=== PATIENT | female | born 1975 ===

== ENCOUNTER → 2019-10-19 12:28 | Outpatient (CLI) | payer MEDICARE, MEDICAID, SELFPAY ==
--- NOTE | 2019-10-19 12:36 | DI.RAD.S_ITS ---
PROCEDURE: XR CERVICAL SPINE 4V OR 5V INDICATIONS: cervical radiculopathy TECHNIQUE: 5 views of the cervical spine acquired. COMPARISON: None. FINDINGS: Bones: No fractures or dislocations to the T4 level. Oblique images demonstrate no significant bony foraminal stenoses. Straightening of cervical lordosis which may be due to patient positioning and/or concurrent muscle spasms. Multilevel cervical spondylitic changes throughout the imaged spine. Soft tissues: No prevertebral soft tissue swelling. Left -sided tunneled port device is in place. Apparent tubing/catheter noted along the right neck and right upper chest. Surgical clips noted in the lower right neck. IMPRESSION: 1. Cervical spine without acute fracture or dislocation. 2. Multilevel cervical spondylosis. No significant neural foraminal narrowing on the oblique views. 3. Mild straightening of normal cervical lordosis likely related to positioning and/or concurrent muscle spasms. Dictated by: Travis Padilla M.D. on 10/19/2019 at 18:07 Approved by: Travis Padilla M.D. on 10/19/2019 at 18:09
== END ==
PROVIDERS: PCP Family Medicine; Referring Provider Family Medicine; Visit Provider Physical Medicine & Rehabilitation
DX: M47.22 Other spondylosis with radiculopathy, cervical region (principal)
CPT/HCPCS: 72050

== ENCOUNTER → 2020-05-24 09:53 | Outpatient (CLI) | payer MEDICARE, MEDICAID, SELFPAY ==
--- NOTE | 2020-05-24 | DI.MRI.S_ITS ---
PROCEDURE: MR SHOULDER RT W CON INDICATIONS: PAIN IN RIGHT SHOULDER TECHNIQUE: After the administration of 12 mL of dilute intra-articular Gadolinium contrast, oblique coronal T1 and T2 spin echo with fat saturation, oblique sagittal T1 spin echo with and without fat saturation, oblique sagittal T2 fast spin echo with fat saturation, axial T1 spin echo with fat saturation through the shoulder. COMPARISON: None. FINDINGS: Image quality: Excellent. Rotator cuff: Tendinosis and low-grade articular and bursal surface partial thickness tear involving distal supraspinatus at its insertion on the humeral head is seen extending to musculotendinous junction. Distal infraspinatus tendinosis at its insertion on the humeral head is also seen. Distal subscapularis tendon is grossly intact. No full-thickness rotator cuff tendon rupture. No significant rotator cuff muscle atrophy on sagittal images. Bones and bursae: No bone marrow contusions or fractures. Mild acromioclavicular joint osteoarthritic changes are seen with small inferior osteophyte formation depressing the musculotendinous junction of supraspinatus. The acromion demonstrates conventional anatomy, without an os acromiale. Capsule and soft tissues: There is signal abnormality and contrast extension in superior anterior labrum at 12 to 1 o'clock position. The glenohumeral ligaments appear intact. The long head of the biceps tendon demonstrates normal location and morphology. The rotator interval appears normal, without fibrosis. The coracohumeral ligament is of normal thickness. No intra-articular bodies. IMPRESSION: 1. Tendinosis and low-grade articular and bursal surface partial thickness tear involving distal supraspinatus extending to musculotendinous junction. Distal infraspinatus tendinosis. No full-thickness rotator cuff tendon rupture. 2. Mild acromioclavicular joint osteoarthritis. No fracture or dislocation. 3. Suggestion of focal superior anterior labral tear at 12 to 1 o'clock position. Dictated by: Anupam Deras M.D. on 05/24/2020 at 14:40 Approved by: Anupam Deras M.D. on 05/24/2020 at 15:37
--- NOTE | 2020-05-24 | DI.RAD.S_ITS ---
PROCEDURE: FL SHOULDER INJECTION MR/CT RT INDICATIONS: PAIN IN RIGHT SHOULDER COMPARISON: None. TECHNIQUE: The indications, alternatives, benefits, risks, and complications of the procedure were explained to the patient. Written informed consent was obtained and placed in the chart. The shoulder was examined fluoroscopically and a site for needle placement chosen for entry into the glenohumeral joint from an anterior approach. The skin was prepped and draped in a sterile fashion, and 1% lidocaine infiltrated from skin down to joint capsule. A spinal needle was inserted into the glenohumeral joint, and a small amount of iodinated contrast media injected to confirm intra-articular placement of the needle tip. This was followed by approximately 12 mL dilute solution of a gadolinium containing MR contrast agent. The needle was removed and a dressing was applied. The patient was given postprocedural instructions and sent to the MR suite for MR imaging. FINDINGS: A single fluoroscopic spot image demonstrates intra-articular location of injected iodinated contrast. IMPRESSION: Successful fluoroscopically guided administration of dilute Gadolinium solution into the shoulder joint for MR arthrogram. Dictated by: Donald Greenberg M.D. on 05/24/2020 at 13:45 Approved by: Donald Greenberg M.D. on 05/24/2020 at 13:45
== END ==
PROVIDERS: PCP Family Medicine; Referring Provider Orthopaedic Surgery; Visit Provider Orthopaedic Surgery
DX: S46.011A Strain of muscle(s) and tendon(s) of the rotator cuff of right shoulder, initial encounter (principal); M19.011 Primary osteoarthritis, right shoulder
CPT/HCPCS: 23350; 73222; 77002

== ENCOUNTER 2020-08-18 14:20 | Emergency (ER) | payer MEDICARE, MEDICAID, SELFPAY ==
[2020-08-18] VITALS (26 sets, daily range): BP systolic 122–144; BP diastolic 59–91; PULSE 82–125; RESP 12–43; TEMP 36.7; O2SAT 94–99; BMI 43.7
--- NOTE | 2020-08-18 15:00 | DI.CT.S_ITS ---
PROCEDURE: CT ABDOMEN PELVIS WO CON INDICATIONS: right flank/left lower abd pain TECHNIQUE: Noncontrast 5 mm thick sections acquired from the diaphragms to the symphysis. 5 mm coronal and sagittal reformats were then performed. For radiation dose reduction, the following was used: automated exposure control, adjustment of mA and/or kV according to patient size. COMPARISON: Outside Facility, RG, CT HEAD W/O CONTRAST, 12/23/2019, 14:23. FINDINGS: Image quality: Excellent. ABDOMEN: Lung bases: Lung bases are clear. Heart size is normal. Solid organs: Liver is normal in size. Gallbladder has been previously resected . Pancreas is normal in contours. Spleen is normal in size. No adrenal nodules. Kidneys are normal in size, without hydronephrosis or nephrolithiasis. Several small nonobstructive calculi are present within the collecting system of the kidneys, right greater than left, none of which are larger than 3 mm. Peritoneum and bowel: Unenhanced bowel loops demonstrate normal wall thickness and caliber. No free fluid or air. Nodes and vessels: No retroperitoneal or mesenteric adenopathy by size criteria. Aorta and inferior vena cava are normal in caliber. Miscellaneous: No ventral hernias. What appears to be an abandoned catheter lies within the fatty soft tissues of the low right flank area and traversing anteriorly to the right lower quadrant where it enters the peritoneal space. No associated inflammatory change. Additionally, descending from the upper imaging margin is a 2nd catheter like device that traverses from the lower chest into the right paramedian abdomen, and then the peritoneal space, likely a ventriculoperitoneal shunt. PELVIS: Genitourinary: Bladder wall thickness is normal. Miscellaneous: No inguinal hernias or adenopathy. Bones: No suspicious bony lesions. No vertebral body compression fractures. IMPRESSION: A source of current abdominal/pelvic pain is not seen. Apparent peritoneal shunt and then also a apparent abandoned catheter are seen over the lower chest, abdomen and pelvis. These show no sign of inflammation along their borders. Dictated by: Donald Greenberg M.D. on 08/18/2020 at 15:27 Approved by: Donald Greenberg M.D. on 08/18/2020 at 15:31
[2020-08-18 16:01] LABS: Add Manual Diff / Slide Review NO; Basophils Absolute Auto 0 /uL (0-100); Basophils Percent Auto 0.3 % (0-2); Eosinophils Absolute Auto 100 /uL (0-450); Eosinophils Percent Auto 1.1 % (2-4); Hematocrit 35.8 % (36-46); Hemoglobin 12.2 g/dL (12.0-16.0); Lymphocytes Absolute Auto 2400 /uL (1100-4500); Lymphocytes Percent Auto 23.5 % (25-40); Mean Corpuscular HGB Conc 34.2 % (30-36); Mean Corpuscular Hemoglobin 30.1 PG (26-34); Mean Corpuscular Volume 87.9 fL (80-100); Monocytes Absolute Auto 500 /uL (0-900); Neutrophils Absolute Auto 7300 /uL (1500-7000); Neutrophils Percent Auto 70.1 % (50-75); Platelet Count 290 X10^3/uL (150-400); Red Blood Cell Count 4.07 X10^6/uL (4.0-5.2); Red Cell Distribution Width 13.2 % (11.6-14.8); White Blood Cell Count 10.4 X10^3/uL (4.5-11.0)
[2020-08-18 16:07] LABS: Prothrombin Time 11.5 SECONDS (10.1-12.7)
[2020-08-18 16:10] LABS: PTT Partial Thromboplastin Tim 31 SECONDS (26.4-36.2)
[2020-08-18 16:15] LABS: Alanine Aminotransferase 19 IU/L (<35); Albumin Globulin Ratio 1.1 (1.0-2.8); Alkaline Phosphatase 148 U/L (38-126); Aspartate Aminotransferase 18 IU/L (14-36); BUN Creatinine Ratio 15.4 (6-22); Bilirubin Total 0.3 mg/dL (0.2-1.3); Blood Urea Nitrogen 10 mg/dL (7-17); Calcium 8.9 mg/dL (8.4-10.2); Carbon Dioxide 22 mmol/L (22-32); Chloride 105 mmol/L (98-107); Estimated Glomerular Filt Rate > 60.0 mL/min (>60); Globulin 3.5 g/dL (1.7-4.1); Glucose 397 mg/dL (70-100); HEMOLYSIS < 15 (0-50); Lactate (Lactic Acid) 3.2 mmol/L (0.7-2.1); Lipase 49 U/L (23-300); Sodium 136 mmol/L (137-145); Total Protein 7.5 g/dL (6.3-8.2)
[2020-08-18] MEDS: SODIUM CHLORIDE 0.9% 1,000 ML 1000 ML IV ×2 (16:20→21:33)
[2020-08-18] MEDS: ACETAMINOPHEN 325 MG TABLET 650 MG PO (16:21)
[2020-08-18] MEDS: diphenhydrAMINE 50 MG/ML VIAL IV (17:44)
[2020-08-18 17:56] LABS: Reflexed Lactate in 2 Hours Y
[2020-08-18 18:52] LABS: Lactate 2HR (Lactic Acid Rflx) 2.4 mmol/L (0.7-2.1)
--- NOTE | 2020-08-18 19:16 | ED_ITS ---
HPI - Back Pain/Injury General Chief Complaint: Urogenital-Female Stated Complaint: Right Back Flank Pain, Left Pelvic Pain Time Seen by Provider: 08/18/20 16:18 Source: patient History of Present Illness HPI Narrative: Patient complains onset right lower back pain upper lumbar radiating to the right pelvis at 11:00 a.m. this morning has been intermittent infrequent since then. No bowel or bladder incontinence. No numbness tingling weakness to the legs. Prior history for shots in the lumbar area. No prior history of back surgery otherwise. Had tooth infection about 4 weeks ago and completed antibiotics. Has been doing well. Denies any nausea vomiting or diarrhea. No urinary complaints. Heart rate noted. Patient states due to pain. However after reassessment and on monitor heart rate does resume back down to 95. Which she states is her baseline. Otherwise no recent illness fever chills cough cold or congestion. Right lower back pain radiates to the right lower quadrant as well as left lower quadrant. History kidney stones. Patient states feels similar to that. Related Data Home Medications Medication Instructions Recorded Confirmed acetaminophen 500 mg tablet 500 mg PO Q6H PRN 07/04/20 (Tylenol Extra Strength) ascorbic acid (vitamin C) 500 mg 500 mg PO DAILY 07/04/20 chewable tablet diclofenac sodium 1 % topical gel 2 g TOPICAL QID 07/04/20 (Arthritis Pain (diclofenac)) diltiazem HCl 240 mg 240 mg PO DAILY 07/04/20 capsule,extended release 24 hr (Cardizem CD) diphenhydramine HCl 25 mg capsule 25 mg PO QID PRN 07/04/20 (Benadryl) enoxaparin 120 mg/0.8 mL 120 mg SUBCUT DAILY 07/04/20 subcutaneous syringe erenumab-aooe 140 mg/mL 140 mg SUBCUT QMONTH 07/04/20 subcutaneous auto-injector (Aimovig Autoinjector) famotidine 20 mg tablet (Pepcid) 20 mg PO DAILY 07/04/20 furosemide 40 mg tablet (Lasix) 40 mg PO DAILY 07/04/20 hydrocodone 10 mg-acetaminophen 1 tab PO Q4-6H PRN 07/04/20 325 mg tablet hydroxyzine HCl 25 mg tablet 25 mg PO QID PRN 07/04/20 lamotrigine 100 mg tablet 100 mg PO DAILY 07/04/20 (Lamictal) lorazepam 0.5 mg tablet 0.5 mg PO DAILY PRN 07/04/20 metformin 1,000 mg tablet 1,000 mg PO BID 07/04/20 (Glucophage) omeprazole 40 mg capsule,delayed 40 mg PO DAILY 07/04/20 release ondansetron 4 mg disintegrating 4 mg PO Q8H 07/04/20 tablet sennosides 8.6 mg-docusate sodium 1 tab-cap PO BEDTIME 07/04/20 50 mg tablet (Senna with Docusate Sodium) sitagliptin 100 mg tablet (Januvia) 100 mg PO DAILY 07/04/20 tamsulosin 0.4 mg capsule (Flomax) 0.4 mg PO DAILY 07/04/20 tizanidine 4 mg capsule 4 mg PO BID PRN 07/04/20 topiramate 200 mg tablet (Topamax) 400 mg PO BID 07/04/20 venlafaxine 150 mg 150 mg PO DAILY 07/04/20 capsule,extended release 24 hr (Effexor XR) Allergies Allergy/AdvReac Type Severity Reaction Status Date / Time clindamycin Allergy Severe Anaphylaxis Verified 08/18/20 14:29 hylan G-F 20 Allergy Severe Anaphylaxis Verified 08/18/20 14:29 ibuprofen Allergy Severe SOB,RASH Verified 08/18/20 14:29 Iodinated Contrast Media Allergy Severe SOB-HIVES Verified 08/18/20 14:29 iothalamic acid Allergy Severe SOB,HIVES Verified 08/18/20 14:29 iron dextran complex Allergy Severe Anaphylaxis, Verified 08/18/20 14:29 HIVES meclizine Allergy Severe Palpitation Verified 08/18/20 14:29 s shrimp Allergy Severe Anaphylaxis Verified 08/18/20 14:29 valproic acid Allergy Severe Anaphylaxis Verified 08/18/20 14:29 venom-honey bee Allergy Severe Anaphylaxis Verified 08/18/20 14:29 adhesive tape Allergy Intermediate rash Verified 08/18/20 14:29 amoxicillin [From Augmentin] Allergy Intermediate Hives Verified 08/18/20 14:29 aspirin Allergy Intermediate rash Verified 08/18/20 14:29 clavulanic acid Allergy Intermediate Hives Verified 08/18/20 14:29 [From Augmentin] codeine Allergy Intermediate Hives Verified 08/18/20 14:29 divalproex sodium Allergy Intermediate Hives Verified 08/18/20 14:29 gabapentin Allergy Intermediate Swelling Verified 08/18/20 14:29 of Lip/Tongue/Throat ketorolac Allergy Intermediate Hives Verified 08/18/20 14:29 leuprolide Allergy Intermediate Hives Verified 08/18/20 14:29 levalbuterol Allergy Intermediate Hives Verified 08/18/20 14:29 NSAIDS (Non-Steroidal Allergy Intermediate Hives Verified 08/18/20 14:29 Anti-Inflamma promethazine Allergy Intermediate Hives Verified 08/18/20 14:29 tapentadol Allergy Intermediate rash/itchy Verified 08/18/20 14:29 vancomycin Allergy Intermediate Hives, Verified 08/18/20 14:29 ITCHING IRON SUCROSE Allergy Intermediate Hives,SOB Uncoded 08/18/20 14:29 Review of Systems Review of Systems Narrative: GENERAL: Denies chills, fatigue, malaise, fever, sweats. HEENT: Denies sinus pain, ear pain, sore throat RESPIRATORY: Denies dyspnea, cough CARDIOVASCULAR: Denies chest pain, palpitations GASTROINTESTINAL: Denies nausea, vomiting, complains of left lower quadrant pain abdominal pain : Denies dysuria, frequency, hematuria MUSCULOSKELETAL: Complains of radiating right lower back pain to the abdomen SKIN: Denies rash, skin lesions NEUROLOGIC: Denies weakness, numbness ROS Unobtainable: All systems reviewed & are unremarkable except as noted in HPI and below Patient History Medical History Cervical spondylosis Chronic pain syndrome Impingement syndrome of right shoulder Pseudotumor cerebri Surgical History H/O brain surgery H/O oophorectomy H/O thyroidectomy History of cholecystectomy Hx of appendectomy S/P DIRECTOR OF CODING shunt Family History Mother Diabetes mellitus Hypertension Arthritis Thrombophilia Sister Arthritis Hypertension Depression Social History Smoking Status: Never smoker Smoking Status: Never smoker Exam Narrative Exam Narrative: GENERAL: in no distress, not toxic not dyspneic HEAD: Normocephalic. EYES: Pupils equal round No scleral icterus. No injection no discharge ENT: Mucous membranes moist. NECK: Trachea midline. CARDIOVASCULAR: Regular rate and rhythm without murmurs RESPIRATORY: Clear to auscultation. Breath sounds equal bilaterally. No wheezes, rales, or rhonchi. GASTROINTESTINAL: Abdomen soft, non-tender EXTREMITIES: No gross deformities. BACK: Reproducible lower midline tenderness of the lumbar spine at the surgical scars. On palpation radiates to the right lower quadrant abdomen. No pain with movement. NEURO: AOx4. SKIN: Warm and dry PSYCH: Not anxious, is cooperative Initial Vital Signs Initial Vital Signs: Vital Signs Temperature 98.1 F 08/18/20 14:24 Pulse Rate 124 H 08/18/20 14:24 Respiratory Rate 18 08/18/20 14:24 Blood Pressure 140/91 H 08/18/20 14:24 Pulse Oximetry 96 08/18/20 14:24 Course Course Course Narrative: No new issues during course of stay. Patient tolerated IV contrast with Benadryl and Decadron supplement very well. Patient states she desires discharge home. However she does not have her home pain medication with her. She has to wait for very 4:00 a.m.. She does have a pain contract. She also has office appointment with primary care provider tomorrow. She inquired about pain medication between now and her [place] ride. She is not driving. Orders Ordered: ED Orders 08/18/20 19:15 CT lumbar spine w con Stat 08/18/20 23:02 Lactate (Lactic Acid) Stat Discontinued Medications Acetaminophen (Acetaminophen 325 Mg Tablet) 650 mg PO NOW ONE Stop: 08/18/20 16:19 Last Admin: 08/18/20 16:21 Dose: 650 mg Documented by: CHIP Dexamethasone (Dexamethasone 10 Mg/Ml Vial) 10 mg IV NOW ONE Stop: 08/18/20 19:15 Last Admin: 08/18/20 19:19 Dose: 10 mg Documented by: CHIP Diphenhydramine HCl (Diphenhydramine 25 Mg Tablet) 50 mg PO NOW ONE Stop: 08/18/20 17:28 Last Admin: 08/18/20 17:45 Dose: Not Given Documented by: CHIP Diphenhydramine HCl (Diphenhydramine 50 Mg/Ml Vial) 50 mg IV NOW ONE Stop: 08/18/20 17:43 Last Admin: 08/18/20 17:44 Dose: 50 mg Documented by: CHIP Diphenhydramine HCl (Diphenhydramine 50 Mg/Ml Vial) 50 mg IV NOW ONE Stop: 08/18/20 19:15 Last Admin: 08/18/20 19:20 Dose: Not Given Documented by: CHIP Diphenhydramine HCl (Diphenhydramine 50 Mg/Ml Vial) 25 mg IV NOW ONE Stop: 08/18/20 23:37 Last Admin: 08/18/20 23:50 Dose: 25 mg Documented by: CHIP Hydromorphone HCl (Hydromorphone 1 Mg Inj) 1 mg IV NOW ONE Stop: 08/18/20 21:18 Last Admin: 08/18/20 21:33 Dose: 1 mg Documented by: CHIP Sodium Chloride (Normal Saline 0.9%) 1,000 mls @ 1,000 mls/hr IV BOLUS ONE Stop: 08/18/20 17:17 Last Infusion: 08/18/20 21:33 Dose: 0 mls/hr Documented by: Admin: 08/18/20 16:20 Dose: 1,000 mls/hr Documented by: CHIP Sodium Chloride (Normal Saline 0.9%) 1,000 mls @ 1,000 mls/hr IV BOLUS ONE Stop: 08/18/20 22:25 Last Infusion: 08/18/20 23:16 Dose: 0 mls/hr Documented by: Admin: 08/18/20 21:33 Dose: 1,000 mls/hr Documented by: CHIP Morphine Sulfate (Morphine 4 Mg/Ml Inj) 4 mg IV NOW ONE Stop: 08/18/20 19:15 Last Admin: 08/18/20 19:20 Dose: 4 mg Documented by: CHIP Morphine Sulfate (Morphine 4 Mg/Ml Inj) 4 mg IV NOW ONE Stop: 08/18/20 23:37 Last Admin: 08/18/20 23:50 Dose: 4 mg Documented by: CHIP Ondansetron HCl (Ondansetron 4 Mg/2 Ml Inj) 4 mg IV NOW ONE Stop: 08/18/20 19:15 Last Admin: 08/18/20 19:19 Dose: 4 mg Documented by: CHIP Reevaluation(s) Reevaluation #1: Pain is controlled. Patient desires discharge home. She has appointment with family doctor tomorrow. Patient states feels much better Time: 23:38 Vital Signs Vital signs: Vital Signs - 8 hr 08/18/20 18:00 08/18/20 18:30 08/18/20 19:30 Pulse Rate 104 H 101 H 99 H Respiratory Rate 13 43 H 14 Blood Pressure Pulse Oximetry 98 98 97 08/18/20 19:58 08/18/20 20:00 08/18/20 20:30 Pulse Rate 101 H 92 H 91 H Respiratory Rate 15 16 20 Blood Pressure 142/63 H 127/60 Pulse Oximetry 98 97 98 08/18/20 20:31 08/18/20 21:00 08/18/20 21:01 Pulse Rate 89 87 86 Respiratory Rate 19 17 18 Blood Pressure 122/59 L 128/81 Pulse Oximetry 98 96 96 08/18/20 21:30 08/18/20 22:00 08/18/20 22:30 Pulse Rate 99 H 84 84 Respiratory Rate 21 18 16 Blood Pressure 132/81 131/89 130/73 Pulse Oximetry 95 96 94 08/18/20 23:00 08/18/20 23:30 08/18/20 23:32 Pulse Rate 82 91 H 95 H Respiratory Rate 15 14 Blood Pressure 134/76 142/70 H Pulse Oximetry 95 97 08/19/20 00:30 08/19/20 00:31 Pulse Rate 86 87 Respiratory Rate 18 16 Blood Pressure 122/65 Pulse Oximetry 96 96 MDM - Back Pain/Injury Differential Diagnosis Differential diagnosis: Likely lumbar radiculopathy, sciatica, strain of lumbar region, renal colic, pyelonephritis, AAA, discitis and other (Renal stone/lumbar abscess) Lab Data Result diagrams: 08/18/20 15:50 08/18/20 15:50 Labs: Lab Results 08/18/20 08/18/20 08/18/20 Range/Units 15:50 15:50 15:50 WBC 10.4 (4.5-11.0) X10^3/uL RBC 4.07 (4.0-5.2) X10^6/uL Hgb 12.2 (12.0-16.0) g/dL Hct 35.8 L (36-46) % MCV 87.9 (80-100) fL MCH 30.1 (26-34) PG MCHC 34.2 (30-36) % RDW 13.2 (11.6-14.8) % Plt Count 290 (150-400) X10^3/uL Neut % (Auto) 70.1 (50-75) % Lymph % (Auto) 23.5 L (25-40) % [place] % (Auto) 5.0 (3-14) % Eos % (Auto) 1.1 L (2-4) % Baso % (Auto) 0.3 (0-2) % Neut # (Auto) 7300 H (5790-2321) /uL Lymph # (Auto) 2400 (3217-3931) /uL [place] # (Auto) 500 (0-900) /uL Eos # (Auto) 100 (0-450) /uL Baso # (Auto) 0 (0-100) /uL PT 11.5 (10.1-12.7) SECONDS INR 1.0 (0.9-1.3) APTT 31 (26.4-36.2) SECONDS Sodium 136 L (137-145) mmol/L Potassium 3.0 L (3.4-5.1) mmol/L Chloride 105 (98-107) mmol/L Carbon Dioxide 22 (22-32) mmol/L BUN 10 (7-17) mg/dL Creatinine 0.65 (0.52-1.04) mg/dL Estimated GFR > 60.0 (>60) mL/min BUN/Creatinine Ratio 15.4 (6-22) Glucose 397 H (70-100) mg/dL Lactate (0.7-2.1) mmol/L Calcium 8.9 (8.4-10.2) mg/dL Total Bilirubin 0.3 (0.2-1.3) mg/dL AST 18 (14-36) IU/L ALT 19 (<35) IU/L Alkaline Phosphatase 148 H (38-126) U/L Total Protein 7.5 (6.3-8.2) g/dL Albumin 4.0 (3.5-5.0) g/dL Globulin 3.5 (1.7-4.1) g/dL Albumin/Globulin Ratio 1.1 (1.0-2.8) Lipase 49 (23-300) U/L 07/01/21 07/01/21 07/01/21 Range/Units 15:50 18:19 23:02 WBC (4.5-11.0) X10^3/uL RBC (4.0-5.2) X10^6/uL Hgb (12.0-16.0) g/dL Hct (36-46) % MCV (80-100) fL MCH (26-34) PG MCHC (30-36) % RDW (11.6-14.8) % Plt Count (150-400) X10^3/uL Neut % (Auto) (50-75) % Lymph % (Auto) (25-40) % [place] % (Auto) (3-14) % Eos % (Auto) (2-4) % Baso % (Auto) (0-2) % Neut # (Auto) (6768-4630) /uL Lymph # (Auto) (1481-9357) /uL [place] # (Auto) (0-900) /uL Eos # (Auto) (0-450) /uL Baso # (Auto) (0-100) /uL PT (10.1-12.7) SECONDS INR (0.9-1.3) APTT (26.4-36.2) SECONDS Sodium (137-145) mmol/L Potassium (3.4-5.1) mmol/L Chloride (98-107) mmol/L Carbon Dioxide (22-32) mmol/L BUN (7-17) mg/dL Creatinine (0.52-1.04) mg/dL Estimated GFR (>60) mL/min BUN/Creatinine Ratio (6-22) Glucose (70-100) mg/dL Lactate 3.2 H 2.4 H 1.2 (0.7-2.1) mmol/L Calcium (8.4-10.2) mg/dL Total Bilirubin (0.2-1.3) mg/dL AST (14-36) IU/L ALT (<35) IU/L Alkaline Phosphatase (38-126) U/L Total Protein (6.3-8.2) g/dL Albumin (3.5-5.0) g/dL Globulin (1.7-4.1) g/dL Albumin/Globulin Ratio (1.0-2.8) Lipase (23-300) U/L Point of Care Testing Test Results Negative Urine Dip Bedside Urine Glucose 1000 mg/dl Bedside Urine Bilirubin - Negative Bedside Urine Ketone - Negative Urine Specific [place] 1.015 Bedside Urine Occult Blood - Negative Bedside Urine pH 6.0 Bedside Urine Protein - Negative Bedside Urine Urobilinogen - Negative Bedside Urine Nitrite - Negative Bedside Urine Leukocytes - Negative Esterase Imaging Data CT scan - abdomen/pelvis: Radiologist's Impression: [address] [id number] Scan ReportSigned Patient: Vanessa Miguel MMR#: [id number]: 1975Acct:[id number]/Sex: 44 / FDate of Service: 08/18/20Loc: EDAccession Number: [id number] Procedure: CT abdomen pelvis wo con Ordering Provider: Rosie Rivera D.O. PROCEDURE: CT ABDOMEN PELVIS WO CON INDICATIONS: right flank/left lower abd pain TECHNIQUE: Noncontrast 5 mm thick sections acquired from the diaphragms to the symphysis. 5 mm coronal and sagittal reformats were then performed. For radiation dose reduction, the following was used: automated exposure control, adjustment of mA and/or kV according to patient size. COMPARISON: Outside Facility, RG, CT HEAD W/O CONTRAST, 12/23/2019, 14:23. FINDINGS: Image quality: Excellent. ABDOMEN: Lung bases: Lung bases are clear. Heart size is normal. Solid organs: Liver is normal in size. Gallbladder has been previously resected . Pancreas is normal in contours. Spleen is normal in size. No adrenal nodules. Kidneys are normal in size, without hydronephrosis or nephrolithiasis. Several small nonobstructive calculi are present within the collecting system of the kidneys, right greater than left, none of which are larger than 3 mm. Peritoneum and bowel: Unenhanced bowel loops demonstrate normal wall thickness and caliber. No free fluid or air. Nodes and vessels: No retroperitoneal or mesenteric adenopathy by size criteria. Aorta and inferior vena cava are normal in caliber. Miscellaneous: No ventral hernias. What appears to be an abandoned catheter lies within the fatty soft tissues of the low right flank area and traversing anteriorly to the right lower quadrant where it enters the peritoneal space. No associated inflammatory change. Additionally, descending from the upper imaging margin is a 2nd catheter like device that traverses from the lower chest into the right paramedian abdomen, and then the peritoneal space, likely a ventriculoperitoneal shunt. PELVIS: Genitourinary: Bladder wall thickness is normal. Miscellaneous: No inguinal hernias or adenopathy. Bones: No suspicious bony lesions. No vertebral body compression fractures. IMPRESSION: A source of current abdominal/pelvic pain is not seen. Apparent peritoneal shunt and then also a apparent abandoned catheter are seen over the lower chest, abdomen and pelvis. These show no sign of inflammation along their borders. Dictated by: Donald Greenberg M.D. on 08/18/2020 at 15:27 Approved by: Donald Greenberg M.D. on 08/18/2020 at 15:31 CT lumbar spine: Radiologist's Impression: [address] [id number] Scan ReportSigned Patient: Vanessa Miguel MMR#: [id number]: 1975Acct:[id number]/Sex: 44 / FDate of Service: 08/18/20Loc: EDAccession Number: [id number] Procedure: CT lumbar spine w con Ordering Provider: Rolo Dykes MD PROCEDURE: CT LUMBAR SPINE W CON INDICATIONS: Pain/fever TECHNIQUE: After the administration of intravenous Isovue contrast, 3 mm thick sections acquired through the levels of interest. Sagittal and coronal reformats were then constructed. For radiation dose reduction, the following was used: automated exposure control. COMPARISON: None. FINDINGS: Image quality: Excellent. No visualized fractures or dislocations. No suspicious osseous lesions. There is trace retrolisthesis of L5 on S1. Minimal disc space narrowing is noted at L5-S1 as well as mild to moderate bilateral foraminal narrowing. No spinal stenosis. Punctate bilateral nonobstructing renal calculi are present. Left ovarian low-attenuation focus measuring 3 cm is present. Visualized portions of the bowel loops are nonobstructive. No visualized areas of free fluid or free air. Soft tissues are unremarkable. IMPRESSION: 1. No areas of abnormal enhancement. 2. Early degenerative changes most prominent at L5-S1. 3. Left ovarian cyst. Dictated by: Linda Rosario M.D. on 08/18/2020 at 20:50 Approved by: Linda Rosario M.D. on 08/18/2020 at 20:52 MDM Narrative Medical decision making narrative: Patient cannot get MRI because she has stimulator system in her brain that needs to be adjusted before MRI. She does not have the resources to do that here. Exam and labs and imaging reassuring. Pain control at time of discharge. Patient desires discharge home. Lactic acid did improve. No elevated white cell count or fever here. Not toxic at discharge. Discharge Plan Departure Patient Disposition: Home Clinical Impression: Low back pain Qualifiers: Chronicity: acute Back pain laterality: midline Sciatica presence: unspecified whether sciatica present Qualified Code(s): M54.5 - Low back pain Activity Restrictions/Additional Instructions: No driving or operating machinery this morning or tonight. See family doctor tomorrow as scheduled. Return if worse or if any questions or concerns. Prescriptions: No Action Aimovig Autoinjector 140 mg/mL auto-injector 140 mg SUBCUT QMONTH RF: 0 hydroxyzine HCl 25 mg tablet 25 mg PO QID PRNRF: 0 diphenhydramine HCl [Benadryl] 25 mg capsule 25 mg PO QID PRNRF: 0 diltiazem HCl [Cardizem CD] 240 mg capsule,extended release 24hr 240 mg PO DAILY RF: 0 ascorbic acid (vitamin C) 500 mg tablet,chewable 500 mg PO DAILY RF: 0 diclofenac sodium [Arthritis Pain (diclofenac)] 1 % gel 2 g topical QID RF: 0 sennosides-docusate sodium [Senna with Docusate Sodium] 8.6-50 mg tablet 1 tab-cap PO BEDTIME RF: 0 venlafaxine [Effexor XR] 150 mg capsule,extended release 24hr 150 mg PO DAILY RF: 0 enoxaparin 120 mg/0.8 mL syringe 120 mg SUBCUT DAILY RF: 0 tamsulosin [Flomax] 0.4 mg capsule 0.4 mg PO DAILY RF: 0 metformin [Glucophage] 1,000 mg tablet 1,000 mg PO BID RF: 0 Januvia 100 mg tablet 100 mg PO DAILY RF: 0 lamotrigine [Lamictal] 100 mg tablet 100 mg PO DAILY RF: 0 furosemide [Lasix] 40 mg tablet 40 mg PO DAILY RF: 0 lorazepam 0.5 mg tablet 0.5 mg PO DAILY PRNRF: 0 tizanidine 4 mg capsule 4 mg PO BID PRNRF: 0 topiramate [Topamax] 200 mg tablet 400 mg PO BID RF: 0 acetaminophen [Tylenol Extra Strength] 500 mg tablet 500 mg PO Q6H PRNRF: 0 hydrocodone-acetaminophen 10-325 mg tablet 1 tab PO Q4-6H PRNRF: 0 omeprazole 40 mg capsule,delayed release(DR/EC) 40 mg PO DAILY RF: 0 ondansetron 4 mg tablet,disintegrating 4 mg PO Q8H RF: 0 famotidine [Pepcid] 20 mg tablet 20 mg PO DAILY RF: 0 Referrals: Linn Hall MD [Primary Care Provider] -
[2020-08-18] MEDS: ONDANSETRON 4 MG/2 ML INJ IV (19:19)
[2020-08-18] MEDS: DEXAMETHASONE 10 MG/ML VIAL IV (19:19)
[2020-08-18] MEDS: MORPHINE 4 MG/ML INJ IV ×2 (19:20→23:50)
[2020-08-18] MEDS: HYDROMORPHONE 1 MG INJ IV (21:33)
[2020-08-18 23:23] LABS: Lactate (Lactic Acid) 1.2 mmol/L (0.7-2.1)
[2020-08-18] MEDS: diphenhydrAMINE 50 MG/ML VIAL 25 MG IV (23:50)
[2020-08-19 00:30] VITALS: PULSE 86; RESP 18; O2SAT 96
[2020-08-19 00:31] VITALS: BP 122/65; PULSE 87; RESP 16; O2SAT 96
== END 2020-08-19 06:05 | disposition home or self-care (01) ==
PROVIDERS: Emergency Medicine; Emergency Provider Emergency Medicine; PCP Family Medicine
DX: M54.5 Low back pain (principal); R10.31 Right lower quadrant pain; R10.32 Left lower quadrant pain
CPT/HCPCS: 36415; 72132; 74176; 80053; 81003; 81025; 83605; 83690; 85025; 85610; 85730; 87040; 93005; 96361; 96374; 96375; 96376; 99284; J1100; J1170; J1200; J2270; J2405; Q9967

== ENCOUNTER → 2020-09-06 11:57 | Outpatient (CLI) | payer MEDICARE, MEDICAID, SELFPAY ==
--- NOTE | 2020-09-06 11:59 | DI.US.S_ITS ---
PROCEDURE: US PELVIC COMPLETE INDICATIONS: F/U LT ADNEXAL MASS SEEN ON CT TECHNIQUE: Real-time scanning was performed of the pelvic organs, with image documentation. Additional endovaginal scanning was necessary due to incomplete visualization of the adnexal and endometrial structures by transabdominal scanning. COMPARISON: [facility], CT, CT ABDOMEN PELVIS WO CON, 08/18/2020, 15:07. FINDINGS: Uterus: Uterus is normal in size at 6.7 x 3.2 x 4.6 cm. The endometrium measures 2 mm in combined thickness. There is a right posterior subserosal uterine fibroid measuring 2.0 x 1.3 x 1.8 cm. There is a 2nd subserosal uterine fibroid noted in the right posterior uterus measuring 3.1 x 2.6 x 2.5 cm. Ovaries: Right ovary surgically absent. There is a 2.9 x 2.0 x 1.6 cm cystic lesion within the left adnexal region with thin internal septations. No internal vascularity. No septal vascular flow. A similar structure is noted on comparison CT dated August 18, 2020 and has appearance of a left-sided ovary/adnexa. Other: No pathologic free abdominal or pelvic fluid. IMPRESSION: 1. Normal size uterus with 2 subserosal uterine fibroid is noted measuring up to 2.0 cm and 3.1 cm respectively. 2. There is a 2.9 cm cystic lesion within the left adnexa/ovary with thin internal septations. This likely represents a mildly complicated ovarian cyst. Patient however reports remote history of left ovarian embolization. Recommend follow-up pelvic ultrasound in 6-12 weeks to document stability versus resolution. 3. Status post right oophorectomy. Dictated by: Travis Padilla M.D. on 09/06/2020 at 16:45 Approved by: Travis Padilla M.D. on 09/06/2020 at 16:54
== END ==
PROVIDERS: PCP Family Medicine; Referring Provider Specialist; Visit Provider Specialist
DX: N94.89 Other specified conditions associated with female genital organs and menstrual cycle (principal); D25.2 Subserosal leiomyoma of uterus; R93.89 Abnormal findings on diagnostic imaging of other specified body structures; Z90.721 Acquired absence of ovaries, unilateral
CPT/HCPCS: 76830; 76856

== ENCOUNTER 2021-04-18 09:04 | Emergency (ER) | payer MEDICARE, MEDICAID, SELFPAY ==
[2021-04-18] VITALS (9 sets, daily range): BP systolic 142–165; BP diastolic 77–96; PULSE 99–125; RESP 20–22; TEMP 36.4; O2SAT 97–99; BMI 39.4
--- NOTE | 2021-04-18 09:57 | ED.EXTPRO ---
HPI - Extremity Problem General Chief complaint: Extremity Problem,Nontraumatic Stated complaint: Abd/pelvic/leg pain Time Seen by Provider: 04/18/21 09:16 Source: patient Mode of arrival: Ambulatory History of Present Illness HPI Narrative: Patient is a 45-year-old female history of lupus antiphospholipid antibody multiple pulmonary embolisms on Lovenox, polycystic ovarian disease she was right ovary removed , presenting today with lower abdominal pain with vaginal bleeding and left leg pain. She states she was on her way to [facility] she has an appointment about her neck. She also has a history of Arnold-Chiari malformation with stent placement however on the [place] she started having significant left lower quadrant pain and light pink with vaginal spotting. She says she does not get regular menstrual cycles when she does have some vaginal bleeding it is usually due to a ruptured cyst but she has not had 1 in a long time. She denies any painful or frequent urination. She denies any intercourse. Noted abnormal vaginal discharge. Also complaining of left calf pain. She does have history of CRP however her pain has been much more intense than normal. She denies any fever nausea or vomiting. Related Data Home Medications Medication Instructions Recorded Confirmed acetaminophen 500 mg tablet 500 mg PO Q6H PRN 07/04/20 (Tylenol Extra Strength) ascorbic acid (vitamin C) 500 mg 500 mg PO DAILY 07/04/20 chewable tablet diclofenac sodium 1 % topical gel 2 g TOPICAL QID 07/04/20 (Arthritis Pain (diclofenac)) diltiazem HCl 240 mg 240 mg PO DAILY 07/04/20 capsule,extended release 24 hr (Cardizem CD) diphenhydramine HCl 25 mg capsule 25 mg PO QID PRN 07/04/20 (Benadryl) enoxaparin 120 mg/0.8 mL 120 mg SUBCUT DAILY 07/04/20 subcutaneous syringe erenumab-aooe 140 mg/mL 140 mg SUBCUT QMONTH 07/04/20 subcutaneous auto-injector (Aimovig Autoinjector) famotidine 20 mg tablet (Pepcid) 20 mg PO DAILY 07/04/20 furosemide 40 mg tablet (Lasix) 40 mg PO DAILY 07/04/20 hydrocodone 10 mg-acetaminophen 1 tab PO Q4-6H PRN 07/04/20 325 mg tablet hydroxyzine HCl 25 mg tablet 25 mg PO QID PRN 07/04/20 lamotrigine 100 mg tablet 100 mg PO DAILY 07/04/20 (Lamictal) lorazepam 0.5 mg tablet 0.5 mg PO DAILY PRN 07/04/20 metformin 1,000 mg tablet 1,000 mg PO BID 07/04/20 (Glucophage) omeprazole 40 mg capsule,delayed 40 mg PO DAILY 07/04/20 release ondansetron 4 mg disintegrating 4 mg PO Q8H 07/04/20 tablet sennosides 8.6 mg-docusate sodium 1 tab-cap PO BEDTIME 07/04/20 50 mg tablet (Senna with Docusate Sodium) sitagliptin 100 mg tablet (Januvia) 100 mg PO DAILY 07/04/20 tamsulosin 0.4 mg capsule (Flomax) 0.4 mg PO DAILY 07/04/20 tizanidine 4 mg capsule 4 mg PO BID PRN 07/04/20 topiramate 200 mg tablet (Topamax) 400 mg PO BID 07/04/20 venlafaxine 150 mg 150 mg PO DAILY 07/04/20 capsule,extended release 24 hr (Effexor XR) Allergies Allergy/AdvReac Type Severity Reaction Status Date / Time clindamycin Allergy Severe Anaphylaxis Verified 04/18/21 09:15 hylan G-F 20 Allergy Severe Anaphylaxis Verified 04/18/21 09:15 ibuprofen Allergy Severe SOB,RASH Verified 04/18/21 09:15 Iodinated Contrast Media Allergy Severe SOB-HIVES Verified 04/18/21 09:15 iothalamic acid Allergy Severe SOB,HIVES Verified 04/18/21 09:15 iron dextran complex Allergy Severe Anaphylaxis, Verified 04/18/21 09:15 HIVES meclizine Allergy Severe Palpitation Verified 04/18/21 09:15 s shrimp Allergy Severe Anaphylaxis Verified 04/18/21 09:15 valproic acid Allergy Severe Anaphylaxis Verified 04/18/21 09:15 venom-honey bee Allergy Severe Anaphylaxis Verified 04/18/21 09:15 adhesive tape Allergy Intermediate rash Verified 04/18/21 09:15 amoxicillin [From Augmentin] Allergy Intermediate Hives Verified 04/18/21 09:15 aspirin Allergy Intermediate rash Verified 04/18/21 09:15 clavulanic acid Allergy Intermediate Hives Verified 04/18/21 09:15 [From Augmentin] codeine Allergy Intermediate Hives Verified 04/18/21 09:15 divalproex sodium Allergy Intermediate Hives Verified 04/18/21 09:15 gabapentin Allergy Intermediate Swelling Verified 04/18/21 09:15 of Lip/Tongue/Throat ketorolac Allergy Intermediate Hives Verified 04/18/21 09:15 leuprolide Allergy Intermediate Hives Verified 04/18/21 09:15 levalbuterol Allergy Intermediate Hives Verified 04/18/21 09:15 NSAIDS (Non-Steroidal Allergy Intermediate Hives Verified 04/18/21 09:15 Anti-Inflamma promethazine Allergy Intermediate Hives Verified 04/18/21 09:15 tapentadol Allergy Intermediate rash/itchy Verified 04/18/21 09:15 vancomycin Allergy Intermediate Hives, Verified 04/18/21 09:15 ITCHING IRON SUCROSE Allergy Intermediate Hives,SOB Uncoded 04/18/21 09:15 Review of Systems Review of Systems Narrative: GENERAL: Denies chills, fatigue, malaise, fever, sweats, travel HEENT: Denies sinus pain, ear pain, sore throat, difficulty swallowing, neck pain RESPIRATORY: Denies dyspnea, cough, wheezing, hemoptysis, sputum. CARDIOVASCULAR: Denies chest pain, palpitations, orthopnea, edema GASTROINTESTINAL: See HPI : Denies dysuria, frequency, incontinence, hematuria, urinary retention, flank pain. MUSCULOSKELETAL: Denies weakness, joint pain, or bony pain SKIN: No rash, no erythema, no pruritus NEUROLOGIC: Denies weakness, dizziness, headache, numbness, change in speech, confusion PSYCHIATRIC: No concerning psychosocial issues. 12 point review of systems is negative except for those stated above and HPI Patient History Medical History Cervical spondylosis Chronic pain syndrome Impingement syndrome of right shoulder Pseudotumor cerebri Surgical History H/O brain surgery H/O oophorectomy H/O thyroidectomy History of cholecystectomy Hx of appendectomy S/P GENERAL STUDIES PROGRAM CHAIR shunt Family History Mother Diabetes mellitus Hypertension Arthritis Thrombophilia Sister Arthritis Hypertension Depression Social History Smoking Status: Never smoker Smoking Status: Never smoker alcohol intake frequency: holidays/special occasions only Substance Use Type: does not use Exam Initial Vital Signs Initial Vital Signs: Vital Signs Pulse Rate 119 H 04/18/21 09:13 Pulse Oximetry 98 04/18/21 09:13 GENERAL: Alert well-appearing 45-year-old female and in no acute distress. HEENT: Head atraumatic,EOMI, pupils reactive, face symmetric, moist mucous membranes CARDIOVASCULAR: Regular rate and rhythm without murmurs, rubs or gallops. RESPIRATORY: Breath sounds equal bilaterally, no wheezes rales or rhonchi. ABDOMEN: Soft, significant tenderness left lower quadrant no guarding no rebound no upper quadrant pain : No CVA tenderness EXTREMITIES: Normal range of motion, no clubbing or edema. Neurovascularly intact NEUROLOGICAL: Alert and oriented x4.Normal gait and speech. SKIN: Warm, dry, no laceration, no petechiae, no rashes or lesions. Course Orders Ordered: ED Orders 04/18/21 10:06 US pelvic complete Stat US periph venous low extrem lt Stat 04/18/21 10:15 Urine Microscopic Stat 04/18/21 10:27 CBC Auto Diff [Complete Blood Count AUTO DIFF] Stat CMP [Comprehensive Metabolic Panel] Stat Lipase Stat 04/18/21 10:36 PT [Prothrombin Time INR] Stat PTT [Partial Thromboplastin Time] Stat 04/18/21 12:32 CT abdomen pelvis w con Stat Discontinued Medications Diphenhydramine HCl (Diphenhydramine 50 Mg/Ml Vial) 25 mg IV NOW ONE Stop: 04/18/21 11:54 Last Admin: 04/18/21 12:02 Dose: 25 mg Documented by: DWAYNE Diphenhydramine HCl (Diphenhydramine 50 Mg/Ml Vial) 25 mg IV NOW ONE Stop: 04/18/21 13:18 Last Admin: 04/18/21 13:30 Dose: 25 mg Documented by: DWAYNE Heparin Sodium (Porcine) (Heparin 500 Unit/5 Ml Port Flush) 500 unit IV PRN PRN PRN Reason: Flush Last Admin: 04/18/21 13:34 Dose: 500 unit Documented by: DWAYNE Hydromorphone HCl (Hydromorphone 1 Mg Inj) 1 mg IV NOW ONE Stop: 04/18/21 11:34 Last Admin: 04/18/21 11:56 Dose: 1 mg Documented by: DWAYNE Methylprednisolone (Methylprednisolone 125 Mg/2 Ml Vial) 125 mg IV NOW ONE Stop: 04/18/21 11:55 Last Admin: 04/18/21 12:02 Dose: 125 mg Documented by: DWAYNE Morphine Sulfate (Morphine 4 Mg/Ml Inj) 4 mg IV NOW ONE Stop: 04/18/21 10:07 Last Admin: 04/18/21 10:36 Dose: 4 mg Documented by: DWAYNE Ondansetron HCl (Ondansetron 4 Mg/2 Ml Inj) 4 mg IV NOW ONE Stop: 04/18/21 10:07 Last Admin: 04/18/21 10:35 Dose: 4 mg Documented by: DWAYNE Vital Signs Vital signs: Vital Signs - 8 hr 04/18/21 11:46 04/18/21 11:47 04/18/21 12:00 Pulse Rate 119 H 122 H 125 H Respiratory Rate Blood Pressure 150/82 H 142/77 H Pulse Oximetry 99 98 98 04/18/21 13:41 Pulse Rate 99 H Respiratory Rate 22 Blood Pressure 142/85 H Pulse Oximetry 97 MDM - Extremity (Nontraumatic) Lab Data Result diagrams: 04/18/21 10:27 04/18/21 10:27 Labs: Lab Results 04/18/21 04/18/21 04/18/21 Range/Units 10:15 10:27 10:27 WBC 11.2 H (4.5-11.0) X10^3/uL RBC 4.18 (4.0-5.2) X10^6/uL Hgb 13.2 (12.0-16.0) g/dL Hct 38.0 (36-46) % MCV 90.9 (80-100) fL MCH 31.7 (26-34) PG MCHC 34.9 (30-36) % RDW 13.8 (11.6-14.8) % Plt Count 321 (150-400) X10^3/uL Neut % (Auto) 68.9 (50-75) % Lymph % (Auto) 23.9 L (25-40) % [place] % (Auto) 4.9 (3-14) % Eos % (Auto) 1.9 L (2-4) % Baso % (Auto) 0.4 (0-2) % Neut # (Auto) 7700 H (0011-8143) /uL Lymph # (Auto) 2700 (5110-3894) /uL [place] # (Auto) 500 (0-900) /uL Eos # (Auto) 200 (0-450) /uL Baso # (Auto) 0 (0-100) /uL PT (10.1-12.7) SECONDS INR (0.9-1.3) APTT (26.4-36.2) SECONDS Sodium 135 L (137-145) mmol/L Potassium 4.0 (3.4-5.1) mmol/L Chloride 101 (98-107) mmol/L Carbon Dioxide 19 L (22-32) mmol/L BUN 25 H (7-17) mg/dL Creatinine 0.95 (0.52-1.04) mg/dL Estimated GFR > 60.0 (>60) mL/min BUN/Creatinine Ratio 26.3 H (6-22) Glucose 313 H (70-100) mg/dL Calcium 9.4 (8.4-10.2) mg/dL Total Bilirubin 0.5 (0.2-1.3) mg/dL AST 23 (14-36) IU/L ALT 19 (<35) IU/L Alkaline Phosphatase 176 H (38-126) U/L Total Protein 8.7 H (6.3-8.2) g/dL Albumin 4.8 (3.5-5.0) g/dL Globulin 3.9 (1.7-4.1) g/dL Albumin/Globulin Ratio 1.2 (1.0-2.8) Lipase 82 (23-300) U/L Urine RBC 0-1/hpf (0-5/HPF) Urine WBC 1-5/hpf (0-5/HPF) Ur Squamous Epith Cells 5-10 /hpf H (0-5/HPF) Urine Bacteria Few (2-10) H (None) Ur Culture Indicated? Cult not indicated 04/18/21 Range/Units 10:36 WBC (4.5-11.0) X10^3/uL RBC (4.0-5.2) X10^6/uL Hgb (12.0-16.0) g/dL Hct (36-46) % MCV (80-100) fL MCH (26-34) PG MCHC (30-36) % RDW (11.6-14.8) % Plt Count (150-400) X10^3/uL Neut % (Auto) (50-75) % Lymph % (Auto) (25-40) % [place] % (Auto) (3-14) % Eos % (Auto) (2-4) % Baso % (Auto) (0-2) % Neut # (Auto) (6689-7362) /uL Lymph # (Auto) (6652-8161) /uL [place] # (Auto) (0-900) /uL Eos # (Auto) (0-450) /uL Baso # (Auto) (0-100) /uL PT 10.7 (10.1-12.7) SECONDS INR 1.0 (0.9-1.3) APTT 37 H D (26.4-36.2) SECONDS Sodium (137-145) mmol/L Potassium (3.4-5.1) mmol/L Chloride (98-107) mmol/L Carbon Dioxide (22-32) mmol/L BUN (7-17) mg/dL Creatinine (0.52-1.04) mg/dL Estimated GFR (>60) mL/min BUN/Creatinine Ratio (6-22) Glucose (70-100) mg/dL Calcium (8.4-10.2) mg/dL Total Bilirubin (0.2-1.3) mg/dL AST (14-36) IU/L ALT (<35) IU/L Alkaline Phosphatase (38-126) U/L Total Protein (6.3-8.2) g/dL Albumin (3.5-5.0) g/dL Globulin (1.7-4.1) g/dL Albumin/Globulin Ratio (1.0-2.8) Lipase (23-300) U/L Urine RBC (0-5/HPF) Urine WBC (0-5/HPF) Ur Squamous Epith Cells (0-5/HPF) Urine Bacteria (None) Ur Culture Indicated? Point of Care Testing Test Results Negative Urine Dip Bedside Urine Glucose 100 mg/dl Bedside Urine Bilirubin - Negative Urine Specific [place] 1.015 Bedside Urine Occult Blood +/- Bedside Urine pH 6.0 Bedside Urine Protein +/- 15 Bedside Urine Urobilinogen - Negative Bedside Urine Nitrite - Negative Bedside Urine Leukocytes - Negative Esterase Imaging Data US - WOOD MOLDER: Radiologist's Impression: PROCEDURE:? US PELVIC COMPLETE ? INDICATIONS:? LEFT ADNEXAL PAIN; SPOTTING ? TECHNIQUE:? Real-time scanning was performed of the pelvic organs, with image documentation.? Additional endovaginal scanning was necessary due to incomplete visualization of the adnexal and endometrial structures by transabdominal scanning.? ? COMPARISON:? [facility], , PELVIC COMPLETE, 09/06/2020, 11:32. ? FINDINGS:? ?? Uterus:? Uterus is anteverted and normal in size at 6.3 x 3.1 x 6.9 cm. The myometrium is homogeneous.? There is a right posterior intramural 2.8 x 2.3 x 2.3 cm fibroid and a right posterior intramural 2.6 x 1.3 x 2.0 cm fibroid.? The endometrium measures 2 mm combined thickness. ? ? Ovaries:? The right ovary is surgically absent.? The left ovary measures 2.8 x 1.9 x 2.4 cm.? There is a left simple ovarian cyst which measures 2.6 x 1.8 x 2.3 cm.? Normal Doppler waveforms are noted in the left ovary. ? Other:? No pathologic free abdominal or pelvic fluid. ? ? IMPRESSION:? ? 1. Fibroid uterus. ? 2. Simple left ovarian cyst. ? 3. No findings to explain pelvic pain.? We strive to produce accurate, complete, and clear reports of imaging services. To assist us in improving patient care, this report was composed using standard report templates and voice recognition software. Therefore, it may contain abnormal punctuation, insertions and/or omissions. Occasional wrong-word or sound-alike substitutions may occur. Though we review the report and make efforts to correct it, we do recommend that the report be read carefully in proper context to recognize any text inaccuracies. ? ? Dictated by: Alecia Lopez M.D. on 04/18/2021 at 11:01 ? ? US - DVT: Radiologist's Impression: PROCEDURE:? US PERIPH VENOUS LOW EXTREM LT ? INDICATIONS:? PAIN; HX DVT ? TECHNIQUE:? Real-time imaging, as well as color and pulse Doppler interrogation, were performed of the lower extremity deep veins from the inguinal ligament to the popliteal fossa.? ? COMPARISON:? None. ? FINDINGS:? The common femoral, femoral and popliteal veins are normally compressible, and free of intraluminal thrombus.? Color and pulse Doppler demonstrate normal phasic intraluminal flow.? There is normal augmentation response to distal compression maneuver. ? ? IMPRESSION:? No deep vein thrombosis of the left lower extremity. ? ? Dictated by: Alecia Lopez M.D. on 04/18/2021 at 11:00 ? ? Approved by: Alecia Lopez M.D. on 04/18/2021 at 11:01 ? CT scan - abdomen/pelvis: Radiologist's Impression: PROCEDURE:? CT ABDOMEN PELVIS W CON ? INDICATIONS:? LLQ pain ? TECHNIQUE:? After the administration of intravenous contrast, axial sections acquired from the lung bases to the pubic symphysis.? Coronal and sagittal reformats were performed.? For radiation dose reduction, the following was used:? automated exposure control, adjustment of mA and/or kV according to patient size.? ? COMPARISON:? [facility], CT, CT ABDOMEN PELVIS WO CON, 08/18/2020, 15:07. ? FINDINGS:? Image quality:? Excellent.? ? Lung bases:? Unremarkable. Heart:? No significant findings. ? ABDOMEN: Liver:? Liver is normal in size.? Hepatic steatosis is seen, no discrete hepatic lesion. Gallbladder:? Gallbladder is surgically absent. Biliary ducts:? Unremarkable.? ? Pancreas:? Unremarkable.? ? Spleen:? Unremarkable.? ? Adrenal Glands:? Unremarkable.? ? Kidneys and Ureters:? Multiple bilateral nonobstructing renal calculi are again seen unchanged from prior study and measures up to 3 mm in size in lower pole of left kidney and 6 mm in size in lower pole of right kidney.? No hydronephrosis or perinephric fat stranding. ? Stomach and Bowel:? There is no bowel obstruction.? No gastric or small bowel wall thickening.? No colonic wall thickening or pericolonic fat stranding.? Mild colonic diverticulosis is seen, no CT evidence of acute diverticulitis.? No abscess collection. Peritoneum:? No abnormal intraperitoneal fluid.? No free air.? ? Ventral Wall: ? No hernias.? Right-sided [employer]GRAM CHAIR shunt catheter is noted with the tip seen in lower pelvis.? Abdominal Nodes:? No retroperitoneal or mesenteric adenopathy by size criteria.? Vessels:? Aorta and inferior vena cava are normal in size.? ? PELVIS: Pelvic Organs:? Uterus is within normal limits.? Surgical clips are noted in right adnexa consistent with prior right oophorectomy.? Suggestion of left ovarian cyst is noted and measures 2.1 x 1.9 cm in size.? Bladder:? Unremarkable.? ? Pelvic Nodes: No enlarged lymph nodes.? Miscellaneous: No hernias are seen. ? ? ? Bones:? No suspicious bony lesion.? No acute vertebral body compression fracture.? Degenerative disc disease at L4-5 and L5-S1 levels are seen. ? ? IMPRESSION:? 1. No bowel obstruction or abnormal bowel wall thickening.? No free fluid or free air.? No abscess collection.? Mild colonic diverticulosis without evidence of acute diverticulitis. 2. Bilateral nonobstructing renal calculi.? No hydronephrosis or hydroureter.? Normal appearing urinary bladder. 3.? Prior right oophorectomy.? Suggestion of left ovarian cyst as above.? 4.? Hepatic steatosis, no discrete hepatic lesion. 5. Right-sided possible GENERAL [employer]IES PROGRAM CHAIR shunt catheter is again seen and unchanged. ? ? Dictated by: Anupam Deras M.D. on 04/18/2021 at 12:54 ? ? Approved by: Anupam Deras M.D. on 04/18/2021 at 13:00 ? [facility] Narrative Medical decision making narrative: The patient has acute onset of lower abdominal pain, she does have a history of polycystic ovarian disease left ovary does show a simple cyst and CP is rather unremarkable. She also states she has a history of endometriosis. She has pain medication at. This time she does think that maybe this is a mild flare that she typically gets. She did get 1 dose of Solu-Medrol and Benadryl for iodine allergy. She was having some itching but no obvious rash she was given a 2nd dose of Benadryl. Overall she appears well blood work and workup today is unremarkable. She was having pain in her left calf with a negative DVT study along with taking Lovenox. She has not had a blood clot for a number of years well on Lovenox. Not having any symptoms associated with shunt, no head CT or shunt evaluation was done at this time. At this time recommend outpatient follow-up. Discharge Plan Departure Patient Disposition: Home Clinical Impression: Abdominal pain Instructions: DI for Abdominal Pain-Adult Activity Restrictions/Additional Instructions: *You have been diagnosed with abdominal pain *What to do: At this no cause of abdominal pain is found. Possible your endometriosis *Continue to take medications as directed Please take your pain medications at home as directed *Follow up with your primary care provider in 2-3 days or call [phone] *Return to ER if you should have increasing pain fever nausea vomiting worsening vaginal bleeding more than 2 pads in 1 hour or any new, worsening or concerning symptoms Prescriptions: No Action Aimovig Autoinjector 140 mg/mL auto-injector 140 mg SUBCUT QMONTH 0RF hydroxyzine HCl 25 mg tablet 25 mg PO QID PRN0RF diphenhydramine HCl [Benadryl] 25 mg capsule 25 mg PO QID PRN0RF diltiazem HCl [Cardizem CD] 240 mg capsule,extended release 24hr 240 mg PO DAILY 0RF ascorbic acid (vitamin C) 500 mg tablet,chewable 500 mg PO DAILY 0RF diclofenac sodium [Arthritis Pain (diclofenac)] 1 % gel 2 g topical QID 0RF Rx Instructions: apply to single elbow, wrist or hand; for hand includes palm/fingers/back of hand sennosides-docusate sodium [Senna with Docusate Sodium] 8.6-50 mg tablet 1 tab-cap PO BEDTIME 0RF venlafaxine [Effexor XR] 150 mg capsule,extended release 24hr 150 mg PO DAILY 0RF enoxaparin 120 mg/0.8 mL syringe 120 mg SUBCUT DAILY 0RF tamsulosin [Flomax] 0.4 mg capsule 0.4 mg PO DAILY 0RF metformin [Glucophage] 1,000 mg tablet 1,000 mg PO BID 0RF Januvia 100 mg tablet 100 mg PO DAILY 0RF lamotrigine [Lamictal] 100 mg tablet 100 mg PO DAILY 0RF furosemide [Lasix] 40 mg tablet 40 mg PO DAILY 0RF lorazepam 0.5 mg tablet 0.5 mg PO DAILY PRN0RF tizanidine 4 mg capsule 4 mg PO BID PRN0RF topiramate [Topamax] 200 mg tablet 400 mg PO BID 0RF acetaminophen [Tylenol Extra Strength] 500 mg tablet 500 mg PO Q6H PRN0RF hydrocodone-acetaminophen 10-325 mg tablet 1 tab PO Q4-6H PRN0RF omeprazole 40 mg capsule,delayed release(DR/EC) 40 mg PO DAILY 0RF ondansetron 4 mg tablet,disintegrating 4 mg PO Q8H 0RF famotidine [Pepcid] 20 mg tablet 20 mg PO DAILY 0RF Referrals: Linn Hall MD [Primary Care Provider] -
--- NOTE | 2021-04-18 10:06 | DI.US.S_ITS ---
PROCEDURE: US PELVIC COMPLETE INDICATIONS: LEFT ADNEXAL PAIN; SPOTTING TECHNIQUE: Real-time scanning was performed of the pelvic organs, with image documentation. Additional endovaginal scanning was necessary due to incomplete visualization of the adnexal and endometrial structures by transabdominal scanning. COMPARISON: [facility], US, US PELVIC COMPLETE, 09/06/2020, 11:32. FINDINGS: Uterus: Uterus is anteverted and normal in size at 6.3 x 3.1 x 6.9 cm. The myometrium is homogeneous. There is a right posterior intramural 2.8 x 2.3 x 2.3 cm fibroid and a right posterior intramural 2.6 x 1.3 x 2.0 cm fibroid. The endometrium measures 2 mm combined thickness. Ovaries: The right ovary is surgically absent. The left ovary measures 2.8 x 1.9 x 2.4 cm. There is a left simple ovarian cyst which measures 2.6 x 1.8 x 2.3 cm. Normal Doppler waveforms are noted in the left ovary. Other: No pathologic free abdominal or pelvic fluid. IMPRESSION: 1. Fibroid uterus. 2. Simple left ovarian cyst. 3. No findings to explain pelvic pain. We strive to produce accurate, complete, and clear reports of imaging services. To assist us in improving patient care, this report was composed using standard report templates and voice recognition software. Therefore, it may contain abnormal punctuation, insertions and/or omissions. Occasional wrong-word or sound-alike substitutions may occur. Though we review the report and make efforts to correct it, we do recommend that the report be read carefully in proper context to recognize any text inaccuracies. Dictated by: Alecia Lopez M.D. on 04/18/2021 at 11:01 Approved by: Alecia Lopez M.D. on 04/18/2021 at 11:03
--- NOTE | 2021-04-18 10:06 | DI.US.S_ITS ---
PROCEDURE: US PERIPH VENOUS LOW EXTREM LT INDICATIONS: PAIN; HX DVT TECHNIQUE: Real-time imaging, as well as color and pulse Doppler interrogation, were performed of the lower extremity deep veins from the inguinal ligament to the popliteal fossa. COMPARISON: None. FINDINGS: The common femoral, femoral and popliteal veins are normally compressible, and free of intraluminal thrombus. Color and pulse Doppler demonstrate normal phasic intraluminal flow. There is normal augmentation response to distal compression maneuver. IMPRESSION: No deep vein thrombosis of the left lower extremity. Dictated by: Alecia Lopez M.D. on 04/18/2021 at 11:00 Approved by: Alecia Lopez M.D. on 04/18/2021 at 11:01
[2021-04-18] MEDS: ONDANSETRON 4 MG/2 ML INJ IV (10:35)
[2021-04-18] MEDS: MORPHINE 4 MG/ML INJ IV (10:36)
[2021-04-18 10:41] LABS: Add Manual Diff / Slide Review NO; Basophils Absolute Auto 0 /uL (0-100); Basophils Percent Auto 0.4 % (0-2); Eosinophils Absolute Auto 200 /uL (0-450); Eosinophils Percent Auto 1.9 % (2-4); Hemoglobin 13.2 g/dL (12.0-16.0); Lymphocytes Absolute Auto 2700 /uL (1100-4500); Lymphocytes Percent Auto 23.9 % (25-40); Mean Corpuscular HGB Conc 34.9 % (30-36); Mean Corpuscular Hemoglobin 31.7 PG (26-34); Mean Corpuscular Volume 90.9 fL (80-100); Monocytes Absolute Auto 500 /uL (0-900); Monocytes Percent Auto 4.9 % (3-14); Neutrophils Absolute Auto 7700 /uL (1500-7000); Neutrophils Percent Auto 68.9 % (50-75); Platelet Count 321 X10^3/uL (150-400); Red Blood Cell Count 4.18 X10^6/uL (4.0-5.2); Red Cell Distribution Width 13.8 % (11.6-14.8); White Blood Cell Count 11.2 X10^3/uL (4.5-11.0)
[2021-04-18 10:43] LABS: Prothrombin Time 10.7 SECONDS (10.1-12.7)
[2021-04-18 10:46] LABS: PTT Partial Thromboplastin Tim 37 SECONDS (26.4-36.2)
[2021-04-18 10:48] LABS: RBC Urine 0-1/HPF (0-5/HPF)
[2021-04-18 10:49] LABS: Bacteria Urine Few (2-10); Culture Indicated Urine Cult Not Indicated; Squamous Epithelial Cell Urine 5-10 /HPF (0-5/HPF); WBC Urine 1-5/HPF (0-5/HPF)
[2021-04-18 11:06] LABS: Alanine Aminotransferase 19 IU/L (<35); Albumin 4.8 g/dL (3.5-5.0); Albumin Globulin Ratio 1.2 (1.0-2.8); Alkaline Phosphatase 176 U/L (38-126); Aspartate Aminotransferase 23 IU/L (14-36); BUN Creatinine Ratio 26.3 (6-22); Bilirubin Total 0.5 mg/dL (0.2-1.3); Blood Urea Nitrogen 25 mg/dL (7-17); Calcium 9.4 mg/dL (8.4-10.2); Carbon Dioxide 19 mmol/L (22-32); Chloride 101 mmol/L (98-107); Estimated Glomerular Filt Rate > 60.0 mL/min (>60); Globulin 3.9 g/dL (1.7-4.1); Glucose 313 mg/dL (70-100); HEMOLYSIS 59 (0-50); Lipase 82 U/L (23-300); Sodium 135 mmol/L (137-145); Total Protein 8.7 g/dL (6.3-8.2)
[2021-04-18] MEDS: HYDROMORPHONE 1 MG INJ IV (11:56)
[2021-04-18] MEDS: methylPREDNISolone 125 MG/2 ML VIAL IV (12:02)
[2021-04-18] MEDS: diphenhydrAMINE 50 MG/ML VIAL 25 MG IV ×2 (12:02→13:30)
--- NOTE | 2021-04-18 12:32 | DI.CT.S_ITS ---
PROCEDURE: CT ABDOMEN PELVIS W CON INDICATIONS: LLQ pain TECHNIQUE: After the administration of intravenous contrast, axial sections acquired from the lung bases to the pubic symphysis. Coronal and sagittal reformats were performed. For radiation dose reduction, the following was used: automated exposure control, adjustment of mA and/or kV according to patient size. COMPARISON: [facility], CT, CT ABDOMEN PELVIS WO CON, 08/18/2020, 15:07. FINDINGS: Image quality: Excellent. Lung bases: Unremarkable. Heart: No significant findings. ABDOMEN: Liver: Liver is normal in size. Hepatic steatosis is seen, no discrete hepatic lesion. Gallbladder: Gallbladder is surgically absent. Biliary ducts: Unremarkable. Pancreas: Unremarkable. Spleen: Unremarkable. Adrenal Glands: Unremarkable. Kidneys and Ureters: Multiple bilateral nonobstructing renal calculi are again seen unchanged from prior study and measures up to 3 mm in size in lower pole of left kidney and 6 mm in size in lower pole of right kidney. No hydronephrosis or perinephric fat stranding. Stomach and Bowel: There is no bowel obstruction. No gastric or small bowel wall thickening. No colonic wall thickening or pericolonic fat stranding. Mild colonic diverticulosis is seen, no CT evidence of acute diverticulitis. No abscess collection. Peritoneum: No abnormal intraperitoneal fluid. No free air. Ventral Wall: No hernias. Right-sided ESCORT PATIENTS shunt catheter is noted with the tip seen in lower pelvis. Abdominal Nodes: No retroperitoneal or mesenteric adenopathy by size criteria. Vessels: Aorta and inferior vena cava are normal in size. PELVIS: Pelvic Organs: Uterus is within normal limits. Surgical clips are noted in right adnexa consistent with prior right oophorectomy. Suggestion of left ovarian cyst is noted and measures 2.1 x 1.9 cm in size. Bladder: Unremarkable. Pelvic Nodes: No enlarged lymph nodes. Miscellaneous: No hernias are seen. Bones: No suspicious bony lesion. No acute vertebral body compression fracture. Degenerative disc disease at L4-5 and L5-S1 levels are seen. IMPRESSION: 1. No bowel obstruction or abnormal bowel wall thickening. No free fluid or free air. No abscess collection. Mild colonic diverticulosis without evidence of acute diverticulitis. 2. Bilateral nonobstructing renal calculi. No hydronephrosis or hydroureter. Normal appearing urinary bladder. 3. Prior right oophorectomy. Suggestion of left ovarian cyst as above. 4. Hepatic steatosis, no discrete hepatic lesion. 5. Right-sided possible ESCORT PATIENTS shunt catheter is again seen and unchanged. Dictated by: Anupam Deras M.D. on 04/18/2021 at 12:54 Approved by: Anupam Deras M.D. on 04/18/2021 at 13:00
== END 2021-04-18 13:45 | disposition home or self-care (01) ==
PROVIDERS: Emergency Provider Emergency Medicine; PCP Family Medicine
DX: R10.30 Lower abdominal pain, unspecified (principal); L29.9 Pruritus, unspecified; M79.662 Pain in left lower leg
CPT/HCPCS: 36415; 74177; 76830; 76856; 80053; 81003; 81015; 81025; 83690; 85025; 85610; 85730; 93971; 96374; 96375; 96376; 99284; J1170; J1200; J1642; J2270; J2405; J2930

== ENCOUNTER 2021-09-11 13:08 | Emergency (ER) | payer MEDICARE, MEDICAID, SELFPAY ==
[2021-09-11] VITALS (12 sets, daily range): BP systolic 129–147; BP diastolic 68–86; PULSE 92–116; RESP 14–26; TEMP 36.6; O2SAT 96–100
[2021-09-11 14:41] LABS: Add Manual Diff / Slide Review NO; Basophils Absolute Auto 0 /uL (0-100); Basophils Percent Auto 0.2 % (0-2); Eosinophils Absolute Auto 200 /uL (0-450); Eosinophils Percent Auto 2.4 % (2-4); Hematocrit 33.3 % (36-46); Hemoglobin 11.8 g/dL (12.0-16.0); Lymphocytes Absolute Auto 2900 /uL (1100-4500); Lymphocytes Percent Auto 30.1 % (25-40); Mean Corpuscular HGB Conc 35.5 % (30-36); Mean Corpuscular Volume 87.4 fL (80-100); Monocytes Absolute Auto 700 /uL (0-900); Monocytes Percent Auto 6.8 % (3-14); Neutrophils Absolute Auto 5900 /uL (1500-7000); Neutrophils Percent Auto 60.5 % (50-75); Platelet Count 333 X10^3/uL (150-400); Red Blood Cell Count 3.81 X10^6/uL (4.0-5.2); Red Cell Distribution Width 12.6 % (11.6-14.8); White Blood Cell Count 9.7 X10^3/uL (4.5-11.0)
[2021-09-11 14:57] LABS: Alanine Aminotransferase 25 IU/L (<35); Albumin 4.5 g/dL (3.5-5.0); Albumin Globulin Ratio 1.2 (1.0-2.8); Alkaline Phosphatase 140 U/L (38-126); Aspartate Aminotransferase 20 IU/L (14-36); BUN Creatinine Ratio 13.4 (6-22); Bilirubin Total 0.3 mg/dL (0.2-1.3); Blood Urea Nitrogen 13 mg/dL (7-17); Calcium 8.9 mg/dL (8.4-10.2); Carbon Dioxide 21 mmol/L (22-32); Chloride 104 mmol/L (98-107); Estimated Glomerular Filt Rate > 60 mL/min (>60); Globulin 3.8 g/dL (1.7-4.1); Glucose 94 mg/dL (70-100); HEMOLYSIS < 15 (0-50); Lipase 48 U/L (23-300); Potassium 3.4 mmol/L (3.4-5.1); Sodium 137 mmol/L (137-145); Total Protein 8.3 g/dL (6.3-8.2)
--- NOTE | 2021-09-11 15:00 | DI.RAD.S_ITS ---
PROCEDURE: XR CHEST 2V INDICATIONS: chest pain TECHNIQUE: 2 views of the chest were acquired. COMPARISON: None. FINDINGS: Surgical changes and devices: Left chest port is seen with catheter tip projecting over the superior cavoatrial junction. Probable ventriculoperitoneal shunt catheter is partially imaged. Lungs and pleura: Lungs are clear. No pleural effusions or pneumothorax. Mediastinum: Mediastinal contours are normal. Heart size is normal. Bones and chest wall: No suspicious bony abnormalities. Soft tissues appear unremarkable. IMPRESSION: No acute cardiopulmonary abnormality. Dictated by: Eugenio Valencia M.D. on 09/11/2021 at 16:01 Approved by: Eugenio Valencia M.D. on 09/11/2021 at 16:02
[2021-09-11 15:03] LABS: Prothrombin Time 11.4 SECONDS (10.1-12.7)
[2021-09-11 15:17] LABS: Creatine Kinase 56 U/L (30-135)
[2021-09-11 15:31] LABS: Troponin I < 0.012 ng/mL (0.01-0.034)
--- NOTE | 2021-09-11 16:13 | ED_ITS ---
HPI - Abdominal Pain <Neftaly Whiteside PA-C - Last Filed: 09/11/21 18:35> General Chief Complaint: Abdominal Pain Stated Complaint: left flank/pelvic pain,blood urine Time Seen by Provider: 09/11/21 14:00 Source: patient Mode of arrival: Ambulatory History of Present Illness HPI narrative: 46-year-old female with past medical history lupus, FLOOR SURFACER shunt for pseudotumor cerebri, Arnold-Chiari malformation presents to the ED with 1 day of left flank and left lower quadrant pain. Patient states that she has a history of kidney stones. Patient states that her symptoms started as some twinges yesterday, however her pain started this morning. Patient endorses left-sided flank pain that wraps to the front into the suprapubic area. Patient also endorses nausea, chills. Patient denies dysuria, urgency, frequency, hematuria. Patient endorses history of ovarian cysts. Related Data Home Medications Medication Instructions Recorded Confirmed acetaminophen 500 mg tablet 500 mg PO Q6H PRN 07/04/20 (Tylenol Extra Strength) ascorbic acid (vitamin C) 500 mg 500 mg PO DAILY 07/04/20 chewable tablet diclofenac sodium 1 % topical gel 2 g topical QID 07/04/20 (Arthritis Pain (diclofenac)) diltiazem HCl 240 mg 240 mg PO DAILY 07/04/20 capsule,extended release 24 hr (Cardizem CD) diphenhydramine HCl 25 mg capsule 25 mg PO QID PRN 07/04/20 (Benadryl) enoxaparin 120 mg/0.8 mL 120 mg SUBCUT DAILY 07/04/20 subcutaneous syringe erenumab-aooe 140 mg/mL 140 mg SUBCUT QMONTH 07/04/20 subcutaneous auto-injector (Aimovig Autoinjector) famotidine 20 mg tablet (Pepcid) 20 mg PO DAILY 07/04/20 furosemide 40 mg tablet (Lasix) 40 mg PO DAILY 07/04/20 hydrocodone 10 mg-acetaminophen 1 tab PO Q4-6H PRN 07/04/20 325 mg tablet hydroxyzine HCl 25 mg tablet 25 mg PO QID PRN 07/04/20 lamotrigine 100 mg tablet 100 mg PO DAILY 07/04/20 (Lamictal) lorazepam 0.5 mg tablet 0.5 mg PO DAILY PRN 07/04/20 metformin 1,000 mg tablet 1,000 mg PO BID 07/04/20 (Glucophage) omeprazole 40 mg capsule,delayed 40 mg PO DAILY 07/04/20 release ondansetron 4 mg disintegrating 4 mg PO Q8H 07/04/20 tablet sennosides 8.6 mg-docusate sodium 1 tab-cap PO BEDTIME 07/04/20 50 mg tablet (Senna with Docusate Sodium) sitagliptin 100 mg tablet (Januvia) 100 mg PO DAILY 07/04/20 tamsulosin 0.4 mg capsule (Flomax) 0.4 mg PO DAILY 07/04/20 tizanidine 4 mg capsule 4 mg PO BID PRN 07/04/20 topiramate 200 mg tablet (Topamax) 400 mg PO BID 07/04/20 venlafaxine 150 mg 150 mg PO DAILY 07/04/20 capsule,extended release 24 hr (Effexor XR) Allergies Allergy/AdvReac Type Severity Reaction Status Date / Time clindamycin Allergy Severe Anaphylaxis Verified 04/18/21 09:15 hylan G-F 20 Allergy Severe Anaphylaxis Verified 04/18/21 09:15 ibuprofen Allergy Severe SOB,RASH Verified 04/18/21 09:15 Iodinated Contrast Media Allergy Severe SOB-HIVES Verified 04/18/21 09:15 iothalamic acid Allergy Severe SOB,HIVES Verified 04/18/21 09:15 iron dextran complex Allergy Severe Anaphylaxis, Verified 04/18/21 09:15 HIVES meclizine Allergy Severe Palpitation Verified 04/18/21 09:15 s shrimp Allergy Severe Anaphylaxis Verified 04/18/21 09:15 valproic acid Allergy Severe Anaphylaxis Verified 04/18/21 09:15 venom-honey bee Allergy Severe Anaphylaxis Verified 04/18/21 09:15 adhesive tape Allergy Intermediate rash Verified 04/18/21 09:15 amoxicillin [From Augmentin] Allergy Intermediate Hives Verified 04/18/21 09:15 aspirin Allergy Intermediate rash Verified 04/18/21 09:15 clavulanic acid Allergy Intermediate Hives Verified 04/18/21 09:15 [From Augmentin] codeine Allergy Intermediate Hives Verified 04/18/21 09:15 divalproex sodium Allergy Intermediate Hives Verified 04/18/21 09:15 gabapentin Allergy Intermediate Swelling Verified 04/18/21 09:15 of Lip/Tongue/Throat ketorolac Allergy Intermediate Hives Verified 04/18/21 09:15 leuprolide Allergy Intermediate Hives Verified 04/18/21 09:15 levalbuterol Allergy Intermediate Hives Verified 04/18/21 09:15 NSAIDS (Non-Steroidal Allergy Intermediate Hives Verified 04/18/21 09:15 Anti-Inflamma promethazine Allergy Intermediate Hives Verified 04/18/21 09:15 tapentadol Allergy Intermediate rash/itchy Verified 04/18/21 09:15 vancomycin Allergy Intermediate Hives, Verified 04/18/21 09:15 ITCHING IRON SUCROSE Allergy Intermediate Hives,SOB Uncoded 04/18/21 09:15 Review of Systems <Neftaly Whiteside PA-C - Last Filed: 09/11/21 18:35> Review of Systems ROS Unobtainable: All systems reviewed & are unremarkable except as noted in HPI and below Constitutional Constitutional: Reports chills, Denies fatigue, Denies fever(s), Denies frequent falls, Denies lethargy and Denies weakness Eyes Eyes: Denies change in vision, Denies eye discharge, Denies irritation and Denies loss of vision ENT Ears, Nose, Mouth, and Throat: Denies change in voice, Denies dizziness, Denies neck pain, Denies sore throat and Denies throat swelling Cardiovascular Cardiovascular: Reports chest pain, Denies irregular heart rhythm, Denies lightheadedness, Denies palpitations, Denies dyspnea, Denies dyspnea on exertion and Denies orthopnea Respiratory Respiratory: Denies cough, Denies dyspnea, Denies dyspnea on exertion and Denies wheezing Gastrointestinal Gastrointestinal: Reports abdominal pain, Denies change in bowel habits, Denies diarrhea, Reports nausea and Denies vomiting Genitourinary Genitourinary: Denies hematuria, Denies urinary incontinence and Denies urinary urgency Comments: Left-sided flank pain. Saw kidney stone when she Peed earlier today Musculoskeletal Musculoskeletal: Denies back pain, Denies muscle weakness, Denies neck pain, Denies numbness and Denies tingling Integumentary/Breasts Skin/Breast: Denies pruritus, Denies erythema, Denies rash and Denies wounds Neurologic Neurologic: Denies behavioral changes, Denies confusion, Denies dizziness, Denies frequent falls, Denies loss of vision, Denies numbness, Denies tingling and Denies weakness Psychiatric Psychiatric: Denies anxiety, Denies behavioral changes, Denies confusion, Denies depression, Denies homicidal ideation and Denies suicidal ideation Endocrine Endocrine: Denies fatigue, Denies flushing and Denies palpitations Hematologic/Lymphatic Hematologic/Lymphatic: Denies easy bruising Allergic/Immunologic Allergic/Immunologic: Denies urticaria, Denies throat swelling and Denies w heezing Patient History <Neftaly Whiteside PA-C - Last Filed: 09/11/21 18:35> Medical History Cervical spondylosis Chronic pain syndrome Impingement syndrome of right shoulder Pseudotumor cerebri Surgical History H/O brain surgery H/O oophorectomy H/O thyroidectomy History of cholecystectomy Hx of appendectomy S/P FLOOR SURFACER shunt Family History Mother Diabetes mellitus Hypertension Arthritis Thrombophilia Sister Arthritis Hypertension Depression Social History Smoking Status: Never smoker Smoking Status: Never smoker alcohol intake frequency: holidays/special occasions only Substance Use Type: does not use Exam <Neftaly Whiteside PA-C - Last Filed: 09/11/21 18:35> Narrative Exam Narrative: Const General:?cooperative, healthy appearing and comfortable [facility] Head:?normal to inspection Ears:?hearing grossly normal bilaterally Nose:?external nose normal Face and sinus:?normal facial exam and sinuses nontender Mouth:?oral mucosae normal Throat:?posterior oropharynx normal Eyes General:?appearance normal, both eyes and all related structures Neck Neck:?normal visual inspection and no lymphadenopathy noted Resp Effort & Inspection:?normal respiratory effort Auscultation:?clear to auscultation bilaterally Cardio Rate:?regular rate Rhythm:?regular rhythm GI Tenderness to palpation of left lower quadrant. Positive left CVA tenderness. Abdomen is soft, nondistended. No rashes noted. Neuro General:?patient alert, patient awake and patient oriented x3 Initial Vital Signs Initial Vital Signs: Vital Signs Temperature 97.9 F 09/11/21 13:49 Pulse Rate 116 H 09/11/21 13:49 Respiratory Rate 22 09/11/21 13:49 Blood Pressure 139/86 09/11/21 13:49 Pulse Oximetry 99 09/11/21 13:49 Oxygen Delivery Method 09/11/21 13:49 <Danica Lorenz DO - Last Filed: 09/12/21 20:44> Initial Vital Signs Initial Vital Signs: Vital Signs Temperature 97.9 F 09/11/21 13:49 Pulse Rate 116 H 09/11/21 13:49 Respiratory Rate 22 09/11/21 13:49 Blood Pressure 139/86 09/11/21 13:49 Pulse Oximetry 99 09/11/21 13:49 Oxygen Delivery Method 09/11/21 13:49 Course <Neftaly Whiteside PA-C - Last Filed: 09/11/21 18:35> Orders Ordered: Discontinued Medications Acetaminophen (Acetaminophen 325 Mg Tablet) 975 mg PO NOW ONE Stop: 09/11/21 18:29 Last Admin: 09/11/21 18:38 Dose: 975 mg Documented By: ZEFERINO Dexamethasone (Dexamethasone 10 Mg/Ml Vial) 10 mg IV NOW ONE Stop: 09/11/21 16:14 Last Admin: 09/11/21 16:25 Dose: 10 mg Documented By: ZEFERINO Diphenhydramine HCl (Diphenhydramine 50 Mg/Ml Vial) 50 mg IV NOW ONE Stop: 09/11/21 16:14 Last Admin: 09/11/21 16:25 Dose: 50 mg Documented By: ZEFERINO Diphenhydramine HCl (Diphenhydramine 50 Mg/Ml Vial) 25 mg IV NOW ONE Stop: 09/11/21 18:29 Last Admin: 09/11/21 18:38 Dose: 25 mg Documented By: ZEFERINO Famotidine (Famotidine 20 Mg/2 Ml Vial) 20 mg IV NOW LILLIAM Last Admin: 09/11/21 18:39 Dose: 20 mg Documented By: ZEFERINO Heparin Sodium (Porcine) (Heparin 500 Unit/5 Ml Port Flush) 500 unit IV PRN PRN PRN Reason: Flush Last Admin: 09/11/21 18:57 Dose: 500 unit Documented By: ZEFERINO Morphine Sulfate (Morphine 4 Mg/Ml Inj) 4 mg IV NOW ONE Stop: 09/11/21 16:10 Last Admin: 09/11/21 16:24 Dose: 4 mg Documented By: ZEFERINO Morphine Sulfate (Morphine 4 Mg/Ml Inj) 4 mg IV NOW ONE Stop: 09/11/21 17:07 Last Admin: 09/11/21 17:13 Dose: 4 mg Documented By: ZEFERINO Ondansetron HCl (Ondansetron 4 Mg/2 Ml Inj) 4 mg IV NOW ONE Stop: 09/11/21 16:18 Last Admin: 09/11/21 16:25 Dose: 4 mg Documented By: ZEFERINO Vital Signs Vital signs: Vital Signs - 8 hr 09/11/21 13:49 09/11/21 14:49 09/11/21 14:50 Temperature 97.9 F Pulse Rate 116 H 92 H Respiratory Rate 22 Blood Pressure 139/86 Pulse Oximetry 99 100 98 Oxygen Delivery Method Room Air 09/11/21 14:50 09/11/21 15:00 09/11/21 16:08 Temperature Pulse Rate 94 H 98 H Respiratory Rate 14 20 Blood Pressure 134/78 129/68 Pulse Oximetry 99 100 Oxygen Delivery Method Room Air 09/11/21 16:10 09/11/21 16:10 09/11/21 16:30 Temperature Pulse Rate 94 H 108 H Respiratory Rate 14 26 H Blood Pressure 129/68 Pulse Oximetry 100 100 Oxygen Delivery Method 09/11/21 16:52 09/11/21 17:00 09/11/21 17:00 Temperature Pulse Rate 110 H 102 H Respiratory Rate 20 21 Blood Pressure 147/72 H 130/76 Pulse Oximetry 99 100 Oxygen Delivery Method 09/11/21 17:30 09/11/21 17:30 09/11/21 18:00 Temperature Pulse Rate 104 H 99 H Respiratory Rate 21 Blood Pressure 130/78 Pulse Oximetry 96 98 Oxygen Delivery Method <Danica Lorenz, - Last Filed: 09/12/21 20:44> Orders Ordered: Discontinued Medications Acetaminophen (Acetaminophen 325 Mg Tablet) 975 mg PO NOW ONE Stop: 09/11/21 18:29 Last Admin: 09/11/21 18:38 Dose: 975 mg Documented By: ZEFERINO Dexamethasone (Dexamethasone 10 Mg/Ml Vial) 10 mg IV NOW ONE Stop: 09/11/21 16:14 Last Admin: 09/11/21 16:25 Dose: 10 mg Documented By: ZEFERINO Diphenhydramine HCl (Diphenhydramine 50 Mg/Ml Vial) 50 mg IV NOW ONE Stop: 09/11/21 16:14 Last Admin: 09/11/21 16:25 Dose: 50 mg Documented By: ZEFERINO Diphenhydramine HCl (Diphenhydramine 50 Mg/Ml Vial) 25 mg IV NOW ONE Stop: 09/11/21 18:29 Last Admin: 09/11/21 18:38 Dose: 25 mg Documented By: ZEFERINO Famotidine (Famotidine 20 Mg/2 Ml Vial) 20 mg IV NOW LILLIAM Last Admin: 09/11/21 18:39 Dose: 20 mg Documented By: ZEFERINO Heparin Sodium (Porcine) (Heparin 500 Unit/5 Ml Port Flush) 500 unit IV PRN PRN PRN Reason: Flush Last Admin: 09/11/21 18:57 Dose: 500 unit Documented By: ZEFERINO Morphine Sulfate (Morphine 4 Mg/Ml Inj) 4 mg IV NOW ONE Stop: 09/11/21 16:10 Last Admin: 09/11/21 16:24 Dose: 4 mg Documented By: ZEFERINO Morphine Sulfate (Morphine 4 Mg/Ml Inj) 4 mg IV NOW ONE Stop: 09/11/21 17:07 Last Admin: 09/11/21 17:13 Dose: 4 mg Documented By: ZEFERINO Ondansetron HCl (Ondansetron 4 Mg/2 Ml Inj) 4 mg IV NOW ONE Stop: 09/11/21 16:18 Last Admin: 09/11/21 16:25 Dose: 4 mg Documented By: ZEFERINO Vital Signs Vital signs: Vital Signs - 8 hr 09/11/21 13:49 09/11/21 14:49 09/11/21 14:50 Temperature 97.9 F Pulse Rate 116 H 92 H Respiratory Rate 22 Blood Pressure 139/86 Pulse Oximetry 99 100 98 Oxygen Delivery Method Room Air 09/11/21 14:50 09/11/21 15:00 09/11/21 16:08 Temperature Pulse Rate 94 H 98 H Respiratory Rate 14 20 Blood Pressure 134/78 129/68 Pulse Oximetry 99 100 Oxygen Delivery Method Room Air 09/11/21 16:10 09/11/21 16:10 09/11/21 16:30 Temperature Pulse Rate 94 H 108 H Respiratory Rate 14 26 H Blood Pressure 129/68 Pulse Oximetry 100 100 Oxygen Delivery Method 09/11/21 16:52 09/11/21 17:00 09/11/21 17:00 Temperature Pulse Rate 110 H 102 H Respiratory Rate 20 21 Blood Pressure 147/72 H 130/76 Pulse Oximetry 99 100 Oxygen Delivery Method 09/11/21 17:30 09/11/21 17:30 09/11/21 18:00 Temperature Pulse Rate 104 H 99 H Respiratory Rate 21 Blood Pressure 130/78 Pulse Oximetry 96 98 Oxygen Delivery Method MDM - Abdominal Pain <Hyma DALTON Whiteside - Last Filed: 09/11/21 18:35> Medical Records Attestation: I reviewed the patient's medical records. Lab Data Lab results narrative: Labs within normal limits. UA without UTI. Result diagrams: 09/11/21 14:30 09/11/21 14:30 Labs: Lab Results 09/11/21 09/11/21 09/11/21 Range/Units 14:30 14:30 14:30 WBC 9.7 (4.5-11.0) X10^3/uL RBC 3.81 L (4.0-5.2) X10^6/uL Hgb 11.8 L (12.0-16.0) g/dL Hct 33.3 L (36-46) % MCV 87.4 (80-100) fL MCH 31.0 (26-34) PG MCHC 35.5 (30-36) % RDW 12.6 (11.6-14.8) % Plt Count 333 (150-400) X10^3/uL Neut % (Auto) 60.5 (50-75) % Lymph % (Auto) 30.1 (25-40) % Scurry % (Auto) 6.8 (3-14) % Eos % (Auto) 2.4 (2-4) % Baso % (Auto) 0.2 (0-2) % Neut # (Auto) 5900 (3112-4766) /uL Lymph # (Auto) 2900 (4166-5127) /uL Scurry # (Auto) 700 (0-900) /uL Eos # (Auto) 200 (0-450) /uL Baso # (Auto) 0 (0-100) /uL PT 11.4 (10.1-12.7) SECONDS INR 1.0 (0.9-1.3) Sodium 137 (137-145) mmol/L Potassium 3.4 (3.4-5.1) mmol/L Chloride 104 (98-107) mmol/L Carbon Dioxide 21 L (22-32) mmol/L BUN 13 (7-17) mg/dL Creatinine 0.97 (0.52-1.04) mg/dL Estimated GFR > 60 (>60) mL/min BUN/Creatinine Ratio 13.4 (6-22) Glucose 94 (70-100) mg/dL Calcium 8.9 (8.4-10.2) mg/dL Total Bilirubin 0.3 (0.2-1.3) mg/dL AST 20 (14-36) IU/L ALT 25 (<35) IU/L Alkaline Phosphatase 140 H (38-126) U/L Total Creatine Kinase (30-135) U/L CK-MB (CK-2) CK-MB (CK-2) Rel Index Troponin I (0.01-0.034) ng/mL Total Protein 8.3 H (6.3-8.2) g/dL Albumin 4.5 (3.5-5.0) g/dL Globulin 3.8 (1.7-4.1) g/dL Albumin/Globulin Ratio 1.2 (1.0-2.8) Lipase 48 (23-300) U/L 09/11/ Range/Units 14:30 WBC (4.5-11.0) X10^3/uL RBC (4.0-5.2) X10^6/uL Hgb (12.0-16.0) g/dL Hct (36-46) % MCV (80-100) fL MCH (26-34) PG MCHC (30-36) % RDW (11.6-14.8) % Plt Count (150-400) X10^3/uL Neut % (Auto) (50-75) % Lymph % (Auto) (25-40) % Scurry % (Auto) (3-14) % Eos % (Auto) (2-4) % Baso % (Auto) (0-2) % Neut # (Auto) (9257-6890) /uL Lymph # (Auto) (6299-9705) /uL Scurry # (Auto) (0-900) /uL Eos # (Auto) (0-450) /uL Baso # (Auto) (0-100) /uL PT (10.1-12.7) SECONDS INR (0.9-1.3) Sodium (137-145) mmol/L Potassium (3.4-5.1) mmol/L Chloride (98-107) mmol/L Carbon Dioxide (22-32) mmol/L BUN (7-17) mg/dL Creatinine (0.52-1.04) mg/dL Estimated GFR (>60) mL/min BUN/Creatinine Ratio (6-22) Glucose (70-100) mg/dL Calcium (8.4-10.2) mg/dL Total Bilirubin (0.2-1.3) mg/dL AST (14-36) IU/L ALT (<35) IU/L Alkaline Phosphatase (38-126) U/L Total Creatine Kinase 56 (30-135) U/L CK-MB (CK-2) TNP CK-MB (CK-2) Rel Index TNP Troponin I < 0.012 (0.01-0.034) ng/mL Total Protein (6.3-8.2) g/dL Albumin (3.5-5.0) g/dL Globulin (1.7-4.1) g/dL Albumin/Globulin Ratio (1.0-2.8) Lipase (23-300) U/L Point of care testing: Point of Care Testing Test Results Negative Urine Dip Bedside Urine Glucose Negative Bedside Urine Bilirubin - Negative Bedside Urine Ketone - Negative Urine Specific [place] 1.015 Bedside Urine Occult Blood - Negative Bedside Urine pH 6.0 Bedside Urine Protein - Negative Bedside Urine Urobilinogen - Negative Bedside Urine Nitrite - Negative Bedside Urine Leukocytes - Negative Esterase Imaging Data Chest x-ray: Radiologist's Impression: PROCEDURE:? XR CHEST 2V ? INDICATIONS:? chest pain ? TECHNIQUE:? 2 views of the chest were acquired.? ? COMPARISON:? None. ? FINDINGS:? ? Surgical changes and devices:? Left chest port is seen with catheter tip projecting over the superior cavoatrial junction.? Probable ventriculoperitoneal shunt catheter is partially imaged. ? Lungs and pleura:? Lungs are clear.? No pleural effusions or pneumothorax.? ? Mediastinum:? Mediastinal contours are normal.? Heart size is normal.? ? Bones and chest wall:? No suspicious bony abnormalities.? Soft tissues appear unremarkable.? ? IMPRESSION:? No acute cardiopulmonary abnormality. ? ? Dictated by: Eugenio Valencia M.D. on 09/11/2021 at 16:01 ? ? Approved by: Eugenio Valencia M.D. on 09/11/2021 at 16:02 ? CT scan - abdomen/pelvis: Radiologist's Impression: PROCEDURE:? CT ABDOMEN PELVIS W CON ? INDICATIONS:? llq, flank, suprapubic pain ? TECHNIQUE:? After the administration of intravenous contrast, axial sections acquired from the lung bases to the pubic symphysis.? Coronal and sagittal reformats were performed.? For radiation dose reduction, the following was used:? automated exposure control, adjustment of mA and/or kV according to patient size.? ? COMPARISON:? Formerly [facility], CT, CT ABDOMEN PELVIS W CON, 04/18/2021, 12:23. ? FINDINGS:? Image quality:? Excellent.? ? Lung bases:? Mild pleural thickening within the left posterior lung base, new since the prior examination, measuring roughly 12 mm transverse by 3 mm anteroposterior. Heart:? No significant findings. ? ABDOMEN: Liver:? Unremarkable.? ? Gallbladder:? Surgically absent? ? Biliary ducts:? Unremarkable.? ? Pancreas:? Unremarkable.? ? Spleen:? Unremarkable.? ? Adrenal Glands:? Unremarkable.? ? Kidneys and Ureters:? No hydronephrosis.? Scarring involving the left inferior pole kidney.? No change in small bilateral nonobstructing renal calculi measuring less than 5 mm diameter. ? Stomach and Bowel:? Small hiatal hernia.? Stomach, small bowel loops, and colon are unremarkable.? Peritoneum:? No abnormal intraperitoneal fluid.? No free air.? FLOOR SURFACER shunt catheter is present. ? Ventral Wall: ? No hernias.? Abdominal Nodes:? No retroperitoneal or mesenteric adenopathy by size criteria.? Vessels:? Aorta and inferior vena cava are normal in size.? ? PELVIS: Pelvic Organs:? Increased left ovarian cyst measuring 36 mm. Bladder:? Unremarkable.? ? Pelvic Nodes: No enlarged lymph nodes.? Miscellaneous: No hernias are seen. ? ? ? Bones:? Unremarkable.? IMPRESSION:? 1. No acute process. 2. Nonobstructing bilateral renal calculi. 3. Increased left adnexal cyst.? Gynecological consultation recommended. 4. Small hiatal hernia. 5. New mild left pleural thickening.? Initial further assessment with contrast enhanced chest CT is recommended.? ? ? Dictated by: Ruy Rosen M.D. on 09/11/2021 at 16:52 ? Transcribed by: JUAN on 09/11/2021 at 16:54? ? Approved by: Ruy Rosen M.D. on 09/11/2021 at 16:59 ? US - EGG SMELLER: Radiologist's Impression: PROCEDURE:? US PELVIC COMPLETE ? INDICATIONS:? ?torsion; L ovarian cyst 36mm; neg hcg ? TECHNIQUE:? Real-time scanning was performed of the pelvic organs, with image documentation.? Additional endovaginal scanning was necessary due to incomplete visualization of the adnexal and endometrial structures by transabdominal scanning.? ? COMPARISON:? Formerly [facility], US, US PELVIC COMPLETE, 04/18/2021, 10:27.? Formerly [facility], CT, CT ABDOMEN PELVIS W CON, 09/11/2021, 16:26. ? FINDINGS:? ?? Uterus:? Uterus is anteverted and normal in size at 6.5 x 3.84 cm. The myometrium is heterogeneous, with a 2.5 cm fibroid seen on the right posteriorly. ? The endometrium measures 5 mm combined thickness.? Cervical cysts are noted. ? Ovaries:? The right ovary has been removed.? The left ovary measures 4.2 x 368 cm, with a calculated ovarian volume of 30 cc. The ovaries have a normal sonographic appearance.? A 3.83.2 x 3 3 cm left ovarian cyst can be seen.? Less than 12 follicles can be seen in each ovary.? No adnexal masses are seen. ? Other:? No pathologic free abdominal or pelvic fluid. ? ? IMPRESSION:? Negative for ovarian torsion. ? There is a 3.3 cm left ovarian cyst. In a patient of this age, this is almost certainly benign. If it would be clinically appropriate, a followup pelvic ultrasound could be considered in 6 weeks to assure resolution/ improvement.? Incidental note is made of: Status post right oophorectomy. 2.5 cm right-sided fibroid Cervical cysts ? ? ? We strive to produce accurate, complete, and clear reports of imaging services. To assist us in improving patient care, this report was composed using standard report templates and voice recognition software. Therefore, it may contain abnormal punctuation, insertions and/or omissions. Occasional wrong-word or sound-alike substitutions may occur. Though we review the report and make efforts to correct it, we do recommend that the report be read carefully in proper context to recognize any text inaccuracies. ? ? Dictated by: Aiden Zhou M.D. on 09/11/2021 at 17:01 ? ? Approved by: Aiden Zhou M.D. on 09/11/2021 at 17:04 ? MDM Narrative Medical decision making narrative: 46-year-old female with past medical history lupus, FLOOR SURFACER shunt for pseudotumor cerebri, Arnold-Chiari malformation presents to the ED with 1 day of left flank and left lower quadrant pain. Concern for ACS versus kidney stones versus pyelonephritis versus UTI versus ruptured ovarian cyst versus ovarian torsion versus diverticulitis versus other intra-abdominal pathology. Will obtain chest x-ray, EKG, labs, troponin, lipase, lactate, CT abdomen pelvis. Will obtain ultrasound to rule out ovarian torsion. Will premedicate with dexamethasone and Benadryl prior to the CT with contrast due to patient's contrast allergy. Will give morphine, Zofran for symptoms. Will re-evaluate. UA without UTI. Labs, troponin, chest x-ray within normal limits. Ultrasound pelvic shows a 36 mm left ovarian cyst, no ovarian torsion, no free fluid. CT abdomen pelvis shows bilateral kidney stones, however they are all nonobstructing and less than 5 mm. No other acute findings in the CT abdomen pelvis for ultrasound. Patient's pain was moderately controlled with morphine, Tylenol. Patient tolerated the CT with contrast well with dexamethasone, Benadryl. Patient also given Pepcid AC and an extra dose of Benadryl. Findings discussed with patient. Patient agrees to follow-up with model builder display on the ovarian cysts. ED return precautions discussed with patient. Patient verbalized understanding. <Danica Lorenz, DO - Last Filed: 09/12/21 20:44> Lab Data Labs: Lab Results 09/11/21 09/11/21 09/11/21 Range/Units 14:30 14:30 14:30 WBC 9.7 (4.5-11.0) X10^3/uL RBC 3.81 L (4.0-5.2) X10^6/uL Hgb 11.8 L (12.0-16.0) g/dL Hct 33.3 L (36-46) % MCV 87.4 (80-100) fL MCH 31.0 (26-34) PG MCHC 35.5 (30-36) % RDW 12.6 (11.6-14.8) % Plt Count 333 (150-400) X10^3/uL Neut % (Auto) 60.5 (50-75) % Lymph % (Auto) 30.1 (25-40) % Scurry % (Auto) 6.8 (3-14) % Eos % (Auto) 2.4 (2-4) % Baso % (Auto) 0.2 (0-2) % Neut # (Auto) 5900 (6232-2304) /uL Lymph # (Auto) 2900 (7929-0908) /uL Scurry # (Auto) 700 (0-900) /uL Eos # (Auto) 200 (0-450) /uL Baso # (Auto) 0 (0-100) /uL PT 11.4 (10.1-12.7) SECONDS INR 1.0 (0.9-1.3) Sodium 137 (137-145) mmol/L Potassium 3.4 (3.4-5.1) mmol/L Chloride 104 (98-107) mmol/L Carbon Dioxide 21 L (22-32) mmol/L BUN 13 (7-17) mg/dL Creatinine 0.97 (0.52-1.04) mg/dL Estimated GFR > 60 (>60) mL/min BUN/Creatinine Ratio 13.4 (6-22) Glucose 94 (70-100) mg/dL Calcium 8.9 (8.4-10.2) mg/dL Total Bilirubin 0.3 (0.2-1.3) mg/dL AST 20 (14-36) IU/L ALT 25 (<35) IU/L Alkaline Phosphatase 140 H (38-126) U/L Total Creatine Kinase (30-135) U/L CK-MB (CK-2) CK-MB (CK-2) Rel Index Troponin I (0.01-0.034) ng/mL Total Protein 8.3 H (6.3-8.2) g/dL Albumin 4.5 (3.5-5.0) g/dL Globulin 3.8 (1.7-4.1) g/dL Albumin/Globulin Ratio 1.2 (1.0-2.8) Lipase 48 (23-300) U/L // Range/Units 14:30 WBC (4.5-11.0) X10^3/uL RBC (4.0-5.2) X10^6/uL Hgb (12.0-16.0) g/dL Hct (36-46) % MCV (80-100) fL MCH (26-34) PG MCHC (30-36) % RDW (11.6-14.8) % Plt Count (150-400) X10^3/uL Neut % (Auto) (50-75) % Lymph % (Auto) (25-40) % [place]urry % (Auto) (3-14) % Eos % (Auto) (2-4) % Baso % (Auto) (0-2) % Neut # (Auto) (9048-8492) /uL Lymph # (Auto) (9605-4241) /uL Scurry # (Auto) (0-900) /uL Eos # (Auto) (0-450) /uL Baso # (Auto) (0-100) /uL PT (10.1-12.7) SECONDS INR (0.9-1.3) Sodium (137-145) mmol/L Potassium (3.4-5.1) mmol/L Chloride (98-107) mmol/L Carbon Dioxide (22-32) mmol/L BUN (7-17) mg/dL Creatinine (0.52-1.04) mg/dL Estimated GFR (>60) mL/min BUN/Creatinine Ratio (6-22) Glucose (70-100) mg/dL Calcium (8.4-10.2) mg/dL Total Bilirubin (0.2-1.3) mg/dL AST (14-36) IU/L ALT (<35) IU/L Alkaline Phosphatase (38-126) U/L Total Creatine Kinase 56 (30-135) U/L CK-MB (CK-2) TNP CK-MB (CK-2) Rel Index TNP Troponin I < 0.012 (0.01-0.034) ng/mL Total Protein (6.3-8.2) g/dL Albumin (3.5-5.0) g/dL Globulin (1.7-4.1) g/dL Albumin/Globulin Ratio (1.0-2.8) Lipase (23-300) U/L Point of care testing: Point of Care Testing Test Results Negative Urine Dip Bedside Urine Glucose Negative Bedside Urine Bilirubin - Negative Bedside Urine Ketone - Negative Urine Specific [place] 1.015 Bedside Urine Occult Blood - Negative Bedside Urine pH 6.0 Bedside Urine Protein - Negative Bedside Urine Urobilinogen - Negative Bedside Urine Nitrite - Negative Bedside Urine Leukocytes - Negative Esterase ECG Data Interpretation: [place]-are normal sinus rhythm rate 99 CT interval 26 QRS [address] changes or T-wave inversions Discharge Plan Departure Patient Disposition: Home Clinical Impression: Kidney calculi Instructions: DI for Kidney Stones Activity Restrictions/Additional Instructions: You were evaluated in the ED today for flank and abdominal pain. Your pelvic ultrasound was normal. Your labs and urine were normal. Your CT abdomen pelvis shows bilateral kidney stones, however none of them are obstructing and would not cause pain. Your symptoms could be from a kidney stone that you already passed. Your pelvic ultrasound shows a 36 mm left ovarian cyst, however the ultrasound shows that there is no ovarian torsion or free fluid. 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 Return to the ED if you experience fever, chills, chest pain, shortness of breath, severe abdominal pain. Prescriptions: No Action Aimovig Autoinjector 140 mg/mL auto-injector 140 mg SUBCUT QMONTH hydroxyzine HCl 25 mg tablet 25 mg PO QID PRN diphenhydramine HCl [Benadryl] 25 mg capsule 25 mg PO QID PRN diltiazem HCl [Cardizem CD] 240 mg capsule,extended release 24hr 240 mg PO DAILY ascorbic acid (vitamin C) 500 mg tablet,chewable 500 mg PO DAILY diclofenac sodium [Arthritis Pain (diclofenac)] 1 % gel 2 g topical QID Rx Instructions: apply to single elbow, wrist or hand; for hand includes palm/fingers/back of hand sennosides-docusate sodium [Senna with Docusate Sodium] 8.6-50 mg tablet 1 tab-cap PO BEDTIME venlafaxine [Effexor XR] 150 mg capsule,extended release 24hr 150 mg PO DAILY enoxaparin 120 mg/0.8 mL syringe 120 mg SUBCUT DAILY tamsulosin [Flomax] 0.4 mg capsule 0.4 mg PO DAILY metformin [Glucophage] 1,000 mg tablet 1,000 mg PO BID Januvia 100 mg tablet 100 mg PO DAILY lamotrigine [Lamictal] 100 mg tablet 100 mg PO DAILY furosemide [Lasix] 40 mg tablet 40 mg PO DAILY lorazepam 0.5 mg tablet 0.5 mg PO DAILY PRN tizanidine 4 mg capsule 4 mg PO BID PRN topiramate [Topamax] 200 mg tablet 400 mg PO BID acetaminophen [Tylenol Extra Strength] 500 mg tablet 500 mg PO Q6H PRN hydrocodone-acetaminophen 10-325 mg tablet 1 tab PO Q4-6H PRN omeprazole 40 mg capsule,delayed release(DR/EC) 40 mg PO DAILY ondansetron 4 mg tablet,disintegrating 4 mg PO Q8H famotidine [Pepcid] 20 mg tablet 20 mg PO DAILY Referrals: Hairnder Nava [Primary Care Provider] - Visit Report Forms: Patient Portal/API <Danica Lorenz DO - Last Filed: 09/12/21 20:44> Cosign ED Attending Cosignature Attestation: I was immediately available in the department for consultation. Documentation has been reviewed. I agree with assessment and plan.
--- NOTE | 2021-09-11 16:14 | DI.CT.S_ITS ---
PROCEDURE: CT ABDOMEN PELVIS W CON INDICATIONS: llq, flank, suprapubic pain TECHNIQUE: After the administration of intravenous contrast, axial sections acquired from the lung bases to the pubic symphysis. Coronal and sagittal reformats were performed. For radiation dose reduction, the following was used: automated exposure control, adjustment of mA and/or kV according to patient size. COMPARISON: [facility], CT, CT ABDOMEN PELVIS W CON, 04/18/2021, 12:23. FINDINGS: Image quality: Excellent. Lung bases: Mild pleural thickening within the left posterior lung base, new since the prior examination, measuring roughly 12 mm transverse by 3 mm anteroposterior. Heart: No significant findings. ABDOMEN: Liver: Unremarkable. Gallbladder: Surgically absent Biliary ducts: Unremarkable. Pancreas: Unremarkable. Spleen: Unremarkable. Adrenal Glands: Unremarkable. Kidneys and Ureters: No hydronephrosis. Scarring involving the left inferior pole kidney. No change in small bilateral nonobstructing renal calculi measuring less than 5 mm diameter. Stomach and Bowel: Small hiatal hernia. Stomach, small bowel loops, and colon are unremarkable. Peritoneum: No abnormal intraperitoneal fluid. No free air. [employer] shunt catheter is present. Ventral Wall: No hernias. Abdominal Nodes: No retroperitoneal or mesenteric adenopathy by size criteria. Vessels: Aorta and inferior vena cava are normal in size. PELVIS: Pelvic Organs: Increased left ovarian cyst measuring 36 mm. Bladder: Unremarkable. Pelvic Nodes: No enlarged lymph nodes. Miscellaneous: No hernias are seen. Bones: Unremarkable. IMPRESSION: 1. No acute process. 2. Nonobstructing bilateral renal calculi. 3. Increased left adnexal cyst. Gynecological consultation recommended. 4. Small hiatal hernia. 5. New mild left pleural thickening. Initial further assessment with contrast enhanced chest CT is recommended. Dictated by: Ruy Rosen M.D. on 09/11/2021 at 16:52 Transcribed by: JUAN on 09/11/2021 at 16:54 Approved by: Ruy Rosen M.D. on 09/11/2021 at 16:59
[2021-09-11] MEDS: MORPHINE 4 MG/ML INJ IV ×2 (16:24→17:13)
[2021-09-11] MEDS: DEXAMETHASONE 10 MG/ML VIAL IV (16:25)
[2021-09-11] MEDS: ONDANSETRON 4 MG/2 ML INJ IV (16:25)
[2021-09-11] MEDS: diphenhydrAMINE 50 MG/ML VIAL IV (16:25)
--- NOTE | 2021-09-11 16:58 | PC.NURSE ---
Pt back from CT and requesting to go to the BR, ambulatory to the BR independently. On return to room, pt reports I feel like the inside of my throat is really itchy, VSS, 99% on RA, tachycardiac at baseline, denies throat tightening. Able to control own secretions, airway patent, RR even, unlabored. Provider notified and reported to bedside for assessment. no new orders.
--- NOTE | 2021-09-11 17:05 | PC.NURSE ---
responded to nurse call light; pt reporting pain is more severe to her gen. abdomen. provider notified
--- NOTE | 2021-09-11 17:14 | DI.US.S_ITS ---
PROCEDURE: US PELVIC COMPLETE INDICATIONS: ?torsion; L ovarian cyst 36mm; neg hcg TECHNIQUE: Real-time scanning was performed of the pelvic organs, with image documentation. Additional endovaginal scanning was necessary due to incomplete visualization of the adnexal and endometrial structures by transabdominal scanning. COMPARISON: [facility], US, US PELVIC COMPLETE, 04/18/2021, 10:27. [facility], CT, CT ABDOMEN PELVIS W CON, 09/11/2021, 16:26. FINDINGS: Uterus: Uterus is anteverted and normal in size at 6.5 x 3.84 cm. The myometrium is heterogeneous, with a 2.5 cm fibroid seen on the right posteriorly. The endometrium measures 5 mm combined thickness. Cervical cysts are noted. Ovaries: The right ovary has been removed. The left ovary measures 4.2 x 368 cm, with a calculated ovarian volume of 30 cc. The ovaries have a normal sonographic appearance. A 3.83.2 x 3 3 cm left ovarian cyst can be seen. Less than 12 follicles can be seen in each ovary. No adnexal masses are seen. Other: No pathologic free abdominal or pelvic fluid. IMPRESSION: Negative for ovarian torsion. There is a 3.3 cm left ovarian cyst. In a patient of this age, this is almost certainly benign. If it would be clinically appropriate, a followup pelvic ultrasound could be considered in 6 weeks to assure resolution/ improvement. Incidental note is made of: Status post right oophorectomy. 2.5 cm right-sided fibroid Cervical cysts We strive to produce accurate, complete, and clear reports of imaging services. To assist us in improving patient care, this report was composed using standard report templates and voice recognition software. Therefore, it may contain abnormal punctuation, insertions and/or omissions. Occasional wrong-word or sound-alike substitutions may occur. Though we review the report and make efforts to correct it, we do recommend that the report be read carefully in proper context to recognize any text inaccuracies. Dictated by: Aiden Zhou M.D. on 09/11/2021 at 17:01 Approved by: Aiden Zhou M.D. on 09/11/2021 at 17:04
[2021-09-11] MEDS: diphenhydrAMINE 50 MG/ML VIAL 25 MG IV (18:38)
[2021-09-11] MEDS: ACETAMINOPHEN 325 MG TABLET 975 MG PO (18:38)
[2021-09-11] MEDS: FAMOTIDINE 20 MG/2 ML VIAL IV (18:39)
== END 2021-09-11 19:03 | disposition home or self-care (01) ==
PROVIDERS: Emergency Medicine; Emergency Provider Student in an Organized Health Care Education/Training Program; PCP Student in an Organized Health Care Education/Training Program
DX: N20.0 Calculus of kidney (principal); Z87.442 Personal history of urinary calculi; R07.9 Chest pain, unspecified
CPT/HCPCS: 36415; 71046; 74177; 76830; 76856; 80053; 81003; 81025; 82550; 83690; 84484; 85025; 85610; 93005; 96374; 96375; 96376; 99284; J1100; J1200; J1642; J2270; J2405; Q9967

== ENCOUNTER 2022-02-20 09:49 | Emergency (ER) | payer MEDICARE, MEDICAID, SELFPAY ==
[2022-02-20 10:13] LABS: Appearance Urine UA CLEAR; Bilirubin Urine UA NEGATIVE (NEGATIVE); Color Urine UA YELLOW; Glucose Urine UA NEGATIVE (Negative); Ketones Urine UA TRACE (NEGATIVE); Leukocyte Esterase Urine UA NEGATIVE (NEGATIVE); Nitrite Urine UA NEGATIVE (Negative); Occult Blood Urine UA NEGATIVE (Negative); Protein Urine UA TRACE (Negative); Urobilinogen Urine UA 0.2 E.U./dL (0.2)
[2022-02-20 10:21] LABS: Bacteria Urine Few (2-10); Culture Indicated Urine Cult Not Indicated; RBC Urine None Seen (0-5/HPF); Squamous Epithelial Cell Urine 1-5 /HPF (0-5/HPF); WBC Urine 0-1/HPF (0-5/HPF)
[2022-02-20 10:34] VITALS: BP 115/79; PULSE 122; RESP 22; TEMP 36.5; O2SAT 99; BMI 41.1
--- NOTE | 2022-02-20 13:39 | ED_ITS ---
HPI - General Adult General Chief complaint: Abdominal Pain Stated complaint: severe RT kidney/LT pelvic pain t-3 Time Seen by Provider: 02/20/22 13:39 Source: patient Mode of arrival: Family Vehicle History of Present Illness HPI narrative: 46-year-old woman with complex history including recent brain surgery for a PHARMACEUTICAL ASSISTANT shunt, lupus with immune infusions currently somewhat immunocompromised, chronic kidney disease stage 2 followed by Nephrology multiple kidney stones and past 3 in 1 day on the , antiphospholipid syndrome for which she is on Lovenox. On February 16 and she had bright red vaginal bleeding which is unusual for her. She has a history of ovarian cysts and endometriosis with pelvic pain related to both of those diagnoses. She is also allergic to nonsteroidals which caused near anaphylactic symptoms. She notes that contrast is okay to use with IV studies but needs Benadryl and Decadron pretreatment. She presents today complaining of left lower quadrant and right flank pain. She has been passing more kidney stones recently. The left lower quadrant pain is acute, positional and worsening. Not associated with diarrhea or rectal bleeding. Related Data Home Medications Medication Instructions Recorded Confirmed acetaminophen 500 mg tablet 500 mg PO Q6H PRN 07/04/20 (Tylenol Extra Strength) ascorbic acid (vitamin C) 500 mg 500 mg PO DAILY 07/04/20 chewable tablet diclofenac sodium 1 % topical gel 2 g topical QID 07/04/20 (Arthritis Pain (diclofenac)) diltiazem HCl 240 mg 240 mg PO DAILY 07/04/20 capsule,extended release 24 hr (Cardizem CD) diphenhydramine HCl 25 mg capsule 25 mg PO QID PRN 07/04/20 (Benadryl) enoxaparin 120 mg/0.8 mL 120 mg SUBCUT DAILY 07/04/20 subcutaneous syringe erenumab-aooe 140 mg/mL 140 mg SUBCUT QMONTH 07/04/20 subcutaneous auto-injector (Aimovig Autoinjector) famotidine 20 mg tablet (Pepcid) 20 mg PO DAILY 07/04/20 furosemide 40 mg tablet (Lasix) 40 mg PO DAILY 07/04/20 hydrocodone 10 mg-acetaminophen 1 tab PO Q4-6H PRN 07/04/20 325 mg tablet hydroxyzine HCl 25 mg tablet 25 mg PO QID PRN 07/04/20 lamotrigine 100 mg tablet 100 mg PO DAILY 07/04/20 (Lamictal) lorazepam 0.5 mg tablet 0.5 mg PO DAILY PRN 07/04/20 metformin 1,000 mg tablet 1,000 mg PO BID 07/04/20 (Glucophage) omeprazole 40 mg capsule,delayed 40 mg PO DAILY 07/04/20 release ondansetron 4 mg disintegrating 4 mg PO Q8H 07/04/20 tablet sennosides 8.6 mg-docusate sodium 1 tab-cap PO BEDTIME 07/04/20 50 mg tablet (Senna with Docusate Sodium) sitagliptin phosphate 100 mg 100 mg PO DAILY 07/04/20 tablet (Januvia) tamsulosin 0.4 mg capsule (Flomax) 0.4 mg PO DAILY 07/04/20 tizanidine 4 mg capsule 4 mg PO BID PRN 07/04/20 topiramate 200 mg tablet (Topamax) 400 mg PO BID 07/04/20 venlafaxine 150 mg 150 mg PO DAILY 07/04/20 capsule,extended release 24 hr (Effexor XR) Previous Rx's Medication Instructions Recorded oxycodone-acetaminophen 5 mg-325 1 tab PO Q6H PRN pain #10 tabs 02/20/22 mg tablet Allergies Allergy/AdvReac Type Severity Reaction Status Date / Time clindamycin Allergy Severe Anaphylaxis Verified 02/20/22 12:31 hylan G-F 20 Allergy Severe Anaphylaxis Verified 02/20/22 12:31 ibuprofen Allergy Severe SOB,RASH Verified 02/20/22 12:31 Iodinated Contrast Media Allergy Severe SOB-HIVES Verified 02/20/22 12:31 iothalamic acid Allergy Severe SOB,HIVES Verified 02/20/22 12:31 iron dextran complex Allergy Severe Anaphylaxis, Verified 02/20/22 12:31 HIVES meclizine Allergy Severe Palpitation Verified 02/20/22 12:31 s shrimp Allergy Severe Anaphylaxis Verified 02/20/22 12:31 valproic acid Allergy Severe Anaphylaxis Verified 02/20/22 12:31 venom-honey bee Allergy Severe Anaphylaxis Verified 02/20/22 12:31 adhesive tape Allergy Intermediate rash Verified 02/20/22 12:31 amoxicillin [From Augmentin] Allergy Intermediate Hives Verified 02/20/22 12:31 aspirin Allergy Intermediate rash Verified 02/20/22 12:31 clavulanic acid Allergy Intermediate Hives Verified 02/20/22 12:31 [From Augmentin] codeine Allergy Intermediate Hives Verified 02/20/22 12:31 divalproex sodium Allergy Intermediate Hives Verified 02/20/22 12:31 gabapentin Allergy Intermediate Swelling Verified 02/20/22 12:31 of Lip/Tongue/Throat ketorolac Allergy Intermediate Hives Verified 02/20/22 12:31 leuprolide Allergy Intermediate Hives Verified 02/20/22 12:31 levalbuterol Allergy Intermediate Hives Verified 02/20/22 12:31 NSAIDS (Non-Steroidal Allergy Intermediate Hives Verified 02/20/22 12:31 Anti-Inflamma promethazine Allergy Intermediate Hives Verified 02/20/22 12:31 tapentadol Allergy Intermediate rash/itchy Verified 02/20/22 12:31 vancomycin Allergy Intermediate Hives, Verified 02/20/22 12:31 ITCHING IRON SUCROSE Allergy Intermediate Hives,SOB Uncoded 04/18/21 09:15 Review of Systems Review of Systems Narrative: Remainder of complete review of systems is otherwise unremarkable except for that included in the HPI. Patient History Medical History (Updated 02/20/22 @ 16:49 by Val Fischer MD) Antiphospholipid syndrome Cervical spondylosis Chronic pain syndrome History of endometriosis History of ovarian cyst Impingement syndrome of right shoulder Lupus Pseudotumor cerebri Surgical History H/O brain surgery H/O oophorectomy H/O thyroidectomy History of cholecystectomy Hx of appendectomy S/P PHARMACEUTICAL ASSISTANT shunt Family History Mother Diabetes mellitus Hypertension Arthritis Thrombophilia Sister Arthritis Hypertension Depression Social History Smoking Status: Never smoker Smoking Status: Never smoker alcohol intake frequency: holidays/special occasions only Substance Use Type: does not use Exam Initial Vital Signs Initial Vital Signs: Vital Signs Temperature 97.7 F 02/20/22 10:34 Pulse Rate 122 H 02/20/22 10:34 Respiratory Rate 22 02/20/22 10:34 Blood Pressure 115/79 02/20/22 10:34 Pulse Oximetry 99 02/20/22 10:34 Oxygen Delivery Method 02/20/22 10:34 General: Healthy appearing, in no acute distress. Difficult standing upright and antalgic gait in walking to her room. Able to give a complete and coherent history. Well-nourished well-developed HEENT: Moist mucous membranes, normal sclera with reactive pupils, Neck: No JVD, supple Respiratory: Lungs are clear to auscultation, no wheezing no rales no rhonchi. Full and symmetrical air movement Cardiac: Regular rate and rhythm no murmurs no bruits Abdomen: Soft, tender in the left lower quadrant almost at the inguinal canal however she drive describes it as deeper internal pain. Body habitus confounds physical exam. she also has right flank pain. Skin: Warm and dry, no rashes Neurologic: Grossly neurologically intact with no obvious asymmetries or abnormalities Extremities: No trauma, well perfused Psych: Cooperative, appropriate insight and affect Course Orders Ordered: ED Orders 02/20/22 10:00 Urinalysis and Microscopic Stat 02/20/22 10:43 EKG-12 Lead Stat 02/20/22 14:15 CT abdomen pelvis w con Stat 02/20/22 14:50 Complete Blood Count AUTO DIFF Stat Comprehensive Metabolic Panel Stat Lipase Stat Discontinued Medications Dexamethasone (Dexamethasone 10 Mg/Ml Vial) 10 mg IV NOW ONE Stop: 02/20/22 14:16 Last Admin: 02/20/22 15:07 Dose: 10 mg Documented By: ROSE Diphenhydramine HCl (Diphenhydramine 50 Mg/Ml Vial) 50 mg IV NOW ONE Stop: 02/20/22 14:16 Last Admin: 02/20/22 15:06 Dose: 50 mg Documented By: ROSE Hydromorphone HCl (Hydromorphone 0.5 Mg Inj) 0.5 mg IV NOW ONE Stop: 02/20/22 14:16 Last Admin: 02/20/22 15:07 Dose: 0.5 mg Documented By: ROSE Ondansetron HCl (Ondansetron 4 Mg/2 Ml Inj) 4 mg IV NOW ONE Stop: 02/20/22 15:41 Last Admin: 02/20/22 15:48 Dose: 4 mg Documented By: ADRIÁN Vital Signs Vital signs: Vital Signs - 8 hr 02/20/22 10:34 02/20/22 13:40 02/20/22 15:03 Temperature 97.7 F Pulse Rate 122 H 97 H 102 H Respiratory Rate 22 15 Blood Pressure 115/79 164/107 H 150/93 H Pulse Oximetry 99 98 98 Oxygen Delivery Method Room Air Room Air Room Air Medical Decision Making Lab Data Result diagrams: 02/20/22 14:50 02/20/22 14:50 Labs: Lab Results 02/20/22 02/20/22 02/20/22 Range/Units 10:00 14:50 14:50 WBC 12.9 H (4.5-11.0) X10^3/uL RBC 4.17 (4.0-5.2) X10^6/uL Hgb 13.0 (12.0-16.0) g/dL Hct 38.2 (36-46) % MCV 91.6 (80-100) fL MCH 31.2 (26-34) PG MCHC 34.1 (30-36) % RDW 14.7 (11.6-14.8) % Plt Count 305 (150-400) X10^3/uL Neut % (Auto) 67.2 (50-75) % Lymph % (Auto) 26.3 (25-40) % [place] % (Auto) 5.4 (3-14) % Eos % (Auto) 0.9 L (2-4) % Baso % (Auto) 0.2 (0-2) % Neut # (Auto) 8700 H (4402-7177) /uL Lymph # (Auto) 3400 (4352-4280) /uL [place] # (Auto) 700 (0-900) /uL Eos # (Auto) 100 (0-450) /uL Baso # (Auto) 0 (0-100) /uL Sodium 138 (137-145) mmol/L Potassium 3.4 (3.4-5.1) mmol/L Chloride 106 (98-107) mmol/L Carbon Dioxide 22 (22-32) mmol/L BUN 12 (7-17) mg/dL Creatinine 0.76 (0.52-1.04) mg/dL Estimated GFR > 60 (>60) mL/min BUN/Creatinine Ratio 15.8 (6-22) Glucose 73 (70-100) mg/dL Calcium 8.7 (8.4-10.2) mg/dL Total Bilirubin 0.3 (0.2-1.3) mg/dL AST 17 (14-36) IU/L ALT 21 (<35) IU/L Alkaline Phosphatase 149 H (38-126) U/L Total Protein 7.9 (6.3-8.2) g/dL Albumin 3.9 (3.5-5.0) g/dL Globulin 4.0 (1.7-4.1) g/dL Albumin/Globulin Ratio 1.0 (1.0-2.8) Lipase 68 (23-300) U/L Urine Color Yellow Urine Appearance Clear Urine pH 8.0 (4.5-8.0) Ur Specific [place] 1.010 (1.000-1.035) Urine Protein Trace H (Negative) Urine Glucose (UA) Negative (Negative) g/dL Urine Ketones Trace H (NEGATIVE) Urine Occult Blood Negative (Negative) Urine Nitrate Negative (Negative) Urine Bilirubin Negative (NEGATIVE) Urine Urobilinogen 0.2 (0.2) E.U./dL Ur Leukocyte Esterase Negative (NEGATIVE) Urine RBC None seen (0-5/HPF) Urine WBC 0-1/hpf (0-5/HPF) Ur Squamous Epith Cells 1-5 /hpf (0-5/HPF) Urine Bacteria Few (2-10) H (None) Ur Culture Indicated? Cult not indicated Imaging Data CT scan - abdomen/pelvis: Radiologist's Impression: FINDINGS:? Image quality:? Excellent.? ? Lung bases:? Unremarkable. Heart:? No significant findings. ? ABDOMEN: Liver:? Unremarkable.? ? Gallbladder:? Surgically absent.? Biliary ducts:? Unremarkable.? ? Pancreas:? Unremarkable.? ? Spleen:? Unremarkable.? ? Adrenal Glands:? Unremarkable.? ? Kidneys and Ureters:? Bilateral nonobstructing renal stones noted ranging in size from 3-6 millimeters. ? Stomach and Bowel:? Stomach, small bowel loops, and colon are unremarkable.? Appendix is not definitely visualized and may be absent.? No free fluid or inflammatory changes noted adjacent to the cecum. Peritoneum:? No abnormal intraperitoneal fluid.? No free air.? PHARMACEUTICAL ASSISTANT shunt catheter has been removed.? Abandoned lead in the right lower abdomen/right abdominal wall is stable.? ? Ventral Wall: ? No hernias.? Abdominal Nodes:? No retroperitoneal or mesenteric adenopathy by size criteria.? Vessels:? Aorta and inferior vena cava are normal in size.? ? PELVIS: Pelvic Organs:? 4.2 centimeter left adnexal region cyst.? Multiple surgical clips noted in the right adnexal region Bladder:? Unremarkable.? ? Pelvic Nodes: No enlarged lymph nodes.? Miscellaneous: No hernias are seen.? Subcutaneous, rounded densities noted in the anterior lower pelvic wall possibly related to subcutaneous medication injection noted? Bones:? Spine degenerative disc disease and facet arthropathy. ? ? IMPRESSION:? ? No acute disease process. ? ?Bilateral nonobstructing renal stones. ? No hydronephrosis. ? 4.2 centimeter left adnexal region cyst.? Recommend nonemergent pelvic ultrasound for additional evaluation. ? ? ? Dictated by: Myra Fraser MD, PhD on 02/20/2022 at 16:19? [facility] Narrative Medical decision making narrative: 46-year-old when presents with left lower quadrant abdominal pain and right flank pain. She is passed 3 kidney stones over the last number of days which is a bit more than usual for her. The left lower quadrant abdominal pain is significantly worse and she is concerned that it is somehow related to the 2 days of bright red vaginal bleeding that she had on February 16 and . History is obtained from patient as well as her caregiver, she is from [place] Differential includes diverticulitis, inguinal hernia, incarcerated hernia, musculoskeletal abnormalities, do not suspect shingles given bilateral distribution of pain and normal skin exam. The right-sided pain could be kidney stones, pyelonephritis, intra-abdominal abscess. Ovarian cysts as well as endometriosis are also within the differential. Lab work and CT scan of the abdomen and pelvis will be ordered. Will treat her with Dilaudid once her port is accessed. Fluids, pretreatment for this CT scan with Benadryl and IV Decadron. Will re-evaluate after studies return CT scan suggests a left adnexal cyst which fits with her left lower quadrant pain. There is no evidence of abscess, appendicitis, obstructive uropathy. Urine had some bacteria however no leukocyte esterase or nitrates doubt UTI. Patient does note that she is been having multiple kidney stones over the last number of days and is wondering if this might be part of the mild leukocytosis. Of note the leukocytosis does not have an elevated neutrophil count and may be simply related to recent steroid dosing prior to her lupus treatment. Findings are all reviewed with patient. I believe that narcotic pain medication given the fact that the CT scan was fairly unremarkable and there is no evidence of sepsis is going to be safe for 1-2 days. She will be discharged home with instructions to follow up with her primary care doctor and keep OBGYN appointment scheduled for later this month Discharge Plan Departure Patient Disposition: Home Clinical Impression: Kidney calculi, Abdominal pain Ovarian cyst Qualifiers: Laterality: left Qualified Code(s): N83.202 - Unspecified ovarian cyst, left si de Instructions: DI for Ovarian Cyst Activity Restrictions/Additional Instructions: Thank you for coming in today Your workup was actually quite reassuring. You did have a slightly elevated white blood cell count however the breakdown products of white blood cells are normal. I am wondering if this is more response to the recent steroids rather than any type of infection. There is no other evidence to suggest sepsis. Your CT scan was quite reassuring with no intra-abdominal abscesses, free fluid, masses, tumors or other acute findings that would require hospitalization. There is a 4 cm cyst in your left adnexa and that may well be contributing to the pain on your left side. At this time, I do not have an explanation for the right flank pain aside from the multiple stones you have recently passed. Given the reassuring workup in the emergency department, I believe it is safe to use narcotic medicines his simply treat your pain for the next 2-3 days as needed. I will give you a brief prescription for Percocet. This is narcotic plus Tylenol. Please make sure that you are using a stool softener as narcotics will make you constipated If you find that you are getting worse or develop any new symptoms, please feel free to return to the emergency department for further evaluation. Prescriptions: New oxycodone-acetaminophen 5-325 mg tablet 1 tab PO Q6H PRN (Reason: pain) Qty: 10 0RF No Action Aimovig Autoinjector 140 mg/mL auto-injector 140 mg SUBCUT QMONTH hydroxyzine HCl 25 mg tablet 25 mg PO QID PRN diphenhydramine HCl [Benadryl] 25 mg capsule 25 mg PO QID PRN diltiazem HCl [Cardizem CD] 240 mg capsule,extended release 24hr 240 mg PO DAILY ascorbic acid (vitamin C) 500 mg tablet,chewable 500 mg PO DAILY diclofenac sodium [Arthritis Pain (diclofenac)] 1 % gel 2 g topical QID Rx Instructions: apply to single elbow, wrist or hand; for hand includes palm/fingers/back of hand sennosides-docusate sodium [Senna with Docusate Sodium] 8.6-50 mg tablet 1 tab-cap PO BEDTIME venlafaxine [Effexor XR] 150 mg capsule,extended release 24hr 150 mg PO DAILY enoxaparin 120 mg/0.8 mL syringe 120 mg SUBCUT DAILY tamsulosin [Flomax] 0.4 mg capsule 0.4 mg PO DAILY metformin [Glucophage] 1,000 mg tablet 1,000 mg PO BID Januvia 100 mg tablet 100 mg PO DAILY lamotrigine [Lamictal] 100 mg tablet 100 mg PO DAILY furosemide [Lasix] 40 mg tablet 40 mg PO DAILY lorazepam 0.5 mg tablet 0.5 mg PO DAILY PRN tizanidine 4 mg capsule 4 mg PO BID PRN topiramate [Topamax] 200 mg tablet 400 mg PO BID acetaminophen [Tylenol Extra Strength] 500 mg tablet 500 mg PO Q6H PRN hydrocodone-acetaminophen 10-325 mg tablet 1 tab PO Q4-6H PRN omeprazole 40 mg capsule,delayed release(DR/EC) 40 mg PO DAILY ondansetron 4 mg tablet,disintegrating 4 mg PO Q8H famotidine [Pepcid] 20 mg tablet 20 mg PO DAILY Referrals: Harinder Nava [Primary Care Provider] - Stand Alone Forms: Patient Portal/API
[2022-02-20 13:40] VITALS: BP 164/107; PULSE 97; O2SAT 98
--- NOTE | 2022-02-20 14:15 | DI.CT.S_ITS ---
PROCEDURE: CT ABDOMEN PELVIS W CON INDICATIONS: LLQ and R Flank pain TECHNIQUE: After the administration of intravenous contrast, axial sections acquired from the lung bases to the pubic symphysis. Coronal and sagittal reformats were performed. For radiation dose reduction, the following was used: automated exposure control, adjustment of mA and/or kV according to patient size. COMPARISON: [facility], CT, CT ABDOMEN PELVIS W CON, 09/11/2021, 16:26. FINDINGS: Image quality: Excellent. Lung bases: Unremarkable. Heart: No significant findings. ABDOMEN: Liver: Unremarkable. Gallbladder: Surgically absent. Biliary ducts: Unremarkable. Pancreas: Unremarkable. Spleen: Unremarkable. Adrenal Glands: Unremarkable. Kidneys and Ureters: Bilateral nonobstructing renal stones noted ranging in size from 3-6 millimeters. Stomach and Bowel: Stomach, small bowel loops, and colon are unremarkable. Appendix is not definitely visualized and may be absent. No free fluid or inflammatory changes noted adjacent to the cecum. Peritoneum: No abnormal intraperitoneal fluid. No free air. 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 Abandoned lead in the right lower abdomen/right abdominal wall is stable. Ventral Wall: No hernias. Abdominal Nodes: No retroperitoneal or mesenteric adenopathy by size criteria. Vessels: Aorta and inferior vena cava are normal in size. PELVIS: Pelvic Organs: 4.2 centimeter left adnexal region cyst. Multiple surgical clips noted in the right adnexal region Bladder: Unremarkable. Pelvic Nodes: No enlarged lymph nodes. Miscellaneous: No hernias are seen. Subcutaneous, rounded densities noted in the anterior lower pelvic wall possibly related to subcutaneous medication injection noted Bones: Spine degenerative disc disease and facet arthropathy. IMPRESSION: No acute disease process. Bilateral nonobstructing renal stones. No hydronephrosis. 4.2 centimeter left adnexal region cyst. Recommend nonemergent pelvic ultrasound for additional evaluation. Dictated by: Myra Fraser MD, PhD on 02/20/2022 at 16:19 Approved by: Myra Fraser MD, PhD on 02/20/2022 at 16:28
[2022-02-20 15:03] VITALS: BP 150/93; PULSE 102; RESP 15; O2SAT 98
[2022-02-20] MEDS: diphenhydrAMINE 50 MG/ML VIAL IV (15:06)
[2022-02-20] MEDS: HYDROMORPHONE 0.5 MG INJ IV (15:07)
[2022-02-20] MEDS: DEXAMETHASONE 10 MG/ML VIAL IV (15:07)
[2022-02-20 15:08] LABS: Add Manual Diff / Slide Review NO; Basophils Absolute Auto 0 /uL (0-100); Basophils Percent Auto 0.2 % (0-2); Eosinophils Absolute Auto 100 /uL (0-450); Eosinophils Percent Auto 0.9 % (2-4); Hematocrit 38.2 % (36-46); Lymphocytes Absolute Auto 3400 /uL (1100-4500); Lymphocytes Percent Auto 26.3 % (25-40); Mean Corpuscular HGB Conc 34.1 % (30-36); Mean Corpuscular Hemoglobin 31.2 PG (26-34); Mean Corpuscular Volume 91.6 fL (80-100); Monocytes Absolute Auto 700 /uL (0-900); Monocytes Percent Auto 5.4 % (3-14); Neutrophils Absolute Auto 8700 /uL (1500-7000); Neutrophils Percent Auto 67.2 % (50-75); Platelet Count 305 X10^3/uL (150-400); Red Blood Cell Count 4.17 X10^6/uL (4.0-5.2); Red Cell Distribution Width 14.7 % (11.6-14.8); White Blood Cell Count 12.9 X10^3/uL (4.5-11.0)
[2022-02-20 15:23] LABS: Alanine Aminotransferase 21 IU/L (<35); Albumin 3.9 g/dL (3.5-5.0); Alkaline Phosphatase 149 U/L (38-126); Aspartate Aminotransferase 17 IU/L (14-36); BUN Creatinine Ratio 15.8 (6-22); Bilirubin Total 0.3 mg/dL (0.2-1.3); Blood Urea Nitrogen 12 mg/dL (7-17); Calcium 8.7 mg/dL (8.4-10.2); Carbon Dioxide 22 mmol/L (22-32); Chloride 106 mmol/L (98-107); Estimated Glomerular Filt Rate > 60 mL/min (>60); Glucose 73 mg/dL (70-100); HEMOLYSIS 17 (0-50); Lipase 68 U/L (23-300); Potassium 3.4 mmol/L (3.4-5.1); Sodium 138 mmol/L (137-145); Total Protein 7.9 g/dL (6.3-8.2)
--- NOTE | 2022-02-20 15:47 | PC.NURSE ---
1335: Pt reports being shaky. Asked if she is a diabetic and pt states, Kind of. Blood sugar is 73 per labs. Made charge master analyst and LASHANDA Rosenberg aware.
[2022-02-20] MEDS: ONDANSETRON 4 MG/2 ML INJ IV (15:48)
[2022-02-20] MEDS: OXYCODONE/ACETAMINOPHEN 5/325 TABLET 2 TAB PO (17:12)
[2022-02-20] MEDS: diphenhydrAMINE 50 MG/ML VIAL 25 MG IV (17:12)
[2022-02-20 17:14] VITALS: BP 142/89; PULSE 116; O2SAT 98
[2022-02-20] MEDS: OXYCODONE/APAP 5/325 PREPACK 1 BOTTLE MISC (17:18)
== END 2022-02-20 17:29 | disposition home or self-care (01) ==
PROVIDERS: Emergency Provider Emergency Medicine; PCP Student in an Organized Health Care Education/Training Program
DX: N20.0 Calculus of kidney (principal); N83.202 Unspecified ovarian cyst, left side; R10.32 Left lower quadrant pain; Z79.899 Other long term (current) drug therapy; Z87.442 Personal history of urinary calculi
CPT/HCPCS: 36415; 74177; 80053; 81001; 83690; 85025; 96374; 96375; 96376; 99284; J1100; J1170; J1200; J1642; J2405; Q9967

== ENCOUNTER 2022-03-22 07:53 | Emergency (ER) | payer MEDICARE, MEDICAID, SELFPAY ==
[2022-03-22] VITALS (13 sets, daily range): BP systolic 113–151; BP diastolic 68–91; PULSE 73–117; RESP 14–20; TEMP 36.1; O2SAT 92–100; BMI 40.3
--- NOTE | 2022-03-22 08:19 | DI.RAD.S_ITS ---
PROCEDURE: XR CHEST 1V INDICATIONS: Shortness of breath TECHNIQUE: One view of the chest was acquired. COMPARISON: [facility], CR, XR CHEST 2V, 09/11/2021, 15:58. FINDINGS: Surgical changes and devices: Left chest wall Port-A-Cath tip is in SVC. Lungs and pleura: Lungs are clear. No pleural effusions or pneumothorax. Mediastinum: Mediastinal contours appear normal. Heart size is normal. Bones and chest wall: No suspicious bony lesions. Overlying soft tissues appear unremarkable. IMPRESSION: No acute cardiopulmonary pathology. Dictated by: Anupam Deras M.D. on 03/22/2022 at 9:06 Approved by: Anupam Deras M.D. on 03/22/2022 at 9:07
--- NOTE | 2022-03-22 08:31 | ED_ITS ---
HPI - SOB/Dyspnea General Chief Complaint: Shortness of Breath/Dyspnea Stated Complaint: DR kendy li blood clot T-2 HX of clots Time Seen by Provider: 03/22/22 08:30 Source: patient Mode of arrival: Family Vehicle Limitations: no limitations History of Present Illness HPI Narrative: This is a 46-year-old female with history of prior brain surgery for removal of [employer] shunt, lupus with immune infusions, chronic kidney disease stage 2, antiphospholipid syndrome with prior pulmonary emboli on Lovenox twice daily. P atient states she is had her Lovenox increased somewhat recently 210 mg twice daily. Patient states she developed nasal congestion, cough and shortness of breath a week ago last . Patient states no fevers. She states her nasal congestion resolved. Her shortness of breath have been persistent she is had fatigue and weakness with exertion, she has not appreciated swelling in legs but has noted increased swelling in her upper extremities. Patient notes she is had some discomfort in her neck and behind her shoulder blade feels like a pressure or discomfort. This has been intermittent. Patient states she had nausea and vomiting for several days last week which has resolved. She denies other GI or urinary symptoms. Patient has not had any syncope. She does note she has more discomfort when she lays backwards and feels a little bit more short of breath. She also notes that she was found to have hematoma in her abdomen and soft tissue in the left lower quadrant. Hematoma has been slowly resolving. She was found on the to have a left 4.2 cm ovarian cyst. [place] she states she saw her primary care physician who noted she should be improving at this point and with her symptoms not really improving and slightly worsening encouraged to come here. Patient notes she is had prior cardiac catheterizations but no stents, angioplasties or ablation. She states she did have known pulmonary hypertension and scarring from her prior lupus and has left ventricular diastolic dysfunction. She states her last EF was 55% on last check. She is had cholecystectomy, appendectomy as well as right ovary and fallopian tube removed. Patient denies any use of tobacco, rare alcohol, no illicit. She states she has multiple medication allergies as well a s allergies to bees, shrimp. Patient's primary care is [place]. She follows with Nephrology, rheumatology and hematology oncology. She is accompanied by her caregiver today and lives full-time in the [place] area on [address] Related Data Home Medications Medication Instructions Recorded Confirmed acetaminophen 500 mg tablet 500 mg PO Q6H PRN 07/04/20 (Tylenol Extra Strength) ascorbic acid (vitamin C) 500 mg 500 mg PO DAILY 07/04/20 chewable tablet diclofenac sodium 1 % topical gel 2 g topical QID 07/04/20 (Arthritis Pain (diclofenac)) diltiazem HCl 240 mg 240 mg PO DAILY 07/04/20 capsule,extended release 24 hr (Cardizem CD) diphenhydramine HCl 25 mg capsule 25 mg PO QID PRN 07/04/20 (Benadryl) enoxaparin 120 mg/0.8 mL 120 mg SUBCUT DAILY 07/04/20 subcutaneous syringe erenumab-aooe 140 mg/mL 140 mg SUBCUT QMONTH 07/04/20 subcutaneous auto-injector (Aimovig Autoinjector) famotidine 20 mg tablet (Pepcid) 20 mg PO DAILY 07/04/20 furosemide 40 mg tablet (Lasix) 40 mg PO DAILY 07/04/20 hydrocodone 10 mg-acetaminophen 1 tab PO Q4-6H PRN 07/04/20 325 mg tablet hydroxyzine HCl 25 mg tablet 25 mg PO QID PRN 07/04/20 lamotrigine 100 mg tablet 100 mg PO DAILY 07/04/20 (Lamictal) lorazepam 0.5 mg tablet 0.5 mg PO DAILY PRN 07/04/20 metformin 1,000 mg tablet 1,000 mg PO BID 07/04/20 (Glucophage) omeprazole 40 mg capsule,delayed 40 mg PO DAILY 07/04/20 release ondansetron 4 mg disintegrating 4 mg PO Q8H 07/04/20 tablet sennosides 8.6 mg-docusate sodium 1 tab-cap PO BEDTIME 07/04/20 50 mg tablet (Senna with Docusate Sodium) sitagliptin phosphate 100 mg 100 mg PO DAILY 07/04/20 tablet (Januvia) tamsulosin 0.4 mg capsule (Flomax) 0.4 mg PO DAILY 07/04/20 tizanidine 4 mg capsule 4 mg PO BID PRN 07/04/20 topiramate 200 mg tablet (Topamax) 400 mg PO BID 07/04/20 venlafaxine 150 mg 150 mg PO DAILY 07/04/20 capsule,extended release 24 hr (Effexor XR) Previous Rx's Medication Instructions Recorded oxycodone-acetaminophen 5 mg-325 1 tab PO Q6H PRN pain #10 tabs 02/20/22 mg tablet prednisone 20 mg tablet 40 mg PO DAILY #10 tabs 03/22/22 Allergies Allergy/AdvReac Type Severity Reaction Status Date / Time clindamycin Allergy Severe Anaphylaxis Verified 03/22/22 08:07 hylan G-F 20 Allergy Severe Anaphylaxis Verified 03/22/22 08:07 ibuprofen Allergy Severe SOB,RASH Verified 03/22/22 08:07 Iodinated Contrast Media Allergy Severe SOB-HIVES Verified 03/22/22 08:07 iothalamic acid Allergy Severe SOB,HIVES Verified 03/22/22 08:07 iron dextran complex Allergy Severe Anaphylaxis, Verified 03/22/22 08:07 HIVES meclizine Allergy Severe Palpitation Verified 03/22/22 08:07 s shrimp Allergy Severe Anaphylaxis Verified 03/22/22 08:07 valproic acid Allergy Severe Anaphylaxis Verified 03/22/22 08:07 venom-honey bee Allergy Severe Anaphylaxis Verified 03/22/22 08:07 adhesive tape Allergy Intermediate rash Verified 03/22/22 08:07 amoxicillin [From Augmentin] Allergy Intermediate Hives Verified 03/22/22 08:07 aspirin Allergy Intermediate rash Verified 03/22/22 08:07 clavulanic acid Allergy Intermediate Hives Verified 03/22/22 08:07 [From Augmentin] codeine Allergy Intermediate Hives Verified 03/22/22 08:07 divalproex sodium Allergy Intermediate Hives Verified 03/22/22 08:07 gabapentin Allergy Intermediate Swelling Verified 03/22/22 08:07 of Lip/Tongue/Throat ketorolac Allergy Intermediate Hives Verified 03/22/22 08:07 leuprolide Allergy Intermediate Hives Verified 03/22/22 08:07 levalbuterol Allergy Intermediate Hives Verified 03/22/22 08:07 NSAIDS (Non-Steroidal Allergy Intermediate Hives Verified 03/22/22 08:07 Anti-Inflamma promethazine Allergy Intermediate Hives Verified 03/22/22 08:07 tapentadol Allergy Intermediate rash/itchy Verified 03/22/22 08:07 vancomycin Allergy Intermediate Hives, Verified 03/22/22 08:07 ITCHING IRON SUCROSE Allergy Intermediate Hives,SOB Uncoded 03/22/22 08:07 Review of Systems Review of Systems ROS Unobtainable: All systems reviewed & are unremarkable except as noted in HPI and below Patient History Medical History Antiphospholipid syndrome Cervical spondylosis Chronic pain syndrome History of endometriosis History of ovarian cyst Impingement syndrome of right shoulder Lupus Pseudotumor cerebri Surgical History H/O brain surgery H/O oophorectomy H/O thyroidectomy History of cholecystectomy Hx of appendectomy S/P [employer] shunt Family History Mother Diabetes mellitus Hypertension Arthritis Thrombophilia Sister Arthritis Hypertension Depression Social History Smoking Status: Never smoker Smoking Status: Never smoker alcohol intake frequency: holidays/special occasions only Substance Use Type: does not use Exam Narrative Exam Narrative: GENERAL: Alert and oriented x three, mild distress HEENT: Head normocephalic, atraumatic, EOMI, pupils reactive, face symmetric, moist mucous membranes NECK: Supple, full range of motion CARDIOVASCULAR: Slightly tachycardic Regular rate and rhythm without murmurs, rubs or gallops. No swelling appreciated bilateral lower extremities. RESPIRATORY: Breath sounds equal bilaterally, no wheezes rales or rhonchi. No tachypnea. No accessory muscle use. Patient is able to lay flat. ABDOMEN: Soft, nontender. Normoactive bowel sounds all 4 quadrants. No guarding or rebound, rigidity, no mass, patient does have some healing ecchymosis in the left lower quadrant little bit of fullness consistent with healing hematoma that is palpable in the soft tissue. : No CVA tenderness EXTREMITIES: Normal range of motion, no clubbing or edema. Neurovascularly intact NEUROLOGICAL: Cranial nerves II through XII grossly intact. Moving all extremities SKIN: Warm, dry, no petechiae, no rashes or lesions. Initial Vital Signs Initial Vital Signs: Vital Signs Temperature 97.0 F L 03/22/22 08:08 Pulse Rate 79 03/22/22 08:08 Respiratory Rate 19 03/22/22 08:08 Blood Pressure 139/68 03/22/22 08:08 Pulse Oximetry 100 03/22/22 08:08 Oxygen Delivery Method 03/22/22 08:08 Scores PERC Score Age greater than or equal to 50 years: No Heart rate greater than or equal to 100 bpm: Yes Room Air O2 Sat less than 95%: No Unilateral leg swelling: No Recent trauma or surgery: No Hemoptysis: No Prior PE or DVT: Yes Hormone Use: No Total PERC Score: 2 Course Orders Ordered: ED Orders 03/22/22 11:30 D Dimer Stat Discontinued Medications Diphenhydramine HCl (Diphenhydramine 50 Mg/Ml Vial) 50 mg IV NOW ONE Stop: 03/22/22 08:50 Last Admin: 03/22/22 08:59 Dose: 50 mg Documented By: CUCA Diphenhydramine HCl (Diphenhydramine 50 Mg/Ml Vial) 50 mg IV NOW ONE Stop: 03/22/22 12:52 Last Admin: 03/22/22 12:55 Dose: 50 mg Documented By: AT Heparin Sodium (Porcine) (Heparin 500 Unit/5 Ml Port Flush) 500 unit IV NOW ONE Stop: 03/22/22 12:34 Last Admin: 03/22/22 13:32 Dose: 500 unit Documented By: AT Hydromorphone HCl (Hydromorphone 1 Mg Inj) 1 mg IV NOW ONE Stop: 03/22/22 11:04 Last Admin: 03/22/22 11:18 Dose: 1 mg Documented By: AT Hydromorphone HCl (Hydromorphone 1 Mg Inj) 1 mg IV NOW ONE Stop: 03/22/22 12:18 Last Admin: 03/22/22 12:23 Dose: 1 mg Documented By: AT Sodium Chloride (Normal Saline 0.9%) 500 mls @ 1,000 mls/hr IV BOLUS ONE Stop: 03/22/22 10:37 Last Infusion: 03/22/22 11:08 Dose: 0 mls/hr Documented By: Admin: 03/22/22 10:19 Dose: 1,000 mls/hr Documented By: CUCA Sodium Chloride (Normal Saline 0.9%) 500 mls @ 1,000 mls/hr IV BOLUS ONE Stop: 03/22/22 11:42 Last Admin: 03/22/22 13:16 Dose: Not Given Documented By: AT Methylprednisolone (Methylprednisolone 125 Mg/2 Ml Vial) 125 mg IV NOW ONE Stop: 03/22/22 08:50 Last Admin: 03/22/22 08:58 Dose: 125 mg Documented By: CUCA Ondansetron HCl (Ondansetron 4 Mg/2 Ml Inj) 4 mg IV NOW ONE Stop: 03/22/22 09:56 Last Admin: 03/22/22 09:59 Dose: 4 mg Documented By: CUCA Ondansetron HCl (Ondansetron 4 Mg Odt) 4 mg SL NOW ONE Stop: 03/22/22 12:18 Last Admin: 03/22/22 12:23 Dose: 4 mg Documented By: HERRERA Oxycodone/Acetaminophen (Oxycodone/Acetaminophen 5/325 Tablet) 2 tab PO NOW ONE Stop: 03/22/22 08:50 Last Admin: 03/22/22 08:58 Dose: 2 tab Documented By: CUCA Vital Signs Vital signs: Vital Signs - 8 hr 03/22/22 11:15 03/22/22 11:30 03/22/22 12:00 Pulse Rate 102 H 110 H 100 H Respiratory Rate 19 18 20 Blood Pressure 141/87 H 150/75 H 126/80 Pulse Oximetry 98 99 95 Oxygen Delivery Method Room Air Room Air Room Air 03/22/22 12:28 03/22/22 12:30 03/22/22 13:00 Pulse Rate 106 H 108 H 73 Respiratory Rate 15 15 18 Blood Pressure Pulse Oximetry 95 95 94 Oxygen Delivery Method Room Air 03/22/22 13:20 03/22/22 13:20 03/22/22 13:30 Pulse Rate 117 H 111 H Respiratory Rate 16 14 Blood Pressure 113/68 Pulse Oximetry 92 94 Oxygen Delivery Method Room Air MDM - SOB/Dyspnea Lab Data 03/22/22 08:35 03/22/22 08:35 Labs: Lab Results 03/22/22 03/22/22 03/22/22 Range/Units 08:35 08:35 08:35 WBC 10.3 (4.5-11.0) X10^3/uL RBC 4.21 (4.0-5.2) X10^6/uL Hgb 13.5 (12.0-16.0) g/dL Hct 38.4 (36-46) % MCV 91.2 (80-100) fL MCH 32.1 (26-34) PG MCHC 35.2 (30-36) % RDW 13.2 (11.6-14.8) % Plt Count 353 (150-400) X10^3/uL Neut % (Auto) 65.1 (50-75) % Lymph % (Auto) 25.6 (25-40) % Todd % (Auto) 6.3 (3-14) % Eos % (Auto) 2.6 (2-4) % Baso % (Auto) 0.4 (0-2) % Neut # (Auto) 6700 (4139-4807) /uL Lymph # (Auto) 2600 (2164-8712) /uL Todd # (Auto) 700 (0-900) /uL Eos # (Auto) 300 (0-450) /uL Baso # (Auto) 0 (0-100) /uL PT 12.2 (10.1-12.7) SECONDS INR 1.1 (0.9-1.3) D-Dimer (<500) ng/ml Sodium 138 (137-145) mmol/L Potassium 3.4 (3.4-5.1) mmol/L Chloride 103 (98-107) mmol/L Carbon Dioxide 23 (22-32) mmol/L BUN 15 (7-17) mg/dL Creatinine 0.96 (0.52-1.04) mg/dL Estimated GFR > 60 (>60) mL/min BUN/Creatinine Ratio 15.6 (6-22) Glucose 160 H (70-100) mg/dL Lactate (0.7-2.1) mmol/L Calcium 8.9 (8.4-10.2) mg/dL Total Bilirubin 0.4 (0.2-1.3) mg/dL AST 17 (14-36) IU/L ALT 20 (<35) IU/L Alkaline Phosphatase 163 H (38-126) U/L Total Creatine Kinase (30-135) U/L CK-MB (CK-2) CK-MB (CK-2) Rel Index Troponin I Cancelled NT-Pro-B Natriuret Pep 27 (<125) pg/mL Total Protein 7.9 (6.3-8.2) g/dL Albumin 4.3 (3.5-5.0) g/dL Globulin 3.6 (1.7-4.1) g/dL Albumin/Globulin Ratio 1.2 (1.0-2.8) Serum , Qual (Negative) SARS-CoV-2 (PCR) (Negative) Influenza A (RT-PCR) (NEGATIVE) Influenza B (RT-PCR) (NEGATIVE) RSV (PCR) (Negative) 03/22/22 03/22/22 03/22/22 Range/Units 08:35 08:35 08:35 WBC (4.5-11.0) X10^3/uL RBC (4.0-5.2) X10^6/uL Hgb (12.0-16.0) g/dL Hct (36-46) % MCV (80-100) fL MCH (26-34) PG MCHC (30-36) % RDW (11.6-14.8) % Plt Count (150-400) X10^3/uL Neut % (Auto) (50-75) % Lymph % (Auto) (25-40) % Todd % (Auto) (3-14) % Eos % (Auto) (2-4) % Baso % (Auto) (0-2) % Neut # (Auto) (1986-2637) /uL Lymph # (Auto) (7130-5892) /uL Todd # (Auto) (0-900) /uL Eos # (Auto) (0-450) /uL Baso # (Auto) (0-100) /uL PT (10.1-12.7) SECONDS INR (0.9-1.3) D-Dimer (<500) ng/ml Sodium (137-145) mmol/L Potassium (3.4-5.1) mmol/L Chloride (98-107) mmol/L Carbon Dioxide (22-32) mmol/L BUN (7-17) mg/dL Creatinine (0.52-1.04) mg/dL Estimated GFR (>60) mL/min BUN/Creatinine Ratio (6-22) Glucose (70-100) mg/dL Lactate 2.0 (0.7-2.1) mmol/L Calcium (8.4-10.2) mg/dL Total Bilirubin (0.2-1.3) mg/dL AST (14-36) IU/L ALT (<35) IU/L Alkaline Phosphatase (38-126) U/L Total Creatine Kinase 39 (30-135) U/L CK-MB (CK-2) TNP CK-MB (CK-2) Rel Index TNP Troponin I < 0.012 NT-Pro-B Natriuret Pep (<125) pg/mL Total Protein (6.3-8.2) g/dL Albumin (3.5-5.0) g/dL Globulin (1.7-4.1) g/dL Albumin/Globulin Ratio (1.0-2.8) Serum , Qual Negative (Negative) SARS-CoV-2 (PCR) (Negative) Influenza A (RT-PCR) (NEGATIVE) Influenza B (RT-PCR) (NEGATIVE) RSV (PCR) (Negative) 03/22/22 03/22/22 Range/Units 08:35 11:30 WBC (4.5-11.0) X10^3/uL RBC (4.0-5.2) X10^6/uL Hgb (12.0-16.0) g/dL Hct (36-46) % MCV (80-100) fL MCH (26-34) PG MCHC (30-36) % RDW (11.6-14.8) % Plt Count (150-400) X10^3/uL Neut % (Auto) (50-75) % Lymph % (Auto) (25-40) % Todd % (Auto) (3-14) % Eos % (Auto) (2-4) % Baso % (Auto) (0-2) % Neut # (Auto) (6562-6781) /uL Lymph # (Auto) (3126-1356) /uL Todd # (Auto) (0-900) /uL Eos # (Auto) (0-450) /uL Baso # (Auto) (0-100) /uL PT (10.1-12.7) SECONDS INR (0.9-1.3) D-Dimer 371 (<500) ng/ml Sodium (137-145) mmol/L Potassium (3.4-5.1) mmol/L Chloride (98-107) mmol/L Carbon Dioxide (22-32) mmol/L BUN (7-17) mg/dL Creatinine (0.52-1.04) mg/dL Estimated GFR (>60) mL/min BUN/Creatinine Ratio (6-22) Glucose (70-100) mg/dL Lactate (0.7-2.1) mmol/L Calcium (8.4-10.2) mg/dL Total Bilirubin (0.2-1.3) mg/dL AST (14-36) IU/L ALT (<35) IU/L Alkaline Phosphatase (38-126) U/L Total Creatine Kinase (30-135) U/L CK-MB (CK-2) CK-MB (CK-2) Rel Index Troponin I NT-Pro-B Natriuret Pep (<125) pg/mL Total Protein (6.3-8.2) g/dL Albumin (3.5-5.0) g/dL Globulin (1.7-4.1) g/dL Albumin/Globulin Ratio (1.0-2.8) Serum , Qual (Negative) SARS-CoV-2 (PCR) Negative (Negative) Influenza A (RT-PCR) Flu a negative (NEGATIVE) Influenza B (RT-PCR) Flu b negative (NEGATIVE) RSV (PCR) Negative (Negative) Urine Dip Bedside Urine Glucose Negative Bedside Urine Bilirubin - Negative Bedside Urine Ketone - Negative Urine Specific Libby 1.015 Bedside Urine Occult Blood - Negative Bedside Urine pH 7.0 Bedside Urine Protein - Negative Bedside Urine Urobilinogen - Negative Bedside Urine Nitrite - Negative Bedside Urine Leukocytes - Negative Esterase Imaging Data CT scan - chest: Radiologist's Impression: Vanessa Miguel??46??F??1975 ? Allergy/Adv: clindamycin, hylan G-F 20, ibuprofen, Iodinated Contrast Media, iothalamic acid, iron dextran complex, meclizine, shrimp, valproic acid, venom- honey bee, adhesive tape, amoxicillin, aspirin, clavulanic acid, codeine, divalproex sodium, gabapentin, ketorolac, leuprolide, levalbuterol, NSAIDS (Non- Steroidal Anti-Inflamma, promethazine, tapentadol, vancomycin, [IRON SUCROSE] (More??) Close Chest CTA (Signed) Call,03/22/22 Abdomen/Pelvis CT (Signed) Call,03/22/22 Chest X-Ray (Signed) Anupam Deras - 02/02/23 Abdomen/Pelvis CT (Signed) Myra Fraser - 02/20/22 Pelvis Ultrasound (Signed) Aiden Zhou - 09/11/21 Abdomen/Pelvis CT (Signed) RosenDadajaspreet - 09/11/21 Chest X-Ray (Signed) Eugenio Valencia - 09/11/21 Abdomen/Pelvis CT (Signed) Anupam Deras - 04/18/21 Vascular Ultrasound (Signed) Alecia Lopez - 04/18/21 Pelvis Ultrasound (Signed) Alecia Lopez - 04/18/21 DI Result CC 03/27/21 Pelvis Ultrasound (Signed) Travis Padilla - 09/06/[address] (Signed) Linda Rosario - 08/18/20 Abdomen/Pelvis CT (Signed) Donald Greenberg - 08/18/20 Shoulder MRI (Signed) Anupam Deras - 05/24/20 Shoulder Arthrogram (Cancelled) 05/24/20 Injection for MRI Arthrogram (Signed) Donald Greenberg - 05/24/20 Cervical Spine X-Ray (Signed) Travis Padilla - 10/19/19 DI Result CC 08/01/19 DI Result CC 08/01/19 Outside DI 04/28/19 Outside DI 02/24/19 Launch?[place] [address] CT Scan Report Signed Patient: Vanessa Miguel MR#: [id number] : 1975 Acct:[id number] Age/Sex: 46 / F Date of Service: 03/22/22 Loc: ED Accession Number: [id number] ?? Procedure: CT angio chest PE protocol Ordering Provider: Rosie Rivera D.O. PROCEDURE:? CT ANGIO CHEST PE PROTOCOL ? INDICATIONS:? increased cp,sob, hx multiple blood clots ? TECHNIQUE:? After the administration of intravenous contrast, 2 mm thick sections acquired from the pulmonary apices to the posterior costophrenic angles.? 3-dimensional maximum intensity projection (MIP) coronal and sagittal reformats were then acquired through the thorax.? For radiation dose reduction, the following was used:? automated exposure control, adjustment of mA and/or kV according to patient size.? ? Patient received premedication for prior iodine allergy. ? COMPARISON:? [facility], CR, XR CHEST 1V, 03/22/2022, 8:17. ? FINDINGS:? Image quality:? Excellent.? ? Pulmonary arteries:? Pulmonary arteries are normal in size, and demonstrate no intraluminal filling defects to suggest central pulmonary embolism.? ? Lungs and pleura:? Lungs are clear.? No pleural effusions or pneumothorax.? Central and peripheral airways are patent.? ? Mediastinum:? Left-sided port with the catheter tip at the cavoatrial junction.? Heart size is normal, without pericardial effusion.? No mediastinal or hilar adenopathy.? Thoracic aorta is normal in caliber and enhancement.? Esophagus is normal in caliber, small hiatal hernia.? ? Bones and chest wall:? No suspicious bony lesions.? Ribs and thoracic spine appear intact throughout.? Right thyroidectomy.? No axillary or supraclavicular adenopathy.? ? Abdomen:? Visualized upper abdominal solid organs appear normal in the early arterial phase of enhancement.? Post cholecystectomy.? ? IMPRESSION:? 1. No pulmonary embolism. ? 2. No acute airspace opacity. ? ? Dictated by: Albert Sanders M.D. on 03/22/2022 at 9:41 ? ? Approved by: Albert Sanders M.D. on 03/22/2022 at 9:46? CT scan - abdomen/pelvis: Radiologist's Impression: Vanessa Miguel??46??F??1975 ? Allergy/Adv: clindamycin, hylan G-F 20, ibuprofen, Iodinated Contrast Media, iothalamic acid, iron dextran complex, meclizine, shrimp, valproic acid, venom- honey bee, adhesive tape, amoxicillin, aspirin, clavulanic acid, codeine, divalproex sodium, gabapentin, ketorolac, leuprolide, levalbuterol, NSAIDS (Non- Steroidal Anti-Inflamma, promethazine, tapentadol, vancomycin, [IRON SUCROSE] (More??) Close Chest CTA (Signed) Call,Albert - 03/22/22 Abdomen/Pelvis CT (Signed) Call,03/22/22 Chest X-Ray (Signed) Anupam Deras - 03/22/22 Abdomen/Pelvis CT (Signed) Myar Fraser - 01/03/23 Pelvis Ultrasound (Signed) Aiden Zhou - 09/11/21 Abdomen/Pelvis CT (Signed) Ruy Rosen - 09/11/21 Chest X-Ray (Signed) Eugenio Valencia - 09/11/21 Abdomen/Pelvis CT (Signed) Anupam Deras - 04/18/21 Vascular Ultrasound (Signed) Chayo Lopezah - 04/18/21 Pelvis Ultrasound (Signed) Alecia Lopez - 04/18/21 DI Result CC 03/27/21 Pelvis Ultrasound (Signed) Travis Padilla - 09/06/[address] (Signed) Linda Rosario - 08/18/20 Abdomen/Pelvis CT (Signed) Donald Greenberg - 08/18/20 Shoulder MRI (Signed) Anupam Deras - 05/24/20 Shoulder Arthrogram (Cancelled) 05/24/20 Injection for MRI Arthrogram (Signed) Donald Greenberg - 05/24/20 Cervical Spine X-Ray (Signed) Travis Padilla - 10/19/19 DI Result CC 08/01/19 DI Result CC 08/01/19 Outside DI 04/28/19 Outside DI 02/24/19 [place] [address] CT Scan Report Signed Patient: Vanessa Miguel MR#: [id number] : 1975 Acct:[id number] Age/Sex: 46 / F Date of Service: 03/22/22 Loc: ED Accession Number: [id number] ?? Procedure: CT abdomen pelvis w con Ordering Provider: Rosie Rivera D.O. PROCEDURE:? CT ABDOMEN PELVIS W CON ? INDICATIONS:? abd pain, had hematoma last week develop ? TECHNIQUE:? After the administration of IV contrast, axial sections were acquired from the lung bases to the pubic symphysis.? Coronal and sagittal reformats were performed.? For radiation dose reduction, the following was used:? automated exposure control, adjustment of mA and/or kV according to patient size. ? COMPARISON:? [facility], CT, CT ABDOMEN PELVIS W CON, 02/20/2022, 15:34. ? FINDINGS:? Image quality:? Excellent.? ? Lung bases:? No pleural effusion.? ? Heart:? No significant findings.? Small hiatal hernia.? ? ? ABDOMEN: Liver:? No focal lesion. Gallbladder:? Absent. Biliary ducts:? Unremarkable.? ? Pancreas:? Unremarkable.? ? Spleen:? Unremarkable.? ? Adrenal Glands:? Unremarkable.? ? Kidneys and Ureters:? No hydronephrosis.? Small kidney stones bilaterally.? Largest on the right measures 0.6 cm.? Small low-density cyst at the left kidney measuring 0.9 cm. ? Stomach and Bowel:? Stomach, small bowel loops, and colon are unremarkable.? Peritoneum:? No abnormal intraperitoneal fluid.? No free air.? ? Ventral Wall: ? No definite hernia.? Extensive injection granulomas.? Largest at the left abdominal wall measuring 3.1 cm, (), previously 2.6 cm. Curvilinear calcification at the right abdominal wall extending into the abdominal cavity, unchanged.? Abdominal Nodes:? No retroperitoneal or mesenteric adenopathy by size criteria.? Vessels:? Aorta and inferior vena cava are normal in size.? ? PELVIS: Pelvic Organs:? Anteverted uterus.? Clips in the region of the right adnexa.? Fullness in the right adnexal region, unchanged. Bladder:? No stone.? ? Pelvic Nodes: No enlarged lymph nodes.? Miscellaneous: No inguinal hernias are seen. ? ? ? Bones:? No suspicious lesion. ? ? IMPRESSION:? 1. Left lower abdominal wall injection granuloma or hematoma, slightly increased compared to 02/20/2022. ? 2. No intra-abdominal hematoma or free fluid. ? 3. Small bilateral nonobstructing kidney stones.? No hydronephrosis. ? ? Dictated by: Albert Sanders M.D. on 03/22/2022 at 9:47 ? ? Approved by: Albert Sanders M.D. on 03/22/2022 at 9:58?? ECG Data Attestation: I personally reviewed and interpreted this ECG as follows: Prior ECG tracings: available for review Interpretation: Sinus rhythm nonspecific T-wave, rate of 100 NM 180 QRS 86 and QTC of 469. No acute ST changes noted. Patient has prior from 09/11/2021 without any dynamic changes. MDM Narrative Medical decision making narrative: This is a 46-year-old female complex medical history with history of bilateral blood clots approximately a decade to 15 years ago. Patient has known antiphospholipid syndrome and lupus. She is on Lovenox 110 mg twice daily making it much less likely that she has clots but has had symptoms with neck and shoulder discomfort increasing shortness of breath which initially was related to possible viral infection but has not been improving over appropriate time course. She appreciates little bit of edema in her upper extremities she is been taking her medications including diuretics which he states has been diuresing her and she is decreased by several lb this week but still has some persistent swelling. She states it does feel similar to when she had blood clots in the past. CBC, CMP, troponin and BNP and EKG were all obtained as patient notes she does have a history of some diastolic heart failure which has been stable at this time. Plan for CT angio chest to evaluate for pulmonary emboli, patient also had a hematoma in her lower abdomen and they were unsure why so CT abdomen pelvis with contrast was included. Patient's CBC, CMP, troponin and BNP are overall negative except for an alk-phos of 163 she was 149 on 02/20/2022. Serum is negative. swab is negativ e for COVID, influenza a and RSV. Patient did appear to have a little bit of reaction to contrast I would be, has mild cut a red splotches on hands and patient states buttocks. Was already having some nausea had oral oxycodone having some dry heaving so was given additional dose of Zofran as Benadryl did not seem helpful. We will continue to monitor patient's reaction but does not appear to require epinephrine currently. Awaiting CT angio and CT abdomen pelvis results. Patient states she does not appreciate any airway involvement. She asked about additional Benadryl we discussed we would 50 mg already can do some Zofran we will give a small fluid bolus to see if this is helpful I do not fluid overload her with her history but she may be a little dehydrated she is still slightly tachycardic. CT angio PE is negative, CT abdomen pelvis is negative except for slight increase in the size hematoma since earlier in February. Patient has multiple an injection granulomas the largest in the left was 3.1 cm it was 2.6 with a curvilinear calcification right abdominal wall extending into the abdominal cavity. With ambulation patient's O2 sat is 99% she does become tachycardic. She would a 0.5 L bolus which did seem to help with her tachycardia while resting discussed doing an additional half but patient's anxious about becoming fluid overload with her CHF history. BNP is appropriate her CT and chest x-ray do not show any signs of fluid overload at this time I think she would benefit but defer patient wishes to orally hydrate. She did request to have a D-dimer added on this was done as they use it for monitoring with her hematology oncology 371 today. Patient received a dose of IV pain medication and has been ambulating to the bathroom without significant issue. Urine was added on also she does not have any ketones, no blood or other changes. Patient states that her rash less swelling seemed to be maybe on her face. It has been 4 hours since she is had any Benadryl so was given additional dose this did seem to improve the patient. She feels comfortable returning after being monitored for about an hour. Patient was discharged with a prescription for oral steroid to continue daily for 5 days for reaction to iodine contrast. Discharge Plan Departure Patient Disposition: Home Clinical Impression: Dyspnea Instructions: DI for Shortness of Breath Activity Restrictions/Additional Instructions: Please follow-up with your physician. I would talk with them about getting an echo. I would increase your fluid intake a little bit you are not in significant fluid overload today and you are a little tachycardic when you walk around you may be a little dry and this may help with some of your symptomatology. Prednisone until gone for your reaction to contrast dye. Prescription sent to [facility]. Your workup today including CT angio does not show any blood clots. Your D-dimer today is 371 Please return for worsening symptoms increasing chest pain, shortness of breath, passing out, new swelling of your extremities, persistent vomiting or other new or concerning changes. Prescriptions: New prednisone 20 mg tablet 40 mg PO DAILY Qty: 10 0RF No Action oxycodone-acetaminophen 5-325 mg tablet 1 tab PO Q6H PRN (Reason: pain) Qty: 10 0RF Aimovig Autoinjector 140 mg/mL auto-injector 140 mg SUBCUT QMONTH hydroxyzine HCl 25 mg tablet 25 mg PO QID PRN diphenhydramine HCl [Benadryl] 25 mg capsule 25 mg PO QID PRN diltiazem HCl [Cardizem CD] 240 mg capsule,extended release 24hr 240 mg PO DAILY ascorbic acid (vitamin C) 500 mg tablet,chewable 500 mg PO DAILY diclofenac sodium [Arthritis Pain (diclofenac)] 1 % gel 2 g topical QID Rx Instructions: apply to single elbow, wrist or hand; for hand includes palm/fingers/back of hand sennosides-docusate sodium [Senna with Docusate Sodium] 8.6-50 mg tablet 1 tab-cap PO BEDTIME venlafaxine [Effexor XR] 150 mg capsule,extended release 24hr 150 mg PO DAILY enoxaparin 120 mg/0.8 mL syringe 120 mg SUBCUT DAILY tamsulosin [Flomax] 0.4 mg capsule 0.4 mg PO DAILY metformin [Glucophage] 1,000 mg tablet 1,000 mg PO BID Januvia 100 mg tablet 100 mg PO DAILY lamotrigine [Lamictal] 100 mg tablet 100 mg PO DAILY furosemide [Lasix] 40 mg tablet 40 mg PO DAILY lorazepam 0.5 mg tablet 0.5 mg PO DAILY PRN tizanidine 4 mg capsule 4 mg PO BID PRN topiramate [Topamax] 200 mg tablet 400 mg PO BID acetaminophen [Tylenol Extra Strength] 500 mg tablet 500 mg PO Q6H PRN hydrocodone-acetaminophen 10-325 mg tablet 1 tab PO Q4-6H PRN omeprazole 40 mg capsule,delayed release(DR/EC) 40 mg PO DAILY ondansetron 4 mg tablet,disintegrating 4 mg PO Q8H famotidine [Pepcid] 20 mg tablet 20 mg PO DAILY Referrals: Harinder Nava [Primary Care Provider] - Stand Alone Forms: Patient Portal/API
--- NOTE | 2022-03-22 08:48 | DI.CT.S_ITS ---
PROCEDURE: CT ANGIO CHEST PE PROTOCOL INDICATIONS: increased cp,sob, hx multiple blood clots TECHNIQUE: After the administration of intravenous contrast, 2 mm thick sections acquired from the pulmonary apices to the posterior costophrenic angles. 3-dimensional maximum intensity projection (MIP) coronal and sagittal reformats were then acquired through the thorax. For radiation dose reduction, the following was used: automated exposure control, adjustment of mA and/or kV according to patient size. Patient received premedication for prior iodine allergy. COMPARISON: [facility], CR, XR CHEST 1V, 03/22/2022, 8:17. FINDINGS: Image quality: Excellent. Pulmonary arteries: Pulmonary arteries are normal in size, and demonstrate no intraluminal filling defects to suggest central pulmonary embolism. Lungs and pleura: Lungs are clear. No pleural effusions or pneumothorax. Central and peripheral airways are patent. Mediastinum: Left-sided port with the catheter tip at the cavoatrial junction. Heart size is normal, without pericardial effusion. No mediastinal or hilar adenopathy. Thoracic aorta is normal in caliber and enhancement. Esophagus is normal in caliber, small hiatal hernia. Bones and chest wall: No suspicious bony lesions. Ribs and thoracic spine appear intact throughout. Right thyroidectomy. No axillary or supraclavicular adenopathy. Abdomen: Visualized upper abdominal solid organs appear normal in the early arterial phase of enhancement. Post cholecystectomy. IMPRESSION: 1. No pulmonary embolism. 2. No acute airspace opacity. Dictated by: Albert Sanders M.D. on 03/22/2022 at 9:41 Approved by: Albert Sanders M.D. on 03/22/2022 at 9:46
--- NOTE | 2022-03-22 08:48 | DI.CT.S_ITS ---
PROCEDURE: CT ABDOMEN PELVIS W CON INDICATIONS: abd pain, had hematoma last week develop TECHNIQUE: After the administration of IV contrast, axial sections were acquired from the lung bases to the pubic symphysis. Coronal and sagittal reformats were performed. For radiation dose reduction, the following was used: automated exposure control, adjustment of mA and/or kV according to patient size. COMPARISON: [facility], CT, CT ABDOMEN PELVIS W CON, 02/20/2022, 15:34. FINDINGS: Image quality: Excellent. Lung bases: No pleural effusion. Heart: No significant findings. Small hiatal hernia. ABDOMEN: Liver: No focal lesion. Gallbladder: Absent. Biliary ducts: Unremarkable. Pancreas: Unremarkable. Spleen: Unremarkable. Adrenal Glands: Unremarkable. Kidneys and Ureters: No hydronephrosis. Small kidney stones bilaterally. Largest on the right measures 0.6 cm. Small low-density cyst at the left kidney measuring 0.9 cm. Stomach and Bowel: Stomach, small bowel loops, and colon are unremarkable. Peritoneum: No abnormal intraperitoneal fluid. No free air. Ventral Wall: No definite hernia. Extensive injection granulomas. Largest at the left abdominal wall measuring 3.1 cm, (2/75), previously 2.6 cm. Curvilinear calcification at the right abdominal wall extending into the abdominal cavity, unchanged. Abdominal Nodes: No retroperitoneal or mesenteric adenopathy by size criteria. Vessels: Aorta and inferior vena cava are normal in size. PELVIS: Pelvic Organs: Anteverted uterus. Clips in the region of the right adnexa. Fullness in the right adnexal region, unchanged. Bladder: No stone. Pelvic Nodes: No enlarged lymph nodes. Miscellaneous: No inguinal hernias are seen. Bones: No suspicious lesion. IMPRESSION: 1. Left lower abdominal wall injection granuloma or hematoma, slightly increased compared to 02/20/2022. 2. No intra-abdominal hematoma or free fluid. 3. Small bilateral nonobstructing kidney stones. No hydronephrosis. Dictated by: Albert Sanders M.D. on 03/22/2022 at 9:47 Approved by: Albert Sanders M.D. on 03/22/2022 at 9:58
[2022-03-22 08:49] LABS: Add Manual Diff / Slide Review NO; Basophils Absolute Auto 0 /uL (0-100); Basophils Percent Auto 0.4 % (0-2); Eosinophils Absolute Auto 300 /uL (0-450); Eosinophils Percent Auto 2.6 % (2-4); Hematocrit 38.4 % (36-46); Hemoglobin 13.5 g/dL (12.0-16.0); Lymphocytes Absolute Auto 2600 /uL (1100-4500); Lymphocytes Percent Auto 25.6 % (25-40); Mean Corpuscular HGB Conc 35.2 % (30-36); Mean Corpuscular Hemoglobin 32.1 PG (26-34); Mean Corpuscular Volume 91.2 fL (80-100); Monocytes Absolute Auto 700 /uL (0-900); Monocytes Percent Auto 6.3 % (3-14); Neutrophils Absolute Auto 6700 /uL (1500-7000); Neutrophils Percent Auto 65.1 % (50-75); Platelet Count 353 X10^3/uL (150-400); Red Blood Cell Count 4.21 X10^6/uL (4.0-5.2); Red Cell Distribution Width 13.2 % (11.6-14.8); White Blood Cell Count 10.3 X10^3/uL (4.5-11.0)
[2022-03-22 08:56] LABS: INR 1.1 (0.9-1.3); Prothrombin Time 12.2 SECONDS (10.1-12.7)
[2022-03-22] MEDS: methylPREDNISolone 125 MG/2 ML VIAL IV (08:58)
[2022-03-22] MEDS: OXYCODONE/ACETAMINOPHEN 5/325 TABLET 2 TAB PO (08:58)
[2022-03-22] MEDS: diphenhydrAMINE 50 MG/ML VIAL IV ×2 (08:59→12:55)
[2022-03-22 09:01] LABS: Creatine Kinase 39 U/L (30-135)
[2022-03-22 09:03] LABS: Alanine Aminotransferase 20 IU/L (<35); Albumin 4.3 g/dL (3.5-5.0); Albumin Globulin Ratio 1.2 (1.0-2.8); Alkaline Phosphatase 163 U/L (38-126); Aspartate Aminotransferase 17 IU/L (14-36); BUN Creatinine Ratio 15.6 (6-22); Bilirubin Total 0.4 mg/dL (0.2-1.3); Blood Urea Nitrogen 15 mg/dL (7-17); Calcium 8.9 mg/dL (8.4-10.2); Carbon Dioxide 23 mmol/L (22-32); Chloride 103 mmol/L (98-107); Estimated Glomerular Filt Rate > 60 mL/min (>60); Globulin 3.6 g/dL (1.7-4.1); Glucose 160 mg/dL (70-100); HEMOLYSIS < 15 (0-50); Potassium 3.4 mmol/L (3.4-5.1); Sodium 138 mmol/L (137-145); Total Protein 7.9 g/dL (6.3-8.2)
[2022-03-22 09:10] LABS: NT-proBNP (BNP-Adult 18+) 27 pg/mL (<125)
[2022-03-22 09:13] LABS: Troponin I < 0.012 ng/mL (0.01-0.034)
[2022-03-22 09:15] LABS: Pregnancy Test Serum,Qual Negative (Negative)
[2022-03-22 09:47] LABS: Influenza A - CEPHEID Flu A NEGATIVE (NEGATIVE); Influenza B - CEPHEID Flu B NEGATIVE (NEGATIVE); Respiratory Syncytial Virus Negative (Negative)
[2022-03-22 09:48] LABS: COVID-19 CEPHEID 4-PLEX PCR Negative (Negative)
[2022-03-22] MEDS: ONDANSETRON 4 MG/2 ML INJ IV (09:59)
[2022-03-22] MEDS: SODIUM CHLORIDE 0.9% 500 ML 1000 ML IV (10:19)
--- NOTE | 2022-03-22 11:10 | PC.NURSE ---
Pt ambulated to/from bathroom on pulse ox with [employer], reports HR increased to 130's.
[2022-03-22] MEDS: HYDROMORPHONE 1 MG INJ IV ×2 (11:18→12:23)
[2022-03-22 11:39] LABS: D Dimer 371 ng/ml (<500)
[2022-03-22] MEDS: ONDANSETRON 4 MG ODT SL (12:23)
--- NOTE | 2022-03-22 12:50 | PC.NURSE ---
Pt reports itchiness is worsening, especially on her face. Dr. Rivera notified.
== END 2022-03-22 13:42 | disposition home or self-care (01) ==
PROVIDERS: Emergency Provider Emergency Medicine; PCP Student in an Organized Health Care Education/Training Program
DX: R06.00 Dyspnea, unspecified (principal); R00.0 Tachycardia, unspecified; Z79.899 Other long term (current) drug therapy; Z20.822 Contact with and (suspected) exposure to COVID-19
CPT/HCPCS: 0241U; 36415; 71045; 71275; 74177; 80053; 81003; 82550; 83605; 83880; 84484; 84703; 85025; 85379; 85610; 93005; 96361; 96374; 96375; 96376; 99285; J1170; J1200; J1642; J2405; J2930; Q9967

== ENCOUNTER 2022-07-19 15:33 | Emergency (ER) | payer MEDICARE, MEDICAID, SELFPAY ==
[2022-07-19] VITALS (27 sets, daily range): BP systolic 128–150; BP diastolic 76–98; PULSE 91–127; RESP 13–53; TEMP 36.1–36.8; O2SAT 96–98
--- NOTE | 2022-07-19 17:06 | DI.CT.S_ITS ---
PROCEDURE: CT ABDOMEN PELVIS W CON INDICATIONS: abd pain, hx stones and bowel obs TECHNIQUE: After the administration of IV contrast, axial sections were acquired from the lung bases to the pubic symphysis. Coronal and sagittal reformats were performed. For radiation dose reduction, the following was used: automated exposure control, adjustment of mA and/or kV according to patient size. COMPARISON: [facility], CT, CT ABDOMEN PELVIS W CON, 03/22/2022, 9:24. FINDINGS: Image quality: Excellent. Lung bases: Unremarkable. Heart: No significant findings. ABDOMEN: Liver: Mild hepatic steatosis. Gallbladder: Removed. Biliary ducts: Unremarkable. Pancreas: Unremarkable. Spleen: Unremarkable. Adrenal Glands: Unremarkable. Kidneys and Ureters: 3 mm inferior left renal calculus. Two, 4 mm inferior right renal pole calcifications. No obstruction. Stomach and Bowel: Stomach, small bowel loops, and colon are unremarkable. Peritoneum: No abnormal intraperitoneal fluid. No free air. Focus of increased linear density overlying the right abdominal wall entering the anterior abdomen unchanged. This could represent a banded catheter. Ventral Wall: No hernia. Subcutaneous nodules are again identified although decreased in size compared to prior exam within the subcutaneous fat. Abdominal Nodes: No retroperitoneal or mesenteric adenopathy by size criteria. Vessels: Aorta and inferior vena cava are normal in size. PELVIS: Pelvic Organs: Unremarkable. Bladder: Unremarkable. Pelvic Nodes: No enlarged lymph nodes. Miscellaneous: No inguinal hernias are seen. Bones: Unremarkable. IMPRESSION: No obstruction. Nonobstructing renal calculi, unchanged. Subcutaneous fat nodules decreased in size. Dictated by: Linda Rosario M.D. on 07/19/2022 at 18:26 Approved by: Linda Rosario M.D. on 07/19/2022 at 18:32
--- NOTE | 2022-07-19 17:06 | DI.RAD.S_ITS ---
PROCEDURE: XR CHEST 1V INDICATIONS: abd pain, tachycardia TECHNIQUE: One view of the chest was acquired. COMPARISON: [facility], CR, XR CHEST 1V, 03/22/2022, 8:17. FINDINGS: Surgical changes and devices: Left Port-A-Cath is unchanged Lungs and pleura: Slight appearance of increased interstitial prominence. Mediastinum: Mediastinal contours appear normal. Heart size is normal. Bones and chest wall: No suspicious bony lesions. Overlying soft tissues appear unremarkable. IMPRESSION: Slight increased interstitial prominence which could represent edema versus potentially developing airspace disease such as pneumonia. Dictated by: Linda Rosario M.D. on 07/19/2022 at 19:07 Approved by: Linda Rosario M.D. on 07/19/2022 at 19:12
[2022-07-19 17:15] LABS: Prothrombin Time 11.8 SECONDS (10.1-12.7)
[2022-07-19 17:17] LABS: Add Manual Diff / Slide Review NO; Basophils Absolute Auto 100 /uL (0-100); Basophils Percent Auto 0.5 % (0-2); Eosinophils Absolute Auto 200 /uL (0-450); Eosinophils Percent Auto 2.4 % (2-4); Hematocrit 40.8 % (36-46); Hemoglobin 14.6 g/dL (12.0-16.0); Lymphocytes Absolute Auto 3000 /uL (1100-4500); Lymphocytes Percent Auto 30.1 % (25-40); Mean Corpuscular HGB Conc 35.7 % (30-36); Mean Corpuscular Hemoglobin 33.3 PG (26-34); Mean Corpuscular Volume 93.4 fL (80-100); Monocytes Absolute Auto 800 /uL (0-900); Monocytes Percent Auto 8.2 % (3-14); Neutrophils Absolute Auto 5900 /uL (1500-7000); Neutrophils Percent Auto 58.8 % (50-75); Platelet Count 330 X10^3/uL (150-400); Red Blood Cell Count 4.37 X10^6/uL (4.0-5.2); Red Cell Distribution Width 12.3 % (11.6-14.8); White Blood Cell Count 10.1 X10^3/uL (4.5-11.0)
--- NOTE | 2022-07-19 17:25 | PC.NURSE ---
Holding off on IV fluids at this time, CKD, daily fluid max 1000ML. Physician verbal order.
[2022-07-19 17:27] LABS: Alanine Aminotransferase 24 IU/L (<35); Albumin 4.5 g/dL (3.5-5.0); Albumin Globulin Ratio 1.2 (1.0-2.8); Alkaline Phosphatase 138 U/L (38-126); Aspartate Aminotransferase 20 IU/L (14-36); BUN Creatinine Ratio 24.3 (6-22); Bilirubin Total 0.4 mg/dL (0.2-1.3); Blood Urea Nitrogen 26 mg/dL (7-17); Calcium 9.1 mg/dL (8.4-10.2); Carbon Dioxide 23 mmol/L (22-32); Chloride 101 mmol/L (98-107); Creatine Kinase 64 U/L (30-135); Estimated Glomerular Filt Rate > 60 mL/min (>60); Globulin 3.7 g/dL (1.7-4.1); Glucose 118 mg/dL (70-100); HEMOLYSIS 17 (0-50); Potassium 4.4 mmol/L (3.4-5.1); Sodium 134 mmol/L (137-145); Total Protein 8.2 g/dL (6.3-8.2)
[2022-07-19 17:34] LABS: PTT Partial Thromboplastin Tim 84 SECONDS (26-36)
[2022-07-19 17:39] LABS: Troponin I < 0.012 ng/mL (0.01-0.034)
[2022-07-19 17:43] LABS: Procalcitonin 0.08 ng/mL (<0.5)
[2022-07-19] MEDS: methylPREDNISolone 125 MG/2 ML VIAL IV (17:49)
[2022-07-19] MEDS: diphenhydrAMINE 50 MG/ML VIAL IV (17:49)
[2022-07-19 18:11] LABS: Appearance Urine UA CLEAR; Bilirubin Urine UA NEGATIVE (NEGATIVE); Color Urine UA YELLOW; Glucose Urine UA 2+ g/dL (Negative); Ketones Urine UA NEGATIVE (NEGATIVE); Leukocyte Esterase Urine UA NEGATIVE (NEGATIVE); Nitrite Urine UA NEGATIVE (Negative); Occult Blood Urine UA NEGATIVE (Negative); Protein Urine UA NEGATIVE (Negative); Specific Gravity Urine UA <=1.005 (1.000-1.035); Urobilinogen Urine UA 0.2 E.U./dL (0.2)
[2022-07-19 18:20] LABS: Lipase 94 U/L (23-300)
[2022-07-19 18:21] LABS: Bacteria Urine Occasional (0-1); Culture Indicated Urine Cult Not Indicated; RBC Urine None Seen (0-5/HPF); Squamous Epithelial Cell Urine 0-1 /HPF (0-5/HPF); WBC Urine 0-1/HPF (0-5/HPF)
--- NOTE | 2022-07-19 18:42 | ED.GENADULT ---
HPI - General Adult General Chief complaint: Urogenital-Female Stated complaint: Upper back pain Time Seen by Provider: 07/19/22 17:05 Source: patient Mode of arrival: Ambulatory History of Present Illness HPI narrative: Patient is a 46-year-old female. Has a history of lupus. Also has a history of kidney stones. Is here for evaluation of right-sided flank pain. She states the pain does seem to come and go. It does feel like a prior history of ?impacted stones? no fevers. Unable to find a position of comfort. No rashes. No abdominal pain. No nausea vomiting. A problems breathing. No urinary symptoms. No change in habits states she is having some breakouts on her hands which she states happens because of her lupus when she starts to get infections. Related Data Home Medications Medication Instructions Recorded Confirmed acetaminophen 500 mg tablet 500 mg PO Q6H PRN 07/04/20 (Tylenol Extra Strength) ascorbic acid (vitamin C) 500 mg 500 mg PO DAILY 07/04/20 chewable tablet diclofenac sodium 1 % topical gel 2 g topical QID 07/04/20 (Arthritis Pain (diclofenac)) diltiazem HCl 240 mg 240 mg PO DAILY 07/04/20 capsule,extended release 24 hr (Cardizem CD) diphenhydramine HCl 25 mg capsule 25 mg PO QID PRN 07/04/20 (Benadryl) enoxaparin 120 mg/0.8 mL 120 mg SUBCUT DAILY 07/04/20 subcutaneous syringe erenumab-aooe 140 mg/mL 140 mg SUBCUT QMONTH 07/04/20 subcutaneous auto-injector (Aimovig Autoinjector) famotidine 20 mg tablet (Pepcid) 20 mg PO DAILY 07/04/20 furosemide 40 mg tablet (Lasix) 40 mg PO DAILY 07/04/20 hydrocodone 10 mg-acetaminophen 1 tab PO Q4-6H PRN 07/04/20 325 mg tablet hydroxyzine HCl 25 mg tablet 25 mg PO QID PRN 07/04/20 lamotrigine 100 mg tablet 100 mg PO DAILY 07/04/20 (Lamictal) lorazepam 0.5 mg tablet 0.5 mg PO DAILY PRN 07/04/20 metformin 1,000 mg tablet 1,000 mg PO BID 07/04/20 (Glucophage) omeprazole 40 mg capsule,delayed 40 mg PO DAILY 07/04/20 release ondansetron 4 mg disintegrating 4 mg PO Q8H 07/04/20 tablet sennosides 8.6 mg-docusate sodium 1 tab-cap PO BEDTIME 07/04/20 50 mg tablet (Senna with Docusate Sodium) sitagliptin phosphate 100 mg 100 mg PO DAILY 07/04/20 tablet (Januvia) tamsulosin 0.4 mg capsule (Flomax) 0.4 mg PO DAILY 07/04/20 tizanidine 4 mg capsule 4 mg PO BID PRN 07/04/20 topiramate 200 mg tablet (Topamax) 400 mg PO BID 07/04/20 venlafaxine 150 mg 150 mg PO DAILY 07/04/20 capsule,extended release 24 hr (Effexor XR) Previous Rx's Medication Instructions Recorded oxycodone-acetaminophen 5 mg-325 1 tab PO Q6H PRN pain #10 tabs 02/20/22 mg tablet prednisone 20 mg tablet 40 mg PO DAILY #10 tabs 03/22/22 Allergies Allergy/AdvReac Type Severity Reaction Status Date / Time clindamycin Allergy Severe Anaphylaxis Verified 07/19/22 16:04 hylan G-F 20 Allergy Severe Anaphylaxis Verified 07/19/22 16:04 ibuprofen Allergy Severe SOB,RASH Verified 07/19/22 16:04 Iodinated Contrast Media Allergy Severe SOB-HIVES Verified 07/19/22 16:04 iothalamic acid Allergy Severe SOB,HIVES Verified 07/19/22 16:04 iron dextran complex Allergy Severe Anaphylaxis, Verified 07/19/22 16:04 HIVES meclizine Allergy Severe Palpitation Verified 07/19/22 16:04 s shrimp Allergy Severe Anaphylaxis Verified 07/19/22 16:04 valproic acid Allergy Severe Anaphylaxis Verified 07/19/22 16:04 venom-honey bee Allergy Severe Anaphylaxis Verified 07/19/22 16:04 adhesive tape Allergy Intermediate rash Verified 07/19/22 16:04 amoxicillin [From Augmentin] Allergy Intermediate Hives Verified 07/19/22 16:04 aspirin Allergy Intermediate rash Verified 07/19/22 16:04 clavulanic acid Allergy Intermediate Hives Verified 07/19/22 16:04 [From Augmentin] codeine Allergy Intermediate Hives Verified 07/19/22 16:04 divalproex sodium Allergy Intermediate Hives Verified 07/19/22 16:04 gabapentin Allergy Intermediate Swelling Verified 07/19/22 16:04 of Lip/Tongue/Throat ketorolac Allergy Intermediate Hives Verified 07/19/22 16:04 leuprolide Allergy Intermediate Hives Verified 07/19/22 16:04 levalbuterol Allergy Intermediate Hives Verified 07/19/22 16:04 NSAIDS (Non-Steroidal Allergy Intermediate Hives Verified 07/19/22 16:04 Anti-Inflamma promethazine Allergy Intermediate Hives Verified 07/19/22 16:04 tapentadol Allergy Intermediate rash/itchy Verified 07/19/22 16:04 vancomycin Allergy Intermediate Hives, Verified 07/19/22 16:04 ITCHING IRON SUCROSE Allergy Intermediate Hives,SOB Uncoded 07/19/22 16:04 Review of Systems Review of Systems ROS Unobtainable: All systems reviewed & are unremarkable except as noted in HPI and below Patient History Medical History Antiphospholipid syndrome Cervical spondylosis Chronic pain syndrome History of endometriosis History of ovarian cyst Impingement syndrome of right shoulder Lupus Pseudotumor cerebri Surgical History H/O brain surgery H/O oophorectomy H/O thyroidectomy History of cholecystectomy Hx of appendectomy S/P [employer] shunt Family History Mother Diabetes mellitus Hypertension Arthritis Thrombophilia Sister Arthritis Hypertension Depression Social History Smoking Status: Never smoker Smoking Status: Never smoker alcohol intake frequency: holidays/special occasions only Substance Use Type: does not use Exam Initial Vital Signs Initial Vital Signs: Vital Signs Temperature 97 F L 07/19/22 15:53 Pulse Rate 119 H 07/19/22 15:53 Respiratory Rate 18 07/19/22 15:53 Blood Pressure 140/87 07/19/22 15:53 Pulse Oximetry 97 07/19/22 15:53 Oxygen Delivery Method Room Air 07/19/22 15:53 Const General: cooperative, comfortable and No ill appearing HENMT Head: normal to inspection and normocephalic Resp Effort & Inspection: normal respiratory effort Auscultation: clear to auscultation bilaterally Cardio Rate: regular rate Rhythm: regular rhythm GI Inspection: normal to inspection Palpation: soft, No firm and No tender Back/Spine/Pelvis Back: No CVA tenderness Skin General: no rashes or lesions noted Neuro General: patient alert, patient awake and moves all extremities Extrem General: normal to inspection and capillary refill normal Course Orders Ordered: ED Orders 07/19/22 18:40 Blood Culture Stat Discontinued Medications Diphenhydramine HCl (Diphenhydramine 50 Mg/Ml Vial) 50 mg IV NOW ONE Stop: 07/19/22 17:07 Last Admin: 07/19/22 17:49 Dose: 50 mg Documented By: ISABELA Diphenhydramine HCl (Diphenhydramine 50 Mg/Ml Vial) 25 mg IV NOW ONE Stop: 07/19/22 20:25 Last Admin: 07/19/22 20:33 Dose: 25 mg Documented By: CUCA Famotidine (Famotidine 20 Mg/2 Ml Vial) 20 mg IV NOW LILLIAM Last Admin: 07/19/22 20:33 Dose: 20 mg Documented By: CUCA Heparin Sodium (Porcine) (Heparin 500 Unit/5 Ml Port Flush) 500 unit IV PRN ONE Stop: 07/19/22 21:30 Last Admin: 07/19/22 21:30 Dose: 500 unit Documented By: CUCA Sodium Chloride (Normal Saline 0.9%) 1,000 mls @ 1,000 mls/hr IV BOLUS ONE Stop: 07/19/22 18:05 Last Admin: 07/19/22 17:23 Dose: Not Given Documented By: ISABELA Methylprednisolone (Methylprednisolone 125 Mg/2 Ml Vial) 125 mg IV NOW ONE Stop: 07/19/22 17:07 Last Admin: 07/19/22 17:49 Dose: 125 mg Documented By: ISABELA Morphine Sulfate (Morphine 4 Mg/Ml Inj) 4 mg IV NOW ONE Stop: 07/19/22 20:25 Last Admin: 07/19/22 20:34 Dose: 4 mg Documented By: CUCA Morphine Sulfate (Morphine 4 Mg/Ml Inj) 4 mg IV NOW ONE Stop: 07/19/22 21:17 Last Admin: 07/19/22 21:20 Dose: 4 mg Documented By: SLOANE Vital Signs Vital signs: Vital Signs - 8 hr 07/19/22 19:17 07/19/22 19:18 07/19/22 19:18 Temperature Pulse Rate 96 H 100 H Respiratory Rate 24 21 Blood Pressure 136/90 Pulse Oximetry 97 97 Oxygen Delivery Method 07/19/22 19:20 07/19/22 19:30 07/19/22 19:31 Temperature Pulse Rate 102 H 105 H Respiratory Rate 13 Blood Pressure 136/87 Pulse Oximetry 97 97 Oxygen Delivery Method Room Air 07/19/22 19:31 07/19/22 19:40 07/19/22 19:46 Temperature Pulse Rate 107 H 104 H 104 H Respiratory Rate 18 32 H Blood Pressure Pulse Oximetry 97 97 96 Oxygen Delivery Method Room Air Room Air 07/19/22 19:46 07/19/22 19:50 07/19/22 20:00 Temperature 98.3 F Pulse Rate 103 H 127 H Respiratory Rate 17 Blood Pressure 148/90 H Pulse Oximetry 96 96 Oxygen Delivery Method Room Air 07/19/22 20:06 07/19/22 20:06 07/19/22 20:10 Temperature Pulse Rate 99 H 98 H Respiratory Rate 24 28 H Blood Pressure 141/83 H Pulse Oximetry 97 97 Oxygen Delivery Method 07/19/22 20:15 07/19/22 20:15 07/19/22 20:20 Temperature Pulse Rate 96 H 101 H Respiratory Rate 22 39 H Blood Pressure 142/81 H Pulse Oximetry 97 97 Oxygen Delivery Method 07/19/22 20:32 07/19/22 20:33 07/19/22 20:33 Temperature Pulse Rate 91 H 99 H Respiratory Rate 53 H 14 Blood Pressure 150/87 H Pulse Oximetry 96 96 Oxygen Delivery Method 07/19/22 20:40 07/19/22 20:45 07/19/22 20:45 Temperature Pulse Rate 98 H 102 H Respiratory Rate 29 H 23 Blood Pressure 146/78 H Pulse Oximetry 97 97 Oxygen Delivery Method 07/19/22 20:50 07/19/22 21:00 07/19/22 21:00 Temperature Pulse Rate 110 H 108 H Respiratory Rate 27 H 22 Blood Pressure 138/82 Pulse Oximetry 98 96 Oxygen Delivery Method 07/19/22 21:10 07/19/22 21:15 07/19/22 21:15 Temperature Pulse Rate 114 H 109 H Respiratory Rate 28 H 27 H Blood Pressure 146/82 H Pulse Oximetry 96 96 Oxygen Delivery Method 07/19/22 21:20 Temperature Pulse Rate 111 H Respiratory Rate 23 Blood Pressure Pulse Oximetry 96 Oxygen Delivery Method Room Air Medical Decision Making Lab Data Lab results reviewed: Yes I reviewed the patient's lab results. 07/19/22 16:20 07/19/22 16:20 Labs: Lab Results 07/19/22 07/19/22 07/19/22 Range/Units 16:14 16:20 16:20 WBC 10.1 (4.5-11.0) X10^3/uL RBC 4.37 (4.0-5.2) X10^6/uL Hgb 14.6 (12.0-16.0) g/dL Hct 40.8 (36-46) % MCV 93.4 (80-100) fL MCH 33.3 (26-34) PG MCHC 35.7 (30-36) % RDW 12.3 (11.6-14.8) % Plt Count 330 (150-400) X10^3/uL Neut % (Auto) 58.8 (50-75) % Lymph % (Auto) 30.1 (25-40) % Liberty % (Auto) 8.2 (3-14) % Eos % (Auto) 2.4 (2-4) % Baso % (Auto) 0.5 (0-2) % Neut # (Auto) 5900 (8689-8398) /uL Lymph # (Auto) 3000 (2805-0612) /uL Liberty # (Auto) 800 (0-900) /uL Eos # (Auto) 200 (0-450) /uL Baso # (Auto) 100 (0-100) /uL PT 11.8 (10.1-12.7) SECONDS INR 1.0 (0.9-1.3) APTT (26-36) SECONDS Sodium (137-145) mmol/L Potassium (3.4-5.1) mmol/L Chloride (98-107) mmol/L Carbon Dioxide (22-32) mmol/L BUN (7-17) mg/dL Creatinine (0.52-1.04) mg/dL Estimated GFR (>60) mL/min BUN/Creatinine Ratio (6-22) Glucose (70-100) mg/dL Lactate (0.7-2.1) mmol/L Calcium (8.4-10.2) mg/dL Total Bilirubin (0.2-1.3) mg/dL AST (14-36) IU/L ALT (<35) IU/L Alkaline Phosphatase (38-126) U/L Total Creatine Kinase (30-135) U/L CK-MB (CK-2) CK-MB (CK-2) Rel Index Troponin I (0.01-0.034) ng/mL NT-Pro-B Natriuret Pep (<125) pg/mL Total Protein (6.3-8.2) g/dL Albumin (3.5-5.0) g/dL Globulin (1.7-4.1) g/dL Albumin/Globulin Ratio (1.0-2.8) Lipase (23-300) U/L Procalcitonin (<0.5) ng/mL Urine Color Yellow Urine Appearance Clear Urine pH 7.0 (4.5-8.0) Ur Specific Sublimity <=1.005 (1.000-1.035) Urine Protein Negative (Negative) Urine Glucose (UA) 2+ H (Negative) g/dL Urine Ketones Negative (NEGATIVE) Urine Occult Blood Negative (Negative) Urine Nitrate Negative (Negative) Urine Bilirubin Negative (NEGATIVE) Urine Urobilinogen 0.2 (0.2) E.U./dL Ur Leukocyte Esterase Negative (NEGATIVE) Urine RBC None seen (0-5/HPF) Urine WBC 0-1/hpf (0-5/HPF) Ur Squamous Epith Cells 0-1 /hpf (0-5/HPF) Urine Bacteria Occasional (0-1) (None) Ur Culture Indicated? Cult not indicated 07/19/22 07/19/22 07/19/22 Range/Units 16:20 16:20 16:20 WBC (4.5-11.0) X10^3/uL RBC (4.0-5.2) X10^6/uL Hgb (12.0-16.0) g/dL Hct (36-46) % MCV (80-100) fL MCH (26-34) PG MCHC (30-36) % RDW (11.6-14.8) % Plt Count (150-400) X10^3/uL Neut % (Auto) (50-75) % Lymph % (Auto) (25-40) % Liberty % (Auto) (3-14) % Eos % (Auto) (2-4) % Baso % (Auto) (0-2) % Neut # (Auto) (9522-3157) /uL Lymph # (Auto) (8870-5327) /uL Liberty # (Auto) (0-900) /uL Eos # (Auto) (0-450) /uL Baso # (Auto) (0-100) /uL PT (10.1-12.7) SECONDS INR (0.9-1.3) APTT 84 H* (26-36) SECONDS Sodium 134 L (137-145) mmol/L Potassium 4.4 (3.4-5.1) mmol/L Chloride 101 (98-107) mmol/L Carbon Dioxide 23 (22-32) mmol/L BUN 26 H (7-17) mg/dL Creatinine 1.07 H (0.52-1.04) mg/dL Estimated GFR > 60 (>60) mL/min BUN/Creatinine Ratio 24.3 H (6-22) Glucose 118 H (70-100) mg/dL Lactate 1.0 (0.7-2.1) mmol/L Calcium 9.1 (8.4-10.2) mg/dL Total Bilirubin 0.4 (0.2-1.3) mg/dL AST 20 (14-36) IU/L ALT 24 (<35) IU/L Alkaline Phosphatase 138 H (38-126) U/L Total Creatine Kinase 64 (30-135) U/L CK-MB (CK-2) TNP CK-MB (CK-2) Rel Index TNP Troponin I < 0.012 (0.01-0.034) ng/mL NT-Pro-B Natriuret Pep (<125) pg/mL Total Protein 8.2 (6.3-8.2) g/dL Albumin 4.5 (3.5-5.0) g/dL Globulin 3.7 (1.7-4.1) g/dL Albumin/Globulin Ratio 1.2 (1.0-2.8) Lipase (23-300) U/L Procalcitonin 0.08 (<0.5) ng/mL Urine Color Urine Appearance Urine pH (4.5-8.0) Ur Specific Sublimity (1.000-1.035) Urine Protein (Negative) Urine Glucose (UA) (Negative) g/dL Urine Ketones (NEGATIVE) Urine Occult Blood (Negative) Urine Nitrate (Negative) Urine Bilirubin (NEGATIVE) Urine Urobilinogen (0.2) E.U./dL Ur Leukocyte Esterase (NEGATIVE) Urine RBC (0-5/HPF) Urine WBC (0-5/HPF) Ur Squamous Epith Cells (0-5/HPF) Urine Bacteria (None) Ur Culture Indicated? 07/19/22 07/19/22 Range/Units 16:20 16:20 WBC (4.5-11.0) X10^3/uL RBC (4.0-5.2) X10^6/uL Hgb (12.0-16.0) g/dL Hct (36-46) % MCV (80-100) fL MCH (26-34) PG MCHC (30-36) % RDW (11.6-14.8) % Plt Count (150-400) X10^3/uL Neut % (Auto) (50-75) % Lymph % (Auto) (25-40) % Liberty % (Auto) (3-14) % Eos % (Auto) (2-4) % Baso % (Auto) (0-2) % Neut # (Auto) (5687-6230) /uL Lymph # (Auto) (8843-0082) /uL Liberty # (Auto) (0-900) /uL Eos # (Auto) (0-450) /uL Baso # (Auto) (0-100) /uL PT (10.1-12.7) SECONDS INR (0.9-1.3) APTT (26-36) SECONDS Sodium (137-145) mmol/L Potassium (3.4-5.1) mmol/L Chloride (98-107) mmol/L Carbon Dioxide (22-32) mmol/L BUN (7-17) mg/dL Creatinine (0.52-1.04) mg/dL Estimated GFR (>60) mL/min BUN/Creatinine Ratio (6-22) Glucose (70-100) mg/dL Lactate (0.7-2.1) mmol/L Calcium (8.4-10.2) mg/dL Total Bilirubin (0.2-1.3) mg/dL AST (14-36) IU/L ALT (<35) IU/L Alkaline Phosphatase (38-126) U/L Total Creatine Kinase (30-135) U/L CK-MB (CK-2) CK-MB (CK-2) Rel Index Troponin I (0.01-0.034) ng/mL NT-Pro-B Natriuret Pep 22 (<125) pg/mL Total Protein (6.3-8.2) g/dL Albumin (3.5-5.0) g/dL Globulin (1.7-4.1) g/dL Albumin/Globulin Ratio (1.0-2.8) Lipase 94 (23-300) U/L Procalcitonin (<0.5) ng/mL Urine Color Urine Appearance Urine pH (4.5-8.0) Ur Specific Sublimity (1.000-1.035) Urine Protein (Negative) Urine Glucose (UA) (Negative) g/dL Urine Ketones (NEGATIVE) Urine Occult Blood (Negative) Urine Nitrate (Negative) Urine Bilirubin (NEGATIVE) Urine Urobilinogen (0.2) E.U./dL Ur Leukocyte Esterase (NEGATIVE) Urine RBC (0-5/HPF) Urine WBC (0-5/HPF) Ur Squamous Epith Cells (0-5/HPF) Urine Bacteria (None) Ur Culture Indicated? Point of Care Testing Test Results Negative Urine Dip Bedside Urine Glucose 1000 mg/dl Bedside Urine Bilirubin - Negative Bedside Urine Ketone - Negative Urine Specific Sublimity 1.000 Bedside Urine Occult Blood - Negative Bedside Urine pH 6.5 Bedside Urine Protein - Negative Bedside Urine Urobilinogen - Negative Bedside Urine Nitrite - Negative Bedside Urine Leukocytes - Negative Esterase Point of care testing: Point of Care Testing Test Results Negative Urine Dip Bedside Urine Glucose 1000 mg/dl Bedside Urine Bilirubin - Negative Bedside Urine Ketone - Negative Urine Specific Sublimity 1.000 Bedside Urine Occult Blood - Negative Bedside Urine pH 6.5 Bedside Urine Protein - Negative Bedside Urine Urobilinogen - Negative Bedside Urine Nitrite - Negative Bedside Urine Leukocytes - Negative Esterase Imaging Data CT scan - abdomen/pelvis: Radiologist's Impression: PROCEDURE:? CT ABDOMEN PELVIS W CON ? INDICATIONS:? abd pain, hx stones and bowel obs ? TECHNIQUE:? After the administration of IV contrast, axial sections were acquired from the lung bases to the pubic symphysis.? Coronal and sagittal reformats were performed.? For radiation dose reduction, the following was used:? automated exposure control, adjustment of mA and/or kV according to patient size. ? COMPARISON:? [facility], CT, CT ABDOMEN PELVIS W CON, 03/22/2022, 9:24. ? FINDINGS:? Image quality:? Excellent.? ? Lung bases:? Unremarkable.? ? Heart:? No significant findings. ? ? ABDOMEN: Liver:? Mild hepatic steatosis. Gallbladder:? Removed.? ? Biliary ducts:? Unremarkable.? ? Pancreas:? Unremarkable.? ? Spleen:? Unremarkable.? ? Adrenal Glands:? Unremarkable.? ? Kidneys and Ureters:? 3 mm inferior left renal calculus.? Two, 4 mm inferior right renal pole calcifications.? No obstruction. ? Stomach and Bowel:? Stomach, small bowel loops, and colon are unremarkable.? Peritoneum:? No abnormal intraperitoneal fluid.? No free air.? Focus of increased linear density overlying the right abdominal wall entering the anterior abdomen unchanged.? This could represent a banded catheter. ? Ventral Wall: ? No hernia.? Subcutaneous nodules are again identified although decreased in size compared to prior exam within the subcutaneous fat. Abdominal Nodes:? No retroperitoneal or mesenteric adenopathy by size criteria.? Vessels:? Aorta and inferior vena cava are normal in size.? ? PELVIS: Pelvic Organs:? Unremarkable.? ? Bladder:? Unremarkable.? ? Pelvic Nodes: No enlarged lymph nodes.? Miscellaneous: No inguinal hernias are seen. ? ? ? Bones:? Unremarkable.? IMPRESSION:? ? No obstruction. ? Nonobstructing renal calculi, unchanged. ? Subcutaneous fat nodules decreased in size. Chest x-ray: Radiologist's Impression: PROCEDURE:? XR CHEST 1V ? INDICATIONS:? abd pain, tachycardia ? TECHNIQUE:? One view of the chest was acquired.? ? COMPARISON:? [facility], CR, XR CHEST 1V, 03/22/2022, 8:17. ? FINDINGS:? ? Surgical changes and devices:? Left Port-A-Cath is unchanged ? Lungs and pleura:? Slight appearance of increased interstitial prominence. ? Mediastinum:? Mediastinal contours appear normal.? Heart size is normal.? ? Bones and chest wall:? No suspicious bony lesions.? Overlying soft tissues appear unremarkable.? ? IMPRESSION:? Slight increased interstitial prominence which could represent edema versus potentially developing airspace disease such as pneumonia. ECG Data Attestation: I personally reviewed and interpreted this ECG as follows: Interpretation: Sinus rhythm Ventricular rate 91 LVH Normal axis Normal QRS No ST T wave changes MDM Narrative Medical decision making narrative: Patient is not toxic appearing. Labs are unremarkable. There was no specific source of infection found. The CT scan does not show an obstructive ureteral stones. Her urine shows no signs of infection. Patient clinically does not have pneumonia. There is no skin changes over her right flank got make me concern for zoster. Low suspicion for pyelonephritis. There is no indication for antibiotics based on her presentation today. She is no skin changes concerning for cellulitis. Will discharge patient home with strict return precautions she expressed understanding and agreement with plan. Discharge Plan Departure Patient Disposition: Home Clinical Impression: Flank pain Instructions: DI for Flank Pain Activity Restrictions/Additional Instructions: Your workup here in the emergency department is very reassuring. There is no specific source of infection found on your workup. Recommend you continue to take all of your medications as directed. Return to the emergency department for new symptoms like we discussed. Prescriptions: No Action prednisone 20 mg tablet 40 mg PO DAILY Qty: 10 0RF oxycodone-acetaminophen 5-325 mg tablet 1 tab PO Q6H PRN (Reason: pain) Qty: 10 0RF Aimovig Autoinjector 140 mg/mL auto-injector 140 mg SUBCUT QMONTH hydroxyzine HCl 25 mg tablet 25 mg PO QID PRN diphenhydramine HCl [Benadryl] 25 mg capsule 25 mg PO QID PRN diltiazem HCl [Cardizem CD] 240 mg capsule,extended release 24hr 240 mg PO DAILY ascorbic acid (vitamin C) 500 mg tablet,chewable 500 mg PO DAILY diclofenac sodium [Arthritis Pain (diclofenac)] 1 % gel 2 g topical QID Rx Instructions: apply to single elbow, wrist or hand; for hand includes palm/fingers/back of hand sennosides-docusate sodium [Senna with Docusate Sodium] 8.6-50 mg tablet 1 tab-cap PO BEDTIME venlafaxine [Effexor XR] 150 mg capsule,extended release 24hr 150 mg PO DAILY enoxaparin 120 mg/0.8 mL syringe 120 mg SUBCUT DAILY tamsulosin [Flomax] 0.4 mg capsule 0.4 mg PO DAILY metformin [Glucophage] 1,000 mg tablet 1,000 mg PO BID Januvia 100 mg tablet 100 mg PO DAILY lamotrigine [Lamictal] 100 mg tablet 100 mg PO DAILY furosemide [Lasix] 40 mg tablet 40 mg PO DAILY lorazepam 0.5 mg tablet 0.5 mg PO DAILY PRN tizanidine 4 mg capsule 4 mg PO BID PRN topiramate [Topamax] 200 mg tablet 400 mg PO BID acetaminophen [Tylenol Extra Strength] 500 mg tablet 500 mg PO Q6H PRN hydrocodone-acetaminophen 10-325 mg tablet 1 tab PO Q4-6H PRN omeprazole 40 mg capsule,delayed release(DR/EC) 40 mg PO DAILY ondansetron 4 mg tablet,disintegrating 4 mg PO Q8H famotidine [Pepcid] 20 mg tablet 20 mg PO DAILY Referrals: Harinder Nava [Primary Care Provider] - Stand Alone Forms: Patient Portal/API
[2022-07-19] MEDS: FAMOTIDINE 20 MG/2 ML VIAL IV (20:33)
[2022-07-19] MEDS: diphenhydrAMINE 50 MG/ML VIAL 25 MG IV (20:33)
[2022-07-19] MEDS: MORPHINE 4 MG/ML INJ IV ×2 (20:34→21:20)
[2022-07-19 20:59] LABS: NT-proBNP (BNP-Adult 18+) 22 pg/mL (<125)
== END 2022-07-19 21:39 | disposition home or self-care (01) ==
PROVIDERS: Emergency Medicine; Emergency Provider Emergency Medicine; PCP Student in an Organized Health Care Education/Training Program
DX: R10.9 Unspecified abdominal pain (principal); R00.0 Tachycardia, unspecified
CPT/HCPCS: 36415; 71045; 74177; 80053; 81001; 81003; 81025; 82550; 83605; 83690; 83880; 84145; 84484; 85025; 85610; 85730; 87040; 93005; 93010; 96374; 96375; 96376; 99284; J1200; J1642; J2270; J2930; Q9967

== ENCOUNTER 2022-10-18 11:11 | Emergency (ER) | payer MEDICARE, MEDICAID, SELFPAY ==
[2022-10-18 11:13] VITALS: BP 132/91; PULSE 118; RESP 20; TEMP 36.4; O2SAT 96; BMI 43.2
--- NOTE | 2022-10-18 16:09 | DI.US.S_ITS ---
PROCEDURE: US RENAL COMPLETE INDICATIONS: KIDNEY STONES ? HYDRONEPHROSIS? TECHNIQUE: Real-time scanning was performed of the kidneys and bladder, with image documentation. COMPARISON: None. FINDINGS: Kidneys: Kidneys are normal in size. Right kidney measures 10.7 cm long; left kidney measures 10.5 cm long. Right renal cortical thickness is 1.8 cm; left renal cortical thickness is 2.9 cm. Renal cortical echotexture is normal. No hydronephrosis. Multiple echogenic foci noted in the bilateral kidneys. No suspicious solid mass lesions. Bladder: Pre-void bladder volume is 23 mL. Post-void residual volume was not measured as the patient voided before the examination. Pre-void images demonstrate no intraluminal masses or stones. On pre-void images, bilateral ureteral jets are noted with color Doppler interrogation. (Of note, ureteral jets may not be detectable in up to 25% of cases due to insufficient differences in specific gravity between ureteral and bladder urine). Miscellaneous: No free pelvic fluid. IMPRESSION: No acute sonographic abnormalities. Multiple small echogenic foci in the bilateral kidneys which may represent nonobstructing renal stones. No hydronephrosis identified. Dictated by: Travis Padilla M.D. on 10/18/2022 at 17:15 Approved by: Travis Padilla M.D. on 10/18/2022 at 17:17
--- NOTE | 2022-10-18 16:24 | ED_ITS ---
HPI - Female Genitourinary <Kori Ariza PA-C - Last Filed: 10/18/22 18:42> General Chief complaint: Urogenital-Female Stated complaint: thinks kidney stones N/pain in back Time Seen by Provider: 10/18/22 15:54 Source: patient Mode of arrival: Ambulatory History of Present Illness HPI Narrative: Patient is a 47-year-old female with a history of lupus who presents with flank pain. She has a long history of kidney stones and reports passing for just prior to arriving in the emergency department today. She recently had a CT scan in Saturday that show numerous bilateral stones. She is working with her residential appraiser and primary doctor to figure out a way to manage these kidney stones. She presents today mostly for pain control. Currently pain is 10/10. She denies fever, but did have nausea vomiting because of the pain earlier today. Is voiding without difficulty. She has a port due to frequent infusions for management of her lupus and poor vascular access due to chronic illness. Related Data Home Medications Medication Instructions Recorded Confirmed acetaminophen 500 mg tablet 500 mg PO Q6H PRN 07/04/20 (Tylenol Extra Strength) ascorbic acid (vitamin C) 500 mg 500 mg PO DAILY 07/04/20 chewable tablet diclofenac sodium 1 % topical gel 2 g topical QID 07/04/20 (Arthritis Pain (diclofenac)) diltiazem HCl 240 mg 240 mg PO DAILY 07/04/20 capsule,extended release 24 hr (Cardizem CD) diphenhydramine HCl 25 mg capsule 25 mg PO QID PRN 07/04/20 (Benadryl) enoxaparin 120 mg/0.8 mL 120 mg SUBCUT DAILY 07/04/20 subcutaneous syringe erenumab-aooe 140 mg/mL 140 mg SUBCUT QMONTH 07/04/20 subcutaneous auto-injector (Aimovig Autoinjector) famotidine 20 mg tablet (Pepcid) 20 mg PO DAILY 07/04/20 furosemide 40 mg tablet (Lasix) 40 mg PO DAILY 07/04/20 hydrocodone 10 mg-acetaminophen 1 tab PO Q4-6H PRN 07/04/20 325 mg tablet hydroxyzine HCl 25 mg tablet 25 mg PO QID PRN 07/04/20 lamotrigine 100 mg tablet 100 mg PO DAILY 07/04/20 (Lamictal) lorazepam 0.5 mg tablet 0.5 mg PO DAILY PRN 07/04/20 metformin 1,000 mg tablet 1,000 mg PO BID 07/04/20 (Glucophage) omeprazole 40 mg capsule,delayed 40 mg PO DAILY 07/04/20 release ondansetron 4 mg disintegrating 4 mg PO Q8H 07/04/20 tablet sennosides 8.6 mg-docusate sodium 1 tab-cap PO BEDTIME 07/04/20 50 mg tablet (Senna with Docusate Sodium) sitagliptin phosphate 100 mg 100 mg PO DAILY 07/04/20 tablet (Januvia) tamsulosin 0.4 mg capsule (Flomax) 0.4 mg PO DAILY 07/04/20 tizanidine 4 mg capsule 4 mg PO BID PRN 07/04/20 topiramate 200 mg tablet (Topamax) 400 mg PO BID 07/04/20 venlafaxine 150 mg 150 mg PO DAILY 07/04/20 capsule,extended release 24 hr (Effexor XR) Previous Rx's Medication Instructions Recorded oxycodone-acetaminophen 5 mg-325 1 tab PO Q6H PRN pain #10 tabs 02/20/22 mg tablet prednisone 20 mg tablet 40 mg PO DAILY #10 tabs 03/22/22 Allergies Allergy/AdvReac Type Severity Reaction Status Date / Time clindamycin Allergy Severe Anaphylaxis Verified 10/18/22 11:13 hylan G-F 20 Allergy Severe Anaphylaxis Verified 10/18/22 11:13 ibuprofen Allergy Severe SOB,RASH Verified 10/18/22 11:13 Iodinated Contrast Media Allergy Severe SOB-HIVES Verified 10/18/22 11:13 iothalamic acid Allergy Severe SOB,HIVES Verified 10/18/22 11:13 iron dextran complex Allergy Severe Anaphylaxis, Verified 10/18/22 11:13 HIVES meclizine Allergy Severe Palpitation Verified 10/18/22 11:13 s shrimp Allergy Severe Anaphylaxis Verified 10/18/22 11:13 valproic acid Allergy Severe Anaphylaxis Verified 10/18/22 11:13 venom-honey bee Allergy Severe Anaphylaxis Verified 10/18/22 11:13 adhesive tape Allergy Intermediate rash Verified 10/18/22 11:13 amoxicillin [From Augmentin] Allergy Intermediate Hives Verified 10/18/22 11:13 aspirin Allergy Intermediate rash Verified 10/18/22 11:13 clavulanic acid Allergy Intermediate Hives Verified 10/18/22 11:13 [From Augmentin] codeine Allergy Intermediate Hives Verified 10/18/22 11:13 divalproex sodium Allergy Intermediate Hives Verified 10/18/22 11:13 gabapentin Allergy Intermediate Swelling Verified 10/18/22 11:13 of Lip/Tongue/Throat leuprolide Allergy Intermediate Hives Verified 10/18/22 11:13 levalbuterol Allergy Intermediate Hives Verified 10/18/22 11:13 NSAIDS (Non-Steroidal Allergy Intermediate Hives Verified 10/18/22 11:13 Anti-Inflamma promethazine Allergy Intermediate Hives Verified 10/18/22 11:13 tapentadol Allergy Intermediate rash/itchy Verified 10/18/22 11:13 vancomycin Allergy Intermediate Hives, Verified 10/18/22 11:13 ITCHING IRON SUCROSE Allergy Intermediate Hives,SOB Uncoded 07/19/22 16:04 Review of Systems <Kori Ariza PA-C - Last Filed: 10/18/22 18:42> Review of Systems ROS Unobtainable: All systems reviewed & are unremarkable except as noted in HPI and below Patient History <Kori Ariza PA-C - Last Filed: 10/18/22 18:42> Medical History Antiphospholipid syndrome Cervical spondylosis Chronic pain syndrome History of endometriosis History of ovarian cyst Impingement syndrome of right shoulder Lupus Pseudotumor cerebri Surgical History H/O brain surgery H/O oophorectomy H/O thyroidectomy History of cholecystectomy Hx of appendectomy S/P TRANSPORTATION [employer]IN[employer] shunt Family History Mother Diabetes mellitus Hypertension Arthritis Thrombophilia Sister Arthritis Hypertension Depression alcohol intake frequency: holidays/special occasions only Substance Use Type: does not use Exam <Kori Ariza PA-C - Last Filed: 10/18/22 18:42> Narrative Exam Narrative: GENERAL: 47 year old patient appears stated age. Well-developed patient, in severe distress. NEURO: AOx3. HEAD: Atraumatic. Normocephalic. EYES: Pupils equal round and reactive. Extraocular motions intact. No scleral icterus. No injection or drainage. ENT: Nose without bleeding or purulent drainage. CARDIOVASCULAR: Regular rate and rhythm without murmurs, gallops, or rubs. RESPIRATORY: Clear to auscultation. Breath sounds equal bilaterally. No wheezes, rales, or rhonchi. GASTROINTESTINAL: Abdomen soft, non-tender, nondistended. Positive CVA tenderness EXTREMITIES: No edema or joint tenderness. SKIN: No rash or erythema of visible areas Initial Vital Signs Initial Vital Signs: Vital Signs Temperature 97.5 F L 10/18/22 11:13 Pulse Rate 118 H 10/18/22 11:13 Respiratory Rate 20 10/18/22 11:13 Blood Pressure 132/91 H 10/18/22 11:13 Pulse Oximetry 96 10/18/22 11:13 Oxygen Delivery Method Room Air 10/18/22 11:13 <Rolo Dykes MD - Last Filed: 10/26/22 07:10> Initial Vital Signs Initial Vital Signs: Vital Signs Temperature 97.5 F L 10/18/22 11:13 Pulse Rate 118 H 10/18/22 11:13 Respiratory Rate 20 10/18/22 11:13 Blood Pressure 132/91 H 10/18/22 11:13 Pulse Oximetry 96 10/18/22 11:13 Oxygen Delivery Method Room Air 10/18/22 11:13 Course <Kori Ariza PA-C - Last Filed: 10/18/22 18:42> Orders Ordered: Discontinued Medications Diphenhydramine HCl (Diphenhydramine 50 Mg/Ml Vial) 50 mg IV NOW ONE Stop: 10/18/22 17:40 Last Admin: 10/18/22 17:46 Dose: 50 mg Documented By: JET Famotidine (Famotidine 20 Mg/2 Ml Vial) 20 mg IV NOW LILLIAM Last Admin: 10/18/22 17:47 Dose: 20 mg Documented By: JET Heparin Sodium (Porcine) (Heparin 500 Unit/5 Ml Port Flush) 500 unit IV PRN PRN PRN Reason: Flush Last Admin: 10/18/22 18:24 Dose: 500 unit Documented By: JET Hydromorphone HCl (Hydromorphone 0.5 Mg Inj) 0.5 mg IV NOW ONE Stop: 10/18/22 16:04 Last Admin: 10/18/22 17:15 Dose: 0.5 mg Documented By: RJ Hydromorphone HCl (Hydromorphone 1 Mg Inj) 1 mg IV NOW ONE Stop: 10/18/22 17:40 Last Admin: 10/18/22 17:46 Dose: 1 mg Documented By: JET Sodium Chloride (Normal Saline 0.9%) 1,000 mls @ 1,000 mls/hr IV BOLUS ONE Stop: 10/18/22 17:02 Last Admin: 10/18/22 17:12 Dose: 1,000 mls/hr Documented By: RJ Ketorolac Tromethamine (Ketorolac 30 Mg/Ml Vial) 15 mg IV NOW ONE Stop: 10/18/22 16:04 Last Admin: 10/18/22 17:17 Dose: 15 mg Documented By: RJ Ondansetron HCl (Ondansetron 4 Mg/2 Ml Inj) 4 mg IV NOW ONE Stop: 10/18/22 16:04 Last Admin: 10/18/22 17:13 Dose: 4 mg Documented By: RJ Vital Signs Vital signs: Vital Signs - 8 hr 10/18/22 11:13 10/18/22 17:41 10/18/22 17:42 Temperature 97.5 F L Pulse Rate 118 H 107 H Respiratory Rate 20 Blood Pressure 132/91 H 163/103 H Pulse Oximetry 96 100 Oxygen Delivery Method Room Air 10/18/22 17:42 10/18/22 18:00 10/18/22 18:00 Temperature Pulse Rate 109 H Respiratory Rate Blood Pressure 131/73 131/73 Pulse Oximetry 99 Oxygen Delivery Method 10/18/22 18:00 Temperature Pulse Rate 97 H Respiratory Rate Blood Pressure Pulse Oximetry 95 Oxygen Delivery Method <Rolo Dykes MD - Last Filed: 10/26/22 07:10> Orders Ordered: Discontinued Medications Diphenhydramine HCl (Diphenhydramine 50 Mg/Ml Vial) 50 mg IV NOW ONE Stop: 10/18/22 17:40 Last Admin: 10/18/22 17:46 Dose: 50 mg Documented By: JET Famotidine (Famotidine 20 Mg/2 Ml Vial) 20 mg IV NOW LILLIAM Last Admin: 10/18/22 17:47 Dose: 20 mg Documented By: JET Heparin Sodium (Porcine) (Heparin 500 Unit/5 Ml Port Flush) 500 unit IV PRN PRN PRN Reason: Flush Last Admin: 10/18/22 18:24 Dose: 500 unit Documented By: JET Hydromorphone HCl (Hydromorphone 0.5 Mg Inj) 0.5 mg IV NOW ONE Stop: 10/18/22 16:04 Last Admin: 10/18/22 17:15 Dose: 0.5 mg Documented By: RJ Hydromorphone HCl (Hydromorphone 1 Mg Inj) 1 mg IV NOW ONE Stop: 10/18/22 17:40 Last Admin: 10/18/22 17:46 Dose: 1 mg Documented By: JET Sodium Chloride (Normal Saline 0.9%) 1,000 mls @ 1,000 mls/hr IV BOLUS ONE Stop: 10/18/22 17:02 Last Admin: 10/18/22 17:12 Dose: 1,000 mls/hr Documented By: RJ Ketorolac Tromethamine (Ketorolac 30 Mg/Ml Vial) 15 mg IV NOW ONE Stop: 10/18/22 16:04 Last Admin: 10/18/22 17:17 Dose: 15 mg Documented By: RJ Ondansetron HCl (Ondansetron 4 Mg/2 Ml Inj) 4 mg IV NOW ONE Stop: 10/18/22 16:04 Last Admin: 10/18/22 17:13 Dose: 4 mg Documented By: RJ Vital Signs Vital signs: Vital Signs - 8 hr 10/18/22 11:13 10/18/22 17:41 10/18/22 17:42 Temperature 97.5 F L Pulse Rate 118 H 107 H Respiratory Rate 20 Blood Pressure 132/91 H 163/103 H Pulse Oximetry 96 100 Oxygen Delivery Method Room Air 10/18/22 17:42 10/18/22 18:00 10/18/22 18:00 Temperature Pulse Rate 109 H Respiratory Rate Blood Pressure 131/73 131/73 Pulse Oximetry 99 Oxygen Delivery Method 10/18/22 18:00 Temperature Pulse Rate 97 H Respiratory Rate Blood Pressure Pulse Oximetry 95 Oxygen Delivery Method MDM - Female Genitourinary <Kori Ariza PA-C - Last Filed: 10/18/22 18:42> Lab Data 10/18/22 16:00 10/18/22 16:00 Labs: Lab Results 10/18/22 10/18/22 Range/Units 16:00 16:00 WBC 10.4 (4.5-11.0) X10^3/uL RBC 4.48 (4.0-5.2) X10^6/uL Hgb 14.5 (12.0-16.0) g/dL Hct 40.8 (36-46) % MCV 91.2 (80-100) fL MCH 32.5 (26-34) PG MCHC 35.6 (30-36) % RDW 12.2 (11.6-14.8) % Plt Count 333 (150-400) X10^3/uL Neut % (Auto) 61.3 (50-75) % Lymph % (Auto) 28.2 (25-40) % [place] % (Auto) 7.9 (3-14) % Eos % (Auto) 2.3 (2-4) % Baso % (Auto) 0.3 (0-2) % Neut # (Auto) 6400 (4440-6038) /uL Lymph # (Auto) 2900 (1410-3202) /uL [place] # (Auto) 800 (0-900) /uL Eos # (Auto) 200 (0-450) /uL Baso # (Auto) 0 (0-100) /uL Sodium 135 L (137-145) mmol/L Potassium 3.6 (3.4-5.1) mmol/L Chloride 102 (98-107) mmol/L Carbon Dioxide 23 (22-32) mmol/L BUN 19 H (7-17) mg/dL Creatinine 0.97 (0.52-1.04) mg/dL Estimated GFR > 60 (>60) mL/min BUN/Creatinine Ratio 19.6 (6-22) Glucose 207 H (70-100) mg/dL Calcium 9.3 (8.4-10.2) mg/dL Total Bilirubin 0.5 (0.2-1.3) mg/dL AST 22 (14-36) IU/L ALT 21 (<35) IU/L Alkaline Phosphatase 228 H (38-126) U/L Total Protein 8.5 H (6.3-8.2) g/dL Albumin 4.5 (3.5-5.0) g/dL Globulin 4.0 (1.7-4.1) g/dL Albumin/Globulin Ratio 1.1 (1.0-2.8) Urine Dip Bedside Urine Glucose 1000 mg/dl Bedside Urine Bilirubin - Negative Bedside Urine Ketone - Negative Urine Specific Okay 1.010 Bedside Urine Occult Blood - Negative Bedside Urine pH 6.0 Bedside Urine Protein - Negative Bedside Urine Urobilinogen - Negative Bedside Urine Nitrite - Negative Bedside Urine Leukocytes - Negative Esterase Imaging Data US - abdomen: Radiologist's Impression: PROCEDURE:? US RENAL COMPLETE ? INDICATIONS:? KIDNEY STONES ? HYDRONEPHROSIS? ? TECHNIQUE:? Real-time scanning was performed of the kidneys and bladder, with image documentation.? ? COMPARISON:? None. ? FINDINGS:? ? Kidneys:? Kidneys are normal in size.? Right kidney measures 10.7 cm long; left kidney measures 10.5 cm long.? Right renal cortical thickness is 1.8 cm; left renal cortical thickness is 2.9 cm.? Renal cortical echotexture is normal.? No hydronephrosis.? Multiple echogenic foci noted in the bilateral kidneys.? No suspicious solid mass lesions.? ? Bladder:? Pre-void bladder volume is 23 mL.? Post-void residual volume was not measured as the patient voided before the examination.? Pre-void images demonstrate no intraluminal masses or stones.? On pre-void images, bilateral ureteral jets are noted with color Doppler interrogation.? (Of note, ureteral jets may not be detectable in up to 25% of cases due to insufficient differences in specific gravity between ureteral and bladder urine).? ? Miscellaneous:? No free pelvic fluid.? ? IMPRESSION:? No acute sonographic abnormalities.? Multiple small echogenic foci in the bilateral kidneys which may represent nonobstructing renal stones.? No hydronephrosis identified.? ? ? Dictated by: Travis Padilla M.D. on 10/18/2022 at 17:15 ? ? Approved by: Travis Padilla M.D. on 10/18/2022 at 17:17 ? MDM Narrative Medical decision making narrative: Multiple etiologies for patient's symptoms considered including, but not limited to: Obstructing Kidney stones, pyelonephritis, UTI Patient with long history of kidney stones, states this is just like previous pain. In fact, she passed multiple stones in a gas station bathroom prior to her arrival in the emergency room. We will provide pain relief and perform renal ultrasound to assess for hydronephrosis; prefer to avoid additional CT scans as she has received several recently. Renal ultrasound without evidence of hydronephrosis or obstructing stone, but does indicate multiple stones in bilateral kidneys. UA without evidence of infection. Patient feels better after pain control, given Pepcid and diphenhydramine for her stomach per her request as this usually helps her feel better. She is now requesting discharge to go catch the [facility]. She will take a taxi to the [facility]. She will follow up with her residential appraiser and her primary care. Patient's symptoms improved over duration of stay with above-stated therapies. Findings and discharge diagnosis discussed with patient/family followed by verbalization of understanding Return precautions discussed with patient/family whom verbalize understanding of diagnosis and plan <Rolo Dykes MD - Last Filed: 10/26/22 07:10> Lab Data Labs: Lab Results 10/18/22 10/18/22 Range/Units 16:00 16:00 WBC 10.4 (4.5-11.0) X10^3/uL RBC 4.48 (4.0-5.2) X10^6/uL Hgb 14.5 (12.0-16.0) g/dL Hct 40.8 (36-46) % MCV 91.2 (80-100) fL MCH 32.5 (26-34) PG MCHC 35.6 (30-36) % RDW 12.2 (11.6-14.8) % Plt Count 333 (150-400) X10^3/uL Neut % (Auto) 61.3 (50-75) % Lymph % (Auto) 28.2 (25-40) % [place] % (Auto) 7.9 (3-14) % Eos % (Auto) 2.3 (2-4) % Baso % (Auto) 0.3 (0-2) % Neut # (Auto) 6400 (1110-4040) /uL Lymph # (Auto) 2900 (4270-0665) /uL [place] # (Auto) 800 (0-900) /uL Eos # (Auto) 200 (0-450) /uL Baso # (Auto) 0 (0-100) /uL Sodium 135 L (137-145) mmol/L Potassium 3.6 (3.4-5.1) mmol/L Chloride 102 (98-107) mmol/L Carbon Dioxide 23 (22-32) mmol/L BUN 19 H (7-17) mg/dL Creatinine 0.97 (0.52-1.04) mg/dL Estimated GFR > 60 (>60) mL/min BUN/Creatinine Ratio 19.6 (6-22) Glucose 207 H (70-100) mg/dL Calcium 9.3 (8.4-10.2) mg/dL Total Bilirubin 0.5 (0.2-1.3) mg/dL AST 22 (14-36) IU/L ALT 21 (<35) IU/L Alkaline Phosphatase 228 H (38-126) U/L Total Protein 8.5 H (6.3-8.2) g/dL Albumin 4.5 (3.5-5.0) g/dL Globulin 4.0 (1.7-4.1) g/dL Albumin/Globulin Ratio 1.1 (1.0-2.8) Urine Dip Bedside Urine Glucose 1000 mg/dl Bedside Urine Bilirubin - Negative Bedside Urine Ketone - Negative Urine Specific Okay 1.010 Bedside Urine Occult Blood - Negative Bedside Urine pH 6.0 Bedside Urine Protein - Negative Bedside Urine Urobilinogen - Negative Bedside Urine Nitrite - Negative Bedside Urine Leukocytes - Negative Esterase Discharge Plan Departure Patient Disposition: Home Clinical Impression: Bilateral kidney stones Instructions: DI for Kidney Stones Activity Restrictions/Additional Instructions: *You have been diagnosed with kidney stones. There is no evidence of obstruction from a kidney stone. Your urine does not show signs of infection. We have given you pain medicine in the emergency room and IV fluids. You already have a residential appraiser and primary care to manage these very painful s tones. I would follow up with them. *What to do: *Please continue to take your regular medications as directed. [ ] New medication prescriptions sent to your pharmacy: [ ] [ ] New medication written as a paper prescription [x] No new medications given *Please follow up with your primary care provider in 2-3 days, call for an appointment. Let them know you were seen in the Emergency Department and that we ask that you be seen in follow up. We will electronically transmit a record of today's note if your PCP is in our system *If you do not have a primary care provider please contact the [facility] Resource line at [phone]. They will ask some questions about your medical history and help get you set up with a doctor in the community. *Return to Emergency Department if you should have any new, worsening or concerning symptoms, such as [fever greater than 101 F, shaking chills, worsening pain, persistent vomiting or other concerning symptoms]. Prescriptions: No Action prednisone 20 mg tablet 40 mg PO DAILY Qty: 10 0RF oxycodone-acetaminophen 5-325 mg tablet 1 tab PO Q6H PRN (Reason: pain) Qty: 10 0RF Aimovig Autoinjector 140 mg/mL auto-injector 140 mg SUBCUT QMONTH hydroxyzine HCl 25 mg tablet 25 mg PO QID PRN diphenhydramine HCl [Benadryl] 25 mg capsule 25 mg PO QID PRN diltiazem HCl [Cardizem CD] 240 mg capsule,extended release 24hr 240 mg PO DAILY ascorbic acid (vitamin C) 500 mg tablet,chewable 500 mg PO DAILY diclofenac sodium [Arthritis Pain (diclofenac)] 1 % gel 2 g topical QID Rx Instructions: apply to single elbow, wrist or hand; for hand includes palm/fingers/back of hand sennosides-docusate sodium [Senna with Docusate Sodium] 8.6-50 mg tablet 1 tab-cap PO BEDTIME venlafaxine [Effexor XR] 150 mg capsule,extended release 24hr 150 mg PO DAILY enoxaparin 120 mg/0.8 mL syringe 120 mg SUBCUT DAILY tamsulosin [Flomax] 0.4 mg capsule 0.4 mg PO DAILY metformin [Glucophage] 1,000 mg tablet 1,000 mg PO BID Januvia 100 mg tablet 100 mg PO DAILY lamotrigine [Lamictal] 100 mg tablet 100 mg PO DAILY furosemide [Lasix] 40 mg tablet 40 mg PO DAILY lorazepam 0.5 mg tablet 0.5 mg PO DAILY PRN tizanidine 4 mg capsule 4 mg PO BID PRN topiramate [Topamax] 200 mg tablet 400 mg PO BID acetaminophen [Tylenol Extra Strength] 500 mg tablet 500 mg PO Q6H PRN hydrocodone-acetaminophen 10-325 mg tablet 1 tab PO Q4-6H PRN omeprazole 40 mg capsule,delayed release(DR/EC) 40 mg PO DAILY ondansetron 4 mg tablet,disintegrating 4 mg PO Q8H famotidine [Pepcid] 20 mg tablet 20 mg PO DAILY Referrals: Harinder Nava [Primary Care Provider] - Stand Alone Forms: Patient Portal/API <Rolo Dykes MD - Last Filed: 10/26/22 07:10> Cosign ED Attending Arben Attestation: I was immediately available in the department for consultation. ?This documentation has been reviewed and I agree with assessment and plan. Supervised by Rolo Dykes MD
[2022-10-18 16:36] LABS: Add Manual Diff / Slide Review NO; Basophils Absolute Auto 0 /uL (0-100); Basophils Percent Auto 0.3 % (0-2); Eosinophils Absolute Auto 200 /uL (0-450); Eosinophils Percent Auto 2.3 % (2-4); Hematocrit 40.8 % (36-46); Hemoglobin 14.5 g/dL (12.0-16.0); Lymphocytes Absolute Auto 2900 /uL (1100-4500); Lymphocytes Percent Auto 28.2 % (25-40); Mean Corpuscular HGB Conc 35.6 % (30-36); Mean Corpuscular Hemoglobin 32.5 PG (26-34); Mean Corpuscular Volume 91.2 fL (80-100); Monocytes Absolute Auto 800 /uL (0-900); Monocytes Percent Auto 7.9 % (3-14); Neutrophils Absolute Auto 6400 /uL (1500-7000); Neutrophils Percent Auto 61.3 % (50-75); Platelet Count 333 X10^3/uL (150-400); Red Blood Cell Count 4.48 X10^6/uL (4.0-5.2); Red Cell Distribution Width 12.2 % (11.6-14.8); White Blood Cell Count 10.4 X10^3/uL (4.5-11.0)
[2022-10-18 17:03] LABS: Alanine Aminotransferase 21 IU/L (<35); Albumin 4.5 g/dL (3.5-5.0); Albumin Globulin Ratio 1.1 (1.0-2.8); Alkaline Phosphatase 228 U/L (38-126); Aspartate Aminotransferase 22 IU/L (14-36); BUN Creatinine Ratio 19.6 (6-22); Bilirubin Total 0.5 mg/dL (0.2-1.3); Blood Urea Nitrogen 19 mg/dL (7-17); Calcium 9.3 mg/dL (8.4-10.2); Carbon Dioxide 23 mmol/L (22-32); Chloride 102 mmol/L (98-107); Estimated Glomerular Filt Rate > 60 mL/min (>60); Glucose 207 mg/dL (70-100); HEMOLYSIS < 15 (0-50); Potassium 3.6 mmol/L (3.4-5.1); Sodium 135 mmol/L (137-145); Total Protein 8.5 g/dL (6.3-8.2)
[2022-10-18] MEDS: SODIUM CHLORIDE 0.9% 1,000 ML 1000 ML IV (17:12)
[2022-10-18] MEDS: ONDANSETRON 4 MG/2 ML INJ IV (17:13)
[2022-10-18] MEDS: HYDROMORPHONE 0.5 MG INJ IV (17:15)
[2022-10-18] MEDS: KETOROLAC 30 MG/ML VIAL 15 MG IV (17:17)
[2022-10-18 17:41] VITALS: PULSE 107; O2SAT 100
[2022-10-18 17:42] VITALS: BP 163/103; PULSE 109; O2SAT 99
[2022-10-18] MEDS: diphenhydrAMINE 50 MG/ML VIAL IV (17:46)
[2022-10-18] MEDS: HYDROMORPHONE 1 MG INJ IV (17:46)
[2022-10-18] MEDS: FAMOTIDINE 20 MG/2 ML VIAL IV (17:47)
[2022-10-18 18:00] VITALS: BP 131/73; PULSE 97; O2SAT 95
== END 2022-10-18 18:33 | disposition home or self-care (01) ==
PROVIDERS: Emergency Provider Physician Assistant; PCP Student in an Organized Health Care Education/Training Program
DX: N20.0 Calculus of kidney (principal)
CPT/HCPCS: 76770; 80053; 81003; 85025; 96374; 96375; 96376; 99284; J1170; J1200; J1642; J1885; J2405

== ENCOUNTER → 2022-11-06 07:35 | Outpatient (CLI) | payer MEDICARE, MEDICAID, SELFPAY ==
--- NOTE | 2022-11-06 | DI.CT.S_ITS ---
PROCEDURE: CT CHEST HIGH RESOLUTION INDICATIONS: Shortness of breath TECHNIQUE: Noncontrast 1.0 and 5.0 mm thick contiguous axial sections from the pulmonary apex to the posterior costophrenic angles, with 7 mm thick coronal and sagittal MIP reformats. 1 mm thick dynamic expiratory images acquired through the upper, mid, and lower lungs. 1.0 mm thick axial sections acquired from the manuel to the posterior costophrenic angles in the prone end-inspiration position. For radiation dose reduction, the following was used: automated exposure control, adjustment of mA and/or kV according to patient size. COMPARISON: None. FINDINGS: Image quality: Excellent. Lungs: Central and peripheral airways are normal without bronchial wall thickening or bronchiectasis. No suspicious lung nodules, masses, parenchymal consolidations, or ground-glass opacities. No interstitial abnormalities. Pleura: No pleural effusions or pneumothorax. Mediastinum: Heart size is normal. No pericardial effusion. Thoracic aorta and central pulmonary arteries are normal in size. Esophagus is normal in caliber. Tiny hiatal hernia. Bones and chest wall: Partial right thyroidectomy. The left lobe has a normal CT appearance. No visible lower neck lymph nodes. No axillary or supraclavicular adenopathy. Partially imaged left chest MediPort. No chest wall abnormalities. No bone lesions. Abdomen: Visualized upper abdominal solid organs and bowel loops appear normal. IMPRESSION: 1. Normal chest CT without evidence of pulmonary parenchymal pathology. 2. Partial right thyroidectomy. Dictated by: Ariane Wisdom M.D. on 11/06/2022 at 16:27 Approved by: Ariane Wisdom M.D. on 11/06/2022 at 16:43
== END ==
PROVIDERS: PCP Student in an Organized Health Care Education/Training Program; Referring Provider Internal Medicine Pulmonary Disease; Visit Provider Internal Medicine Pulmonary Disease
DX: R06.02 Shortness of breath (principal)
CPT/HCPCS: 71250

== ENCOUNTER → 2023-05-07 10:34 | Outpatient (CLI) | payer MEDICARE, MEDICAID, SELFPAY ==
--- NOTE | 2023-05-07 | DI.MRI.S_ITS ---
PROCEDURE: MR THORACIC SPINE WO CON INDICATIONS: COMPLEX PAIN SYNDROME TECHNIQUE: Noncontrast sagittal T1 spine echo and T2 fast spin echo, sagittal STIR, and T2 fast spin echo through the thoracic spine. COMPARISON: None. FINDINGS: Image quality: Excellent. Alignment and Curvature: There is normal bony alignment. Bone Marrow: Marrow is of normal overall signal. No acute vertebral body compression fractures. Mild reactive signal throughout the endplates of the thoracic spine, predominantly within the mid thoracic spine. Spinal Cord: Visualized spinal cord is normal in size and signal. Paraspinous Soft Tissues: No paravertebral masses. Disc space levels: Multilevel disc desiccation is present. At T7-T8, there is a small central protrusion, causing minimal canal stenosis. No significant foraminal stenosis is present. IMPRESSION: 1. Multilevel degenerative disc disease. 2. No neural impingement. Dictated by: Ruy Rosen M.D. on 05/07/2023 at 13:43 Approved by: Ruy Rosen M.D. on 05/07/2023 at 13:45
--- NOTE | 2023-05-07 | DI.MRI.S_ITS ---
PROCEDURE: MR LUMBAR SPINE WO CON INDICATIONS: COMPLEX PAIN SYNDROME TECHNIQUE: Noncontrast sagittal T1 spin echo and T2 fast echo, sagittal STIR, and T2 fast spin echo through the lumbar spine. In cases with scoliosis, additional coronal T2 fast spin echo may be performed. COMPARISON: CT, CT LUMBAR SPINE W CON, 08/18/2020, 19:49. [facility] [place], CR, XR LUMBAR SPINE 2 OR 3 VIEWS, 02/26/2023, 15:00. FINDINGS: Image quality: Partially degraded by motion artifact. 2 Alignment and Curvature: 5 lumbar type vertebral bodies are present by plain film. Alignment is normal. Bone Marrow: Marrow is of normal overall signal. No acute vertebral body compression fractures. Minimal reactive signal within the endplates of the mid/lower lumbar spine. Spinal Cord: Conus medullaris terminates at the L1-L2 disc space level. Visualized cord demonstrates normal signal and size. Paraspinous Soft Tissues: No paravertebral masses. T12-L1: Normal appearance. L1-L2: Normal appearance. L2-L3: Normal appearance. L3-L4: Mild disc desiccation and diffuse disc bulge. Mild facet and ligamentum flavum hypertrophy. Mild epidural lipomatosis. Mild canal stenosis. Mild right greater than left foraminal stenosis. L4-L5: Mild disc desiccation and diffuse disc bulge. Mild facet and ligamentum flavum hypertrophy. Mild epidural lipomatosis. Mild canal stenosis. Mild bilateral foraminal stenosis. L5-S1: Mild disc desiccation and diffuse disc bulge. Mild bilateral facet hypertrophy. Mild canal stenosis. No foraminal stenosis. IMPRESSION: 1. Multilevel degenerative disc and facet disease, as well as ligamentum flavum hypertrophy and epidural lipomatosis. 2. Mild multilevel canal and foraminal stenoses. No neural impingement. Dictated by: Ruy Rosen M.D. on 05/07/2023 at 13:45 Approved by: Ruy Rosen M.D. on 05/07/2023 at 13:56
== END ==
PROVIDERS: PCP Student in an Organized Health Care Education/Training Program; Referring Provider Physical Medicine & Rehabilitation; Visit Provider Physical Medicine & Rehabilitation
DX: G90.522 Complex regional pain syndrome I of left lower limb (principal); M51.34 Other intervertebral disc degeneration, thoracic region; M51.24 Other intervertebral disc displacement, thoracic region; M51.36 Other intervertebral disc degeneration, lumbar region; M51.37 Other intervertebral disc degeneration, lumbosacral region; M48.061 Spinal stenosis, lumbar region without neurogenic claudication; M48.07 Spinal stenosis, lumbosacral region; M47.816 Spondylosis without myelopathy or radiculopathy, lumbar region; M47.817 Spondylosis without myelopathy or radiculopathy, lumbosacral region
CPT/HCPCS: 72146; 72148

== ENCOUNTER 2023-05-09 12:50 | Emergency (ER) | payer MEDICARE, MEDICAID, SELFPAY ==
[2023-05-09] VITALS (7 sets, daily range): BP systolic 117–149; BP diastolic 66–95; PULSE 96–123; RESP 16–22; TEMP 36.4; O2SAT 95–98; BMI 41.1
--- NOTE | 2023-05-09 13:05 | DI.RAD.S_ITS ---
PROCEDURE: XR CHEST 1V INDICATIONS: chest pain TECHNIQUE: One view of the chest was acquired. COMPARISON: [facility], CR, XR CHEST 1V, 07/19/2022, 17:53. FINDINGS: Surgical changes and devices: Stable Port-A-Cath and right thyroid fossa surgical clips. Lungs and pleura: Lungs are clear. No pleural effusions or pneumothorax. Mediastinum: Mediastinal contours appear normal. Heart size is normal. Bones and chest wall: No suspicious bony lesions. Overlying soft tissues appear unremarkable. IMPRESSION: No acute cardiopulmonary abnormality is seen. Dictated by: Myra Fraser MD, PhD on 05/09/2023 at 14:14 Approved by: Myra Fraser MD, PhD on 05/09/2023 at 14:14
--- NOTE | 2023-05-09 13:05 | ED.GENADULT ---
HPI - General Adult General Chief complaint: Chest Pain Stated complaint: chest pain Time Seen by Provider: 05/09/23 13:04 History of Present Illness HPI narrative: 47-year-old woman with complex medical history including lupus, recurrent kidney stones, prior PE DVT with antiphospholipid syndrome, hypertension, chronic pain and history of pseudotumor cerebri presents with acute onset of bilateral chest pain under her ribs radiating up to her shoulders. She recently flew back from [place] and had some associated lower extremity edema from that flight and is concerned that she may have recurrent pulmonary embolism. She has not complaining of fevers cough or chills. 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 Related Data Home Medications Medication Instructions Recorded Confirmed acetaminophen 500 mg tablet 500 mg PO Q6H PRN 07/04/20 (Tylenol Extra Strength) ascorbic acid (vitamin C) 500 mg 500 mg PO DAILY 07/04/20 chewable tablet diclofenac sodium 1 % topical gel 2 g topical QID 07/04/20 (Arthritis Pain (diclofenac)) diltiazem HCl 240 mg 240 mg PO DAILY 07/04/20 capsule,extended release 24 hr (Cardizem CD) diphenhydramine HCl 25 mg capsule 25 mg PO QID PRN 07/04/20 (Benadryl) enoxaparin 120 mg/0.8 mL 120 mg SUBCUT DAILY 07/04/20 subcutaneous syringe erenumab-aooe 140 mg/mL 140 mg SUBCUT QMONTH 07/04/20 subcutaneous auto-injector (Aimovig Autoinjector) famotidine 20 mg tablet (Pepcid) 20 mg PO DAILY 07/04/20 furosemide 40 mg tablet (Lasix) 40 mg PO DAILY 07/04/20 hydrocodone 10 mg-acetaminophen 1 tab PO Q4-6H PRN 07/04/20 325 mg tablet hydroxyzine HCl 25 mg tablet 25 mg PO QID PRN 07/04/20 lamotrigine 100 mg tablet 100 mg PO DAILY 07/04/20 (Lamictal) lorazepam 0.5 mg tablet 0.5 mg PO DAILY PRN 07/04/20 metformin 1,000 mg tablet 1,000 mg PO BID 07/04/20 (Glucophage) omeprazole 40 mg capsule,delayed 40 mg PO DAILY 07/04/20 release ondansetron 4 mg disintegrating 4 mg PO Q8H 07/04/20 tablet sennosides 8.6 mg-docusate sodium 1 tab-cap PO BEDTIME 07/04/20 50 mg tablet (Senna with Docusate Sodium) sitagliptin phosphate 100 mg 100 mg PO DAILY 07/04/20 tablet (Januvia) tamsulosin 0.4 mg capsule (Flomax) 0.4 mg PO DAILY 07/04/20 tizanidine 4 mg capsule 4 mg PO BID PRN 07/04/20 topiramate 200 mg tablet (Topamax) 400 mg PO BID 07/04/20 venlafaxine 150 mg 150 mg PO DAILY 07/04/20 capsule,extended release 24 hr (Effexor XR) Previous Rx's Medication Instructions Recorded oxycodone-acetaminophen 5 mg-325 1 tab PO Q6H PRN pain #10 tabs 02/20/22 mg tablet prednisone 20 mg tablet 40 mg (2 x 20 mg) PO DAILY #10 tabs 03/22/22 Allergies Allergy/AdvReac Type Severity Reaction Status Date / Time clindamycin Allergy Severe Anaphylaxis Verified 05/09/23 13:07 hylan G-F 20 Allergy Severe Anaphylaxis Verified 05/09/23 13:07 ibuprofen Allergy Severe SOB,RASH Verified 05/09/23 13:07 Iodinated Contrast Media Allergy Severe SOB-HIVES Verified 05/09/23 13:07 iothalamic acid Allergy Severe SOB,HIVES Verified 05/09/23 13:07 iron dextran complex Allergy Severe Anaphylaxis, Verified 05/09/23 13:07 HIVES meclizine Allergy Severe Palpitation Verified 05/09/23 13:07 s shrimp Allergy Severe Anaphylaxis Verified 05/09/23 13:07 valproic acid Allergy Severe Anaphylaxis Verified 05/09/23 13:07 venom-honey bee Allergy Severe Anaphylaxis Verified 05/09/23 13:07 adhesive tape Allergy Intermediate rash Verified 05/09/23 13:07 amoxicillin [From Augmentin] Allergy Intermediate Hives Verified 05/09/23 13:07 aspirin Allergy Intermediate rash Verified 05/09/23 13:07 clavulanic acid Allergy Intermediate Hives Verified 05/09/23 13:07 [From Augmentin] codeine Allergy Intermediate Hives Verified 05/09/23 13:07 divalproex sodium Allergy Intermediate Hives Verified 05/09/23 13:07 gabapentin Allergy Intermediate Swelling Verified 05/09/23 13:07 of Lip/Tongue/Throat leuprolide Allergy Intermediate Hives Verified 05/09/23 13:07 levalbuterol Allergy Intermediate Hives Verified 05/09/23 13:07 NSAIDS (Non-Steroidal Allergy Intermediate Hives Verified 05/09/23 13:07 Anti-Inflamma promethazine Allergy Intermediate Hives Verified 05/09/23 13:07 tapentadol Allergy Intermediate rash/itchy Verified 05/09/23 13:07 vancomycin Allergy Intermediate Hives, Verified 05/09/23 13:07 ITCHING IRON SUCROSE Allergy Intermediate Hives,SOB Uncoded 07/19/22 16:04 Review of Systems Review of Systems Narrative: Pertinent positive and negative findings as per HPI Patient History Medical History Antiphospholipid syndrome History of endometriosis History of ovarian cyst Lupus Pseudotumor cerebri Chronic pain syndrome Cervical spondylosis Impingement syndrome of right shoulder Surgical History S/[employer] NAVIGATOR shunt H/O oophorectomy H/O brain surgery H/O thyroidectomy History of cholecystectomy Hx of appendectomy Family History Mother Diabetes mellitus Hypertension Arthritis Thrombophilia Sister Arthritis Hypertension Depression Social History Smoking Status: Never smoker Smoking Status: Never smoker alcohol intake frequency: holidays/special occasions only Substance Use Type: does not use Exam Initial Vital Signs Initial Vital Signs: Vital Signs Temperature 97.6 F 05/09/23 12:55 Pulse Rate 110 H 05/09/23 12:55 Respiratory Rate 22 05/09/23 12:55 Blood Pressure 136/66 05/09/23 12:55 Pulse Oximetry 98 05/09/23 12:55 Oxygen Delivery Method Room Air 05/09/23 12:55 General: Chronically ill-appearing, tachypneic, tachycardic appears to be hurting but completely cooperative and able to speak in full sentences HEENT: Moist mucous membranes, normal sclera with reactive pupils, Respiratory: Lungs are clear to auscultation, no wheezing no rales no rhonchi. Full and symmetrical air movement Cardiac: Mild tachycardia but otherwise Regular rate and rhythm no murmurs no bruits Abdomen: Soft, nontender, good bowel tones, no flank pain Skin: Warm and dry, no rashes Neurologic: Grossly neurologically intact with no obvious asymmetries or abnormalities Extremities: No trauma, well perfused Psych: Cooperative, appropriate insight and affect Course Orders Ordered: ED Orders 05/09/23 13:03 EKG-12 Lead Stat 05/09/23 13:05 XR chest 1V Stat 05/09/23 13:06 CT angio chest PE protocol Stat 05/09/23 13:25 Complete Blood Count AUTO DIFF Stat Comprehensive Metabolic Panel Stat Lipase Stat Magnesium Stat PTT Partial Thromboplastin Enrique Stat Prothrombin Time INR Stat Troponin & CK Cardiac Panel Stat Discontinued Medications Dexamethasone (Dexamethasone 10 Mg/Ml Vial) 6 mg IV NOW ONE Stop: 05/09/23 13:40 Last Admin: 05/09/23 13:46 Dose: 6 mg Documented By: ISABELA Diphenhydramine HCl (Diphenhydramine 50 Mg/Ml Vial) 50 mg IV NOW ONE Stop: 05/09/23 13:40 Last Admin: 05/09/23 13:45 Dose: 50 mg Documented By: ISABELA Diphenhydramine HCl (Diphenhydramine 50 Mg/Ml Vial) 50 mg IV NOW ONE Stop: 05/09/23 15:24 Hydromorphone HCl (Hydromorphone 0.5 Mg Inj) 0.5 mg IV NOW ONE Stop: 05/09/23 14:02 Last Admin: 05/09/23 14:13 Dose: 0.5 mg Documented By: TONY Hydromorphone HCl (Hydromorphone 1 Mg Inj) 1 mg IV NOW ONE Stop: 05/09/23 15:24 Ondansetron HCl (Ondansetron 4 Mg/2 Ml Inj) 4 mg IV NOW ONE Stop: 05/09/23 15:24 Vital Signs Vital signs: Vital Signs - 8 hr 05/09/23 12:55 05/09/23 13:00 05/09/23 13:30 Temperature 97.6 F Pulse Rate 110 H 109 H 123 H Respiratory Rate 22 22 22 Blood Pressure 136/66 136/66 Pulse Oximetry 98 98 95 Oxygen Delivery Method Room Air Room Air Room Air 05/09/23 14:00 05/09/23 14:30 Temperature Pulse Rate 96 H 102 H Respiratory Rate 20 Blood Pressure 134/89 149/93 H Pulse Oximetry 98 98 Oxygen Delivery Method Room Air Room Air Medical Decision Making Lab Data 05/09/23 13:25 05/09/23 13:25 Labs: Lab Results 05/09/23 Range/Units 13:25 WBC 10.7 (4.5-11.0) X10^3/uL RBC 4.28 (4.0-5.2) X10^6/uL Hgb 12.9 (12.0-16.0) g/dL Hct 36.7 (36-46) % MCV 85.8 (80-100) fL MCH 30.1 (26-34) PG MCHC 35.1 (30-36) % RDW 13.7 (11.6-14.8) % Plt Count 337 (150-400) X10^3/uL Neut % (Auto) 67.2 (50-75) % Lymph % (Auto) 22.9 L (25-40) % Kidder % (Auto) 7.5 (3-14) % Eos % (Auto) 1.8 L (2-4) % Baso % (Auto) 0.6 (0-2) % Neut # (Auto) 7200 H (9514-7857) /uL Lymph # (Auto) 2500 (0230-6453) /uL Kidder # (Auto) 800 (0-900) /uL Eos # (Auto) 200 (0-450) /uL Baso # (Auto) 100 (0-100) /uL PT 11.3 (9.4-12.5) SECONDS INR 1.0 (0.9-1.3) APTT 40 H (25.1-36.5) SECONDS Sodium 135 L (137-145) mmol/L Potassium 4.0 (3.4-5.1) mmol/L Chloride 102 (98-107) mmol/L Carbon Dioxide 27 (22-32) mmol/L BUN 15 (7-17) mg/dL Creatinine 0.86 (0.52-1.04) mg/dL Estimated GFR > 60 (>60) mL/min BUN/Creatinine Ratio 17.4 (6-22) Glucose 211 H (70-100) mg/dL Calcium 9.0 (8.4-10.2) mg/dL Magnesium 1.9 (1.6-2.3) mg/dL Total Bilirubin 0.5 (0.2-1.3) mg/dL AST 19 (14-36) IU/L ALT 17 (<35) IU/L Alkaline Phosphatase 164 H (38-126) U/L Total Creatine Kinase 45 (30-135) U/L Troponin I < 0.012 (0.01-0.034) ng/mL Total Protein 7.6 (6.3-8.2) g/dL Albumin 4.0 (3.5-5.0) g/dL Globulin 3.6 (1.7-4.1) g/dL Albumin/Globulin Ratio 1.1 (1.0-2.8) Lipase 49 (23-300) U/L Point of Care Testing Test Results Negative Urine Dip Bedside Urine Glucose 1000 mg/dl Bedside Urine Bilirubin - Negative Bedside Urine Ketone - Negative Urine Specific Skillman 1.015 Bedside Urine Occult Blood - Negative Bedside Urine pH 6.0 Bedside Urine Protein - Negative Bedside Urine Urobilinogen - Negative Bedside Urine Nitrite - Negative Bedside Urine Leukocytes - Negative Esterase Point of care testing: Point of Care Testing Test Results Negative Urine Dip Bedside Urine Glucose 1000 mg/dl Bedside Urine Bilirubin - Negative Bedside Urine Ketone - Negative Urine Specific [place]illman 1.015 Bedside Urine Occult Blood - Negative Bedside Urine pH 6.0 Bedside Urine Protein - Negative Bedside Urine Urobilinogen - Negative Bedside Urine Nitrite - Negative Bedside Urine Leukocytes - Negative Esterase MDM Narrative Medical decision making narrative: CC: Chest pain Complicating co-morbidities: Antiphospholipid syndrome, anticoagulated with prior PE and DVT, recent airplane travel, chronic pain syndrome, recurrent kidney stones Data collected from: patient Social determinants of health that may influence the patients condition: Complex medical history with chronic pain issues Differential considered: Recurrent PE, pneumothorax, acute coronary syndrome, chronic pain exacerbation, viral syndrome Exam documented above, pertinent findings include: Tachypnea and tachycardia with waves of pain appreciated with no obvious pulmonary findings, tachycardia has improved over the course of her emergency room stay. There was no worsening lower extremity edema. Abdominal exam is fairly benign Lab Test results independently reviewed as above. Pertinent findings: CBC is unremarkable Chemistries are reassuring Troponin is undetectable Independently reviewed EKG: EKG shows sinus tachycardia 105. No acute ischemic changes Repeat EKG done with complaints of increasing chest pain shows no significant change. Continued sinus tachycardia at 101 with no additional findings or concerns for ischemia Imaging studies independently reviewed: CT angiogram shows no pulmonary embolus or dissection There is a suggestion of bilateral scattered ground-glass opacities. Radiology notes this is nonspecific and can represent subsegmental atelectasis, pulmonary edema or atypical infection. Chest x-ray shows no acute findings Discussion: 47-year-old woman with a plethora of medical problems with which she is actually managing fairly well. Her recent COVID infection likely did cause a lupus flare and that may be contributing to some of the overall pain she has been experiencing. She had been nauseated and vomiting so had not been keeping her usual oxycodone down so narcotic withdrawal may be exacerbating symptoms. At this point I am not finding life-threatening etiology such as sepsis, acute coronary syndrome, pulmonary embolism, dissection, pneumothorax. She did get a small dose of dexamethasone prior to contrast for her CT which could conceivably help with costochondritis or pleuritic type pain. She has had both of these issues and feels that it is somewhat different. She is wondering if it is related to all of the recently passed kidney stones and given the severity and colicky nature of the pain that is entirely possible. At this point we have clearly reviewed all of today's findings, she is reassured she requests an additional dose of Zofran and Benadryl prior to discharge so she can get to the ferritin get home. She will follow up with her primary provider Discharge Plan Departure Patient Disposition: Home Clinical Impression: Atypical chest pain Instructions: DI for Atypical Chest Pain Activity Restrictions/Additional Instructions: Thank you for coming in today I am sorry that you are continuing to struggle with this pain. I am happy that I am not finding life-threatening explanation for it. I do not see evidence of heart attack, collapsed lung, recurrent pulmonary embolism, aortic dissection or other finding that would suggest need for hospitalization or additional imaging. It does sound like you are working very appropriately with your current physicians to try and deal with each of your issues. I believe it is safe for you to be discharged home. If you find that you are getting worse or develop any new symptoms, please feel free to return to the emergency department for further evaluation. Prescriptions: No Action prednisone 20 mg tablet 40 mg PO DAILY Qty: 10 0RF oxycodone-acetaminophen 5-325 mg tablet 1 tab PO Q6H PRN (Reason: pain) Qty: 10 0RF Aimovig Autoinjector 140 mg/mL auto-injector 140 mg SUBCUT QMONTH hydroxyzine HCl 25 mg tablet 25 mg PO QID PRN diphenhydramine HCl [Benadryl] 25 mg capsule 25 mg PO QID PRN diltiazem HCl [Cardizem CD] 240 mg capsule,extended release 24hr 240 mg PO DAILY ascorbic acid (vitamin C) 500 mg tablet,chewable 500 mg PO DAILY diclofenac sodium [Arthritis Pain (diclofenac)] 1 % gel 2 g topical QID Rx Instructions: apply to single elbow, wrist or hand; for hand includes palm/fingers/back of hand sennosides-docusate sodium [Senna with Docusate Sodium] 8.6-50 mg tablet 1 tab-cap PO BEDTIME venlafaxine [Effexor XR] 150 mg capsule,extended release 24hr 150 mg PO DAILY enoxaparin 120 mg/0.8 mL syringe 120 mg SUBCUT DAILY tamsulosin [Flomax] 0.4 mg capsule 0.4 mg PO DAILY metformin [Glucophage] 1,000 mg tablet 1,000 mg PO BID Januvia 100 mg tablet 100 mg PO DAILY lamotrigine [Lamictal] 100 mg tablet 100 mg PO DAILY furosemide [Lasix] 40 mg tablet 40 mg PO DAILY lorazepam 0.5 mg tablet 0.5 mg PO DAILY PRN tizanidine 4 mg capsule 4 mg PO BID PRN topiramate [Topamax] 200 mg tablet 400 mg PO BID acetaminophen [Tylenol Extra Strength] 500 mg tablet 500 mg PO Q6H PRN hydrocodone-acetaminophen 10-325 mg tablet 1 tab PO Q4-6H PRN omeprazole 40 mg capsule,delayed release(DR/EC) 40 mg PO DAILY ondansetron 4 mg tablet,disintegrating 4 mg PO Q8H famotidine [Pepcid] 20 mg tablet 20 mg PO DAILY Referrals: Harinder Nava [Primary Care Provider] - Stand Alone Forms: Patient Portal/API
--- NOTE | 2023-05-09 13:06 | DI.CT.S_ITS ---
PROCEDURE: CT ANGIO CHEST PE PROTOCOL INDICATIONS: high risk for PE, chest pain, dyspnea, tachycardia. TECHNIQUE: After the administration of intravenous contrast, 2 mm thick sections acquired from the pulmonary apices to the posterior costophrenic angles. 3-dimensional maximum intensity projection (MIP) coronal and sagittal reformats were then acquired through the thorax. For radiation dose reduction, the following was used: automated exposure control, adjustment of mA and/or kV according to patient size. COMPARISON: [facility], CT, CT ANGIO CHEST PE PROTOCOL, 03/22/2022, 9:24. [facility], CR, XR CHEST 1V, 05/09/2023, 13:34. FINDINGS: Image quality: Diagnostic. Pulmonary arteries: Pulmonary arteries are normal in size, and demonstrate no intraluminal filling defects to suggest central pulmonary embolism. Lower Neck: No enlarged lymph nodes. Thyroid: No thyroid nodules which require sonographic follow up, per consensus guidelines. Prior right thyroidectomy. Axillae: No enlarged lymph nodes. Chest Wall: Left chest wall Port-A-Cath. Bones: Spine degenerative disc disease and facet arthropathy. Lungs and Pleura: No pneumothorax or pleural effusions. No consolidation or suspicious nodules. Scattered, bilateral lung mild ground-glass opacities. Heart: Heart size is normal. No pericardial effusion. Thoracic Vessels: No aortic aneurysm. Mediastinum and Nathalie: No enlarged lymph nodes. Esophagus: No wall thickening. No hiatal hernia. Upper Abdomen: No acute disease process in the visualized abdomen. Gallbladder surgically absent IMPRESSION: No pulmonary embolus or aortic dissection. Bilateral lung scattered ground-glass opacities. Finding is nonspecific may represent subsegmental atelectasis, pulmonary edema or atypical infection. Dictated by: Myra Fraser MD, PhD on 05/09/2023 at 14:17 Approved by: Myra Fraser MD, PhD on 05/09/2023 at 14:23
[2023-05-09 13:34] LABS: Add Manual Diff / Slide Review NO; Basophils Absolute Auto 100 /uL (0-100); Basophils Percent Auto 0.6 % (0-2); Eosinophils Absolute Auto 200 /uL (0-450); Eosinophils Percent Auto 1.8 % (2-4); Hematocrit 36.7 % (36-46); Hemoglobin 12.9 g/dL (12.0-16.0); Lymphocytes Absolute Auto 2500 /uL (1100-4500); Lymphocytes Percent Auto 22.9 % (25-40); Mean Corpuscular HGB Conc 35.1 % (30-36); Mean Corpuscular Hemoglobin 30.1 PG (26-34); Mean Corpuscular Volume 85.8 fL (80-100); Monocytes Absolute Auto 800 /uL (0-900); Monocytes Percent Auto 7.5 % (3-14); Neutrophils Absolute Auto 7200 /uL (1500-7000); Neutrophils Percent Auto 67.2 % (50-75); Platelet Count 337 X10^3/uL (150-400); Red Blood Cell Count 4.28 X10^6/uL (4.0-5.2); Red Cell Distribution Width 13.7 % (11.6-14.8); White Blood Cell Count 10.7 X10^3/uL (4.5-11.0)
[2023-05-09 13:43] LABS: Prothrombin Time 11.3 SECONDS (9.4-12.5)
[2023-05-09 13:45] LABS: PTT Partial Thromboplastin Tim 40 SECONDS (25.1-36.5)
[2023-05-09] MEDS: diphenhydrAMINE 50 MG/ML VIAL IV ×2 (13:45→15:39)
[2023-05-09] MEDS: DEXAMETHASONE 10 MG/ML VIAL 6 MG IV (13:46)
[2023-05-09 13:48] LABS: Alanine Aminotransferase 17 IU/L (<35); Albumin Globulin Ratio 1.1 (1.0-2.8); Alkaline Phosphatase 164 U/L (38-126); Aspartate Aminotransferase 19 IU/L (14-36); BUN Creatinine Ratio 17.4 (6-22); Bilirubin Total 0.5 mg/dL (0.2-1.3); Blood Urea Nitrogen 15 mg/dL (7-17); Carbon Dioxide 27 mmol/L (22-32); Chloride 102 mmol/L (98-107); Creatine Kinase 45 U/L (30-135); Estimated Glomerular Filt Rate > 60 mL/min (>60); Globulin 3.6 g/dL (1.7-4.1); Glucose 211 mg/dL (70-100); HEMOLYSIS < 15 (0-50); Lipase 49 U/L (23-300); Magnesium 1.9 mg/dL (1.6-2.3); Sodium 135 mmol/L (137-145); Total Protein 7.6 g/dL (6.3-8.2)
[2023-05-09 13:59] LABS: Troponin I < 0.012 ng/mL (0.01-0.034)
[2023-05-09] MEDS: HYDROMORPHONE 0.5 MG INJ IV (14:13)
[2023-05-09] MEDS: HYDROMORPHONE 1 MG INJ IV (15:38)
[2023-05-09] MEDS: ONDANSETRON 4 MG/2 ML INJ IV (15:38)
== END 2023-05-09 16:00 | disposition home or self-care (01) ==
PROVIDERS: Emergency Provider Emergency Medicine; PCP Student in an Organized Health Care Education/Training Program
DX: R07.89 Other chest pain (principal); Z86.16 Personal history of COVID-19
CPT/HCPCS: 36415; 71045; 71275; 80053; 81003; 81025; 82550; 83690; 83735; 84484; 85025; 85610; 85730; 93005; 96374; 96375; 96376; 99284; J1100; J1170; J1200; J1642; J2405; Q9967

== ENCOUNTER → 2023-05-21 13:40 | Outpatient (CLI) | payer MEDICARE, MEDICAID, SELFPAY ==
--- NOTE | 2023-05-21 13:42 | DI.MRI.S_ITS ---
PROCEDURE: MR AB PANCREATIC/MRCP PROTOCOL INDICATIONS: Acute pancreatitis TECHNIQUE: Coronal HASTE through the abdomen, axial 2-D FLASH in- and [id number], and breath-hold T2 FSE with fat saturation through the biliary system and pancreas. Oblique coronal and axial thin-slice HASTE, radial thick-slab HASTE centered on the extrahepatic bile ducts. Intravenous secretin: Not requested. COMPARISON: [facility], CT, CT ABDOMEN PELVIS WITHOUT CONTRAST, 10/13/2022, 19:21. FINDINGS: Image quality: Suboptimal due to motion artifact. Gallbladder: Absent. Biliary ducts: No biliary dilation. Pancreas: Pancreatic divisum versus prominent accessory duct. OTHER: Lung bases: Unremarkable. Liver: No solid mass. Spleen: Size is within normal limits. Adrenal Glands: No adrenal nodules. Kidneys and Ureters: No hydronephrosis. No solid mass. No complex renal cystic lesion which requires follow up. Hemorrhagic cyst on the superior pole the left kidney measuring 14 mm. Stomach and Bowel: Normal colonic caliber, without significant wall thickening. Peritoneum: No abnormal intraperitoneal fluid. No free air. Ventral Wall: No hernia. Abdominal Nodes: No retroperitoneal or mesenteric adenopathy by size criteria. Vessels: Aorta and inferior vena cava are normal in size. Bones: No aggressive osseous abnormality. IMPRESSION: Pancreatic divisum versus prominent accessory duct. No MRI evidence of acute pancreatitis at this time. Dictated by: Olman Celis M.D. on 05/21/2023 at 15:39 Approved by: Olman Celis M.D. on 05/21/2023 at 15:43
--- NOTE | 2023-05-21 14:27 | PC.NURSE ---
Port-a-cath accessed via protocol. Blood return immediately upon insertion, flushes well. Patient reports no discomfort. Dressing applied and care transfered to MRI for imaging.
--- NOTE | 2023-05-21 15:06 | PC.NURSE ---
Port de-accessed according to protocol. Bandaid placed per patient request, site WNL.
== END ==
LOC: MRI 13:41
PROVIDERS: PCP Student in an Organized Health Care Education/Training Program; Referring Provider Internal Medicine Gastroenterology; Visit Provider Internal Medicine Gastroenterology
DX: K85.90 Acute pancreatitis without necrosis or infection, unspecified (principal)
CPT/HCPCS: 74183; A9579

== ENCOUNTER → 2023-07-23 10:00 | Outpatient (CLI) | payer MEDICARE, MEDICAID, SELFPAY ==
--- NOTE | 2023-07-23 10:01 | DI.MRI.S_ITS ---
PROCEDURE: MR CERVICAL SPINE WO CON INDICATIONS: CERVICAL RADIC/CUBITAL MELI SYNDROME ON RT TECHNIQUE: Noncontrast sagittal T1 spin echo and T2 fast spin echo, sagittal STIR, foraminal oblique sagittal T2 fast spin echo, and axial gradient echo or T2 fast spin echo through the cervical spine. COMPARISON: Outside Facility, RG, CT C SPINE WITHOUT CONTRAST, 12/23/2019, 14:23. Outside Facility, RG, MRI C-SPINE W/WO CONTRAST, 08/01/2019, 10:40. FINDINGS: Image quality: This examination is limited by involuntary motion artifact. Alignment and Curvature: There is normal bony alignment. Bone Marrow: Marrow demonstrates normal overall signal. Spinal Cord: Visualized spinal cord has normal size and signal. No cerebellar tonsillar herniation. Paraspinous Soft Tissues: No paravertebral masses. Prevertebral soft tissues are normal in thickness. C2-C3: Normal appearance. C3-C4: Normal appearance. C4-C5: The disc height and disk signal are relatively well-preserved. A mild degree of generalized disc osteophyte complex is seen. Mild to moderate facet hypertrophy can be seen. There is moderate left-sided and no significant right-sided neural foraminal narrowing. Mild central canal narrowing is seen. These imaging findings have progressed compared to the prior study. C5-C6: The disc height is well-preserved. Loss of disc signal is seen at this level. A mild degree of generalized disc osteophyte complex is seen. Mild to moderate facet joint hypertrophy is seen. There is moderate left-sided and no right-sided neural foraminal narrowing. No central canal narrowing is seen. These imaging findings have progressed compared to the prior study. C6-C7: Moderate loss of disc height is seen. Loss of disc signal is seen. A mild degree of generalized disc osteophyte complex is seen. There is a mild superimposed central disc osteophyte protrusion. Mild facet joint hypertrophy is seen. Xikb-[id number] bilateral neural foraminal narrowing can be seen. Mild central canal narrowing is seen. These degenerative changes are worse than in 2020. C7-T1: The disc height is well-preserved. Loss of disc signal is seen at this level. Mild generalized disc bulge is seen. No neural foraminal narrowing or central canal narrowing can be seen. IMPRESSION: Multiple levels of cervical spine degenerative change can be seen, which are overall worst at the C6-C7 level. The degenerative changes have progressed at a few levels compared to the outside 2020 MRI examination. Dictated by: Aiden Zhou M.D. on 07/23/2023 at 13:13 Approved by: Aiden Zhou M.D. on 07/23/2023 at 13:19
== END ==
PROVIDERS: PCP Student in an Organized Health Care Education/Training Program; Referring Provider Student in an Organized Health Care Education/Training Program; Visit Provider Student in an Organized Health Care Education/Training Program
DX: M47.22 Other spondylosis with radiculopathy, cervical region (principal); G56.21 Lesion of ulnar nerve, right upper limb
CPT/HCPCS: 72141

== ENCOUNTER → 2023-07-23 10:03 | Outpatient (CLI) | payer MEDICARE, MEDICAID, SELFPAY ==
--- NOTE | 2023-07-23 10:04 | DI.MRI.S_ITS ---
PROCEDURE: MR ABDOMEN WO/W CON INDICATIONS: CYST OF LEFT KIDNEY TECHNIQUE: Coronal HASTE through abdomen and pelvis; axial 2D FLASH in- and ant-su-biglh (with and without fat saturation), and breath-hold T2 FSE from the hepatic dome to the bottom of the kidneys. Coronal HASTE MR urogram of kidneys and bladder. Dynamic coronal VIBE during IV gadolinium administration; postgadolinium axial VIBE or 2D FLASH with fat saturation from the hepatic dome through the kidneys. COMPARISON: Outside Film, CT, CT ABDOMEN PELVIS WITHOUT CONTRAST, 10/13/2022, 19:21. [facility], CT, CT ANGIO CHEST PE PROTOCOL, 05/09/2023, 14:05. [facility], MR, MR AB PANCREATIC/MRCP PROTOCOL, 05/21/2023, 14:28. FINDINGS: Image quality: Suboptimal due to motion artifact Kidneys and Ureters: No hydronephrosis. No solid mass. No complex renal cystic lesion which requires follow up. Interval decrease in size of the hemorrhagic cyst on the superior pole of the left kidney, now measuring 8 millimeters, previously 14 millimeters. OTHER: Lung bases: Unremarkable. Liver: No solid mass. Gallbladder: Absent. Biliary ducts: No biliary dilation. Pancreas: No ductal dilation. Pancreatic divisum versus prominent accessory duct. Spleen: Size is within normal limits. Adrenal Glands: No adrenal nodules. Stomach and Bowel: Normal colonic caliber, without significant wall thickening. Colonic diverticulosis without evidence of diverticulitis. Peritoneum: No abnormal intraperitoneal fluid. No free air. Ventral Wall: No hernia. Abdominal Nodes: No retroperitoneal or mesenteric adenopathy by size criteria. Vessels: Aorta and inferior vena cava are normal in size. Bones: No aggressive osseous abnormality. IMPRESSION: Suboptimal evaluation due to motion artifact. Slight interval decrease in size of the hemorrhagic cyst on the superior pole of the left kidney, measuring 8 millimeters, previously 14 millimeters. Size is stripping C could be due to motion artifact. Dictated by: Olman Celis M.D. on 07/23/2023 at 13:13 Approved by: Olman Celis M.D. on 07/23/2023 at 13:17
== END ==
PROVIDERS: PCP Student in an Organized Health Care Education/Training Program; Referring Provider Internal Medicine; Visit Provider Internal Medicine
DX: N28.1 Cyst of kidney, acquired (principal); M47.22 Other spondylosis with radiculopathy, cervical region; G56.21 Lesion of ulnar nerve, right upper limb
CPT/HCPCS: 72141; 74183; A9579

== ENCOUNTER → 2023-08-13 11:35 | Outpatient (CLI) | payer MEDICARE, MEDICAID, SELFPAY ==
--- NOTE | 2023-08-13 11:39 | DI.MG.S_ITS ---
BILATERAL DIGITAL DIAGNOSTIC MAMMOGRAM 3D/2D: 08/13/2023 CLINICAL: Diffuse right breast pain. Comparison is made to exams dated: 05/24/2022 mammogram, 01/08/2022 mammogram, and 03/21/2021 mammogram - Outside facility. Both breasts are almost entirely fatty (category a/<25% glandular tissue). No significant masses, calcifications, or other findings are seen in either breast. Specifically, no finding to explain the patient's pain. IMPRESSION: NEGATIVE There is no abnormality seen in the right breast to correspond with the diffuse pain in the posterior depth in the lateral aspect. There is no mammographic evidence of malignancy. Return to annual mammogram screening schedule is recommended. Findings and recommendations were conveyed to the patient at time of exam. Based on the Tyrer Cuzick model (a risk assessment model) the patient's lifetime risk is 9.0% and her 10 year risk is 2.0%. According to the ACR, ACS, and NCCN guidelines, an annual breast MRI exam along with mammogram is recommended if the patient's lifetime risk is 20% or greater. This exam was interpreted at Station ID: [id number]. NOTE: For mammograms, a report in lay terms will be sent to the patient. Approximately 15% of breast malignancies will not be visualized mammographically. In the management of a palpable breast mass, a negative mammogram must not discourage biopsy of a clinically suspicious lesion. Electronically Signed By: Ariane rodrigues/:08/13/2023 13:06:09 letter sent: Normal Exam ACR BI-RADS Category 1: Negative [id number]
== END ==
PROVIDERS: PCP Student in an Organized Health Care Education/Training Program; Referring Provider Student in an Organized Health Care Education/Training Program; Visit Provider Student in an Organized Health Care Education/Training Program
DX: N64.4 Mastodynia (principal); R92.313 Mammographic fatty tissue density, bilateral breasts
CPT/HCPCS: 77066; G0279

== ENCOUNTER → 2023-12-23 08:31 | Outpatient (CLI) | payer MEDICARE, MEDICAID, SELFPAY ==
--- NOTE | 2023-12-23 09:46 | DI.MRI.S_ITS ---
PROCEDURE: MR PELVIS WO CON INDICATIONS: PERINEAL NUMBNESS TECHNIQUE: Noncontrast coronal and axial T1 spin echo and STIR through the bony pelvis. COMPARISON: None. FINDINGS: Image quality: Excellent. Bones: Bone marrow of the pelvic ring, sacrum, and proximal femurs show normal signal throughout. No intraosseous lesions or fractures identified. The visualized lower lumbar spine appears normally aligned. Tendons: Mild symmetric appearing bilateral distal gluteus medius tendinosis at their insertions on greater trochanter is seen. The nearby proximal iliotibial band also appears intact. The iliopsoas tendon appears intact, without adjacent bursal fluid collections or evidence for impingement syndrome. Tendinosis involving bilateral hamstring tendon origins at ischial tuberosity is seen slightly worse on the right side. No full-thickness tendon rupture. Large [id number] shows no gross acetabular labral tear. Soft tissues: Visualized muscles demonstrate normal bulk and internal signal. No joint effusions. No free pelvic fluid. Bladder wall thickness is normal. Genitourinary structures and bowel loops appear normal where visualized. IMPRESSION: 1. No marrow edema. No pelvic or hip fracture. No evidence of avascular necrosis of femoral head. 2. Mild bilateral distal gluteus medius tendinosis at their insertions on greater trochanter. Tendinosis and low-grade partial-thickness tear involving bilateral hamstring tendon origins at ischial tuberosity worse on the right side. No full-thickness muscle or tendon rupture. 3. No obvious focal acetabular labral tear. 4. No pelvic free fluid . No bowel obstruction or abnormal bowel wall thickening. Bladder wall thickness is normal. Dictated by: Anupam Deras M.D. on 12/23/2023 at 14:57 Approved by: Anupam Deras M.D. on 12/23/2023 at 15:54
== END ==
PROVIDERS: PCP Student in an Organized Health Care Education/Training Program; Referring Provider Orthopaedic Surgery Orthopaedic Surgery of the Spine; Visit Provider Orthopaedic Surgery Orthopaedic Surgery of the Spine
DX: S76.812A Strain of other specified muscles, fascia and tendons at thigh level, left thigh, initial encounter (principal); S76.811A Strain of other specified muscles, fascia and tendons at thigh level, right thigh, initial encounter; R20.0 Anesthesia of skin
CPT/HCPCS: 72195

== ENCOUNTER → 2023-12-23 08:33 | Outpatient (CLI) | payer MEDICARE, MEDICAID, SELFPAY ==
--- NOTE | 2023-12-23 | DI.MRI.S_ITS ---
PROCEDURE: MR SHOULDER RT WO CON INDICATIONS: RIGHT ARM WEAKNESS TECHNIQUE: Noncontrast oblique coronal T2 fast spin echo with fat saturation, oblique sagittal T1 spin echo and T2 fast spin echo with fat saturation, axial T1 spin echo and T2 fast spin echo with fat saturation through the shoulder. COMPARISON: None. FINDINGS: Image quality: Excellent. Rotator cuff: Low to moderate grade articular and bursal surface partial thickness tear involving anterior to mid fibers of distal supraspinatus at its insertion on the humeral head is seen extending to musculotendinous junction. Distal infraspinatus tendinosis is noted. Low-grade partial-thickness tear involving superior fibers of distal subscapularis is seen. No full-thickness rotator cuff tendon rupture. Sagittal images demonstrate very mild supraspinatus muscle atrophy. Bones and bursae: No bone marrow contusions or fractures. Mild to moderate acromioclavicular joint osteoarthritic changes are seen with joint space narrowing and downward osteophyte formation depressing the musculotendinous junction of supraspinatus. Type 1 acromion without an os acromiale. Small amount of joint effusion and subacromial subdeltoid bursal fluid is seen, no loose bodies. Capsule and soft tissues: There is signal abnormality and fraying of superior anterior glenoid labrum with adjacent lobulated cystic areas measures up to 9 x 7 mm in size suggestive of superior anterior labral tear and adjacent perilabral cysts. The long head of the biceps tendon demonstrates normal location and morphology. The rotator interval appears normal, without fibrosis. The coracohumeral ligament is normal in thickness. IMPRESSION: 1. Low to moderate grade articular and bursal surface partial thickness tear involving distal supraspinatus extending to musculotendinous junction. Distal infraspinatus tendinosis. Low-grade partial-thickness tear involving superior fibers of distal subscapularis. No full-thickness rotator cuff tendon rupture. Very mild supraspinatus muscle atrophy. 2. [id number] acromioclavicular joint osteoarthritis. No fracture or dislocation. Small amount of joint effusion and subacromial subdeltoid bursal fluid, no loose bodies. 3. Suggestion of superior anterior glenoid labral tear with perilabral cysts . Dictated by: Anupam Deras M.D. on 12/23/2023 at 10:44 Approved by: Anupam Deras M.D. on 12/23/2023 at 11:00
== END ==
PROVIDERS: PCP Student in an Organized Health Care Education/Training Program; Referring Provider Student in an Organized Health Care Education/Training Program; Visit Provider Student in an Organized Health Care Education/Training Program
DX: M75.111 Incomplete rotator cuff tear or rupture of right shoulder, not specified as traumatic (principal); M19.011 Primary osteoarthritis, right shoulder; M25.411 Effusion, right shoulder; S76.812A Strain of other specified muscles, fascia and tendons at thigh level, left thigh, initial encounter; S76.811A Strain of other specified muscles, fascia and tendons at thigh level, right thigh, initial encounter; R29.898 Other symptoms and signs involving the musculoskeletal system; R20.0 Anesthesia of skin
CPT/HCPCS: 72195; 73221

== ENCOUNTER 2024-02-25 13:01 | Emergency (ER) | payer MEDICARE, MEDICAID, SELFPAY ==
[2024-02-25] VITALS (16 sets, daily range): BP systolic 115–170; BP diastolic 80–110; PULSE 107–131; RESP 15–24; TEMP 36.7; O2SAT 96–100; BMI 42.9
--- NOTE | 2024-02-25 13:48 | ED.HA ---
HPI - Headache General Chief Complaint: Headache Stated Complaint: headache Time Seen by Provider: 02/25/24 13:34 Mode of arrival: Ambulatory History of Present Illness HPI Narrative: Patient has history of antiphospholipid and is on Lovenox. Has history of pseudotumor cerebri. Had FI[employer] LEADER shunt removed 2 years ago at [facility] with Neurosurgery Dr. 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 At [facility]. Patient here for headache that started at 4:30 a.m. this morning. Frontal headache. No loss of consciousness. No vision changes. Separator Inserter did eye pressures which were 22 in the left and 20 on the right and concerning for recurrence of her pseudotumor cerebri. Was instructed to go the hospital/ER. Patient complains of hives on the hands which she has had Benadryl in the past for. She has had Dilaudid for pain control before. She has had lumbar punctures in the past but states she usually gets fluoroscopy due to difficulty/technique. I will call for consult and possible transfer to [facility] for Neurosurgery. Patient had Lovenox and unable to do lumbar puncture at this time. She states the wall taper did note some papilledema today Related Data Home Medications Medication Instructions Recorded Confirmed acetaminophen 500 mg tablet 500 mg PO Q6H PRN 07/04/20 (Tylenol Extra Strength) ascorbic acid (vitamin C) 500 mg 500 mg PO DAILY 07/04/20 chewable tablet diclofenac sodium 1 % topical gel 2 g topical QID 07/04/20 (Arthritis Pain (diclofenac)) diltiazem HCl 240 mg 240 mg PO DAILY 07/04/20 capsule,extended release 24 hr (Cardizem CD) diphenhydramine HCl 25 mg capsule 25 mg PO QID PRN 07/04/20 (Benadryl) enoxaparin 120 mg/0.8 mL 120 mg SUBCUT DAILY 07/04/20 subcutaneous syringe erenumab-aooe 140 mg/mL 140 mg SUBCUT QMONTH 07/04/20 subcutaneous auto-injector (Aimovig Autoinjector) famotidine 20 mg tablet (Pepcid) 20 mg PO DAILY 07/04/20 furosemide 40 mg tablet (Lasix) 40 mg PO DAILY 07/04/20 hydrocodone 10 mg-acetaminophen 1 tab PO Q4-6H PRN 07/04/20 325 mg tablet hydroxyzine HCl 25 mg tablet 25 mg PO QID PRN 07/04/20 lamotrigine 100 mg tablet 100 mg PO DAILY 07/04/20 (Lamictal) lorazepam 0.5 mg tablet 0.5 mg PO DAILY PRN 07/04/20 metformin 1,000 mg tablet 1,000 mg PO BID 07/04/20 (Glucophage) omeprazole 40 mg capsule,delayed 40 mg PO DAILY 07/04/20 release ondansetron 4 mg disintegrating 4 mg PO Q8H 07/04/20 tablet sennosides 8.6 mg-docusate sodium 1 tab-cap PO BEDTIME 07/04/20 50 mg tablet (Senna with Docusate Sodium) sitagliptin phosphate 100 mg 100 mg PO DAILY 07/04/20 tablet (Januvia) tamsulosin 0.4 mg capsule (Flomax) 0.4 mg PO DAILY 07/04/20 tizanidine 4 mg capsule 4 mg PO BID PRN 07/04/20 topiramate 200 mg tablet (Topamax) 400 mg PO BID 07/04/20 venlafaxine 150 mg 150 mg PO DAILY 07/04/20 capsule,extended release 24 hr (Effexor XR) Previous Rx's Medication Instructions Recorded oxycodone-acetaminophen 5 mg-325 1 tab PO Q6H PRN pain #10 tabs 02/20/22 mg tablet prednisone 20 mg tablet 40 mg (2 x 20 mg) PO DAILY #10 tabs 03/22/22 Allergies Allergy/AdvReac Type Severity Reaction Status Date / Time clindamycin Allergy Severe Anaphylaxis Verified 05/09/23 13:07 hylan G-F 20 Allergy Severe Anaphylaxis Verified 05/09/23 13:07 ibuprofen Allergy Severe SOB,RASH Verified 05/09/23 13:07 Iodinated Contrast Media Allergy Severe SOB-HIVES Verified 05/09/23 13:07 iothalamic acid Allergy Severe SOB,HIVES Verified 05/09/23 13:07 iron dextran complex Allergy Severe Anaphylaxis, Verified 05/09/23 13:07 HIVES meclizine Allergy Severe Palpitation Verified 05/09/23 13:07 s shrimp Allergy Severe Anaphylaxis Verified 05/09/23 13:07 valproic acid Allergy Severe Anaphylaxis Verified 05/09/23 13:07 venom-honey bee Allergy Severe Anaphylaxis Verified 05/09/23 13:07 adhesive tape Allergy Intermediate rash Verified 05/09/23 13:07 amoxicillin [From Augmentin] Allergy Intermediate Hives Verified 05/09/23 13:07 aspirin Allergy Intermediate rash Verified 05/09/23 13:07 clavulanic acid Allergy Intermediate Hives Verified 05/09/23 13:07 [From Augmentin] codeine Allergy Intermediate Hives Verified 05/09/23 13:07 divalproex sodium Allergy Intermediate Hives Verified 05/09/23 13:07 gabapentin Allergy Intermediate Swelling Verified 05/09/23 13:07 of Lip/Tongue/Throat leuprolide Allergy Intermediate Hives Verified 05/09/23 13:07 levalbuterol Allergy Intermediate Hives Verified 05/09/23 13:07 NSAIDS (Non-Steroidal Allergy Intermediate Hives Verified 05/09/23 13:07 Anti-Inflamma promethazine Allergy Intermediate Hives Verified 05/09/23 13:07 tapentadol Allergy Intermediate rash/itchy Verified 05/09/23 13:07 vancomycin Allergy Intermediate Hives, Verified 05/09/23 13:07 ITCHING IRON SUCROSE Allergy Intermediate Hives,SOB Uncoded 07/19/22 16:04 Review of Systems Review of Systems Narrative: GENERAL: Negative chills, fatigue, malaise, fever, sweats. HEENT: Negative sinus pain, ear pain, sore throat RESPIRATORY: Negative dyspnea, cough CARDIOVASCULAR: Negative chest pain, palpitations GASTROINTESTINAL: Negative nausea, vomiting, abdominal pain : Negative dysuria, frequency, hematuria MUSCULOSKELETAL: Negative muscle or bony pain SKIN: Negative rash, skin lesions NEUROLOGIC: Negative weakness, numbness positive headache ROS Unobtainable: All systems reviewed & are unremarkable except as noted in HPI and below Patient History Medical History Antiphospholipid syndrome History of endometriosis History of ovarian cyst Lupus Pseudotumor cerebri Chronic pain syndrome Cervical spondylosis Impingement syndrome of right shoulder Surgical History S/P FIELD MARK[employer]ING [employer] LEADER shunt H/O oophorectomy H/O brain surgery H/O thyroidectomy History of cholecystectomy Hx of appendectomy Family History Mother Diabetes mellitus Hypertension Arthritis Thrombophilia Sister Arthritis Hypertension Depression Social History Smoking Status: Never smoker Smoking Status: Never smoker alcohol intake frequency: holidays/special occasions only Exam Narrative Exam Narrative: GENERAL: in no distress, not toxic not dyspneic HEAD: Normocephalic. EYES: Pupils equal round ENT: Mucous membranes moist. NECK: Trachea midline. CARDIOVASCULAR: Regular rate and rhythm RESPIRATORY: Clear to auscultation. Breath sounds equal bilaterally. No wheezes, rales, or rhonchi. GASTROINTESTINAL: Abdomen soft, non-tender EXTREMITIES: No gross deformities. BACK: No flank tenderness. NEURO: AOx4. Clear speech no facial droop light touch intact out of face hands and legs. SKIN: Warm and dry PSYCH: Not anxious, is cooperative Initial Vital Signs Initial Vital Signs: Vital Signs Temperature 98.1 F 02/25/24 13:21 Pulse Rate 120 H 02/25/24 13:21 Respiratory Rate 18 02/25/24 13:21 Blood Pressure 142/98 H 02/25/24 13:21 Pulse Oximetry 96 02/25/24 13:21 Oxygen Delivery Method Room Air 02/25/24 13:21 Course Orders Ordered: Discontinued Medications Diphenhydramine HCl (Diphenhydramine 50 Mg/Ml Vial) 25 mg IV NOW ONE Stop: 02/25/24 13:50 Last Admin: 02/25/24 14:06 Dose: 25 mg Documented By: SABA Diphenhydramine HCl (Diphenhydramine 50 Mg/Ml Vial) 25 mg IV NOW ONE Stop: 02/25/24 16:33 Last Admin: 02/25/24 16:51 Dose: 25 mg Documented By: SABA Hydromorphone HCl (Hydromorphone 1 Mg Inj) 1 mg IV NOW ONE Stop: 02/25/24 13:50 Last Admin: 02/25/24 14:04 Dose: 1 mg Documented By: SABA Hydromorphone HCl (Hydromorphone 1 Mg Inj) 1 mg IV NOW ONE Stop: 02/25/24 16:33 Last Admin: 02/25/24 16:56 Dose: 1 mg Documented By: SABA Hydromorphone HCl (Hydromorphone 1 Mg Inj) 1 mg IV NOW ONE Stop: 02/25/24 18:50 Last Admin: 02/25/24 18:53 Dose: 1 mg Documented By: SABA Lorazepam (Lorazepam 2 Mg/Ml Inj) 1 mg IV NOW ONE Stop: 02/25/24 15:16 Last Admin: 02/25/24 15:42 Dose: 1 mg Documented By: SABA Ondansetron HCl (Ondansetron 4 Mg/2 Ml Inj) 4 mg IV NOW ONE Stop: 02/25/24 15:24 Last Admin: 02/25/24 15:42 Dose: 4 mg Documented By: SABA Ondansetron HCl (Ondansetron 4 Mg/2 Ml Inj) 4 mg IV NOW ONE Stop: 02/25/24 18:51 Last Admin: 02/25/24 18:53 Dose: 4 mg Documented By: SABA Vital Signs Vital signs: Vital Signs - 8 hr 02/25/24 13:21 02/25/24 13:36 02/25/24 13:38 Temperature 98.1 F Pulse Rate 120 H 117 H Respiratory Rate 18 Blood Pressure 142/98 H 139/80 Pulse Oximetry 96 98 Oxygen Delivery Method Room Air 02/25/24 13:38 02/25/24 14:00 02/25/24 14:20 Temperature Pulse Rate 117 H 108 H 131 H Respiratory Rate Blood Pressure Pulse Oximetry 99 100 99 Oxygen Delivery Method 02/25/24 14:20 02/25/24 14:30 02/25/24 14:30 Temperature Pulse Rate 120 H Respiratory Rate Blood Pressure 165/110 H 166/104 H Pulse Oximetry 98 Oxygen Delivery Method 02/25/24 15:00 02/25/24 15:00 02/25/24 15:30 Temperature Pulse Rate 115 H 118 H Respiratory Rate 18 Blood Pressure 170/104 H Pulse Oximetry 98 96 Oxygen Delivery Method 02/25/24 15:31 02/25/24 15:31 02/25/24 16:03 Temperature Pulse Rate 126 H 121 H Respiratory Rate 21 Blood Pressure 152/91 H Pulse Oximetry 97 Oxygen Delivery Method 02/25/24 16:04 02/25/24 16:04 02/25/24 16:30 Temperature Pulse Rate 119 H 107 H Respiratory Rate 15 21 Blood Pressure 157/87 H Pulse Oximetry 98 96 Oxygen Delivery Method 02/25/24 16:30 02/25/24 17:08 02/25/24 17:09 Temperature Pulse Rate 113 H 110 H Respiratory Rate 24 Blood Pressure 137/83 Pulse Oximetry 99 97 Oxygen Delivery Method 02/25/24 17:09 02/25/24 17:30 02/25/24 17:30 Temperature Pulse Rate 116 H Respiratory Rate 18 Blood Pressure 128/81 141/88 H Pulse Oximetry 97 Oxygen Delivery Method MDM - Headache Lab Data 02/25/24 13:50 02/25/24 13:50 Labs: Lab Results 02/25/24 02/25/24 Range/Units 13:50 14:55 WBC 11.1 H (4.5-11.0) X10^3/uL RBC 4.51 (4.0-5.2) X10^6/uL Hgb 14.3 (12.0-16.0) g/dL Hct 40.7 (36-46) % MCV 90.2 (80-100) fL MCH 31.6 (26-34) PG MCHC 35.1 (30-36) % RDW 12.8 (11.6-14.8) % Plt Count 382 (150-400) X10^3/uL Neut % (Auto) 60.7 (50-75) % Lymph % (Auto) 29.2 (25-40) % [place] % (Auto) 7.1 (3-14) % Eos % (Auto) 2.3 (2-4) % Baso % (Auto) 0.7 (0-2) % Neut # (Auto) 6700 (0751-4035) /uL Lymph # (Auto) 3200 (2729-1096) /uL [place] # (Auto) 800 (0-900) /uL Eos # (Auto) 300 (0-450) /uL Baso # (Auto) 100 (0-100) /uL PT 61.6 H (9.4-12.5) SECONDS INR 5.7 H* (0.9-1.3) APTT 31 (25.1-36.5) SECONDS Sodium 137 (137-145) mmol/L Potassium 3.8 (3.4-5.1) mmol/L Chloride 104 (98-107) mmol/L Carbon Dioxide 22 (22-32) mmol/L BUN 26 H (7-17) mg/dL Creatinine 0.88 (0.52-1.04) mg/dL Estimated GFR > 60 (>60) mL/min BUN/Creatinine Ratio 29.5 H (6-22) Glucose 166 H (70-100) mg/dL Calcium 8.9 (8.4-10.2) mg/dL Total Bilirubin 0.4 (0.2-1.3) mg/dL AST 28 (14-36) IU/L ALT 27 (<35) IU/L Alkaline Phosphatase 227 H (38-126) U/L Total Creatine Kinase 144 H (30-135) U/L Troponin I < 0.012 (0.01-0.034) ng/mL Total Protein 8.1 (6.3-8.2) g/dL Albumin 4.7 (3.5-5.0) g/dL Globulin 3.4 (1.7-4.1) g/dL Albumin/Globulin Ratio 1.4 (1.0-2.8) Imaging Data CT scan - head: Radiologist's Impression: [address] [address] [address] Scan Report Signed Patient: Vanessa Miguel MR#: [id number] : 1975 Acct:[id number] Age/Sex: 48 / F Date of Service: 02/25/24 Loc: ED Accession Number: [id number] Procedure: CT head/brain wo con Ordering Provider: Rolo Dykes MD PROCEDURE: CT HEAD/BRAIN WO CON INDICATIONS: Frontal headache/pseudotumor cerebri TECHNIQUE: Noncontrast 4.5 mm thick angled axial sections acquired from the foramen magnum to the vertex, with coronal and sagittal reformats. For radiation dose reduction, the following was used: automated exposure control, adjustment of mA and/or kV according to patient size. COMPARISON: None. FINDINGS: Image quality: Diagnostic. CSF spaces: Basal cisterns are patent. No extra-axial fluid collections. Ventricles are normal in size and shape. Brain: No midline shift. No intracranial masses or hemorrhage. Rodriguez-white matter interface is normal. Skull and face: Calvarium and visualized facial bones are intact, without suspicious lesions. Sinuses: Visualized sinuses demonstrate minimal mucosal thickening in the right ethmoid, frontal and maxillary sinuses. IMPRESSION: No acute intracranial pathology. Dictated by: Linda Rosario M.D. on 02/25/2024 at 15:03 Approved by: Linda Rosario M.D. on 02/25/2024 at 15:04 Chest x-ray: Radiologist's Impression: [address] [address] XRay Report Signed Patient: Vanessa Miguel MR#: [id number] : 1975 Acct:[id number] Age/Sex: 48 / F Date of Service: 02/25/24 Loc: ED Accession Number: [id number] Procedure: XR chest 1V Ordering Provider: Rolo Dykes MD PROCEDURE: XR CHEST 1V INDICATIONS: Chest pain TECHNIQUE: One view of the chest was acquired. COMPARISON: [facility], CR, XR CHEST 1V, 05/09/2023, 13:34. FINDINGS: Surgical changes and devices: Left Port-A-Cath. Lungs and pleura: Lungs are hypoinflated. There is mild appearance of interstitial prominence. Mediastinum: Mediastinal contours appear normal. Heart size is normal. Bones and chest wall: No suspicious bony lesions. Overlying soft tissues appear unremarkable. IMPRESSION: Poor inspiratory effort with interstitial prominence. While this could represent carotid pulmonary marking secondary to hypoinflation, areas of edema or interstitial airspace disease cannot be excluded. Dictated by: Linda Rosario M.D. on 02/25/2024 at 15:46 Approved by: Linda Rosario M.D. on 02/25/2024 at 15:47 MDM Narrative Medical decision making narrative: Patient has history of antiphospholipid and is on Lovenox. Has history of pseudotumor cerebri. Had [employer] shunt removed 2 years ago at [facility] with Neurosurgery Dr. 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 At [facility]. Patient here for headache that started at 4:30 a.m. this morning. Frontal headache. No loss of consciousness. No vision changes. Separator Inserter did eye pressures which were 22 in the left and 20 on the right and concerning for recurrence of her pseudotumor cerebri. Was instructed to go the hospital/ER. Patient complains of hives on the hands which she has had Benadryl in the past for. She has had Dilaudid for pain control before. She has had lumbar punctures in the past but states she usually gets fluoroscopy due to difficulty/technique. I will call for consult and possible transfer to [facility] for Neurosurgery. Patient had Lovenox and unable to do lumbar puncture at this time. After history and exam CBC CMP CT head Geoffrey Aquino, [facility] neurosurgery consult [facility] Medical records reviewed: No recent visit for this complaint Differential considered: Includes but not limited to Lab Test results independently reviewed as above. Pertinent findings: WBC 11.1 hemoglobin 14.3 INR 5.7 sodium 137 potassium 3.8 BUN 26 GFR greater than 60 glucose 166 troponin less than 0.012 EKG sinus tachycardia rate 116 Imaging studies independently reviewed: CT head no acute finding chest x-ray no acute finding Consultations: 6:00 p.m.. Spoke with [facility] Dr. Patel, she would like patient transferred to [facility] Department now will need lumbar puncture fluoroscopy guided. Agrees that lumbar puncture should not be done here. Will also need a CT venogram Treatments: Geoffrey Munson Re-evaluations: 5:20 p.m.. Updated results with patient. Still waiting for Neurosurgery [facility] call back with recommendations. 6:15 p.m.. Pain is controlled at this time. Patient agrees and understands need for transfer to [facility]. Discussion: No lumbar puncture at this time. INR is too high. Appropriate for transfer for higher level care. Neurosurgery has been contacted and agrees patient needs to be transfer. Diagnosis: Pseudotumor cerebri Discharge Plan Departure Patient Disposition: [facility] Clinical Impression: Pseudotumor cerebri Prescriptions: No Action prednisone 20 mg tablet 40 mg PO DAILY Qty: 10 0RF oxycodone-acetaminophen 5-325 mg tablet 1 tab PO Q6H PRN (Reason: pain) Qty: 10 0RF Aimovig Autoinjector 140 mg/mL auto-injector 140 mg SUBCUT QMONTH hydroxyzine HCl 25 mg tablet 25 mg PO QID PRN diphenhydramine HCl [Benadryl] 25 mg capsule 25 mg PO QID PRN diltiazem HCl [Cardizem CD] 240 mg capsule,extended release 24hr 240 mg PO DAILY ascorbic acid (vitamin C) 500 mg tablet,chewable 500 mg PO DAILY diclofenac sodium [Arthritis Pain (diclofenac)] 1 % gel 2 g topical QID Rx Instructions: apply to single elbow, wrist or hand; for hand includes palm/fingers/back of hand sennosides-docusate sodium [Senna with Docusate Sodium] 8.6-50 mg tablet 1 tab-cap PO BEDTIME venlafaxine [Effexor XR] 150 mg capsule,extended release 24hr 150 mg PO DAILY enoxaparin 120 mg/0.8 mL syringe 120 mg SUBCUT DAILY tamsulosin [Flomax] 0.4 mg capsule 0.4 mg PO DAILY metformin [Glucophage] 1,000 mg tablet 1,000 mg PO BID Januvia 100 mg tablet 100 mg PO DAILY lamotrigine [Lamictal] 100 mg tablet 100 mg PO DAILY furosemide [Lasix] 40 mg tablet 40 mg PO DAILY lorazepam 0.5 mg tablet 0.5 mg PO DAILY PRN tizanidine 4 mg capsule 4 mg PO BID PRN topiramate [Topamax] 200 mg tablet 400 mg PO BID acetaminophen [Tylenol Extra Strength] 500 mg tablet 500 mg PO Q6H PRN hydrocodone-acetaminophen 10-325 mg tablet 1 tab PO Q4-6H PRN omeprazole 40 mg capsule,delayed release(DR/EC) 40 mg PO DAILY ondansetron 4 mg tablet,disintegrating 4 mg PO Q8H famotidine [Pepcid] 20 mg tablet 20 mg PO DAILY Referrals: Harinder Nava [Primary Care Provider] -
[2024-02-25 14:00] LABS: Add Manual Diff / Slide Review NO; Basophils Absolute Auto 100 /uL (0-100); Basophils Percent Auto 0.7 % (0-2); Eosinophils Absolute Auto 300 /uL (0-450); Eosinophils Percent Auto 2.3 % (2-4); Hematocrit 40.7 % (36-46); Hemoglobin 14.3 g/dL (12.0-16.0); Lymphocytes Absolute Auto 3200 /uL (1100-4500); Lymphocytes Percent Auto 29.2 % (25-40); Mean Corpuscular HGB Conc 35.1 % (30-36); Mean Corpuscular Hemoglobin 31.6 PG (26-34); Mean Corpuscular Volume 90.2 fL (80-100); Monocytes Absolute Auto 800 /uL (0-900); Monocytes Percent Auto 7.1 % (3-14); Neutrophils Absolute Auto 6700 /uL (1500-7000); Neutrophils Percent Auto 60.7 % (50-75); Platelet Count 382 X10^3/uL (150-400); Red Blood Cell Count 4.51 X10^6/uL (4.0-5.2); Red Cell Distribution Width 12.8 % (11.6-14.8); White Blood Cell Count 11.1 X10^3/uL (4.5-11.0)
[2024-02-25] MEDS: HYDROMORPHONE 1 MG INJ IV ×3 (14:04→18:53)
[2024-02-25] MEDS: diphenhydrAMINE 50 MG/ML VIAL 25 MG IV ×2 (14:06→16:51)
[2024-02-25 14:09] LABS: Prothrombin Time 61.6 SECONDS (9.4-12.5)
[2024-02-25 14:10] LABS: INR 5.7 (0.9-1.3)
[2024-02-25 14:13] LABS: Alanine Aminotransferase 27 IU/L (<35); Albumin 4.7 g/dL (3.5-5.0); Albumin Globulin Ratio 1.4 (1.0-2.8); Alkaline Phosphatase 227 U/L (38-126); Aspartate Aminotransferase 28 IU/L (14-36); BUN Creatinine Ratio 29.5 (6-22); Bilirubin Total 0.4 mg/dL (0.2-1.3); Blood Urea Nitrogen 26 mg/dL (7-17); Calcium 8.9 mg/dL (8.4-10.2); Carbon Dioxide 22 mmol/L (22-32); Chloride 104 mmol/L (98-107); Estimated Glomerular Filt Rate > 60 mL/min (>60); Globulin 3.4 g/dL (1.7-4.1); Glucose 166 mg/dL (70-100); HEMOLYSIS < 15 (0-50); Potassium 3.8 mmol/L (3.4-5.1); Sodium 137 mmol/L (137-145); Total Protein 8.1 g/dL (6.3-8.2)
--- NOTE | 2024-02-25 14:47 | PC.NURSE ---
Pt had a feeling of impending doom,feeling very anxious with left shoulder and chest pain. Dr Dykes aware,EKG ordered.
--- NOTE | 2024-02-25 14:48 | EKG_ITS ---
[place] [address] [place] [id number] Test Date: 2024-02-25 Pat Name: Vanessa Miguel Department: Room: Gender: Female [employer] Presser: COLE : 1975 Requested By: Order Number: [id number] Reading MD: Oscar Grijalva MD Measurements Intervals [place] Rate: 116 P: 31 [place]: 166 QRS: -13 QRSD: 82 T: 45 QT: 332 QTc: 461 Interpretive Statements Sinus tachycardia with occasional premature ventricular complexes Minimal voltage criteria for LVH, may be normal variant ( R in aVL ) Cannot rule out Anterior infarct , age undetermined Electronically Signed On 02-26-2024 6:40:06 PST by Oscar Grijalva MD
[2024-02-25 15:15] LABS: PTT Partial Thromboplastin Tim 31 SECONDS (25.1-36.5)
--- NOTE | 2024-02-25 15:15 | DI.RAD.S_ITS ---
PROCEDURE: XR CHEST 1V INDICATIONS: Chest pain TECHNIQUE: One view of the chest was acquired. COMPARISON: [facility], CR, XR CHEST 1V, 05/09/2023, 13:34. FINDINGS: Surgical changes and devices: Left Port-A-Cath. Lungs and pleura: Lungs are hypoinflated. There is mild appearance of interstitial prominence. Mediastinum: Mediastinal contours appear normal. Heart size is normal. Bones and chest wall: No suspicious bony lesions. Overlying soft tissues appear unremarkable. IMPRESSION: Poor inspiratory effort with interstitial prominence. While this could represent carotid pulmonary marking secondary to hypoinflation, areas of edema or interstitial airspace disease cannot be excluded. Dictated by: Linda Rosario M.D. on 02/25/2024 at 15:46 Approved by: Linda Rosario M.D. on 02/25/2024 at 15:47
[2024-02-25 15:38] LABS: Creatine Kinase 144 U/L (30-135)
[2024-02-25] MEDS: LORazepam 2 MG/ML INJ 1 MG IV (15:42)
[2024-02-25] MEDS: ONDANSETRON 4 MG/2 ML INJ IV ×2 (15:42→18:53)
[2024-02-25 15:51] LABS: Troponin I < 0.012 ng/mL (0.01-0.034)
--- NOTE | 2024-02-25 18:22 | PC.NURSE ---
Pt accepted at [facility] ED to ED at 1804. [facility] transport set up for a pepper picker time of 1835. Transfer center notified of ETA. WALTON signed and placed in medical records. All patient ED reports printed and are being sent with transfer team to go to [facility] ED staff.
== END 2024-02-25 19:00 | disposition short-term general hospital (02) ==
PROVIDERS: Emergency Provider Emergency Medicine; PCP Student in an Organized Health Care Education/Training Program
DX: G93.2 Benign intracranial hypertension (principal)
CPT/HCPCS: 36415; 70450; 71045; 80053; 82550; 84484; 85025; 85610; 85730; 93005; 93010; 96374; 96375; 96376; 99284; 99285; J1171; J1200; J2060; J2405

== ENCOUNTER 2024-03-10 13:59 | Emergency (ER) | payer MEDICARE, MEDICAID, SELFPAY ==
[2024-03-10] VITALS (18 sets, daily range): BP systolic 124–152; BP diastolic 66–82; PULSE 91–123; RESP 13–66; TEMP 36.6–37.1; O2SAT 93–100; BMI 43.0
--- NOTE | 2024-03-10 15:32 | DI.RAD.S_ITS ---
PROCEDURE: XR CHEST 1V INDICATIONS: suspected sepsis TECHNIQUE: One view of the chest was acquired. COMPARISON: [facility], CR, XR CHEST 1V, 02/25/2024, 15:25. [facility], CR, XR CHEST 1V, 05/09/2023, 13:34. FINDINGS: Surgical changes and devices: Left chest wall Port-A-Cath. Lungs and pleura: Lungs are clear. No pleural effusions or pneumothorax. Mediastinum: Mediastinal contours appear normal. Heart size is normal. Bones and chest wall: No suspicious bony lesions. Overlying soft tissues appear unremarkable. IMPRESSION: No acute cardiopulmonary abnormality is seen. Dictated by: Jose White M.D. on 03/10/2024 at 16:20 Approved by: Jose White M.D. on 03/10/2024 at 16:20
--- NOTE | 2024-03-10 15:58 | ED.HA ---
HPI - Headache <Rolo Dykes MD - Last Filed: 03/11/24 07:57> General Chief Complaint: Headache Stated Complaint: Surgical stitches coming out, chills,swelling,pain Time Seen by Provider: 03/10/24 15:07 Mode of arrival: Ambulatory History of Present Illness HPI Narrative: Patient here for nausea chills headache for the past few days. Patient is postop day 7 status post [employer] shunt placed at [facility] last week. Has lingering headache which is not unusual she was told by Neurosurgery Services. Patient in no distress at this time. She states the stitches seem to be coming out sooner than expected. Related Data Home Medications Medication Instructions Recorded Confirmed acetaminophen 500 mg tablet 500 mg PO Q6H PRN 07/04/20 (Tylenol Extra Strength) ascorbic acid (vitamin C) 500 mg 500 mg PO DAILY 07/04/20 chewable tablet diclofenac sodium 1 % topical gel 2 g topical QID 07/04/20 (Arthritis Pain (diclofenac)) diltiazem HCl 240 mg 240 mg PO DAILY 07/04/20 capsule,extended release 24 hr (Cardizem CD) diphenhydramine HCl 25 mg capsule 25 mg PO QID PRN 07/04/20 (Benadryl) enoxaparin 120 mg/0.8 mL 120 mg SUBCUT DAILY 07/04/20 subcutaneous syringe erenumab-aooe 140 mg/mL 140 mg SUBCUT QMONTH 07/04/20 subcutaneous auto-injector (Aimovig Autoinjector) famotidine 20 mg tablet (Pepcid) 20 mg PO DAILY 07/04/20 furosemide 40 mg tablet (Lasix) 40 mg PO DAILY 07/04/20 hydrocodone 10 mg-acetaminophen 1 tab PO Q4-6H PRN 07/04/20 325 mg tablet hydroxyzine HCl 25 mg tablet 25 mg PO QID PRN 07/04/20 lamotrigine 100 mg tablet 100 mg PO DAILY 07/04/20 (Lamictal) lorazepam 0.5 mg tablet 0.5 mg PO DAILY PRN 07/04/20 metformin 1,000 mg tablet 1,000 mg PO BID 07/04/20 (Glucophage) omeprazole 40 mg capsule,delayed 40 mg PO DAILY 07/04/20 release ondansetron 4 mg disintegrating 4 mg PO Q8H 07/04/20 tablet sennosides 8.6 mg-docusate sodium 1 tab-cap PO BEDTIME 07/04/20 50 mg tablet (Senna with Docusate Sodium) sitagliptin phosphate 100 mg 100 mg PO DAILY 07/04/20 tablet (Januvia) tamsulosin 0.4 mg capsule (Flomax) 0.4 mg PO DAILY 07/04/20 tizanidine 4 mg capsule 4 mg PO BID PRN 07/04/20 topiramate 200 mg tablet (Topamax) 400 mg PO BID 07/04/20 venlafaxine 150 mg 150 mg PO DAILY 07/04/20 capsule,extended release 24 hr (Effexor XR) Previous Rx's Medication Instructions Recorded oxycodone-acetaminophen 5 mg-325 1 tab PO Q6H PRN pain #10 tabs 02/20/22 mg tablet prednisone 20 mg tablet 40 mg (2 x 20 mg) PO DAILY #10 tabs 03/22/22 Allergies Allergy/AdvReac Type Severity Reaction Status Date / Time clindamycin Allergy Severe Anaphylaxis Verified 05/09/23 13:07 hylan G-F 20 Allergy Severe Anaphylaxis Verified 05/09/23 13:07 ibuprofen Allergy Severe SOB,RASH Verified 05/09/23 13:07 Iodinated Contrast Media Allergy Severe SOB-HIVES Verified 05/09/23 13:07 iothalamic acid Allergy Severe SOB,HIVES Verified 05/09/23 13:07 iron dextran complex Allergy Severe Anaphylaxis, Verified 05/09/23 13:07 HIVES meclizine Allergy Severe Palpitation Verified 05/09/23 13:07 s shrimp Allergy Severe Anaphylaxis Verified 05/09/23 13:07 valproic acid Allergy Severe Anaphylaxis Verified 05/09/23 13:07 venom-honey bee Allergy Severe Anaphylaxis Verified 05/09/23 13:07 adhesive tape Allergy Intermediate rash Verified 05/09/23 13:07 amoxicillin [From Augmentin] Allergy Intermediate Hives Verified 05/09/23 13:07 aspirin Allergy Intermediate rash Verified 05/09/23 13:07 clavulanic acid Allergy Intermediate Hives Verified 05/09/23 13:07 [From Augmentin] codeine Allergy Intermediate Hives Verified 05/09/23 13:07 divalproex sodium Allergy Intermediate Hives Verified 05/09/23 13:07 gabapentin Allergy Intermediate Swelling Verified 05/09/23 13:07 of Lip/Tongue/Throat leuprolide Allergy Intermediate Hives Verified 05/09/23 13:07 levalbuterol Allergy Intermediate Hives Verified 05/09/23 13:07 NSAIDS (Non-Steroidal Allergy Intermediate Hives Verified 05/09/23 13:07 Anti-Inflamma promethazine Allergy Intermediate Hives Verified 05/09/23 13:07 tapentadol Allergy Intermediate rash/itchy Verified 05/09/23 13:07 vancomycin Allergy Intermediate Hives, Verified 05/09/23 13:07 ITCHING IRON SUCROSE Allergy Intermediate Hives,SOB Uncoded 07/19/22 16:04 Review of Systems <Rolo Dykes MD - Last Filed: 03/11/24 07:57> Review of Systems Narrative: GENERAL: Positive chills, negative fatigue, malaise, fever, sweats. HEENT: Negative sinus pain, ear pain, sore throat RESPIRATORY: Negative dyspnea, cough CARDIOVASCULAR: Negative chest pain, palpitations GASTROINTESTINAL: Negative nausea, vomiting, abdominal pain : Negative dysuria, frequency, hematuria MUSCULOSKELETAL: Negative muscle or bony pain SKIN: Positive rash, skin lesions positive skin wound NEUROLOGIC: Negative weakness, numbness, positive headache ROS Unobtainable: All systems reviewed & are unremarkable except as noted in HPI and below Patient History <Rolo Dykes MD - Last Filed: 03/11/24 07:57> Medical History Antiphospholipid syndrome History of endometriosis History of ovarian cyst Lupus Pseudotumor cerebri Chronic pain syndrome Cervical spondylosis Impingement syndrome of right shoulder Surgical History S/P [employer] shunt H/O oophorectomy H/O brain surgery H/O thyroidectomy History of cholecystectomy Hx of appendectomy Family History Mother Diabetes mellitus Hypertension Arthritis Thrombophilia Sister Arthritis Hypertension Depression Social History Smoking Status: Never smoker Smoking Status: Never smoker alcohol intake frequency: holidays/special occasions only Exam <Rolo Dykes MD - Last Filed: 03/11/24 07:57> Narrative Exam Narrative: GENERAL: in no distress, not toxic not dyspneic HEAD: Normocephalic. EYES: Pupils equal round ENT: Mucous membranes moist. NECK: Trachea midline. CARDIOVASCULAR: Regular rate and rhythm RESPIRATORY: Clear to auscultation. Breath sounds equal bilaterally. No wheezes, rales, or rhonchi. GASTROINTESTINAL: Abdomen soft, non-tender EXTREMITIES: No gross deformities. BACK: No flank tenderness. NEURO: AOx4. Clear speech no facial droop steady self gait to the bathroom and back without assist. No ataxia. SKIN: Warm and dry surgical scars at the right frontal scalp right inframammary and suprapubic area are clean dry intact. No discharge. No fluctuance. It is tender to touch at each of the sites except for the scalp. No incision drainage indicated at this time. PSYCH: Not anxious, is cooperative Initial Vital Signs Initial Vital Signs: Vital Signs Temperature 98.7 F 03/10/24 14:10 Pulse Rate 120 H 03/10/24 14:10 Respiratory Rate 20 03/10/24 14:10 Blood Pressure 138/82 03/10/24 14:10 Pulse Oximetry 98 03/10/24 14:10 Oxygen Delivery Method Room Air 03/10/24 14:10 <Rosie Castañeda MD - Last Filed: 03/10/24 22:17> Initial Vital Signs Initial Vital Signs: Vital Signs Temperature 98.7 F 03/10/24 14:10 Pulse Rate 120 H 03/10/24 14:10 Respiratory Rate 20 03/10/24 14:10 Blood Pressure 138/82 03/10/24 14:10 Pulse Oximetry 98 03/10/24 14:10 Oxygen Delivery Method Room Air 03/10/24 14:10 Course <Rolo Dykes MD - Last Filed: 03/11/24 07:57> Orders Ordered: Discontinued Medications Diphenhydramine HCl (Diphenhydramine 50 Mg/Ml Vial) 50 mg IV NOW ONE Stop: 03/10/24 17:23 Last Admin: 03/10/24 17:26 Dose: 50 mg Documented By: VASHTI Diphenhydramine HCl (Diphenhydramine 50 Mg/Ml Vial) 25 mg IV NOW ONE Stop: 03/10/24 18:16 Last Admin: 03/10/24 18:17 Dose: 25 mg Documented By: VASHTI Famotidine (Famotidine 20 Mg/2 Ml Vial) 20 mg IV NOW LILLIAM Last Admin: 03/10/24 17:53 Dose: 20 mg Documented By: VASHTI Hydromorphone HCl (Hydromorphone 1 Mg Inj) 1 mg IV NOW ONE Stop: 03/10/24 17:15 Last Admin: 03/10/24 17:22 Dose: 1 mg Documented By: ISABELA Hydromorphone HCl (Hydromorphone 1 Mg Inj) 1 mg IV NOW ONE Stop: 03/10/24 18:26 Last Admin: 03/10/24 18:30 Dose: 1 mg Documented By: VASHTI Sodium Chloride (Normal Saline 0.9%) 1,000 mls @ 1,000 mls/hr IV BOLUS ONE Stop: 03/10/24 16:56 Last Infusion: 03/10/24 19:17 Dose: Infused Documented By: ISABELA(2) Admin: 03/10/24 16:27 Dose: 1,000 mls/hr Documented By: VASHTI Morphine Sulfate (Morphine 4 Mg/Ml Inj) 4 mg IV NOW ONE Stop: 03/10/24 16:19 Last Admin: 03/10/24 16:25 Dose: 4 mg Documented By: VASHTI Ondansetron HCl (Ondansetron 4 Mg/2 Ml Inj) 4 mg IV NOW PRN PRN Reason: Nausea And Vomiting Last Admin: 03/10/24 16:25 Dose: 4 mg Documented By: VASHTI Ondansetron HCl (Ondansetron 4 Mg Odt) 4 mg SL NOW PRN PRN Reason: Nausea And Vomiting Vital Signs Vital signs: Vital Signs - 8 hr 03/10/24 15:08 03/10/24 15:09 03/10/24 15:09 Temperature Pulse Rate 100 H 98 H Respiratory Rate 19 Blood Pressure 134/73 Pulse Oximetry 99 99 Oxygen Delivery Method 03/10/24 15:30 03/10/24 15:30 03/10/24 16:00 Temperature Pulse Rate 98 H Respiratory Rate 20 Blood Pressure 135/76 124/78 Pulse Oximetry 100 Oxygen Delivery Method 03/10/24 16:00 03/10/24 16:20 03/10/24 16:20 Temperature Pulse Rate 104 H 98 H Respiratory Rate 18 19 Blood Pressure 132/66 Pulse Oximetry 100 100 Oxygen Delivery Method 03/10/24 16:38 03/10/24 17:00 03/10/24 17:30 Temperature Pulse Rate 113 H 96 H 107 H Respiratory Rate 29 H 13 Blood Pressure Pulse Oximetry 100 99 98 Oxygen Delivery Method 03/10/24 18:00 03/10/24 18:01 03/10/24 18:01 Temperature Pulse Rate 104 H 97 H Respiratory Rate Blood Pressure 152/71 H Pulse Oximetry 99 98 Oxygen Delivery Method 03/10/24 18:33 03/10/24 19:00 03/10/24 19:09 Temperature Pulse Rate 115 H 91 H Respiratory Rate Blood Pressure 148/68 H Pulse Oximetry 96 93 Oxygen Delivery Method 03/10/24 19:09 03/10/24 19:30 03/10/24 19:31 Temperature 98 F Pulse Rate 98 H 99 H Respiratory Rate 15 16 Blood Pressure Pulse Oximetry 94 97 Oxygen Delivery Method Room Air 03/10/24 20:00 03/10/24 20:30 Temperature Pulse Rate 100 H 123 H Respiratory Rate 21 66 H Blood Pressure Pulse Oximetry 98 99 Oxygen Delivery Method <Rosie Castañeda MD - Last Filed: 03/10/24 22:17> Orders Ordered: Discontinued Medications Diphenhydramine HCl (Diphenhydramine 50 Mg/Ml Vial) 50 mg IV NOW ONE Stop: 03/10/24 17:23 Last Admin: 03/10/24 17:26 Dose: 50 mg Documented By: VASHTI Diphenhydramine HCl (Diphenhydramine 50 Mg/Ml Vial) 25 mg IV NOW ONE Stop: 03/10/24 18:16 Last Admin: 03/10/24 18:17 Dose: 25 mg Documented By: VASHIT Famotidine (Famotidine 20 Mg/2 Ml Vial) 20 mg IV NOW LILLIAM Last Admin: 03/10/24 17:53 Dose: 20 mg Documented By: VASHTI Hydromorphone HCl (Hydromorphone 1 Mg Inj) 1 mg IV NOW ONE Stop: 03/10/24 17:15 Last Admin: 03/10/24 17:22 Dose: 1 mg Documented By: ISABELA Hydromorphone HCl (Hydromorphone 1 Mg Inj) 1 mg IV NOW ONE Stop: 03/10/24 18:26 Last Admin: 03/10/24 18:30 Dose: 1 mg Documented By: VASHTI Sodium Chloride (Normal Saline 0.9%) 1,000 mls @ 1,000 mls/hr IV BOLUS ONE Stop: 03/10/24 16:56 Last Infusion: 03/10/24 19:17 Dose: Infused Documented By: ISABELA(2) Admin: 03/10/24 16:27 Dose: 1,000 mls/hr Documented By: VASHTI Morphine Sulfate (Morphine 4 Mg/Ml Inj) 4 mg IV NOW ONE Stop: 03/10/24 16:19 Last Admin: 03/10/24 16:25 Dose: 4 mg Documented By: VASHTI Ondansetron HCl (Ondansetron 4 Mg/2 Ml Inj) 4 mg IV NOW PRN PRN Reason: Nausea And Vomiting Last Admin: 03/10/24 16:25 Dose: 4 mg Documented By: VASHTI Ondansetron HCl (Ondansetron 4 Mg Odt) 4 mg SL NOW PRN PRN Reason: Nausea And Vomiting Vital Signs Vital signs: Vital Signs - 8 hr 03/10/24 15:08 03/10/24 15:09 03/10/24 15:09 Temperature Pulse Rate 100 H 98 H Respiratory Rate 19 Blood Pressure 134/73 Pulse Oximetry 99 99 Oxygen Delivery Method 03/10/24 15:30 03/10/24 15:30 03/10/24 16:00 Temperature Pulse Rate 98 H Respiratory Rate 20 Blood Pressure 135/76 124/78 Pulse Oximetry 100 Oxygen Delivery Method 03/10/24 16:00 03/10/24 16:20 03/10/24 16:20 Temperature Pulse Rate 104 H 98 H Respiratory Rate 18 19 Blood Pressure 132/66 Pulse Oximetry 100 100 Oxygen Delivery Method 03/10/24 16:38 03/10/24 17:00 03/10/24 17:30 Temperature Pulse Rate 113 H 96 H 107 H Respiratory Rate 29 H 13 Blood Pressure Pulse Oximetry 100 99 98 Oxygen Delivery Method 03/10/24 18:00 03/10/24 18:01 03/10/24 18:01 Temperature Pulse Rate 104 H 97 H Respiratory Rate Blood Pressure 152/71 H Pulse Oximetry 99 98 Oxygen Delivery Method 03/10/24 18:33 03/10/24 19:00 03/10/24 19:09 Temperature Pulse Rate 115 H 91 H Respiratory Rate Blood Pressure 148/68 H Pulse Oximetry 96 93 Oxygen Delivery Method 03/10/24 19:09 03/10/24 19:30 03/10/24 19:31 Temperature 98 F Pulse Rate 98 H 99 H Respiratory Rate 15 16 Blood Pressure Pulse Oximetry 94 97 Oxygen Delivery Method Room Air 03/10/24 20:00 03/10/24 20:30 Temperature Pulse Rate 100 H 123 H Respiratory Rate 21 66 H Blood Pressure Pulse Oximetry 98 99 Oxygen Delivery Method MDM - Headache <Rolo Dykes MD - Last Filed: 03/11/24 07:57> Lab Data 03/10/24 16:00 03/10/24 16:00 Labs: Lab Results 03/10/24 Range/Units 16:00 WBC 11.2 H (4.5-11.0) X10^3/uL RBC 4.43 (4.0-5.2) X10^6/uL Hgb 13.7 (12.0-16.0) g/dL Hct 39.8 (36-46) % MCV 89.9 (80-100) fL MCH 31.0 (26-34) PG MCHC 34.5 (30-36) % RDW 12.8 (11.6-14.8) % Plt Count 502 H (150-400) X10^3/uL Neut % (Auto) 68.1 (50-75) % Lymph % (Auto) 23.1 L (25-40) % Todd % (Auto) 6.1 (3-14) % Eos % (Auto) 2.0 (2-4) % Baso % (Auto) 0.7 (0-2) % Neut # (Auto) 7600 H (8836-8795) /uL Lymph # (Auto) 2600 (7137-1462) /uL Todd # (Auto) 700 (0-900) /uL Eos # (Auto) 200 (0-450) /uL Baso # (Auto) 100 (0-100) /uL PT 11.1 (9.4-12.5) SECONDS INR 1.0 (0.9-1.3) APTT 35 (25.1-36.5) SECONDS Sodium 138 (137-145) mmol/L Potassium 3.9 (3.4-5.1) mmol/L Chloride 103 (98-107) mmol/L Carbon Dioxide 25 (22-32) mmol/L BUN 14 (7-17) mg/dL Creatinine 0.83 (0.52-1.04) mg/dL Estimated GFR > 60 (>60) mL/min BUN/Creatinine Ratio 16.9 (6-22) Glucose 150 H (70-100) mg/dL Lactate 1.2 (0.7-2.1) mmol/L Calcium 9.1 (8.4-10.2) mg/dL Total Bilirubin 0.4 (0.2-1.3) mg/dL AST 27 (14-36) IU/L ALT 27 (<35) IU/L Alkaline Phosphatase 246 H (38-126) U/L Total Protein 8.9 H (6.3-8.2) g/dL Albumin 4.6 (3.5-5.0) g/dL Globulin 4.3 H (1.7-4.1) g/dL Albumin/Globulin Ratio 1.1 (1.0-2.8) Lipase 36 (23-300) U/L Procalcitonin 0.102 (<0.5) ng/mL Urine Dip Bedside Urine Glucose Negative Bedside Urine Bilirubin - Negative Bedside Urine Ketone - Negative Urine Specific [place] 1.015 Bedside Urine Occult Blood - Negative Bedside Urine pH 6.0 Bedside Urine Protein - Negative Bedside Urine Urobilinogen - Negative Bedside Urine Nitrite - Negative Bedside Urine Leukocytes - Negative Esterase Imaging Data CT scan - head: Radiologist's Impression: [place] [address] CT Scan Report Signed Patient: Vanessa Miguel MR#: [id number] : 1975 Acct:[id number] Age/Sex: 48 / F Date of Service: 03/10/24 Loc: ED Accession Number: [id number] Procedure: CT head/brain wo con Ordering Provider: Rolo Dykes MD PROCEDURE: CT HEAD/BRAIN WO CON INDICATIONS: Headache TECHNIQUE: Noncontrast 4.5 mm thick angled axial sections acquired from the foramen magnum to the vertex, with coronal and sagittal reformats. For radiation dose reduction, the following was used: automated exposure control, adjustment of mA and/or kV according to patient size. COMPARISON: [facility], CT, CT HEAD/BRAIN WO CON, 02/25/2024, 13:50. FINDINGS: Image quality: Diagnostic. CSF spaces: Right frontal approach ventriculostomy catheter has been placed in the interim. The ventricles have significantly decreased in size compared to prior. Basal cisterns are patent. No extra-axial fluid collections. Brain: No midline shift. No intracranial masses or hemorrhage. Rodriguez-white matter interface is normal. Skull and face: Calvarium and visualized facial bones are intact, without suspicious lesions. Sinuses: Visualized sinuses and mastoids are clear. IMPRESSION: Interval placement of right frontal approach ventriculostomy catheter with significant decreased size of the ventricles. Findings are concerning for over shunting, recommend clinical correlation. Findings discussed with Dr. Sj roth at the time of dictation. Dictated by: Jose White M.D. on 03/10/2024 at 16:44 Approved by: Jose White M.D. on 03/10/2024 at 16:48 Chest x-ray: Radiologist's Impression: [address] [address] XRay Report Signed Patient: Vanessa Miguel MR#: [id number] : 1975 Acct:[id number] Age/Sex: 48 / F Date of Service: 03/10/24 Loc: ED Accession Number: [id number] Procedure: XR chest 1V Ordering Provider: Rolo Dykes MD PROCEDURE: XR CHEST 1V INDICATIONS: suspected sepsis TECHNIQUE: One view of the chest was acquired. COMPARISON: [facility], CR, XR CHEST 1V, 02/25/2024, 15:25. [facility], CR, XR CHEST 1V, 05/09/2023, 13:34. FINDINGS: Surgical changes and devices: Left chest wall Port-A-Cath. Lungs and pleura: Lungs are clear. No pleural effusions or pneumothorax. Mediastinum: Mediastinal contours appear normal. Heart size is normal. Bones and chest wall: No suspicious bony lesions. Overlying soft tissues appear unremarkable. IMPRESSION: No acute cardiopulmonary abnormality is seen. Dictated by: Jose White M.D. on 03/10/2024 at 16:20 Approved by: Jose White M.D. on 03/10/2024 at 16:20 [facility] Narrative Medical decision making narrative: After history and exam [facility] Medical records reviewed: Differential considered: Includes but not limited to Lab Test results independently reviewed as above. Pertinent findings: WBC 11.2 hemoglobin 13.7 INR 1.0 sodium 138 potassium 3.9 BUN 14 creatinine 0.83 GFR greater than 60 glucose 150 Independently reviewed EKG sinus rhythm rate [address] elevation or depression Imaging studies independently reviewed: CT head possible over shunting chest x-ray no acute finding Consultations: Treatments: Morphine Zofran Dilaudid Benadryl Re-evaluations: 5:25 p.m.. Patient states a rash broke out earlier this morning. Sometimes she states it is her lupus flaring up due to allergic reaction to something. Updated patient findings and awaiting call back from [facility] Neurosurgery regarding CT findings. Reviewed with her surgical scars are reassuring at this time. Nothing to open up at this time. No fluctuance. Wounds are dry. Discussion: Diagnosis: Postoperative headache 6:[address] Dykes: s/o to dr castañeda, awaiting call back from Neurosurgery your [facility] to review CT head imaging. [employer] shunt series is pending results. Labs are reassuring. <Rosie Castañeda MD - Last Filed: 03/10/24 22:17> Lab Data Labs: Lab Results 03/10/24 Range/Units 16:00 WBC 11.2 H (4.5-11.0) X10^3/uL RBC 4.43 (4.0-5.2) X10^6/uL Hgb 13.7 (12.0-16.0) g/dL Hct 39.8 (36-46) % MCV 89.9 (80-100) fL MCH 31.0 (26-34) PG MCHC 34.5 (30-36) % RDW 12.8 (11.6-14.8) % Plt Count 502 H (150-400) X10^3/uL Neut % (Auto) 68.1 (50-75) % Lymph % (Auto) 23.1 L (25-40) % Todd % (Auto) 6.1 (3-14) % Eos % (Auto) 2.0 (2-4) % Baso % (Auto) 0.7 (0-2) % Neut # (Auto) 7600 H (8797-6763) /uL Lymph # (Auto) 2600 (7828-8233) /uL Todd # (Auto) 700 (0-900) /uL Eos # (Auto) 200 (0-450) /uL Baso # (Auto) 100 (0-100) /uL PT 11.1 (9.4-12.5) SECONDS INR 1.0 (0.9-1.3) APTT 35 (25.1-36.5) SECONDS Sodium 138 (137-145) mmol/L Potassium 3.9 (3.4-5.1) mmol/L Chloride 103 (98-107) mmol/L Carbon Dioxide 25 (22-32) mmol/L BUN 14 (7-17) mg/dL Creatinine 0.83 (0.52-1.04) mg/dL Estimated GFR > 60 (>60) mL/min BUN/Creatinine Ratio 16.9 (6-22) Glucose 150 H (70-100) mg/dL Lactate 1.2 (0.7-2.1) mmol/L Calcium 9.1 (8.4-10.2) mg/dL Total Bilirubin 0.4 (0.2-1.3) mg/dL AST 27 (14-36) IU/L ALT 27 (<35) IU/L Alkaline Phosphatase 246 H (38-126) U/L Total Protein 8.9 H (6.3-8.2) g/dL Albumin 4.6 (3.5-5.0) g/dL Globulin 4.3 H (1.7-4.1) g/dL Albumin/Globulin Ratio 1.1 (1.0-2.8) Lipase 36 (23-300) U/L Procalcitonin 0.102 (<0.5) ng/mL Urine Dip Bedside Urine Glucose Negative Bedside Urine Bilirubin - Negative Bedside Urine Ketone - Negative Urine Specific [place] 1.015 Bedside Urine Occult Blood - Negative Bedside Urine pH 6.0 Bedside Urine Protein - Negative Bedside Urine Urobilinogen - Negative Bedside Urine Nitrite - Negative Bedside Urine Leukocytes - Negative Esterase [facility] Narrative Medical decision making narrative: After history and exam [facility] Medical records reviewed: Differential considered: Includes but not limited to Lab Test results independently reviewed as above. Pertinent findings: WBC 11.2 hemoglobin 13.7 INR 1.0 sodium 138 potassium 3.9 BUN 14 creatinine 0.83 GFR greater than 60 glucose 150 Independently reviewed EKG sinus rhythm rate [address] elevation or depression Imaging studies independently reviewed: CT head possible over shunting chest x-ray no acute finding Consultations: Treatments: Morphine Zofran Dilaudid Benadryl Re-evaluations: 5:25 p.m.. Patient states a rash broke out earlier this morning. Sometimes she states it is her lupus flaring up due to allergic reaction to something. Updated patient findings and awaiting call back from [facility] Neurosurgery regarding CT findings. Reviewed with her surgical scars are reassuring at this time. Nothing to open up at this time. No fluctuance. Wounds are dry. Discussion: Diagnosis: Postoperative headache 6:[address] Dykes: s/o to dr castañeda, awaiting call back from Neurosurgery your [facility] to review CT head imaging. [employer] shunt series is pending results. Labs are reassuring. Dr. Castañeda - care of patient signed to me. Discussed with Dr. Harrell of neurosurgery. She was the physician who placed the shunt. CT looks stable per her review. Requested additional info on patient's symptoms and headache. Patient reassessed, she was requesting to be discharged so that she can reach the evening [place]. She has scheduled follow up with her PCP tomorrow. I discussed results of all imaging findings at patient's bedside. Patient at this time is mostly concerned about if there is an underlying issue such as abscess with her shunt or her surgical wounds. Shunt series negative for findings. Point of care ultrasound placed on patient's areas of concern and there are no areas of induration, cobblestoning, or abscess. While in the emergency department the patient received a notification from Neurosurgery stating that the tubing can move around a bit initially after placement, and it will take time for her shunt sensations to normalize. Patient reassured, she states that she will follow up outpatient with her neurosurgeon and we will go to the primary care appointment she has scheduled tomorrow. She has muscle relaxers and pain medications at home that she can take for her symptoms. Discharge Plan Departure Patient Disposition: Home Clinical Impression: Presence of ventriculopleural shunt Instructions: DI for Headache Activity Restrictions/Additional Instructions: Your shunt appears to be in good position. Your CT scan seems normal based on comparison with your last CT at [place]. There is no sign of infection today on your ultrasound. This could be pulling of scar tissue. Follow up with your primary doctor as scheduled tomorrow. Prescriptions: No Action prednisone 20 mg tablet 40 mg PO DAILY Qty: 10 0RF oxycodone-acetaminophen 5-325 mg tablet 1 tab PO Q6H PRN (Reason: pain) Qty: 10 0RF Aimovig Autoinjector 140 mg/mL auto-injector 140 mg SUBCUT QMONTH hydroxyzine HCl 25 mg tablet 25 mg PO QID PRN diphenhydramine HCl [Benadryl] 25 mg capsule 25 mg PO QID PRN diltiazem HCl [Cardizem CD] 240 mg capsule,extended release 24hr 240 mg PO DAILY ascorbic acid (vitamin C) 500 mg tablet,chewable 500 mg PO DAILY diclofenac sodium [Arthritis Pain (diclofenac)] 1 % gel 2 g topical QID Rx Instructions: apply to single elbow, wrist or hand; for hand includes palm/fingers/back of hand sennosides-docusate sodium [Senna with Docusate Sodium] 8.6-50 mg tablet 1 tab-cap PO BEDTIME venlafaxine [Effexor XR] 150 mg capsule,extended release 24hr 150 mg PO DAILY enoxaparin 120 mg/0.8 mL syringe 120 mg SUBCUT DAILY tamsulosin [Flomax] 0.4 mg capsule 0.4 mg PO DAILY metformin [Glucophage] 1,000 mg tablet 1,000 mg PO BID Januvia 100 mg tablet 100 mg PO DAILY lamotrigine [Lamictal] 100 mg tablet 100 mg PO DAILY furosemide [Lasix] 40 mg tablet 40 mg PO DAILY lorazepam 0.5 mg tablet 0.5 mg PO DAILY PRN tizanidine 4 mg capsule 4 mg PO BID PRN topiramate [Topamax] 200 mg tablet 400 mg PO BID acetaminophen [Tylenol Extra Strength] 500 mg tablet 500 mg PO Q6H PRN hydrocodone-acetaminophen 10-325 mg tablet 1 tab PO Q4-6H PRN omeprazole 40 mg capsule,delayed release(DR/EC) 40 mg PO DAILY ondansetron 4 mg tablet,disintegrating 4 mg PO Q8H famotidine [Pepcid] 20 mg tablet 20 mg PO DAILY Referrals: Harinder Nava [Primary Care Provider] - Stand Alone Forms: Patient Portal/API/Survey
--- NOTE | 2024-03-10 16:18 | DI.CT.S_ITS ---
PROCEDURE: CT HEAD/BRAIN WO CON INDICATIONS: Headache TECHNIQUE: Noncontrast 4.5 mm thick angled axial sections acquired from the foramen magnum to the vertex, with coronal and sagittal reformats. For radiation dose reduction, the following was used: automated exposure control, adjustment of mA and/or kV according to patient size. COMPARISON: [facility], CT, CT HEAD/BRAIN WO CON, 02/25/2024, 13:50. FINDINGS: Image quality: Diagnostic. CSF spaces: Right frontal approach ventriculostomy catheter has been placed in the interim. The ventricles have significantly decreased in size compared to prior. Basal cisterns are patent. No extra-axial fluid collections. Brain: No midline shift. No intracranial masses or hemorrhage. Rodriguez-white matter interface is normal. Skull and face: Calvarium and visualized facial bones are intact, without suspicious lesions. Sinuses: Visualized sinuses and mastoids are clear. IMPRESSION: Interval placement of right frontal approach ventriculostomy catheter with significant decreased size of the ventricles. Findings are concerning for over shunting, recommend clinical correlation. Findings discussed with Dr. Sj roth at the time of dictation. Dictated by: Jose White M.D. on 03/10/2024 at 16:44 Approved by: Jose White M.D. on 03/10/2024 at 16:48
[2024-03-10 16:20] LABS: Prothrombin Time 11.1 SECONDS (9.4-12.5)
[2024-03-10 16:23] LABS: Add Manual Diff / Slide Review NO; Basophils Absolute Auto 100 /uL (0-100); Basophils Percent Auto 0.7 % (0-2); Eosinophils Absolute Auto 200 /uL (0-450); Hematocrit 39.8 % (36-46); Hemoglobin 13.7 g/dL (12.0-16.0); Lymphocytes Absolute Auto 2600 /uL (1100-4500); Lymphocytes Percent Auto 23.1 % (25-40); Mean Corpuscular HGB Conc 34.5 % (30-36); Mean Corpuscular Volume 89.9 fL (80-100); Monocytes Absolute Auto 700 /uL (0-900); Monocytes Percent Auto 6.1 % (3-14); Neutrophils Absolute Auto 7600 /uL (1500-7000); Neutrophils Percent Auto 68.1 % (50-75); PTT Partial Thromboplastin Tim 35 SECONDS (25.1-36.5); Platelet Count 502 X10^3/uL (150-400); Red Blood Cell Count 4.43 X10^6/uL (4.0-5.2); Red Cell Distribution Width 12.8 % (11.6-14.8); White Blood Cell Count 11.2 X10^3/uL (4.5-11.0)
[2024-03-10 16:24] LABS: Alanine Aminotransferase 27 IU/L (<35); Albumin 4.6 g/dL (3.5-5.0); Albumin Globulin Ratio 1.1 (1.0-2.8); Alkaline Phosphatase 246 U/L (38-126); Aspartate Aminotransferase 27 IU/L (14-36); BUN Creatinine Ratio 16.9 (6-22); Bilirubin Total 0.4 mg/dL (0.2-1.3); Blood Urea Nitrogen 14 mg/dL (7-17); Calcium 9.1 mg/dL (8.4-10.2); Carbon Dioxide 25 mmol/L (22-32); Chloride 103 mmol/L (98-107); Estimated Glomerular Filt Rate > 60 mL/min (>60); Globulin 4.3 g/dL (1.7-4.1); Glucose 150 mg/dL (70-100); HEMOLYSIS < 15 (0-50); Lactate (Lactic Acid) 1.2 mmol/L (0.7-2.1); Lipase 36 U/L (23-300); Potassium 3.9 mmol/L (3.4-5.1); Sodium 138 mmol/L (137-145); Total Protein 8.9 g/dL (6.3-8.2)
[2024-03-10] MEDS: MORPHINE 4 MG/ML INJ IV (16:25)
[2024-03-10] MEDS: ONDANSETRON 4 MG/2 ML INJ IV (16:25)
[2024-03-10] MEDS: SODIUM CHLORIDE 0.9% 1,000 ML 1000 ML IV (16:27)
[2024-03-10 16:40] LABS: Procalcitonin 0.102 ng/mL (<0.5)
[2024-03-10] MEDS: HYDROMORPHONE 1 MG INJ IV ×2 (17:22→18:30)
[2024-03-10] MEDS: diphenhydrAMINE 50 MG/ML VIAL IV (17:26)
[2024-03-10] MEDS: FAMOTIDINE 20 MG/2 ML VIAL IV (17:53)
--- NOTE | 2024-03-10 18:03 | PC.NURSE ---
Pt having increasing right sided pain up where her shunt site is. Dr. Dykes notifed
--- NOTE | 2024-03-10 18:04 | PC.NURSE ---
Increasing right sided pain near shunt site. Not responding to pain medicine. Dr. Dykes notified.
--- NOTE | 2024-03-10 18:05 | DI.RAD.S_ITS ---
PROCEDURE: XR ABDOMEN 1V INDICATIONS: JUNIOR ASSISTANT MANAGER shunt TECHNIQUE: One view of the abdomen acquired. COMPARISON: None. FINDINGS: Surgical changes and devices: Right-sided JUNIOR ASSISTANT MANAGER shunt catheter tip is seen in right upper quadrant just to the right of T12 vertebral body. Surgical clips are noted in gallbladder fossa. Likely central venous catheter tip is in the region of SVC. Bowel: Moderate fecal stasis throughout the colon is seen. No gross peritoneal free air. Soft tissues: No suspicious abdominal calcifications. Visualized solid organ contours appear normal in size. Bones: No suspicious bony lesions. IMPRESSION: JUNIOR ASSISTANT MANAGER shunt catheter tip is seen in right upper quadrant. Moderate constipation. No gross free air. Dictated by: Anupam Deras M.D. on 03/10/2024 at 19:00 Approved by: Anupam Deras M.D. on 03/10/2024 at 19:01
--- NOTE | 2024-03-10 18:05 | DI.RAD.S_ITS ---
PROCEDURE: XR SKULL<4V INDICATIONS: [employer] shunt TECHNIQUE: 1 view(s) of the skull acquired. COMPARISON: None. FINDINGS: Bones: No fractures. No suspicious bony lesions. Visualized sinuses appear clear. Soft tissues: Right-sided BOWLING PIN REFINISHER shunt catheter tip is seen projecting just to the left of midline No soft tissue calcifications. No suspicious soft tissue densities. IMPRESSION: Right-sided BOWLING PIN REFINISHER shunt catheter position as above. No acute skull fracture or dislocation. Dictated by: Anupam Deras M.D. on 03/10/2024 at 19:01 Approved by: Anupam Deras M.D. on 03/10/2024 at 19:03
--- NOTE | 2024-03-10 18:09 | DI.RAD.S_ITS ---
PROCEDURE: XR CHEST 1V INDICATIONS: Right-sided STUDIO ENGINEER shunt TECHNIQUE: One view of the chest was acquired. COMPARISON: [facility], CR, XR CHEST 1V, 03/10/2024, 15:30. FINDINGS: Surgical changes and devices: Left chest wall Port-A-Cath tip is in SVC. Right-sided STUDIO ENGINEER shunt catheter is noted along its expected course without gross disruption. Lungs and pleura: Mild pulmonary vascular congestion is seen. No definite focal infiltrate. No pleural effusions or pneumothorax. Mediastinum: Mediastinal contours appear normal. Heart size is enlarged. Bones and chest wall: No suspicious bony lesions. Overlying soft tissues appear unremarkable. IMPRESSION: Right-sided STUDIO ENGINEER shunt appears grossly intact. Cardiomegaly and mild congestion. No definite focal infiltrate. No pneumothorax. Dictated by: Anupam Deras M.D. on 03/10/2024 at 19:03 Approved by: Anupam Deras M.D. on 03/10/2024 at 19:03
[2024-03-10] MEDS: diphenhydrAMINE 50 MG/ML VIAL 25 MG IV (18:17)
== END 2024-03-10 20:38 | disposition home or self-care (01) ==
PROVIDERS: Emergency Provider Emergency Medicine; PCP Student in an Organized Health Care Education/Training Program
DX: R51.9 Headache, unspecified (principal); Z98.2 Presence of cerebrospinal fluid drainage device
CPT/HCPCS: 70250; 70450; 71045; 74018; 80053; 81003; 83605; 83690; 84145; 85025; 85610; 85730; 87040; 96361; 96374; 96375; 96376; 99284; J1171; J1200; J2270; J2405

== ENCOUNTER 2024-04-18 10:16 | Emergency (ER) | payer MEDICARE, MEDICAID, SELFPAY ==
[2024-04-18] VITALS (16 sets, daily range): BP systolic 124–169; BP diastolic 64–95; PULSE 103–131; RESP 16–20; TEMP 37.2; O2SAT 95–98; BMI 42.5
--- NOTE | 2024-04-18 10:30 | EKG_ITS ---
[id number] [place] [address] Test Date: 2024-04-18 Pat Name: Vanessa Miguel Department: Room: Gender: Female Angle Shearer: BILLY : 1975 Requested By: Order Number: [id number] Reading MD: Henry Cuevas Measurements Intervals [place] Rate: 111 P: 46 AL: 176 QRS: -14 QRSD: 82 T: 20 QT: 342 QTc: 465 Interpretive Statements Sinus tachycardia Minimal voltage criteria for LVH, may be normal variant ( R in aVL ) Electronically Signed On 04-19-2024 18:57:24 PST by Henry Cuevas
--- NOTE | 2024-04-18 11:16 | DI.RAD.S_ITS ---
PROCEDURE: XR CHEST 1V INDICATIONS: suspected sepsis TECHNIQUE: One view of the chest was acquired. COMPARISON: [facility], CR, XR CHEST 1V, 03/10/2024, 18:14. FINDINGS: Surgical changes and devices: Left-sided Port-A-Cath. Right ventricular peritoneal catheter unchanged. Lungs and pleura: Lungs are clear. No pleural effusions or pneumothorax. Mediastinum: Mediastinal contours appear normal. Heart size is normal. Bones and chest wall: No suspicious bony lesions. Overlying soft tissues appear unremarkable. IMPRESSION: No acute cardiopulmonary abnormality is seen. Approved by: Garett Blas M.D. on 04/18/2024 at 10:49
[2024-04-18 11:26] LABS: Add Manual Diff / Slide Review NO; Basophils Absolute Auto 0 /uL (0-100); Basophils Percent Auto 0.4 % (0-2); Eosinophils Absolute Auto 300 /uL (0-450); Eosinophils Percent Auto 3.6 % (2-4); Hematocrit 39.9 % (36-46); Hemoglobin 13.7 g/dL (12.0-16.0); Lymphocytes Absolute Auto 2000 /uL (1100-4500); Lymphocytes Percent Auto 26.1 % (25-40); Mean Corpuscular HGB Conc 34.3 % (30-36); Mean Corpuscular Hemoglobin 29.7 PG (26-34); Mean Corpuscular Volume 86.6 fL (80-100); Monocytes Absolute Auto 700 /uL (0-900); Monocytes Percent Auto 9.9 % (3-14); Neutrophils Absolute Auto 4500 /uL (1500-7000); Platelet Count 368 X10^3/uL (150-400); Red Blood Cell Count 4.61 X10^6/uL (4.0-5.2); Red Cell Distribution Width 13.5 % (11.6-14.8); White Blood Cell Count 7.5 X10^3/uL (4.5-11.0)
[2024-04-18 11:31] LABS: Alanine Aminotransferase 27 IU/L (<35); Albumin 4.5 g/dL (3.5-5.0); Albumin Globulin Ratio 1.2 (1.0-2.8); Alkaline Phosphatase 225 U/L (38-126); Aspartate Aminotransferase 38 IU/L (14-36); BUN Creatinine Ratio 22.7 (6-22); Bilirubin Total 0.5 mg/dL (0.2-1.3); Blood Urea Nitrogen 15 mg/dL (7-17); Calcium 8.9 mg/dL (8.4-10.2); Carbon Dioxide 27 mmol/L (22-32); Chloride 101 mmol/L (98-107); Estimated Glomerular Filt Rate > 60 mL/min (>60); Globulin 3.9 g/dL (1.7-4.1); Glucose 142 mg/dL (70-100); HEMOLYSIS < 15 (0-50); Lipase 50 U/L (23-300); Potassium 3.6 mmol/L (3.4-5.1); Sodium 138 mmol/L (137-145); Total Protein 8.4 g/dL (6.3-8.2)
[2024-04-18 11:33] LABS: INR 0.9 (0.9-1.3); Prothrombin Time 10.4 SECONDS (9.4-12.5)
[2024-04-18 11:36] LABS: Lactate (Lactic Acid) 1.6 mmol/L (0.7-2.1); PTT Partial Thromboplastin Tim 35 SECONDS (25.1-36.5)
[2024-04-18 11:48] LABS: Procalcitonin 0.131 ng/mL (<0.5)
--- NOTE | 2024-04-18 12:03 | ED.NEUROSD ---
HPI - Neuro Symptoms/Deficit General Chief Complaint: Neuro Symptoms/Deficit Stated Complaint: Post Op headache/nausea/vomiting Time Seen by Provider: 04/18/24 10:47 History of Present Illness HPI Narrative: 48-year-old female with history of lupus, history of IIH (idiopathic intracranial hypertension) status post multiple prior RADIO AERIAL INSTALLER shunting procedures mostly in [place], having had revision shunt placed 03/02/2024 at [facility] by neurosurgeon Dr. New, right-sided shunt into the right pleural space about level of 6-7th ICS, having postop headaches, saw her neurosurgeon on 04/03/2024, shunt was felt to be working too well, no procedures scheduled yet, further observation to see if she adjusts to the new shunt. She had headache and nausea and vomiting nonbloody presenting to ED [facility] yesterday, no imaging was available at that time, treated with IV Dilaudid and fluids and Zofran, her usual regimen, felt better. Having right-sided typical headache with nausea and vomiting again. Allergies to Compazine. Usually responds to IV Dilaudid/Zofran, with Benadryl. We would like CT imaging to see if the ventricles are particularly small or enlarged. No focal weakness to face arm or leg. No focal numbness to face arm or log. Able to ambulate. Has left anterior chest Port-A-Cath. On Anticoagulants: No Related Data Home Medications Medication Instructions Recorded Confirmed acetaminophen 500 mg tablet 500 mg PO Q6H PRN 07/04/20 (Tylenol Extra Strength) ascorbic acid (vitamin C) 500 mg 500 mg PO DAILY 07/04/20 chewable tablet diclofenac sodium 1 % topical gel 2 g topical QID 07/04/20 (Arthritis Pain (diclofenac)) diltiazem HCl 240 mg 240 mg PO DAILY 07/04/20 capsule,extended release 24 hr (Cardizem CD) diphenhydramine HCl 25 mg capsule 25 mg PO QID PRN 07/04/20 (Benadryl) enoxaparin 120 mg/0.8 mL 120 mg SUBCUT DAILY 07/04/20 subcutaneous syringe erenumab-aooe 140 mg/mL 140 mg SUBCUT QMONTH 07/04/20 subcutaneous auto-injector (Aimovig Autoinjector) famotidine 20 mg tablet (Pepcid) 20 mg PO DAILY 07/04/20 furosemide 40 mg tablet (Lasix) 40 mg PO DAILY 07/04/20 hydrocodone 10 mg-acetaminophen 1 tab PO Q4-6H PRN 07/04/20 325 mg tablet hydroxyzine HCl 25 mg tablet 25 mg PO QID PRN 07/04/20 lamotrigine 100 mg tablet 100 mg PO DAILY 07/04/20 (Lamictal) lorazepam 0.5 mg tablet 0.5 mg PO DAILY PRN 07/04/20 metformin 1,000 mg tablet 1,000 mg PO BID 07/04/20 (Glucophage) omeprazole 40 mg capsule,delayed 40 mg PO DAILY 07/04/20 release ondansetron 4 mg disintegrating 4 mg PO Q8H 07/04/20 tablet sennosides 8.6 mg-docusate sodium 1 tab-cap PO BEDTIME 07/04/20 50 mg tablet (Senna with Docusate Sodium) sitagliptin phosphate 100 mg 100 mg PO DAILY 07/04/20 tablet (Januvia) tamsulosin 0.4 mg capsule (Flomax) 0.4 mg PO DAILY 07/04/20 tizanidine 4 mg capsule 4 mg PO BID PRN 07/04/20 topiramate 200 mg tablet (Topamax) 400 mg PO BID 07/04/20 venlafaxine 150 mg 150 mg PO DAILY 07/04/20 capsule,extended release 24 hr (Effexor XR) Previous Rx's Medication Instructions Recorded oxycodone-acetaminophen 5 mg-325 1 tab PO Q6H PRN pain #10 tabs 02/20/22 mg tablet prednisone 20 mg tablet 40 mg (2 x 20 mg) PO DAILY #10 tabs 03/22/22 Allergies Allergy/AdvReac Type Severity Reaction Status Date / Time clindamycin Allergy Severe Anaphylaxis Verified 05/09/23 13:07 hylan G-F 20 Allergy Severe Anaphylaxis Verified 05/09/23 13:07 ibuprofen Allergy Severe SOB,RASH Verified 05/09/23 13:07 Iodinated Contrast Media Allergy Severe SOB-HIVES Verified 05/09/23 13:07 iothalamic acid Allergy Severe SOB,HIVES Verified 05/09/23 13:07 iron dextran complex Allergy Severe Anaphylaxis, Verified 05/09/23 13:07 HIVES meclizine Allergy Severe Palpitation Verified 05/09/23 13:07 s shrimp Allergy Severe Anaphylaxis Verified 05/09/23 13:07 valproic acid Allergy Severe Anaphylaxis Verified 05/09/23 13:07 venom-honey bee Allergy Severe Anaphylaxis Verified 05/09/23 13:07 adhesive tape Allergy Intermediate rash Verified 05/09/23 13:07 amoxicillin [From Augmentin] Allergy Intermediate Hives Verified 05/09/23 13:07 aspirin Allergy Intermediate rash Verified 05/09/23 13:07 clavulanic acid Allergy Intermediate Hives Verified 05/09/23 13:07 [From Augmentin] codeine Allergy Intermediate Hives Verified 05/09/23 13:07 divalproex sodium Allergy Intermediate Hives Verified 05/09/23 13:07 gabapentin Allergy Intermediate Swelling Verified 05/09/23 13:07 of Lip/Tongue/Throat leuprolide Allergy Intermediate Hives Verified 05/09/23 13:07 levalbuterol Allergy Intermediate Hives Verified 05/09/23 13:07 NSAIDS (Non-Steroidal Allergy Intermediate Hives Verified 05/09/23 13:07 Anti-Inflamma promethazine Allergy Intermediate Hives Verified 05/09/23 13:07 tapentadol Allergy Intermediate rash/itchy Verified 05/09/23 13:07 vancomycin Allergy Intermediate Hives, Verified 05/09/23 13:07 ITCHING IRON SUCROSE Allergy Intermediate Hives,SOB Uncoded 07/19/22 16:04 Review of Systems Hematologic/Lymphatic On Anticoagulants: No Patient History Medical History Antiphospholipid syndrome History of endometriosis History of ovarian cyst Lupus Pseudotumor cerebri Chronic pain syndrome Cervical spondylosis Impingement syndrome of right shoulder Surgical History S/P RADIO AERIAL INSTALLER shunt H/O oophorectomy H/O brain surgery H/O thyroidectomy History of cholecystectomy Hx of appendectomy Family History Mother Diabetes mellitus Hypertension Arthritis Thrombophilia Sister Arthritis Hypertension Depression Social History Smoking Status: Never smoker Smoking Status: Never smoker alcohol intake frequency: holidays/special occasions only Exam Narrative Exam Narrative: GENERAL: Well-developed patient, in mild distress. HEAD: Atraumatic. Normocephalic. EYES: Pupils equal round and reactive. Extraocular motions intact. No scleral icterus. No injection or drainage. ENT: Nose without bleeding, purulent drainage. Throat without erythema, tonsillar hypertrophy or exudate. Airway patent. NECK: Trachea midline. Non tender CARDIOVASCULAR: Regular rate and rhythm without murmurs, gallops, or rubs. RESPIRATORY: Clear to auscultation. Breath sounds equal bilaterally. No wheezes, rales, or rhonchi. Left anterior Port-A-Cath, site without redness or swelling, accessed with IV fluid running. Right anterolateral small incision from [employer] A[employer] INSTALLER shunt, site appears without redness or discharge or tenderness or crepitance. No drainage of fluid from that area. GASTROINTESTINAL: Abdomen soft, non-tender, nondistended. EXTREMITIES: No edema or joint tenderness. BACK: Nontender without deformity or crepitance. No flank tenderness. NEURO: AOx3. Motor functions grossly nonfocal SKIN: No rash or erythema of visible areas Initial Vital Signs Initial Vital Signs: Vital Signs Pulse Oximetry 96 04/18/24 10:23 Course Orders Ordered: ED Orders 04/18/24 10:43 Complete Blood Count AUTO DIFF Stat Comprehensive Metabolic Panel Stat Lactate (Lactic Acid) Stat Lipase Stat PTT Partial Thromboplastin Enrique Stat Procalcitonin Stat Prothrombin Time INR Stat 04/18/24 11:16 XR chest 1V Stat EKG-12 Lead Stat RT Consult Eval and Treat NOW 04/18/24 12:03 CT head/brain wo con Stat 04/18/24 13:45 Blood Culture Stat Discontinued Medications Acetaminophen (Acetaminophen 325 Mg Tablet) 975 mg PO NOW ONE Stop: 04/18/24 13:53 Last Admin: 04/18/24 13:55 Dose: 975 mg Documented By: DM Diphenhydramine HCl (Diphenhydramine 50 Mg/Ml Vial) 25 mg IV NOW ONE Stop: 04/18/24 12:15 Last Admin: 04/18/24 12:23 Dose: 25 mg Documented By: [facility] Diphenhydramine HCl (Diphenhydramine 50 Mg/Ml Vial) 25 mg IV NOW ONE Stop: 04/18/24 13:09 Last Admin: 04/18/24 13:18 Dose: 25 mg Documented By: [facility] Diphenhydramine HCl (Diphenhydramine 50 Mg/Ml Vial) 25 mg IV NOW ONE Stop: 04/18/24 15:59 Last Admin: 04/18/24 16:03 Dose: 25 mg Documented By: HIMANSHU Hydromorphone HCl (Hydromorphone 0.5 Mg Inj) 0.5 mg IV NOW ONE Stop: 04/18/24 12:06 Last Admin: 04/18/24 12:21 Dose: 0.5 mg Documented By: CORAZON Hydromorphone HCl (Hydromorphone 0.5 Mg Inj) 0.5 mg IV NOW ONE Stop: 04/18/24 13:09 Last Admin: 04/18/24 13:19 Dose: 0.5 mg Documented By: HIMANSHU Sodium Chloride (Normal Saline 0.9%) 1,000 mls @ 500 mls/hr IV BOLUS ONE Stop: 04/18/24 14:04 Last Infusion: 04/18/24 14:55 Dose: Infused Documented By: Admin: 04/18/24 12:21 Dose: 500 mls/hr Documented By: CORAZON Ketorolac Tromethamine (Ketorolac 30 Mg/Ml Vial) 15 mg IV NOW ONE Stop: 04/18/24 15:59 Last Admin: 04/18/24 16:02 Dose: 15 mg Documented By: HIMANSHU Ondansetron HCl (Ondansetron 4 Mg/2 Ml Inj) 4 mg IV NOW PRN PRN Reason: Nausea And Vomiting Last Admin: 04/18/24 12:22 Dose: 4 mg Documented By: CORAZON Ondansetron HCl (Ondansetron 4 Mg/2 Ml Inj) 4 mg IV NOW ONE Stop: 04/18/24 13:09 Last Admin: 04/18/24 13:20 Dose: 4 mg Documented By: HIMANSHU Vital Signs Vital signs: Vital Signs - 8 hr 04/18/24 11:30 04/18/24 12:00 04/18/24 12:30 Pulse Rate 103 H 118 H 112 H Respiratory Rate 17 Blood Pressure Pulse Oximetry 97 98 97 Oxygen Delivery Method 04/18/24 13:00 04/18/24 13:24 04/18/24 13:24 Pulse Rate 120 H 109 H Respiratory Rate Blood Pressure 166/85 H Pulse Oximetry 98 98 Oxygen Delivery Method 04/18/24 13:30 04/18/24 13:31 04/18/24 13:31 Pulse Rate 117 H 113 H Respiratory Rate Blood Pressure 153/87 H Pulse Oximetry 95 95 Oxygen Delivery Method Room Air 04/18/24 14:00 04/18/24 14:00 04/18/24 14:30 Pulse Rate 109 H 107 H Respiratory Rate Blood Pressure 133/64 Pulse Oximetry 96 96 Oxygen Delivery Method 04/18/24 14:30 04/18/24 15:01 04/18/24 15:02 Pulse Rate 122 H 113 H Respiratory Rate Blood Pressure 133/71 Pulse Oximetry 95 Oxygen Delivery Method 04/18/24 15:02 Pulse Rate Respiratory Rate Blood Pressure 169/95 H Pulse Oximetry Oxygen Delivery Method MDM - Neuro Symptoms/Deficit Lab Data Attestation: I reviewed the patient's lab results. Lab results narrative: White blood cell count 7500, hemoglobin 13.7, platelets adequate. Glucose 142. BUN 15 with creatinine 0.66 normal. Electrolytes unremarkable, serum CO2 normal. Liver functions show slight elevation alkaline phosphatase, otherwise normal. Lipase normal. Procalcitonin 0.13 elevated. 04/18/24 10:43 04/18/24 10:43 Labs: Lab Results 04/18/24 Range/Units 10:43 WBC 7.5 (4.5-11.0) X10^3/uL RBC 4.61 (4.0-5.2) X10^6/uL Hgb 13.7 (12.0-16.0) g/dL Hct 39.9 (36-46) % MCV 86.6 (80-100) fL MCH 29.7 (26-34) PG MCHC 34.3 (30-36) % RDW 13.5 (11.6-14.8) % Plt Count 368 (150-400) X10^3/uL Neut % (Auto) 60.0 (50-75) % Lymph % (Auto) 26.1 (25-40) % [place] % (Auto) 9.9 (3-14) % Eos % (Auto) 3.6 (2-4) % Baso % (Auto) 0.4 (0-2) % Neut # (Auto) 4500 (7238-6040) /uL Lymph # (Auto) 2000 (6787-5973) /uL [place] # (Auto) 700 (0-900) /uL Eos # (Auto) 300 (0-450) /uL Baso # (Auto) 0 (0-100) /uL PT 10.4 (9.4-12.5) SECONDS INR 0.9 (0.9-1.3) APTT 35 (25.1-36.5) SECONDS Sodium 138 (137-145) mmol/L Potassium 3.6 (3.4-5.1) mmol/L Chloride 101 (98-107) mmol/L Carbon Dioxide 27 (22-32) mmol/L BUN 15 (7-17) mg/dL Creatinine 0.66 (0.52-1.04) mg/dL Estimated GFR > 60 (>60) mL/min BUN/Creatinine Ratio 22.7 H (6-22) Glucose 142 H (70-100) mg/dL Lactate 1.6 (0.7-2.1) mmol/L Calcium 8.9 (8.4-10.2) mg/dL Total Bilirubin 0.5 (0.2-1.3) mg/dL AST 38 H (14-36) IU/L ALT 27 (<35) IU/L Alkaline Phosphatase 225 H (38-126) U/L Total Protein 8.4 H (6.3-8.2) g/dL Albumin 4.5 (3.5-5.0) g/dL Globulin 3.9 (1.7-4.1) g/dL Albumin/Globulin Ratio 1.2 (1.0-2.8) Lipase 50 (23-300) U/L Procalcitonin 0.131 (<0.5) ng/mL Imaging Data Chest x-ray: Radiologist's Impression: [address] [address] XRay Report Signed Patient: Vanessa Miguel MR#: [id number] : 1975 Acct:[id number] Age/Sex: 48 / F Date of Service: 04/18/24 Loc: ED Accession Number: [id number] Procedure: XR chest 1V Ordering Provider: Harinder Kay MD PROCEDURE: XR CHEST 1V INDICATIONS: suspected sepsis TECHNIQUE: One view of the chest was acquired. COMPARISON: [facility], , XR CHEST 1V, 03/10/2024, 18:14. FINDINGS: Surgical changes and devices: Left-sided Port-A-Cath. Right ventricular peritoneal catheter unchanged. Lungs and pleura: Lungs are clear. No pleural effusions or pneumothorax. Mediastinum: Mediastinal contours appear normal. Heart size is normal. Bones and chest wall: No suspicious bony lesions. Overlying soft tissues appear unremarkable. IMPRESSION: No acute cardiopulmonary abnormality is seen. Approved by: Garett Blas M.D. on 04/18/2024 at 10:49 CT scan - head: Radiologist's Impression: [address] [address] [address] Scan Report Signed Patient: Vanessa Miguel MR#: [id number] : 1975 Acct:[id number] Age/Sex: 48 / F Date of Service: 04/18/24 Loc: ED Accession Number: [id number] Procedure: CT head/brain wo con Ordering Provider: Harinder Kay MD PROCEDURE: CT HEAD/BRAIN WO CON INDICATIONS: GREGG, hx IIH, RAD[employer] INSTALLER shunt revised 02/2024 TECHNIQUE: Noncontrast 4.5 mm thick angled axial sections acquired from the foramen magnum to the vertex, with coronal and sagittal reformats. For radiation dose reduction, the following was used: automated exposure control, adjustment of mA and/or kV according to patient size. COMPARISON: [facility], CT, CT HEAD/BRAIN WO CON, 03/10/2024, 16:20. FINDINGS: CSF spaces: Shunted ventricles. Brain: No midline shift. No intracranial masses or hemorrhage. Rodriguez-white matter interface is normal. Skull and face: Calvarium and visualized facial bones are intact, without suspicious lesions. Sinuses: Visualized sinuses and mastoids are clear. IMPRESSION: No acute intracranial pathology. Shunted ventricles without change from the prior Approved by: Garett Blas M.D. on 04/18/2024 at 12:36 ECG Data Attestation: I personally reviewed and interpreted this ECG as follows: Interpretation: Sinus tachycardia with rate of 111, no obvious ST segment elevation or depression changes. MN 176, QRS 82, QTC 465. MDM Narrative Medical decision making narrative: 48-year-old female with ongoing/recurrent headaches, history of IIH status post most recent RADIO A[employer] INSTALLER shunt revision at [facility] 03/02/24, headache treated symptomatically yesterday [facility], no imaging available then, still having headaches, CT head noncontrast ordered. IV Dilaudid, Benadryl, Zofran, fluids, ordered as per her usual treatment regimen. Afebrile, sirs screen negative. Nonfocal neuro exam. Left chest Port-A-Cath accessed easily by nursing. CT head results pending. EKG shows sinus tachycardia in context of pain, no obvious ischemic changes. Chest x-ray showed no acute changes, left Port-A-Cath and right RADIO A[employer] INSTALLER shunt changes noted, see radiology report. No mention of any pleural effusion. CT head results still pending. Patient still having headache, we would like repeat doses of IV Dilaudid/Zofran/Benadryl, ordered. CT head noncontrast study, no change from prior study with reference 03/14/2024 study. See radiology report. Patient still with some headache, we would like additional IV Benadryl, ordered. She would also like to try Toradol which she gets with her anti lupus infusions, IV Toradol 15 mg. She would like to be discharged home, will be catching the [facility] back [facility]. She will contact her neurosurgeon for further follow up. DC home per patient request. Return precautions discussed. Discharge Plan Departure Patient Disposition: Home Clinical Impression: Frequent headaches, History of idiopathic intracranial hypertension, History of ventriculoperitoneal shunt revision Activity Restrictions/Additional Instructions: History of idiopathic intracranial hypertension status post numerous previous RADIO A[employer] INSTALL[employer] shunt procedures, most revision procedure in [place] February 2024, with subsequent headaches, concern for over performance of the [employer]IO A[employer] INSTALLER shunt, no further neurosurgical interventions thus far. Ongoing headaches. Various IV treatments were given today including IV Dilaudid and Benadryl and Zofran and Toradol. CT head noncontrast study showed no significant change from February 2024 results per Radiology report. Follow up with your neurosurgeon as planned, call their office on Saturday during open hours. Continue taking your chronic medication regimen. You stated that you had a supply of these medications. Return earlier to this/nearest emergency department for any change worsening symptoms or any concerns prior. Thank you for allowing our team to evaluate you today. Prescriptions: No Action prednisone 20 mg tablet 40 mg PO DAILY Qty: 10 0RF oxycodone-acetaminophen 5-325 mg tablet 1 tab PO Q6H PRN (Reason: pain) Qty: 10 0RF Aimovig Autoinjector 140 mg/mL auto-injector 140 mg SUBCUT QMONTH hydroxyzine HCl 25 mg tablet 25 mg PO QID PRN diphenhydramine HCl [Benadryl] 25 mg capsule 25 mg PO QID PRN diltiazem HCl [Cardizem CD] 240 mg capsule,extended release 24hr 240 mg PO DAILY ascorbic acid (vitamin C) 500 mg tablet,chewable 500 mg PO DAILY diclofenac sodium [Arthritis Pain (diclofenac)] 1 % gel 2 g topical QID Rx Instructions: apply to single elbow, wrist or hand; for hand includes palm/fingers/back of hand sennosides-docusate sodium [Senna with Docusate Sodium] 8.6-50 mg tablet 1 tab-cap PO BEDTIME venlafaxine [Effexor XR] 150 mg capsule,extended release 24hr 150 mg PO DAILY enoxaparin 120 mg/0.8 mL syringe 120 mg SUBCUT DAILY tamsulosin [Flomax] 0.4 mg capsule 0.4 mg PO DAILY metformin [Glucophage] 1,000 mg tablet 1,000 mg PO BID Januvia 100 mg tablet 100 mg PO DAILY lamotrigine [Lamictal] 100 mg tablet 100 mg PO DAILY furosemide [Lasix] 40 mg tablet 40 mg PO DAILY lorazepam 0.5 mg tablet 0.5 mg PO DAILY PRN tizanidine 4 mg capsule 4 mg PO BID PRN topiramate [Topamax] 200 mg tablet 400 mg PO BID acetaminophen [Tylenol Extra Strength] 500 mg tablet 500 mg PO Q6H PRN hydrocodone-acetaminophen 10-325 mg tablet 1 tab PO Q4-6H PRN omeprazole 40 mg capsule,delayed release(DR/EC) 40 mg PO DAILY ondansetron 4 mg tablet,disintegrating 4 mg PO Q8H famotidine [Pepcid] 20 mg tablet 20 mg PO DAILY Referrals: Harinder Nava [Primary Care Provider] - Stand Alone Forms: Patient Portal/API/Survey
[2024-04-18] MEDS: HYDROMORPHONE 0.5 MG INJ IV ×2 (12:21→13:19)
[2024-04-18] MEDS: SODIUM CHLORIDE 0.9% 1,000 ML 500 ML IV (12:21)
[2024-04-18] MEDS: ONDANSETRON 4 MG/2 ML INJ IV ×2 (12:22→13:20)
[2024-04-18] MEDS: diphenhydrAMINE 50 MG/ML VIAL 25 MG IV ×3 (12:23→16:03)
--- NOTE | 2024-04-18 13:06 | PC.NURSE ---
[place] for psuedo tumor cerebri. [employer] shunt replaced Feb 2024. having too much drainage--+NV, intense headache. Procedure done at [facility]. walking with cane. AAOx3.
[2024-04-18] MEDS: ACETAMINOPHEN 325 MG TABLET 975 MG PO (13:55)
[2024-04-18] MEDS: KETOROLAC 30 MG/ML VIAL 15 MG IV (16:02)
== END 2024-04-18 16:21 | disposition home or self-care (01) ==
PROVIDERS: Emergency Provider Emergency Medicine; PCP Student in an Organized Health Care Education/Training Program
DX: R51.9 Headache, unspecified (principal); R11.2 Nausea with vomiting, unspecified; Z86.79 Personal history of other diseases of the circulatory system; Z98.2 Presence of cerebrospinal fluid drainage device
CPT/HCPCS: 36415; 70450; 71045; 80053; 83605; 83690; 84145; 85025; 85610; 85730; 87040; 93005; 96361; 96374; 96375; 96376; 99284; 99285; J1171; J1200; J1885; J2405

== ENCOUNTER 2024-07-19 07:30 | Emergency (ER) | payer MEDICARE, MEDICAID, SELFPAY ==
[2024-07-19] VITALS (10 sets, daily range): BP systolic 132–177; BP diastolic 65–105; PULSE 106–122; RESP 20; TEMP 36.9; O2SAT 95–99; BMI 42.2
--- NOTE | 2024-07-19 07:39 | ED_ITS ---
HPI - Abdominal Pain General Chief Complaint: Abdominal Pain Stated Complaint: Stomach pain x 1 day Time Seen by Provider: 07/19/24 07:35 Source: patient History of Present Illness HPI narrative: Patient is a 48-year-old female with extensive past medical history including lupus, endometriosis, antiphospholipid syndrome, on anticoagulation, presenting with left lower quadrant abdominal pain. Patient was evaluated on the evening prior for this however the facility did not have ultrasound capability, recommended presenting to this emergency department for further evaluation. Patient states that this pain began 24 hours prior to presentation. It does feel similar to pain she has had in the past associated with her endometriosis. Patient is status post oophorectomy on the right, she does still have her left ovary. Patient endorses normal bowel movements, most recently on the morning of presentation is also having nausea although minimal emesis. No fevers although has had chills on the day of presentation. Patient states that her pain is an 8/10 in the deep left groin, worsened with stepping down. No urinary symptoms, no chest pain, shortness of breath, back pain, headache. MD complaint: abdominal pain Onset (ago): hour(s) (Twenty-four) Pain Consistency: constant Location: LLQ Severity: severe Severity scale (1-10): 8 Associated symptoms: nausea and chills Related Data Home Medications Medication Instructions Recorded Confirmed acetaminophen 500 mg tablet 500 mg PO Q6H PRN 07/04/20 (Tylenol Extra Strength) ascorbic acid (vitamin C) 500 mg 500 mg PO DAILY 07/04/20 chewable tablet diclofenac sodium 1 % topical gel 2 g topical QID 07/04/20 (Arthritis Pain (diclofenac)) diltiazem HCl 240 mg 240 mg PO DAILY 07/04/20 capsule,extended release 24 hr (Cardizem CD) diphenhydramine HCl 25 mg capsule 25 mg PO QID PRN 07/04/20 (Benadryl) enoxaparin 120 mg/0.8 mL 120 mg SUBCUT DAILY 07/04/20 subcutaneous syringe erenumab-aooe 140 mg/mL 140 mg SUBCUT QMONTH 07/04/20 subcutaneous auto-injector (Aimovig Autoinjector) famotidine 20 mg tablet (Pepcid) 20 mg PO DAILY 07/04/20 furosemide 40 mg tablet (Lasix) 40 mg PO DAILY 07/04/20 hydrocodone 10 mg-acetaminophen 1 tab PO Q4-6H PRN 07/04/20 325 mg tablet hydroxyzine HCl 25 mg tablet 25 mg PO QID PRN 07/04/20 lamotrigine 100 mg tablet 100 mg PO DAILY 07/04/20 (Lamictal) lorazepam 0.5 mg tablet 0.5 mg PO DAILY PRN 07/04/20 metformin 1,000 mg tablet 1,000 mg PO BID 07/04/20 (Glucophage) omeprazole 40 mg capsule,delayed 40 mg PO DAILY 07/04/20 release ondansetron 4 mg disintegrating 4 mg PO Q8H 07/04/20 tablet sennosides 8.6 mg-docusate sodium 1 tab-cap PO BEDTIME 07/04/20 50 mg tablet (Senna with Docusate Sodium) sitagliptin phosphate 100 mg 100 mg PO DAILY 07/04/20 tablet (Januvia) tamsulosin 0.4 mg capsule (Flomax) 0.4 mg PO DAILY 07/04/20 tizanidine 4 mg capsule 4 mg PO BID PRN 07/04/20 topiramate 200 mg tablet (Topamax) 400 mg PO BID 07/04/20 venlafaxine 150 mg 150 mg PO DAILY 07/04/20 capsule,extended release 24 hr (Effexor XR) Previous Rx's Medication Instructions Recorded oxycodone-acetaminophen 5 mg-325 1 tab PO Q6H PRN pain #10 tabs 02/20/22 mg tablet prednisone 20 mg tablet 40 mg (2 x 20 mg) PO DAILY #10 tabs 03/22/22 Allergies Allergy/AdvReac Type Severity Reaction Status Date / Time clindamycin Allergy Severe Anaphylaxis Verified 05/09/23 13:07 hylan G-F 20 Allergy Severe Anaphylaxis Verified 05/09/23 13:07 ibuprofen Allergy Severe SOB,RASH Verified 05/09/23 13:07 Iodinated Contrast Media Allergy Severe SOB-HIVES Verified 05/09/23 13:07 iothalamic acid Allergy Severe SOB,HIVES Verified 05/09/23 13:07 iron dextran complex Allergy Severe Anaphylaxis, Verified 05/09/23 13:07 HIVES meclizine Allergy Severe Palpitation Verified 05/09/23 13:07 s shrimp Allergy Severe Anaphylaxis Verified 05/09/23 13:07 valproic acid Allergy Severe Anaphylaxis Verified 05/09/23 13:07 venom-honey bee Allergy Severe Anaphylaxis Verified 05/09/23 13:07 adhesive tape Allergy Intermediate rash Verified 05/09/23 13:07 amoxicillin [From Augmentin] Allergy Intermediate Hives Verified 05/09/23 13:07 aspirin Allergy Intermediate rash Verified 05/09/23 13:07 clavulanic acid Allergy Intermediate Hives Verified 05/09/23 13:07 [From Augmentin] codeine Allergy Intermediate Hives Verified 05/09/23 13:07 divalproex sodium Allergy Intermediate Hives Verified 05/09/23 13:07 gabapentin Allergy Intermediate Swelling Verified 05/09/23 13:07 of Lip/Tongue/Throat leuprolide Allergy Intermediate Hives Verified 05/09/23 13:07 levalbuterol Allergy Intermediate Hives Verified 05/09/23 13:07 NSAIDS (Non-Steroidal Allergy Intermediate Hives Verified 05/09/23 13:07 Anti-Inflamma promethazine Allergy Intermediate Hives Verified 05/09/23 13:07 tapentadol Allergy Intermediate rash/itchy Verified 05/09/23 13:07 vancomycin Allergy Intermediate Hives, Verified 05/09/23 13:07 ITCHING IRON SUCROSE Allergy Intermediate Hives,SOB Uncoded 07/19/22 16:04 Review of Systems Review of Systems ROS Unobtainable: All systems reviewed & are unremarkable except as noted in HPI and below Constitutional Constitutional: Reports chills, Reports excessive sweating and Denies fever(s) Cardiovascular Cardiovascular: Denies chest pain and Denies dyspnea Respiratory Respiratory: Denies dyspnea Gastrointestinal Gastrointestinal: Reports abdominal pain and Denies change in bowel habits Genitourinary Genitourinary: Denies dysuria Musculoskeletal Musculoskeletal: Denies back pain Integumentary/Breasts Skin/Breast: Reports erythema Neurologic Neurologic: Reports system reviewed and no additional complaints, except as documented Endocrine Endocrine: Reports excessive sweating Patient History Medical History Antiphospholipid syndrome History of endometriosis History of ovarian cyst Lupus Pseudotumor cerebri Chronic pain syndrome Cervical spondylosis Impingement syndrome of right shoulder Surgical History 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 H/O oophorectomy H/O brain surgery H/O thyroidectomy History of cholecystectomy Hx of appendectomy Family History Mother Diabetes mellitus Hypertension Arthritis Thrombophilia Sister Arthritis Hypertension Depression alcohol intake frequency: holidays/special occasions only Exam Initial Vital Signs Initial Vital Signs: Vital Signs Pulse Rate 122 H 07/19/24 07:35 Blood Pressure 177/97 H 07/19/24 07:35 Pulse Oximetry 98 07/19/24 07:35 Const General: acute distress and No ill appearing Nutritional Appearance: obese HENMT Head: normocephalic and atraumatic Ears: external ears normal Nose: external nose normal Mouth: moist mucous membranes Eyes Eyelids: eyelids normal Conjunctivae: conjunctivae normal Sclera: sclerae normal Neck Neck: full ROM Resp Effort & Inspection: normal respiratory effort, able to speak in complete sentences and respiratory effort not decreased Auscultation: clear to auscultation bilaterally Cardio Rate: tachycardic Rhythm: regular rhythm GI Inspection: non-distended Palpation: soft and tender (Tenderness to palpation, greatest in the left lower quadrant) Auscultation: hyperactive bowel sounds Back/Spine/Pelvis Thoracic/Lumbar Spine: thoraco-lumbar ROM normal Skin General: no rashes or lesions noted Rashes: no rashes Neuro General: patient alert and moves all extremities Cognition: normal cognition Speech: speech normal Extrem General: full ROM Psych Appearance: grossly normal Mental Status: mental status grossly normal Course Orders Ordered: Discontinued Medications Acetaminophen (Acetaminophen 325 Mg Tablet) 650 mg PO NOW ONE Stop: 07/19/24 11:53 Last Admin: 07/19/24 11:57 Dose: 650 mg Documented By: MPO Diphenhydramine HCl (Diphenhydramine 25 Mg Tablet) 25 mg PO NOW ONE Stop: 07/19/24 08:16 Last Admin: 07/19/24 08:18 Dose: 25 mg Documented By: MPO Diphenhydramine HCl (Diphenhydramine 25 Mg Tablet) 25 mg PO NOW ONE Stop: 07/19/24 08:40 Last Admin: 07/19/24 08:44 Dose: Not Given Documented By: MPO Diphenhydramine HCl (Diphenhydramine 50 Mg/Ml Vial) 25 mg IV NOW ONE Stop: 07/19/24 10:11 Last Admin: 07/19/24 10:29 Dose: 25 mg Documented By: MPO Famotidine (Famotidine 20 Mg/2 Ml Vial) 20 mg IV NOW LILLIAM Last Admin: 07/19/24 10:29 Dose: 20 mg Documented By: SUSANNA Heparin Sodium (Porcine) (Heparin 500 Unit/5 Ml Port Flush) 500 unit IV PRN PRN PRN Reason: Flush Last Admin: 07/19/24 12:01 Dose: 500 unit Documented By: SUSANNA Hydromorphone HCl (Hydromorphone 0.5 Mg Inj) 0.5 mg IV NOW ONE Stop: 07/19/24 10:11 Last Admin: 07/19/24 10:29 Dose: 0.5 mg Documented By: SUSANNA Sodium Chloride (Normal Saline 0.9%) 1,000 mls @ 1,000 mls/hr IV BOLUS ONE Stop: 07/19/24 09:42 Last Infusion: 07/19/24 09:45 Dose: Infused Documented By: Admin: 07/19/24 08:51 Dose: 1,000 mls/hr Documented By: SUSANNA Morphine Sulfate (Morphine 4 Mg/Ml Inj) 4 mg IV NOW ONE Stop: 07/19/24 07:49 Last Admin: 07/19/24 08:09 Dose: 4 mg Documented By: SUSANNA Ondansetron HCl (Ondansetron 4 Mg/2 Ml Inj) 4 mg IV NOW ONE Stop: 07/19/24 07:49 Last Admin: 07/19/24 08:10 Dose: 4 mg Documented By: SUSANNA Vital Signs Vital signs: Vital Signs - 8 hr 07/19/24 07:39 Temperature 98.4 F Pulse Rate 121 H Respiratory Rate 20 Blood Pressure 177/97 H Pulse Oximetry 98 Oxygen Delivery Method Room Air MDM - Abdominal Pain Medical Records Attestation: I reviewed the patient's medical records. Medical records narrative: Prior presentations to the emergency department for abdominal pain including on 10/18/2022 and 02/20/2022, left lower quadrant on 02/20/2022 noted to be likely secondary to left adnexal cyst. Lab Data Attestation: I reviewed the patient's lab results. 07/19/24 07:56 07/19/24 07:56 Labs: Lab Results 07/19/24 07/19/24 07/19/24 Range/Units 07:56 08:44 10:38 WBC 15.7 H (4.5-11.0) X10^3/uL RBC 4.97 (4.0-5.2) X10^6/uL Hgb 14.7 (12.0-16.0) g/dL Hct 43.3 (36-46) % MCV 87.0 (80-100) fL MCH 29.5 (26-34) PG MCHC 33.9 (30-36) % RDW 16.6 H (11.6-14.8) % Plt Count 351 (150-400) X10^3/uL Neut % (Auto) 79.0 H (50-75) % Lymph % (Auto) 15.8 L (25-40) % Cass % (Auto) 3.4 (3-14) % Eos % (Auto) 0.3 L (2-4) % Baso % (Auto) 1.5 (0-2) % Neut # (Auto) 94168 H (9666-4931) /uL Lymph # (Auto) 2500 (4764-1897) /uL Cass # (Auto) 500 (0-900) /uL Eos # (Auto) 0 (0-450) /uL Baso # (Auto) 200 H (0-100) /uL Sodium 136 L (137-145) mmol/L Potassium 3.5 (3.4-5.1) mmol/L Chloride 99 (98-107) mmol/L Carbon Dioxide 23 (22-32) mmol/L BUN 22 H (7-17) mg/dL Creatinine 0.86 (0.52-1.04) mg/dL Estimated GFR > 60 (>60) mL/min BUN/Creatinine Ratio 25.6 H (6-22) Glucose 238 H (70-99) mg/dL Lactate 2.5 H 1.4 (0.7-2.1) mmol/L Calcium 9.2 (8.4-10.2) mg/dL Magnesium 1.9 (1.6-2.3) mg/dL Total Bilirubin 0.4 (0.2-1.3) mg/dL AST 23 (14-36) IU/L ALT 23 (<35) IU/L Alkaline Phosphatase 238 H (38-126) U/L Total Protein 8.1 (6.3-8.2) g/dL Albumin 4.6 (3.5-5.0) g/dL Globulin 3.5 (1.7-4.1) g/dL Albumin/Globulin Ratio 1.3 (1.0-2.8) Lipase 60 (23-300) U/L Urine Color Yellow Urine Appearance Clear Urine pH 5.5 (4.5-8.0) Ur Specific [place] 1.010 (1.000-1.035) Urine Protein Negative (Negative) Urine Glucose (UA) 3+ H (Negative) g/dL Urine Ketones Negative (NEGATIVE) Urine Occult Blood Negative (Negative) Urine Nitrate Negative (Negative) Urine Bilirubin Negative (NEGATIVE) Urine Urobilinogen 0.2 (0.2) E.U./dL Ur Leukocyte Esterase Negative (NEGATIVE) Urine RBC 0-1/hpf (0-5/HPF) Urine WBC 1-5/hpf (0-5/HPF) Ur Squamous Epith Cells 5-10 /hpf H (0-5/HPF) Urine Bacteria Occasional (0-1) (None) Ur Culture Indicated? Cult not indicated Vol Urine Centrifuged 10ml (spun) Notable for leukocytosis to 15.7, lactate elevated to 2.5, will plan for fluid resuscitation. Rpt lactate following fluids demonstrating improvement. Point of care testing: Urine Dip Bedside Urine Glucose 1000 mg/dl Bedside Urine Bilirubin - Negative Bedside Urine Ketone - Negative Urine Specific [place] 1.010 Bedside Urine Occult Blood - Negative Bedside Urine pH 6.0 Bedside Urine Protein +/- 15 Bedside Urine Urobilinogen - Negative Bedside Urine Nitrite - Negative Bedside Urine Leukocytes - Negative Esterase Imaging Data CT scan - abdomen/pelvis: Attestation: I personally reviewed and interpreted this imaging study as follows: My Impression: CT abdomen and pelvis without evidence of acute intra-abdominal pathology. No diverticulitis or obstruction noted on independent review. Radiologist's Impression: [address] [address] [address] Scan Report Signed Patient: Vanessa Miguel MR#: [id number] : 1975 Acct:[id number] Age/Sex: 48 / F Date of Service: 07/19/24 Loc: ED Accession Number: [id number] Procedure: CT abdomen pelvis wo con Ordering Provider: Nyasia Ann MD PROCEDURE: CT ABDOMEN PELVIS WO CON INDICATIONS: Severe left lower quadrant abdominal pain TECHNIQUE: After the administration of oral contrast, 5 mm thick sections acquired from the diaphragms to the symphysis. 5 mm coronal and sagittal reformats were performed. For radiation dose reduction, the following was used: automated exposure control, adjustment of mA and/or kV according to patient size. COMPARISON: [facility], CT, CT ABDOMEN PELVIS W CON, 07/19/2022, 17:40. [facility], MR, MR ABDOMEN WO/W CON, 07/23/2023, 11:08. [facility], CT, CT ABDOMEN PELVIS WITHOUT CONTRAST, 10/26/2023, 18:00. [facility], CT, CT HEAD/BRAIN WO CON, 02/25/2024, 13:50. [facility], CT, CT ABDOMEN PELVIS WO CON, 08/18/2020, 15:07. FINDINGS: Image quality: Diagnostic. Lower Chest: There is a right pleural drain seen. There is a trace right-sided pleural effusion. ABDOMEN: Liver: No contour-deforming mass. Gallbladder: Cholecystectomy. Biliary ducts: No biliary dilation. Pancreas: No ductal dilation. Spleen: Size is within normal limits. Adrenal Glands: No adrenal nodules. Kidneys and Ureters: No hydronephrosis. No contour-deforming mass. Nonobstructing kidney stones are seen, measuring up to 4 mm on each side. Stomach and Bowel: In this patient with this given history, scrutiny is given to the sigmoid colon. Negative for diverticulitis. No significant left lower quadrant inflammatory change can be seen. The more proximal colon is within normal limits. No dilated loops of small bowel are seen. Peritoneum: No abnormal intraperitoneal fluid. No free air. Right lower quadrant drainage tubing can be seen. Ventral Wall: No significant hernia. Irregularity with nodularity can be seen involving the lower anterior abdominal wall, which is similar to prior studies. Abdominal Nodes: No retroperitoneal or mesenteric adenopathy by size criteria. Vessels: Aorta and inferior vena cava are normal in size. PELVIS: Pelvic Organs: No adnexal masses are seen on either side. Bladder: Unremarkable. Pelvic Nodes: No enlarged lymph nodes. Miscellaneous: No inguinal hernias are seen. Bones: No aggressive osseous abnormality. Age-appropriate bony degenerative changes are seen. IMPRESSION: Negative for diverticulitis. No cause of left lower quadrant pain is identified. There is a right-sided pleural drain, with a trace right-sided pleural effusion. Nodularity again seen involving the subcutaneous fat of the anterior abdominal wall. Please correlate with potential medication injection sites. Additional findings: Nonobstructing bilateral renal stones Right lower quadrant drainage tubing Dictated by: Aiden Zhou M.D. on 07/19/2024 at 7:52 Approved by: Aiden Zhou M.D. on 07/19/2024 at 7:57 US - GUARD RANGE: Attestation: I personally reviewed and interpreted this imaging study as follows: My Impression: Without evidence of torsion, notable for uterine fibroids. Radiologist's Impression: [address] [address] Ultrasound Report Signed Patient: Vanessa Miguel MR#: [id number] : 1975 Acct:[id number] Age/Sex: 48 / F Date of Service: 07/19/24 Loc: ED Accession Number: [id number] Procedure: US pelvic complete Ordering Provider: Nyasia Ann MD PROCEDURE: US PELVIC COMPLETE INDICATIONS: LEFT PELVIC PAIN TECHNIQUE: Real-time scanning was performed of the pelvic organs, with image documentation. Additional endovaginal scanning was necessary due to incomplete visualization of the adnexal and endometrial structures by transabdominal scanning. COMPARISON: [facility], CT, CT ABDOMEN PELVIS WO CON, 07/19/2024, 8:03. FINDINGS: Uterus: Uterus is anteverted and normal in size at 5.4 x 2.7 x 3 cm. Arcuate appearance of the uterus is noted. The myometrium is heterogeneous. Calcifications are seen scattered in myometrium. 2.7 x 2.1 x 1.7 cm intramural fibroid in right anterior myometrium is seen. The endometrium measures 4.0 mm combined thickness. No endometrial mass or fluid. Ovaries: Bilateral ovaries are not visualized. No adnexal masses are seen. Other: No pathologic free abdominal or pelvic fluid. IMPRESSION: 1. Heterogeneous myometrium with multiple myometrial calcifications and at least 1 uterine fibroid as above. Arcuate appearance of uterus. No endometrial mass or fluid. 2. Bilateral ovaries are not visualized. No adnexal mass. We strive to produce accurate, complete, and clear reports of imaging services. To assist us in improving patient care, this report was composed using standard report templates and voice recognition software. Therefore, it may contain abnormal punctuation, insertions and/or omissions. Occasional wrong-word or sound-alike substitutions may occur. Though we review the report and make efforts to correct it, we do recommend that the report be read carefully in proper context to recognize any text inaccuracies. Dictated by: Anupam Deras M.D. on 07/19/2024 at 10:29 Approved by: Anupam Deras M.D. on 07/19/2024 at 10:31 MDM Narrative Medical decision making narrative: History and exam as above. Patient is a presenting with left lower quadrant abdominal pain. MDM Differential considered: Includes but not limited to endometriosis, ovarian torsion, diverticulitis, nephrolithiasis, colitis, inguinal hernia, musculoskeletal/hip pain, unlikely SBO given ongoing bowel movements. Imaging studies independently reviewed: as above Re-evaluations: Upon reevaluation, patient endorsing itchy erythematous skin changes which she says are typical for her following medications. Treated with benadryl, pepcid. Following medications, patient with improved vitals, no longer in distress and updated regarding reassuring workup without evidence of acute intraabdominal pathology. Patient counseled regarding follow up with PCP and olericulturist, provided with strict return precautions and discharged in stable condition. Discharge Plan Departure Patient Disposition: Home Clinical Impression: Abdominal pain Instructions: DI for Abdominal Pain-Adult, Chronic Pelvic Pain-Female Activity Restrictions/Additional Instructions: You were seen in the emergency department for your abdominal pain. Evaluation here including examination, lab work, and imaging both ultrasound and CT was overall reassuring and did not demonstrate any evidence of an acute process that would require intervention or admission to the hospital. We highly recommend close follow-up with OBGYN, and your PCP for further evaluation and management in the outpatient setting. It is important that you stay well hydrated, and we also recommend continuing all of your regular home medications for further management. If you develop new fevers, chills, increased vomiting and unable to tolerate fluids, urinary symptoms, or other symptoms that are concerning to you, please return to the emergency department for further evaluation. Prescriptions: No Action prednisone 20 mg tablet 40 mg PO DAILY Qty: 10 0RF oxycodone-acetaminophen 5-325 mg tablet 1 tab PO Q6H PRN (Reason: pain) Qty: 10 0RF Aimovig Autoinjector 140 mg/mL auto-injector 140 mg SUBCUT QMONTH hydroxyzine HCl 25 mg tablet 25 mg PO QID PRN diphenhydramine HCl [Benadryl] 25 mg capsule 25 mg PO QID PRN diltiazem HCl [Cardizem CD] 240 mg capsule,extended release 24hr 240 mg PO DAILY ascorbic acid (vitamin C) 500 mg tablet,chewable 500 mg PO DAILY diclofenac sodium [Arthritis Pain (diclofenac)] 1 % gel 2 g topical QID Rx Instructions: apply to single elbow, wrist or hand; for hand includes palm/fingers/back of hand sennosides-docusate sodium [Senna with Docusate Sodium] 8.6-50 mg tablet 1 tab-cap PO BEDTIME venlafaxine [Effexor XR] 150 mg capsule,extended release 24hr 150 mg PO DAILY enoxaparin 120 mg/0.8 mL syringe 120 mg SUBCUT DAILY tamsulosin [Flomax] 0.4 mg capsule 0.4 mg PO DAILY metformin [Glucophage] 1,000 mg tablet 1,000 mg PO BID Januvia 100 mg tablet 100 mg PO DAILY lamotrigine [Lamictal] 100 mg tablet 100 mg PO DAILY furosemide [Lasix] 40 mg tablet 40 mg PO DAILY lorazepam 0.5 mg tablet 0.5 mg PO DAILY PRN tizanidine 4 mg capsule 4 mg PO BID PRN topiramate [Topamax] 200 mg tablet 400 mg PO BID acetaminophen [Tylenol Extra Strength] 500 mg tablet 500 mg PO Q6H PRN hydrocodone-acetaminophen 10-325 mg tablet 1 tab PO Q4-6H PRN omeprazole 40 mg capsule,delayed release(DR/EC) 40 mg PO DAILY ondansetron 4 mg tablet,disintegrating 4 mg PO Q8H famotidine [Pepcid] 20 mg tablet 20 mg PO DAILY Referrals: Harinder Nava [Primary Care Provider] - Stand Alone Forms: Patient Portal/API/Survey
--- NOTE | 2024-07-19 07:48 | EKG_ITS ---
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
--- NOTE | 2024-07-19 07:54 | DI.CT.S_ITS ---
PROCEDURE: CT ABDOMEN PELVIS WO CON INDICATIONS: Severe left lower quadrant abdominal pain TECHNIQUE: After the administration of oral contrast, 5 mm thick sections acquired from the diaphragms to the symphysis. 5 mm coronal and sagittal reformats were performed. For radiation dose reduction, the following was used: automated exposure control, adjustment of mA and/or kV according to patient size. COMPARISON: [facility], CT, CT ABDOMEN PELVIS W CON, 07/19/2022, 17:40. [facility], MR, MR ABDOMEN WO/W CON, 07/23/2023, 11:08. Outside Film, CT, CT ABDOMEN PELVIS WITHOUT CONTRAST, 10/26/2023, 18:00. [facility], CT, CT HEAD/BRAIN WO CON, 02/25/2024, 13:50. [facility], CT, CT ABDOMEN PELVIS WO CON, 08/18/2020, 15:07. FINDINGS: Image quality: Diagnostic. Lower Chest: There is a right pleural drain seen. There is a trace right-sided pleural effusion. ABDOMEN: Liver: No contour-deforming mass. Gallbladder: Cholecystectomy. Biliary ducts: No biliary dilation. Pancreas: No ductal dilation. Spleen: Size is within normal limits. Adrenal Glands: No adrenal nodules. Kidneys and Ureters: No hydronephrosis. No contour-deforming mass. Nonobstructing kidney stones are seen, measuring up to 4 mm on each side. Stomach and Bowel: In this patient with this given history, scrutiny is given to the sigmoid colon. Negative for diverticulitis. No significant left lower quadrant inflammatory change can be seen. The more proximal colon is within normal limits. No dilated loops of small bowel are seen. Peritoneum: No abnormal intraperitoneal fluid. No free air. Right lower quadrant drainage tubing can be seen. Ventral Wall: No significant hernia. Irregularity with nodularity can be seen involving the lower anterior abdominal wall, which is similar to prior studies. Abdominal Nodes: No retroperitoneal or mesenteric adenopathy by size criteria. Vessels: Aorta and inferior vena cava are normal in size. PELVIS: Pelvic Organs: No adnexal masses are seen on either side. Bladder: Unremarkable. Pelvic Nodes: No enlarged lymph nodes. Miscellaneous: No inguinal hernias are seen. Bones: No aggressive osseous abnormality. Age-appropriate bony degenerative changes are seen. IMPRESSION: Negative for diverticulitis. No cause of left lower quadrant pain is identified. There is a right-sided pleural drain, with a trace right-sided pleural effusion. Nodularity again seen involving the subcutaneous fat of the anterior abdominal wall. Please correlate with potential medication injection sites. Additional findings: Nonobstructing bilateral renal stones Right lower quadrant drainage tubing Dictated by: Aiden Zhou M.D. on 07/19/2024 at 7:52 Approved by: Aiden Zhou M.D. on 07/19/2024 at 7:57
[2024-07-19 08:07] LABS: Add Manual Diff / Slide Review NO; Basophils Absolute Auto 200 /uL (0-100); Basophils Percent Auto 1.5 % (0-2); Eosinophils Absolute Auto 0 /uL (0-450); Eosinophils Percent Auto 0.3 % (2-4); Hematocrit 43.3 % (36-46); Hemoglobin 14.7 g/dL (12.0-16.0); Lymphocytes Absolute Auto 2500 /uL (1100-4500); Lymphocytes Percent Auto 15.8 % (25-40); Mean Corpuscular HGB Conc 33.9 % (30-36); Mean Corpuscular Hemoglobin 29.5 PG (26-34); Monocytes Absolute Auto 500 /uL (0-900); Monocytes Percent Auto 3.4 % (3-14); Neutrophils Absolute Auto 12400 /uL (1500-7000); Platelet Count 351 X10^3/uL (150-400); Red Blood Cell Count 4.97 X10^6/uL (4.0-5.2); Red Cell Distribution Width 16.6 % (11.6-14.8); White Blood Cell Count 15.7 X10^3/uL (4.5-11.0)
[2024-07-19] MEDS: MORPHINE 4 MG/ML INJ IV (08:09)
[2024-07-19] MEDS: ONDANSETRON 4 MG/2 ML INJ IV (08:10)
[2024-07-19] MEDS: diphenhydrAMINE 25 MG TABLET PO (08:18)
[2024-07-19 08:21] LABS: Alanine Aminotransferase 23 IU/L (<35); Albumin 4.6 g/dL (3.5-5.0); Albumin Globulin Ratio 1.3 (1.0-2.8); Alkaline Phosphatase 238 U/L (38-126); Aspartate Aminotransferase 23 IU/L (14-36); BUN Creatinine Ratio 25.6 (6-22); Bilirubin Total 0.4 mg/dL (0.2-1.3); Blood Urea Nitrogen 22 mg/dL (7-17); Calcium 9.2 mg/dL (8.4-10.2); Carbon Dioxide 23 mmol/L (22-32); Chloride 99 mmol/L (98-107); Estimated Glomerular Filt Rate > 60 mL/min (>60); Globulin 3.5 g/dL (1.7-4.1); Glucose 238 mg/dL (70-99); HEMOLYSIS < 15 (0-50); Lipase 60 U/L (23-300); Magnesium 1.9 mg/dL (1.6-2.3); Potassium 3.5 mmol/L (3.4-5.1); Sodium 136 mmol/L (137-145); Total Protein 8.1 g/dL (6.3-8.2)
[2024-07-19 08:22] LABS: Lactate (Lactic Acid) 2.5 mmol/L (0.7-2.1)
--- NOTE | 2024-07-19 08:44 | PC.NURSE ---
Pt states that she is still feeling itchy and hot and still in 8/10 after dose of 4mg IV morphine. Requesting more benadryl stating that she normally gets 50-100mg IV benadryl during her infusions. Pt also requesting dilaudid for pain management. Verbal order from physician for additional 25mg PO benadryl. Pt declined PO meds. Physician notified.
[2024-07-19] MEDS: SODIUM CHLORIDE 0.9% 1,000 ML 1000 ML IV (08:51)
[2024-07-19 08:55] LABS: Appearance Urine UA CLEAR; Bilirubin Urine UA NEGATIVE (NEGATIVE); Color Urine UA YELLOW; Glucose Urine UA 3+ g/dL (Negative); Ketones Urine UA NEGATIVE (NEGATIVE); Leukocyte Esterase Urine UA NEGATIVE (NEGATIVE); Nitrite Urine UA NEGATIVE (Negative); Occult Blood Urine UA NEGATIVE (Negative); Protein Urine UA NEGATIVE (Negative); Urobilinogen Urine UA 0.2 E.U./dL (0.2)
[2024-07-19 09:05] LABS: pH Urine UA 5.5 (4.5-8.0)
[2024-07-19 09:18] LABS: Bacteria Urine Occasional (0-1); Culture Indicated Urine Cult Not Indicated; RBC Urine 0-1/HPF (0-5/HPF); Squamous Epithelial Cell Urine 5-10 /HPF (0-5/HPF); Urine Volume 10mL (spun); WBC Urine 1-5/HPF (0-5/HPF)
--- NOTE | 2024-07-19 09:36 | DI.US.S_ITS ---
PROCEDURE: US PELVIC COMPLETE INDICATIONS: LEFT PELVIC PAIN TECHNIQUE: Real-time scanning was performed of the pelvic organs, with image documentation. Additional endovaginal scanning was necessary due to incomplete visualization of the adnexal and endometrial structures by transabdominal scanning. COMPARISON: [facility], CT, CT ABDOMEN PELVIS WO CON, 07/19/2024, 8:03. FINDINGS: Uterus: Uterus is anteverted and normal in size at 5.4 x 2.7 x 3 cm. Arcuate appearance of the uterus is noted. The myometrium is heterogeneous. Calcifications are seen scattered in myometrium. 2.7 x 2.1 x 1.7 cm intramural fibroid in right anterior myometrium is seen. The endometrium measures 4.0 mm combined thickness. No endometrial mass or fluid. Ovaries: Bilateral ovaries are not visualized. No adnexal masses are seen. Other: No pathologic free abdominal or pelvic fluid. IMPRESSION: 1. Heterogeneous myometrium with multiple myometrial calcifications and at least 1 uterine fibroid as above. Arcuate appearance of uterus. No endometrial mass or fluid. 2. Bilateral ovaries are not visualized. No adnexal mass. We strive to produce accurate, complete, and clear reports of imaging services. To assist us in improving patient care, this report was composed using standard report templates and voice recognition software. Therefore, it may contain abnormal punctuation, insertions and/or omissions. Occasional wrong-word or sound-alike substitutions may occur. Though we review the report and make efforts to correct it, we do recommend that the report be read carefully in proper context to recognize any text inaccuracies. Dictated by: Anupam Dreas M.D. on 07/19/2024 at 10:29 Approved by: Anupam Deras M.D. on 07/19/2024 at 10:31
[2024-07-19 09:39] LABS: Reflexed Lactate in 2 Hours Y
--- NOTE | 2024-07-19 09:45 | PC.NURSE ---
Pt ambulated to bathroom independently and with steady gait. C/o 09/27 LLQ pain. Physician notified.
[2024-07-19] MEDS: HYDROMORPHONE 0.5 MG INJ IV (10:29)
[2024-07-19] MEDS: FAMOTIDINE 20 MG/2 ML VIAL IV (10:29)
[2024-07-19] MEDS: diphenhydrAMINE 50 MG/ML VIAL 25 MG IV (10:29)
[2024-07-19 10:56] LABS: Lactate 2HR (Lactic Acid Rflx) 1.4 mmol/L (0.7-2.1)
--- NOTE | 2024-07-19 11:39 | PC.NURSE ---
Pt states that she is 08/27 and requesting pain meds prior to dc. MD notified.
[2024-07-19] MEDS: ACETAMINOPHEN 325 MG TABLET 650 MG PO (11:57)
== END 2024-07-19 12:12 | disposition home or self-care (01) ==
PROVIDERS: Emergency Provider Student in an Organized Health Care Education/Training Program; PCP Student in an Organized Health Care Education/Training Program
DX: R10.32 Left lower quadrant pain (principal); R11.2 Nausea with vomiting, unspecified; Z87.42 Personal history of other diseases of the female genital tract; Z90.721 Acquired absence of ovaries, unilateral
CPT/HCPCS: 36415; 74176; 76830; 76856; 80053; 81001; 81003; 83605; 83690; 83735; 85025; 93005; 96361; 96374; 96375; 99284; J1171; J1200; J1642; J2270; J2405

== ENCOUNTER 2024-09-25 14:33 | Emergency (ER) | payer MEDICARE, MEDICAID, SELFPAY ==
[2024-09-25] VITALS (19 sets, daily range): BP systolic 133–198; BP diastolic 79–128; PULSE 103–118; RESP 10–33; TEMP 36.9; O2SAT 93–100; BMI 43.9
--- NOTE | 2024-09-25 15:46 | DI.RAD.S_ITS ---
PROCEDURE: XR CHEST 1V INDICATIONS: Chest Pain TECHNIQUE: One view of the chest was acquired. COMPARISON: [facility], CR, XR CHEST 1V, 04/18/2024, 11:18. [facility], CR, XR CHEST 1V, 03/10/2024, 18:14. FINDINGS: Surgical changes and devices: Left chest wall port. Lungs and pleura: Diffuse interstitial opacities and peribronchial cuffing. Mediastinum: Mediastinal contours appear normal. Heart size is enlarged. Bones and chest wall: No suspicious bony lesions. Overlying soft tissues appear unremarkable. IMPRESSION: [id number] pulmonary edema. Dictated by: Olman Celis M.D. on 09/25/2024 at 16:49 Approved by: Olman Celis M.D. on 09/25/2024 at 16:49
--- NOTE | 2024-09-25 15:46 | EKG_ITS ---
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
[2024-09-25 17:40] LABS: Add Manual Diff / Slide Review NO; Hematocrit 37.7 % (36-46); Hemoglobin 13.1 g/dL (12.0-16.0); Lymphocytes Absolute Auto 2900 /uL (1100-4500); Mean Corpuscular HGB Conc 34.7 % (30-36); Mean Corpuscular Hemoglobin 30.4 PG (26-34); Mean Corpuscular Volume 87.6 fL (80-100); Platelet Count 327 X10^3/uL (150-400)
[2024-09-25 17:48] LABS: INR 0.9 (0.9-1.3); Prothrombin Time 10.7 SECONDS (9.4-12.5)
[2024-09-25 17:50] LABS: PTT Partial Thromboplastin Tim 28 SECONDS (25.1-36.5)
[2024-09-25 18:06] LABS: Alanine Aminotransferase 18 IU/L (<35); Albumin 4.1 g/dL (3.5-5.0); Albumin Globulin Ratio 1.2 (1.0-2.8); Alkaline Phosphatase 189 U/L (38-126); Blood Urea Nitrogen 13 mg/dL (7-17); Calcium 8.7 mg/dL (8.4-10.2); Carbon Dioxide 27 mmol/L (22-32); Chloride 103 mmol/L (98-107); Creatine Kinase 101 U/L (30-135); Estimated Glomerular Filt Rate > 60 mL/min (>60); Globulin 3.5 g/dL (1.7-4.1); Glucose 103 mg/dL (70-99); HEMOLYSIS < 15 (0-50); Lipase 25 U/L (23-300); Magnesium 2.0 mg/dL (1.6-2.3); Potassium 3.3 mmol/L (3.4-5.1); Sodium 138 mmol/L (137-145); Total Protein 7.6 g/dL (6.3-8.2)
[2024-09-25 18:16] LABS: NT-proBNP (BNP-Adult 18+) 90 pg/mL (<125); Troponin I < 0.012 ng/mL (0.01-0.034)
--- NOTE | 2024-09-25 19:10 | PC.NURSE ---
Pt reports feeling sense of impending doom. Pt reports history of failed blood thinner treatments. States she has had SOB; unsure if blood clot or pulmonary edema per pt. Pt has increased her L as prescribed by md since Saturday. Pt reports walking around and laying back make her SOB worse. Pt reports pain is in her chest,shoulder, neck.Pt points to neck where shunt is. Lower extremity edema noted.
[2024-09-25 20:12] LABS: Troponin I < 0.012 ng/mL (0.01-0.034)
--- NOTE | 2024-09-25 20:22 | ED.CHESTPAIN ---
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 this morning along with shortness of breath. Related Data Home Medications ?Medication ?Instructions ?Recorded ?Confirmed acetaminophen 500 mg tablet 500 mg PO Q6H PRN 07/04/20 (Tylenol Extra Strength) ascorbic acid (vitamin C) 500 mg 500 mg PO DAILY 07/04/20 chewable tablet diclofenac sodium 1 % topical gel 2 g topical QID 07/04/20 (Arthritis Pain (diclofenac)) diltiazem HCl 240 mg 240 mg PO DAILY 07/04/20 capsule,extended release 24 hr (Cardizem CD) diphenhydramine HCl 25 mg capsule 25 mg PO QID PRN 07/04/20 (Benadryl) enoxaparin 120 mg/0.8 mL 120 mg SUBCUT DAILY 07/04/20 subcutaneous syringe erenumab-aooe 140 mg/mL 140 mg SUBCUT QMONTH 07/04/20 subcutaneous auto-injector (Aimovig Autoinjector) famotidine 20 mg tablet (Pepcid) 20 mg PO DAILY 07/04/20 furosemide 40 mg tablet (Lasix) 40 mg PO DAILY 07/04/20 hydrocodone 10 mg-acetaminophen 1 tab PO Q4-6H PRN 07/04/20 325 mg tablet hydroxyzine HCl 25 mg tablet 25 mg PO QID PRN 07/04/20 lamotrigine 100 mg tablet 100 mg PO DAILY 07/04/20 (Lamictal) lorazepam 0.5 mg tablet 0.5 mg PO DAILY PRN 07/04/20 metformin 1,000 mg tablet 1,000 mg PO BID 07/04/20 (Glucophage) omeprazole 40 mg capsule,delayed 40 mg PO DAILY 07/04/20 release ondansetron 4 mg disintegrating 4 mg PO Q8H 07/04/20 tablet sennosides 8.6 mg-docusate sodium 1 tab-cap PO BEDTIME 07/04/20 50 mg tablet (Senna with Docusate Sodium) sitagliptin phosphate 100 mg 100 mg PO DAILY 07/04/20 tablet (Januvia) tamsulosin 0.4 mg capsule (Flomax) 0.4 mg PO DAILY 07/04/20 tizanidine 4 mg capsule 4 mg PO BID PRN 07/04/20 topiramate 200 mg tablet (Topamax) 400 mg PO BID 07/04/20 venlafaxine 150 mg 150 mg PO DAILY 07/04/20 capsule,extended release 24 hr (Effexor XR) Previous Rx's ?Medication ?Instructions ?Recorded oxycodone-acetaminophen 5 mg-325 1 tab PO Q6H PRN pain #10 tabs 02/20/22 mg tablet prednisone 20 mg tablet 40 mg (2 x 20 mg) PO DAILY #10 tabs 03/22/22 Allergies Allergy/AdvReac Type Severity Reaction Status Date / Time clindamycin Allergy Severe Anaphylaxis Verified 09/25/24 15:48 hylan G-F 20 Allergy Severe Anaphylaxis Verified 09/25/24 15:48 ibuprofen Allergy Severe SOB,RASH Verified 09/25/24 15:48 Iodinated Contrast Media Allergy Severe SOB-HIVES Verified 09/25/24 15:48 iothalamic acid Allergy Severe SOB,HIVES Verified 09/25/24 15:48 iron dextran complex Allergy Severe Anaphylaxis, Verified 09/25/24 15:48 HIVES meclizine Allergy Severe Palpitation Verified 09/25/24 15:48 s shrimp Allergy Severe Anaphylaxis Verified 09/25/24 15:48 valproic acid Allergy Severe Anaphylaxis Verified 09/25/24 15:48 venom-honey bee Allergy Severe Anaphylaxis Verified 09/25/24 15:48 adhesive tape Allergy Intermediate rash Verified 09/25/24 15:48 amoxicillin (From Augmentin) Allergy Intermediate Hives Verified 09/25/24 15:48 aspirin Allergy Intermediate rash Verified 09/25/24 15:48 clavulanic acid (From Allergy Intermediate Hives Verified 09/25/24 15:48 Augmentin) codeine Allergy Intermediate Hives Verified 09/25/24 15:48 divalproex sodium Allergy Intermediate Hives Verified 09/25/24 15:48 gabapentin Allergy Intermediate Swelling Verified 09/25/24 15:48 of Lip/Tongue/Throat leuprolide Allergy Intermediate Hives Verified 09/25/24 15:48 levalbuterol Allergy Intermediate Hives Verified 09/25/24 15:48 NSAIDS (Non-Steroidal Allergy Intermediate Hives Verified 09/25/24 15:48 Anti-Inflamma promethazine Allergy Intermediate Hives Verified 09/25/24 15:48 tapentadol Allergy Intermediate rash/itchy Verified 09/25/24 15:48 vancomycin Allergy Intermediate Hives, Verified 09/25/24 15:48 ITCHING IRON SUCROSE Allergy Intermediate Hives,SOB Uncoded 09/25/24 15:48 Review of Systems Review of Systems ROS Unobtainable: All systems reviewed & are unremarkable except as noted in HPI and below Cardiovascular Cardiovascular: Reports as per HPI Respiratory Respiratory: Reports as per HPI Patient History Medical History Antiphospholipid syndrome History of endometriosis History of ovarian cyst Lupus Pseudotumor cerebri Chronic pain syndrome Cervical spondylosis Impingement syndrome of right shoulder Surgical History S/P FINANCE ADMINISTRATOR shunt H/O oophorectomy H/O brain surgery H/O thyroidectomy History of cholecystectomy Hx of appendectomy Family History Mother Diabetes mellitus Hypertension Arthritis Thrombophilia Sister Arthritis Hypertension Depression Social History Smoking Status: Never smoker Smoking Status: Never smoker alcohol intake frequency: holidays/special occasions only Exam Narrative Exam Narrative: General: Alert and conversant. Mild distress. Appears well nourished and well hydrated Craniofacial: No evidence of trauma. Nontender and no swelling. Eyes: PERRLA EOMI conjunctiva clear HEENT: Oropharynx clear with no swelling, exudate or asymmetry of the pharynx. Nares clear. No sinus tenderness Neck: No tenderness or adenopathy. No meningismus. No JVD Lungs: Clear to auscultation with good air movement. No wheezing, rales or rhonchi. No respiratory distress Cardiac: Regular rate and rhythm with no appreciable murmur or gallop Abdomen: Soft, nontender with no distention or masses. Normal bowel sounds. No rebound or guarding Musculoskeletal: Exam of the extremities, axial spine and ribcage reveals no deformity, bony tenderness or swelling. Range of motion intact Neuro: Alert and oriented. Cranial nerves, motor, sensory and cerebellar all grossly intact. No focal deficit Skin: Warm and normal color. No rashes Psychological: Normal affect and interaction. No evidence of delusion or psychosis. Normal mood. Initial Vital Signs Initial Vital Signs: Vital Signs Temperature 98.4 F 09/25/24 15:47 Pulse Rate 118 H 09/25/24 15:47 Respiratory Rate 18 09/25/24 15:47 Blood Pressure 164/109 H 09/25/24 15:47 Pulse Oximetry 97 09/25/24 15:47 Oxygen Delivery Method Room Air 09/25/24 15:47 Course Orders Ordered: ED Orders 09/25/24 17:34 Complete Blood Count AUTO DIFF Stat Comprehensive Metabolic Panel Stat Lipase Stat Magnesium Stat NT-proBNP (BNP-Adult 18+) Stat PTT Partial Thromboplastin Enrique Stat Prothrombin Time INR Stat Troponin & CK Cardiac Panel Stat 09/25/24 19:42 Trop I [Troponin I] Stat 09/25/24 20:57 CT angio chest Stat Discontinued Medications Hydrocodone Bitart/Acetaminophen (Hydrocodone/Acet 5/325 Prepack) 1 bottle MISC DIRECTED ONE Stop: 09/25/24 23:50 Last Admin: 09/26/24 00:00 Dose: 1 bottle Documented By: RON Dexamethasone (Dexamethasone 10 Mg/Ml Vial) 6 mg IV NOW ONE Stop: 09/25/24 21:33 Last Admin: 09/25/24 21:39 Dose: 6 mg Documented By: RON Diphenhydramine HCl (Diphenhydramine 50 Mg/Ml Vial) 50 mg IV NOW ONE Stop: 09/25/24 21:33 Last Admin: 09/25/24 21:38 Dose: 50 mg Documented By: RON Diphenhydramine HCl (Diphenhydramine 50 Mg/Ml Vial) 25 mg IV NOW ONE Stop: 09/25/24 22:23 Last Admin: 09/25/24 22:30 Dose: 25 mg Documented By: RON Heparin Sodium (Porcine) (Heparin 500 Unit/5 Ml Port Flush) 500 unit IV PRN PRN PRN Reason: Flush Last Admin: 09/26/24 00:00 Dose: 500 unit Documented By: RON Hydromorphone HCl (Hydromorphone 1 Mg Inj) 1 mg IV NOW ONE Stop: 09/25/24 20:59 Last Admin: 09/25/24 21:04 Dose: 1 mg Documented By: RON Hydromorphone HCl (Hydromorphone 1 Mg Inj) 1 mg IV NOW ONE Stop: 09/25/24 22:54 Last Admin: 09/25/24 22:58 Dose: 1 mg Documented By: RON Ondansetron HCl (Ondansetron 4 Mg/2 Ml Inj) 4 mg IV NOW ONE Stop: 09/25/24 20:59 Last Admin: 09/25/24 21:04 Dose: 4 mg Documented By: RON Vital Signs Vital signs: Vital Signs - 8 hr 09/25/24 18:00 09/25/24 18:00 09/25/24 18:30 Pulse Rate 107 H Respiratory Rate Blood Pressure 152/94 H 164/84 H Pulse Oximetry 95 Oxygen Delivery Method 09/25/24 18:30 09/25/24 19:00 09/25/24 19:00 Pulse Rate 103 H 111 H Respiratory Rate 20 Blood Pressure 151/128 H Pulse Oximetry 97 100 Oxygen Delivery Method 09/25/24 19:30 09/25/24 19:30 09/25/24 20:00 Pulse Rate 108 H Respiratory Rate 33 H Blood Pressure 162/95 H 171/79 H Pulse Oximetry 97 Oxygen Delivery Method Room Air 09/25/24 20:00 09/25/24 20:30 09/25/24 20:30 Pulse Rate 110 H 114 H Respiratory Rate 33 H 25 H Blood Pressure 133/105 H Pulse Oximetry 97 97 Oxygen Delivery Method 09/25/24 21:00 09/25/24 21:00 09/25/24 21:30 Pulse Rate 106 H 110 H Respiratory Rate 15 16 Blood Pressure 139/93 H Pulse Oximetry 94 95 Oxygen Delivery Method 09/25/24 22:00 09/25/24 22:22 09/25/24 22:22 Pulse Rate 110 H 117 H Respiratory Rate 10 L 21 Blood Pressure 196/93 H Pulse Oximetry 93 95 Oxygen Delivery Method 09/25/24 22:30 09/25/24 22:31 09/25/24 22:31 Pulse Rate 116 H 117 H Respiratory Rate 12 18 Blood Pressure 197/107 H Pulse Oximetry 96 96 Oxygen Delivery Method 09/25/24 22:46 09/25/24 22:46 09/25/24 23:00 Pulse Rate 111 H Respiratory Rate 19 Blood Pressure 189/97 H 195/93 H Pulse Oximetry 96 Oxygen Delivery Method 09/25/24 23:00 09/25/24 23:30 09/25/24 23:31 Pulse Rate 107 H 107 H 106 H Respiratory Rate 18 16 18 Blood Pressure Pulse Oximetry 95 93 93 Oxygen Delivery Method 09/25/24 23:31 Pulse Rate Respiratory Rate Blood Pressure 198/88 H Pulse Oximetry Oxygen Delivery Method MDM - Chest Pain Lab Data 09/25/24 17:34 09/25/24 17:34 Labs: Lab Results 09/25/24 09/25/24 Range/Units 17:34 19:42 WBC 10.5 (4.5-11.0) X10^3/uL RBC 4.30 (4.0-5.2) X10^6/uL Hgb 13.1 (12.0-16.0) g/dL Hct 37.7 (36-46) % MCV 87.6 (80-100) fL MCH 30.4 (26-34) PG MCHC 34.7 (30-36) % RDW 13.0 (11.6-14.8) % Plt Count 327 (150-400) X10^3/uL Neut % (Auto) 60.5 (50-75) % Lymph % (Auto) 27.4 (25-40) % [place] % (Auto) 8.3 (3-14) % Eos % (Auto) 3.2 (2-4) % Baso % (Auto) 0.6 (0-2) % Neut # (Auto) 6300 (5862-9245) /uL Lymph # (Auto) 2900 (5636-9786) /uL [place] # (Auto) 900 (0-900) /uL Eos # (Auto) 300 (0-450) /uL Baso # (Auto) 100 (0-100) /uL PT 10.7 (9.4-12.5) SECONDS INR 0.9 (0.9-1.3) APTT 28 (25.1-36.5) SECONDS Sodium 138 (137-145) mmol/L Potassium 3.3 L (3.4-5.1) mmol/L Chloride 103 (98-107) mmol/L Carbon Dioxide 27 (22-32) mmol/L BUN 13 (7-17) mg/dL Creatinine 0.76 (0.52-1.04) mg/dL Estimated GFR > 60 (>60) mL/min BUN/Creatinine Ratio 17.1 (6-22) Glucose 103 H (70-99) mg/dL Calcium 8.7 (8.4-10.2) mg/dL Magnesium 2.0 (1.6-2.3) mg/dL Total Bilirubin 0.3 (0.2-1.3) mg/dL AST 22 (14-36) IU/L ALT 18 (<35) IU/L Alkaline Phosphatase 189 H (38-126) U/L Total Creatine Kinase 101 (30-135) U/L Troponin I < 0.012 < 0.012 (0.01-0.034) ng/mL NT-Pro-B Natriuret Pep 90 (<125) pg/mL Total Protein 7.6 (6.3-8.2) g/dL Albumin 4.1 (3.5-5.0) g/dL Globulin 3.5 (1.7-4.1) g/dL Albumin/Globulin Ratio 1.2 (1.0-2.8) Lipase 25 (23-300) U/L Imaging Data Chest x-ray: Attestation: I personally reviewed and interpreted this imaging study as follows: My Impression: Mild to moderate congestion. No infiltrates CTA chest: Radiologist's Impression: IMPRESSION: No pulmonary embolus. Small right pleural effusion with pleural catheter in place. Areas of mild ground-glass, may represent pulmonary edema versus decreased inspiration. ECG Data Attestation: I personally reviewed and interpreted this ECG as follows: (Sinus tachycardia at 1:18 a.m.. Moderate voltage criteria for LVH. Poor R-wave progression. Otherwise no ischemic changes or interval changes.) MDM Narrative Medical decision making narrative: Patient has atypical chest pain with negative workup. Also has mild CHF exacerbation which she can manage at home by increasing her furosemide dosing. She has a history of pulmonary embolism and had an elevated D-dimer but CT scan reveals no pulmonary emboli. She has improved in the ER. She will continue at home with increasing her furosemide to 60 mg b.i.d., up from 40 b.i.d.. Also monitor symptoms and follow up closely with her provider. Return to the ER if worse Discharge Plan Departure Patient Disposition: Home Clinical Impression: Atypical chest pain, Congestive heart failure Instructions: DI for Heart Failure, DI for Atypical Chest Pain Activity Restrictions/Additional Instructions: Increase furosemide to 60 mg twice a day from 40 mg twice a day for the next 2-3 days. Contact your doctor Saturday for follow-up. Return to the ER if worse. Prescriptions: No Action prednisone 20 mg tablet 40 mg PO DAILY Qty: 10 0RF oxycodone-acetaminophen 5-325 mg tablet 1 tab PO Q6H PRN (Reason: pain) Qty: 10 0RF Aimovig Autoinjector 140 mg/mL auto-injector 140 mg SUBCUT QMONTH hydroxyzine HCl 25 mg tablet 25 mg PO QID PRN diphenhydramine HCl [Benadryl] 25 mg capsule 25 mg PO QID PRN diltiazem HCl [Cardizem CD] 240 mg capsule,extended release 24hr 240 mg PO DAILY ascorbic acid (vitamin C) 500 mg tablet,chewable 500 mg PO DAILY diclofenac sodium [Arthritis Pain (diclofenac)] 1 % gel 2 g topical QID Rx Instructions: apply to single elbow, wrist or hand; for hand includes palm/fingers/back of hand sennosides-docusate sodium [Senna with Docusate Sodium] 8.6-50 mg tablet 1 tab-cap PO BEDTIME venlafaxine [Effexor XR] 150 mg capsule,extended release 24hr 150 mg PO DAILY enoxaparin 120 mg/0.8 mL syringe 120 mg SUBCUT DAILY tamsulosin [Flomax] 0.4 mg capsule 0.4 mg PO DAILY metformin [Glucophage] 1,000 mg tablet 1,000 mg PO BID Januvia 100 mg tablet 100 mg PO DAILY lamotrigine [Lamictal] 100 mg tablet 100 mg PO DAILY furosemide [Lasix] 40 mg tablet 40 mg PO DAILY lorazepam 0.5 mg tablet 0.5 mg PO DAILY PRN tizanidine 4 mg capsule 4 mg PO BID PRN topiramate [Topamax] 200 mg tablet 400 mg PO BID acetaminophen [Tylenol Extra Strength] 500 mg tablet 500 mg PO Q6H PRN hydrocodone-acetaminophen 10-325 mg tablet 1 tab PO Q4-6H PRN omeprazole 40 mg capsule,delayed release(DR/EC) 40 mg PO DAILY ondansetron 4 mg tablet,disintegrating 4 mg PO Q8H famotidine [Pepcid] 20 mg tablet 20 mg PO DAILY Referrals: Harinder Nava [Primary Care Provider, Family Practice] Stand Alone Forms: Patient Portal/API
--- NOTE | 2024-09-25 20:57 | DI.CT.S_ITS ---
PROCEDURE: CT ANGIO CHEST INDICATIONS: hx clots, tachycardia/sob/CP TECHNIQUE: After the administration of intravenous contrast, 2 mm thick sections acquired from the pulmonary apices to the posterior costophrenic angles. 3-dimensional maximum intensity projection (MIP) coronal and sagittal reformats were then acquired through the thorax. For radiation dose reduction, the following was used: automated exposure control, adjustment of mA and/or kV according to patient size. COMPARISON: [facility], CT, CT ANGIO CHEST PE PROTOCOL, 05/09/2023, 14:05. FINDINGS: Image quality: Diagnostic. Pulmonary arteries: Pulmonary arteries are normal in size, and demonstrate no intraluminal filling defects to suggest central pulmonary embolism. Lower Neck: No enlarged lymph nodes. Thyroid: No thyroid nodules which require sonographic follow up, per consensus guidelines. Axillae: No enlarged lymph nodes. Chest Wall: Left chest wall Port-A-Cath. Bones: Degenerative changes of the spine. Lungs and Pleura: Small right pleural effusion with pleural catheter in place. Mild ground-glass may represent pulmonary edema versus decreased inspiration. Heart: Heart size is normal. No pericardial effusion. Thoracic Vessels: No aortic aneurysm. Mediastinum and Nathalie: No enlarged lymph nodes. Esophagus: No wall thickening. No hiatal hernia. Upper Abdomen: Visualized upper abdomen solid organs and bowel loops appear normal. IMPRESSION: No pulmonary embolus. Small right pleural effusion with pleural catheter in place. Areas of mild ground-glass, may represent pulmonary edema versus decreased inspiration. Dictated by: Jose White M.D. on 09/25/2024 at 23:06 Approved by: Jose White M.D. on 09/25/2024 at 23:10
[2024-09-25] MEDS: HYDROMORPHONE 1 MG INJ IV ×2 (21:04→22:58)
[2024-09-25] MEDS: ONDANSETRON 4 MG/2 ML INJ IV (21:04)
[2024-09-25] MEDS: diphenhydrAMINE 50 MG/ML VIAL IV (21:38)
[2024-09-25] MEDS: DEXAMETHASONE 10 MG/ML VIAL 6 MG IV (21:39)
[2024-09-25] MEDS: diphenhydrAMINE 50 MG/ML VIAL 25 MG IV (22:30)
--- NOTE | 2024-09-25 22:55 | PC.NURSE ---
Pt c/o 11/27 chest/back pain. Dr Feng notified, orders received.
--- NOTE | 2024-09-25 23:05 | PC.NURSE ---
After pt returned from CT around 2229, she complained of throat scratchiness, raspy voice, and itchiness to arms. Dr Feng notified, orders received for additional benedryl. Orders carried out. Pt now reports that throat sensations are resolving and voice sounds normal.
[2024-09-26] MEDS: HYDROCODONE/ACET 5/325 PREPACK 1 BOTTLE MISC
== END 2024-09-26 00:07 | disposition home or self-care (01) ==
PROVIDERS: Family Medicine; Emergency Provider Emergency Medicine; PCP Student in an Organized Health Care Education/Training Program
DX: R07.89 Other chest pain (principal); I50.9 Heart failure, unspecified; Z86.711 Personal history of pulmonary embolism
CPT/HCPCS: 36415; 71045; 71275; 80053; 82550; 83690; 83735; 83880; 84484; 85025; 85610; 85730; 93005; 96374; 96375; 96376; 99284; 99291; 99292; J1100; J1171; J1200; J1642; J2405; Q9967

== ENCOUNTER 2024-12-01 07:36 | Emergency (ER) | payer MEDICARE, MEDICAID, SELFPAY ==
[2024-12-01] VITALS (12 sets, daily range): BP systolic 130–185; BP diastolic 73–105; PULSE 94–108; RESP 11–24; TEMP 36.4; O2SAT 94–100; BMI 41.5
--- NOTE | 2024-12-01 08:02 | ED.ABDPAIN ---
HPI - Abdominal Pain General Chief Complaint: Abdominal Pain Stated Complaint: Right flank and pelvic pain Time Seen by Provider: 12/01/24 07:52 Source: patient Mode of arrival: Ambulatory History of Present Illness HPI narrative: Patient 49-year-old female history of systemic lupus steroid induced diabetes CHF pulmonary embolism antiphospholipid syndrome presenting to day with ongoing right flank pain. She reports that she has a WAREHOUSE CLERK shunt the actually ends right in the area. She was fine last night but this morning had increasing pain. Now she feels like something is poking her from the inside out. She feels nauseous. No fever no chills no chest pain. She feels like pain is wrapping from her flank into her groin. Feeling nauseous. She actually reports she had a D&C procedure done about 2 weeks ago. She thinks that that may have aggravated some of her adhesions. Related Data Home Medications ?Medication ?Instructions ?Recorded ?Confirmed acetaminophen 500 mg tablet 500 mg PO Q6H PRN 07/04/20 (Tylenol Extra Strength) ascorbic acid (vitamin C) 500 mg 500 mg PO DAILY 07/04/20 chewable tablet diclofenac sodium 1 % topical gel 2 g topical QID 07/04/20 (Arthritis Pain (diclofenac)) diltiazem HCl 240 mg 240 mg PO DAILY 07/04/20 capsule,extended release 24 hr (Cardizem CD) diphenhydramine HCl 25 mg capsule 25 mg PO QID PRN 07/04/20 (Benadryl) enoxaparin 120 mg/0.8 mL 120 mg SUBCUT DAILY 07/04/20 subcutaneous syringe erenumab-aooe 140 mg/mL 140 mg SUBCUT QMONTH 07/04/20 subcutaneous auto-injector (Aimovig Autoinjector) famotidine 20 mg tablet (Pepcid) 20 mg PO DAILY 07/04/20 furosemide 40 mg tablet (Lasix) 40 mg PO DAILY 07/04/20 hydrocodone 10 mg-acetaminophen 1 tab PO Q4-6H PRN 07/04/20 325 mg tablet hydroxyzine HCl 25 mg tablet 25 mg PO QID PRN 07/04/20 lamotrigine 100 mg tablet 100 mg PO DAILY 07/04/20 (Lamictal) lorazepam 0.5 mg tablet 0.5 mg PO DAILY PRN 07/04/20 metformin 1,000 mg tablet 1,000 mg PO BID 07/04/20 (Glucophage) omeprazole 40 mg capsule,delayed 40 mg PO DAILY 07/04/20 release ondansetron 4 mg disintegrating 4 mg PO Q8H 07/04/20 tablet sennosides 8.6 mg-docusate sodium 1 tab-cap PO BEDTIME 07/04/20 50 mg tablet (Senna with Docusate Sodium) sitagliptin phosphate 100 mg 100 mg PO DAILY 07/04/20 tablet (Januvia) tamsulosin 0.4 mg capsule (Flomax) 0.4 mg PO DAILY 07/04/20 tizanidine 4 mg capsule 4 mg PO BID PRN 07/04/20 topiramate 200 mg tablet (Topamax) 400 mg PO BID 07/04/20 venlafaxine 150 mg 150 mg PO DAILY 07/04/20 capsule,extended release 24 hr (Effexor XR) Previous Rx's ?Medication ?Instructions ?Recorded oxycodone-acetaminophen 5 mg-325 1 tab PO Q6H PRN pain #10 tabs 02/20/22 mg tablet prednisone 20 mg tablet 40 mg (2 x 20 mg) PO DAILY #10 tabs 03/22/22 Allergies Allergy/AdvReac Type Severity Reaction Status Date / Time clindamycin Allergy Severe Anaphylaxis Verified 09/25/24 15:48 hylan G-F 20 Allergy Severe Anaphylaxis Verified 09/25/24 15:48 ibuprofen Allergy Severe SOB,RASH Verified 09/25/24 15:48 Iodinated Contrast Media Allergy Severe SOB-HIVES Verified 09/25/24 15:48 iothalamic acid Allergy Severe SOB,HIVES Verified 09/25/24 15:48 iron dextran complex Allergy Severe Anaphylaxis, Verified 09/25/24 15:48 HIVES meclizine Allergy Severe Palpitation Verified 09/25/24 15:48 s shrimp Allergy Severe Anaphylaxis Verified 09/25/24 15:48 valproic acid Allergy Severe Anaphylaxis Verified 09/25/24 15:48 venom-honey bee Allergy Severe Anaphylaxis Verified 09/25/24 15:48 adhesive tape Allergy Intermediate rash Verified 09/25/24 15:48 amoxicillin (From Augmentin) Allergy Intermediate Hives Verified 09/25/24 15:48 aspirin Allergy Intermediate rash Verified 09/25/24 15:48 clavulanic acid (From Allergy Intermediate Hives Verified 09/25/24 15:48 Augmentin) codeine Allergy Intermediate Hives Verified 09/25/24 15:48 divalproex sodium Allergy Intermediate Hives Verified 09/25/24 15:48 gabapentin Allergy Intermediate Swelling Verified 09/25/24 15:48 of Lip/Tongue/Throat leuprolide Allergy Intermediate Hives Verified 09/25/24 15:48 levalbuterol Allergy Intermediate Hives Verified 09/25/24 15:48 NSAIDS (Non-Steroidal Allergy Intermediate Hives Verified 09/25/24 15:48 Anti-Inflamma promethazine Allergy Intermediate Hives Verified 09/25/24 15:48 tapentadol Allergy Intermediate rash/itchy Verified 09/25/24 15:48 vancomycin Allergy Intermediate Hives, Verified 09/25/24 15:48 ITCHING dicyclomine (From Bentyl) AdvReac Intermediate Shakiness Verified 12/01/24 07:52 IRON SUCROSE Allergy Intermediate Hives,SOB Uncoded 09/25/24 15:48 Patient History Medical History Antiphospholipid syndrome History of endometriosis History of ovarian cyst Lupus Pseudotumor cerebri Chronic pain syndrome Cervical spondylosis Impingement syndrome of right shoulder Surgical History S/P WAREHOUSE CLERK shunt H/O oophorectomy H/O brain surgery H/O thyroidectomy History of cholecystectomy Hx of appendectomy Family History Mother Diabetes mellitus Hypertension Arthritis Thrombophilia Sister Arthritis Hypertension Depression Social History Smoking Status: Never smoker Smoking Status: Never smoker alcohol intake frequency: holidays/special occasions only Exam Initial Vital Signs Initial Vital Signs: Vital Signs Temperature 97.5 F L 12/01/24 07:51 Pulse Rate 107 H 12/01/24 07:51 Respiratory Rate 17 12/01/24 07:51 Blood Pressure 157/99 H 12/01/24 07:51 Pulse Oximetry 100 12/01/24 07:51 Oxygen Delivery Method Room Air 12/01/24 07:51 GENERAL: Alert 49-year-old female appears in pain HEENT: Head atraumatic,EOMI, pupils reactive, face symmetric, [moist] mucous membranes CARDIOVASCULAR: Regular rate and rhythm without murmurs, rubs or gallops. RESPIRATORY: Breath sounds equal bilaterally, no wheezes rales or rhonchi. ABDOMEN: Soft, right-sided pain all along no significant distention some mild suprapubic pain as well : Tender right CVA tenderness EXTREMITIES: Normal range of motion, no clubbing or edema. Neurovascularly intact NEUROLOGICAL: Alert and oriented x4.Normal gait and speech. Cranial nerves II through XII grossly intact. SKIN: Warm, dry, no laceration, no petechiae, no rashes or lesions. Course Orders Ordered: ED Orders 12/01/24 08:08 CT chest abd pel w con Stat 12/01/24 08:41 Complete Blood Count AUTO DIFF Stat Comprehensive Metabolic Panel Stat Lipase Stat Discontinued Medications Diphenhydramine HCl (Diphenhydramine 50 Mg/Ml Vial) 25 mg IV NOW ONE Stop: 12/01/24 08:39 Last Admin: 12/01/24 08:50 Dose: 25 mg Documented By: ES Diphenhydramine HCl (Diphenhydramine 50 Mg/Ml Vial) 25 mg IV NOW ONE Stop: 12/01/24 08:42 Last Admin: 12/01/24 08:50 Dose: 25 mg Documented By: ES Diphenhydramine HCl (Diphenhydramine 50 Mg/Ml Vial) 50 mg IV NOW ONE Stop: 12/01/24 09:38 Last Admin: 12/01/24 09:43 Dose: 50 mg Documented By: EB Epinephrine HCl (Epinephrine 1 Mg/Ml) 0.3 mg IM NOW ONE Stop: 12/01/24 09:27 Last Admin: 12/01/24 09:31 Dose: 0.3 mg Documented By: ES Famotidine (Famotidine 20 Mg/2 Ml Vial) 20 mg IV NOW LILLIAM Last Admin: 12/01/24 09:31 Dose: 20 mg Documented By: ES Heparin Sodium (Porcine) (Heparin 500 Unit/5 Ml Port Flush) 500 unit IV PRN PRN PRN Reason: Flush Last Admin: 12/01/24 12:14 Dose: 500 unit Documented By: EB Hydromorphone HCl (Hydromorphone 1 Mg/Ml Syringe) 1 mg IV Q15MIN PRN PRN Reason: Pain, Severe (7-10) Last Admin: 12/01/24 09:26 Dose: 1 mg Documented By: Admin: 12/01/24 08:44 Dose: 1 mg Documented By: EB Hydromorphone HCl (Hydromorphone 1 Mg/Ml Syringe) 1 mg IV NOW ONE Stop: 12/01/24 11:44 Last Admin: 12/01/24 11:50 Dose: 1 mg Documented By: ES Acetaminophen (Ofirmev) 1,000 mg in 100 mls @ 400 mls/hr IV NOW ONE Stop: 12/01/24 10:29 Last Infusion: 12/01/24 10:59 Dose: Infused Documented By: Admin: 12/01/24 10:32 Dose: 400 mls/hr Documented By: ES Lorazepam (Lorazepam 2 Mg/Ml Inj) 0.5 mg IV NOW ONE Stop: 12/01/24 11:15 Last Admin: 12/01/24 11:18 Dose: 0.5 mg Documented By: NAVARRO Methylprednisolone (Methylprednisolone Succ 125 Mg/2 Ml Vial) 125 mg IV NOW ONE Stop: 12/01/24 08:39 Last Admin: 12/01/24 08:50 Dose: 125 mg Documented By: ES Ondansetron HCl (Ondansetron 4 Mg/2 Ml Inj) 4 mg IV NOW ONE Stop: 12/01/24 08:09 Last Admin: 12/01/24 08:44 Dose: 4 mg Documented By: BRYAN Pantoprazole Sodium (Pantoprazole 40 Mg Vial) 40 mg IV NOW ONE Stop: 12/01/24 08:09 Last Admin: 12/01/24 08:44 Dose: 40 mg Documented By: BRYAN Vital Signs Vital signs: Vital Signs - 8 hr 12/01/24 07:51 12/01/24 07:54 12/01/24 08:00 Temperature 97.5 F L Pulse Rate 107 H 94 H 94 H Respiratory Rate 17 19 24 Blood Pressure 157/99 H Pulse Oximetry 100 99 98 Oxygen Delivery Method Room Air 12/01/24 08:00 12/01/24 08:30 12/01/24 08:30 Temperature Pulse Rate 98 H Respiratory Rate 24 Blood Pressure 130/80 134/105 H Pulse Oximetry 100 Oxygen Delivery Method 12/01/24 09:00 12/01/24 09:00 12/01/24 09:17 Temperature Pulse Rate 104 H 105 H Respiratory Rate 19 13 Blood Pressure 144/95 H Pulse Oximetry 98 95 Oxygen Delivery Method 12/01/24 09:17 12/01/24 09:30 12/01/24 09:30 Temperature Pulse Rate 108 H Respiratory Rate 20 Blood Pressure 185/100 H 156/86 H Pulse Oximetry 100 Oxygen Delivery Method 12/01/24 10:00 12/01/24 10:30 12/01/24 10:31 Temperature Pulse Rate 107 H 105 H 107 H Respiratory Rate 22 15 21 Blood Pressure Pulse Oximetry 96 97 97 Oxygen Delivery Method 12/01/24 10:31 12/01/24 11:00 12/01/24 11:00 Temperature Pulse Rate 101 H Respiratory Rate 11 L Blood Pressure 142/73 H 149/74 H Pulse Oximetry 94 Oxygen Delivery Method 12/01/24 11:30 12/01/24 11:30 Temperature Pulse Rate 105 H Respiratory Rate 18 Blood Pressure 159/90 H Pulse Oximetry 94 Oxygen Delivery Method MDM - Abdominal Pain Lab Data 12/01/24 08:41 12/01/24 08:41 Labs: Lab Results 12/01/24 Range/Units 08:41 WBC 8.2 (4.5-11.0) X10^3/uL RBC 5.02 (4.0-5.2) X10^6/uL Hgb 14.6 (12.0-16.0) g/dL Hct 41.7 (36-46) % MCV 83.0 (80-100) fL MCH 29.1 (26-34) PG MCHC 35.1 (30-36) % RDW 14.2 (11.6-14.8) % Plt Count 358 (150-400) X10^3/uL Neut % (Auto) 53.9 (50-75) % Lymph % (Auto) 33.6 (25-40) % Taylor % (Auto) 9.0 (3-14) % Eos % (Auto) 2.6 (2-4) % Baso % (Auto) 0.9 (0-2) % Neut # (Auto) 4400 (2711-0432) /uL Lymph # (Auto) 2700 (1936-4785) /uL Taylor # (Auto) 700 (0-900) /uL Eos # (Auto) 200 (0-450) /uL Baso # (Auto) 100 (0-100) /uL Sodium 137 (137-145) mmol/L Potassium 3.2 L (3.4-5.1) mmol/L Chloride 102 (98-107) mmol/L Carbon Dioxide 24 (22-32) mmol/L BUN 12 (7-17) mg/dL Creatinine 0.82 (0.52-1.04) mg/dL Estimated GFR > 60 (>60) mL/min BUN/Creatinine Ratio 14.6 (6-22) Glucose 136 H (70-99) mg/dL Calcium 8.7 (8.4-10.2) mg/dL Total Bilirubin 0.4 (0.2-1.3) mg/dL AST 22 (14-36) IU/L ALT 18 (<35) IU/L Alkaline Phosphatase 173 H (38-126) U/L Total Protein 8.3 H (6.3-8.2) g/dL Albumin 4.7 (3.5-5.0) g/dL Globulin 3.6 (1.7-4.1) g/dL Albumin/Globulin Ratio 1.3 (1.0-2.8) Lipase 37 (23-300) U/L Point of care testing: Urine Dip Bedside Urine Glucose 1000 mg/dl Bedside Urine Bilirubin - Negative Bedside Urine Ketone - Negative Urine Specific [place] 1.010 Bedside Urine Occult Blood - Negative Bedside Urine pH 6.5 Bedside Urine Protein - Negative Bedside Urine Urobilinogen - Negative Bedside Urine Nitrite - Negative Bedside Urine Leukocytes - Negative Esterase Imaging Data CT scan - chest: Radiologist's Impression: PROCEDURE: CT CHEST ABD PEL W CON INDICATIONS: WAREHOUSE CLERK shunt with severe right sided pain.. TECHNIQUE: After the administration of intravenous contrast, 5 mm thick sections acquired from the lung apices to the symphysis. 5 mm coronal and sagittal reformats were performed, with additional 7 mm MIP reformats through the lungs. For radiation dose reduction, the following was used: automated exposure control, adjustment of mA and/or kV according to patient size. COMPARISON: [facility], CT, CT ABDOMEN PELVIS WO CON, 07/19/2024, 8:03. [facility], CT, CT ANGIO CHEST, 09/25/2024, 22:09. FINDINGS: Image quality: Excellent. CHEST: Lower Neck: No enlarged lymph nodes. Thyroid: No thyroid nodules which require sonographic follow up, per consensus guidelines. Axillae: No enlarged lymph nodes. Chest Wall: Left chest wall Port-A-Cath is seen. Right chest wall pleural catheter is again seen position unchanged from prior study. Lungs and Pleura: Pleural catheter is seen in posterior aspect of right lung base. No pneumothorax or pleural effusions. No focal infiltrate. Part solid ill-defined nodular density is seen in left apex measures 6 mm in size. No other suspicious pulmonary nodules are seen. This is a new finding since previous CT angiogram of chest study. Heart: Heart size is borderline enlarged. No pericardial effusion. Thoracic Vessels: The aorta and pulmonary arteries demonstrate normal size. Mediastinum and Nathalie: No enlarged lymph nodes. Esophagus: No wall thickening. No significant hiatal hernia. ABDOMEN: Liver: No solid mass. Gallbladder: Gallbladder is surgically absent. Biliary ducts: No biliary dilation. Pancreas: No ductal dilation. Spleen: Size is within normal limits. Adrenal Glands: No adrenal nodules. Kidneys and Ureters: No hydronephrosis. No solid mass. No complex renal cystic lesion which requires follow up. Stomach and Bowel: Normal colonic caliber, without significant wall thickening. No abscess collection. No evidence of acute appendicitis or diverticulitis. Peritoneum: No abnormal intraperitoneal fluid. No free air. Ventral Wall: No significant ventral hernia. Calcified and uncalcified injection granuloma are again seen in anterior abdominal wall. A catheter is seen in right lateral lower abdominal and pelvic wall with the tip terminating in anterior right peritoneal space unchanged from prior study and is of indeterminate significance. Abdominal Nodes: No retroperitoneal or mesenteric adenopathy by size criteria. Vessels: Aorta and inferior vena cava are normal in size. PELVIS: Pelvic Organs: Unremarkable. Bladder: No bladder wall thickening, accounting for underdistention. Pelvic Nodes: No enlarged lymph nodes. Miscellaneous: No inguinal hernias are seen. Bones: No aggressive osseous abnormality. IMPRESSION: 1. Right neck/anterior chest wall catheter tip is seen ending in posterior aspect of right lung base pleural space. Left chest wall Port-A-Cath in place. 2. No focal infiltrate, pleural effusion or pneumothorax. 6 mm part solid ill-defined nodular density in right apex new since previous study and may represent focal atelectasis. CT chest follow-up in 6 months is recommended. No other suspicious pulmonary nodule. 3. No acute inflammatory process is seen in abdomen or pelvis. No free fluid or free air. 4. Other chronic findings as above. Not significantly changed from prior studies. Dictated by: Anupam Deras M.D. on 12/01/2024 at 9:17 MDM Narrative Medical decision making narrative: MDM CC: Abdominal pain Complicating co-morbidities: WAREHOUSE CLERK shunt, antiphospholipid antibody Data collected from: Patient Medical records reviewed: Previous ED records Differential considered: Shunt malfunction nephrolithiasis bowel obstruction, cholelithiasis Exam documented above, pertinent findings include: Patient 49-year-old female appears very uncomfortable abdomen is tender right flank pains possible right upper quadrant pain Lab Test results independently reviewed as above. Pertinent findings: CBC no leukocytosis no anemia Electrolytes show mild hypokalemia with a potassium of 3.2 glucose 136 Bilirubin liver enzymes within normal limits alk-phos slightly elevated 173 lipase 37 Independently reviewed EKG as above none Imaging studies independently reviewed: CT chest abdomen and pelvis no shunt abnormality Consultations: [ ] Treatments: Solu-Medrol Benadryl for anaphylaxis to IV dye, she also epinephrine for anaphylaxis Dilaudid Tylenol lorazepam Re-evaluations: Patient is started having flushing and tickling in her throat after IV contrast despite premedication of Solu-Medrol Benadryl. She reports that typically she gets 100 mg of Benadryl so she is given another 50 along with epi. Symptoms of anaphylaxis improved very quickly. She had no tongue swelling or lip swelling she had no stridor. She continues to have intermittent abdominal pain actually IV Tylenol worked very well for her. She thinks maybe she is having a back spasm for which he is given Ativan Discussion: Patient 49-year-old female multiple medical problems presenting to day with a right-sided abdominal and back pain. Complicated by WAREHOUSE CLERK shunt where she has a PleurX catheter placed. She also says it had a D&C [address] does not show any kind of obstruction or WAREHOUSE CLERK shunt malformation. No cause of abdominal pain is found. She requires multiple medications in the ED ultimately Ativan and Dilaudid helped. She is motivated to go home she has multiple pain medications and muscle relaxers at home. No evidence of infection no need for admission. Discharge Plan Departure Patient Disposition: Home Clinical Impression: Abdominal pain Instructions: DI for Abdominal Pain-Adult Activity Restrictions/Additional Instructions: *You have been diagnosed with abdominal pain *What to do: At this time blood work and CAT scanner overall reassuring. This maybe from adhesions, *Continue to take medications as directed *Follow up with your primary care provider in 2-3 days or call [phone] *Return to ER if you should have increasing abdominal pain nausea vomiting fever [or] any new, worsening or concerning symptoms Prescriptions: No Action prednisone 20 mg tablet 40 mg PO DAILY Qty: 10 0RF oxycodone-acetaminophen 5-325 mg tablet 1 tab PO Q6H PRN (Reason: pain) Qty: 10 0RF Aimovig Autoinjector 140 mg/mL auto-injector 140 mg SUBCUT QMONTH hydroxyzine HCl 25 mg tablet 25 mg PO QID PRN diphenhydramine HCl [Benadryl] 25 mg capsule 25 mg PO QID PRN diltiazem HCl [Cardizem CD] 240 mg capsule,extended release 24hr 240 mg PO DAILY ascorbic acid (vitamin C) 500 mg tablet,chewable 500 mg PO DAILY diclofenac sodium [Arthritis Pain (diclofenac)] 1 % gel 2 g topical QID Rx Instructions: apply to single elbow, wrist or hand; for hand includes palm/fingers/back of hand sennosides-docusate sodium [Senna with Docusate Sodium] 8.6-50 mg tablet 1 tab-cap PO BEDTIME venlafaxine [Effexor XR] 150 mg capsule,extended release 24hr 150 mg PO DAILY enoxaparin 120 mg/0.8 mL syringe 120 mg SUBCUT DAILY tamsulosin [Flomax] 0.4 mg capsule 0.4 mg PO DAILY metformin [Glucophage] 1,000 mg tablet 1,000 mg PO BID Januvia 100 mg tablet 100 mg PO DAILY lamotrigine [Lamictal] 100 mg tablet 100 mg PO DAILY furosemide [Lasix] 40 mg tablet 40 mg PO DAILY lorazepam 0.5 mg tablet 0.5 mg PO DAILY PRN tizanidine 4 mg capsule 4 mg PO BID PRN topiramate [Topamax] 200 mg tablet 400 mg PO BID acetaminophen [Tylenol Extra Strength] 500 mg tablet 500 mg PO Q6H PRN hydrocodone-acetaminophen 10-325 mg tablet 1 tab PO Q4-6H PRN omeprazole 40 mg capsule,delayed release(DR/EC) 40 mg PO DAILY ondansetron 4 mg tablet,disintegrating 4 mg PO Q8H famotidine [Pepcid] 20 mg tablet 20 mg PO DAILY Referrals: Harinder Nava [Primary Care Provider, Family Practice] Stand Alone Forms: Patient Portal/API
--- NOTE | 2024-12-01 08:08 | DI.CT.S_ITS ---
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 TECHNIQUE: After the administration of intravenous contrast, 5 mm thick sections acquired from the lung apices to the symphysis. 5 mm coronal and sagittal reformats were performed, with additional 7 mm MIP reformats through the lungs. For radiation dose reduction, the following was used: automated exposure control, adjustment of mA and/or kV according to patient size. COMPARISON: [facility], CT, CT ABDOMEN PELVIS WO CON, 07/19/2024, 8:03. [facility], CT, CT ANGIO CHEST, 09/25/2024, 22:09. FINDINGS: Image quality: Excellent. CHEST: Lower Neck: No enlarged lymph nodes. Thyroid: No thyroid nodules which require sonographic follow up, per consensus guidelines. Axillae: No enlarged lymph nodes. Chest Wall: Left chest wall Port-A-Cath is seen. Right chest wall pleural catheter is again seen position unchanged from prior study. Lungs and Pleura: Pleural catheter is seen in posterior aspect of right lung base. No pneumothorax or pleural effusions. No focal infiltrate. Part solid ill-defined nodular density is seen in left apex measures 6 mm in size. No other suspicious pulmonary nodules are seen. This is a new finding since previous CT angiogram of chest study. Heart: Heart size is borderline enlarged. No pericardial effusion. Thoracic Vessels: The aorta and pulmonary arteries demonstrate normal size. Mediastinum and Nathalie: No enlarged lymph nodes. Esophagus: No wall thickening. No significant hiatal hernia. ABDOMEN: Liver: No solid mass. Gallbladder: Gallbladder is surgically absent. Biliary ducts: No biliary dilation. Pancreas: No ductal dilation. Spleen: Size is within normal limits. Adrenal Glands: No adrenal nodules. Kidneys and Ureters: No hydronephrosis. No solid mass. No complex renal cystic lesion which requires follow up. Stomach and Bowel: Normal colonic caliber, without significant wall thickening. No abscess collection. No evidence of acute appendicitis or diverticulitis. Peritoneum: No abnormal intraperitoneal fluid. No free air. Ventral Wall: No significant ventral hernia. Calcified and uncalcified injection granuloma are again seen in anterior abdominal wall. A catheter is seen in right lateral lower abdominal and pelvic wall with the tip terminating in anterior right peritoneal space unchanged from prior study and is of indeterminate significance. Abdominal Nodes: No retroperitoneal or mesenteric adenopathy by size criteria. Vessels: Aorta and inferior vena cava are normal in size. PELVIS: Pelvic Organs: Unremarkable. Bladder: No bladder wall thickening, accounting for underdistention. Pelvic Nodes: No enlarged lymph nodes. Miscellaneous: No inguinal hernias are seen. Bones: No aggressive osseous abnormality. IMPRESSION: 1. Right neck/anterior chest wall catheter tip is seen ending in posterior aspect of right lung base pleural space. Left chest wall Port-A-Cath in place. 2. No focal infiltrate, pleural effusion or pneumothorax. 6 mm part solid ill- defined nodular density in right apex new since previous study and may represent focal atelectasis. CT chest follow-up in 6 months is recommended. No other suspicious pulmonary nodule. 3. No acute inflammatory process is seen in abdomen or pelvis. No free fluid or free air. 4. Other chronic findings as above. Not significantly changed from prior studies. Dictated by: Anupam Deras M.D. on 12/01/2024 at 9:17 Approved by: Anupam Deras M.D. on 12/01/2024 at 9:26
[2024-12-01] MEDS: PANTOPRAZOLE 40 MG VIAL IV (08:44)
[2024-12-01] MEDS: ONDANSETRON 4 MG/2 ML INJ IV (08:44)
[2024-12-01] MEDS: diphenhydrAMINE 50 MG/ML VIAL 25 MG IV ×2 (08:50)
[2024-12-01] MEDS: methylPREDNISolone succ 125 MG/2 ML VIAL IV (08:50)
[2024-12-01 09:02] LABS: Add Manual Diff / Slide Review NO; Alanine Aminotransferase 18 IU/L (<35); Albumin 4.7 g/dL (3.5-5.0); Albumin Globulin Ratio 1.3 (1.0-2.8); Alkaline Phosphatase 173 U/L (38-126); Blood Urea Nitrogen 12 mg/dL (7-17); Calcium 8.7 mg/dL (8.4-10.2); Carbon Dioxide 24 mmol/L (22-32); Chloride 102 mmol/L (98-107); Estimated Glomerular Filt Rate > 60 mL/min (>60); Globulin 3.6 g/dL (1.7-4.1); Glucose 136 mg/dL (70-99); HEMOLYSIS < 15 (0-50); Hematocrit 41.7 % (36-46); Hemoglobin 14.6 g/dL (12.0-16.0); Lipase 37 U/L (23-300); Lymphocytes Absolute Auto 2700 /uL (1100-4500); Mean Corpuscular HGB Conc 35.1 % (30-36); Mean Corpuscular Hemoglobin 29.1 PG (26-34); Mean Corpuscular Volume 83.0 fL (80-100); Platelet Count 358 X10^3/uL (150-400); Potassium 3.2 mmol/L (3.4-5.1); Sodium 137 mmol/L (137-145); Total Protein 8.3 g/dL (6.3-8.2)
[2024-12-01] MEDS: EPINEPHrine 1 MG/ML 0.3 MG IM (09:31)
[2024-12-01] MEDS: FAMOTIDINE 20 MG/2 ML VIAL IV (09:31)
[2024-12-01] MEDS: diphenhydrAMINE 50 MG/ML VIAL IV (09:43)
[2024-12-01] MEDS: ACETAMINOPHEN IV 1,000 MG/100 ML VIAL 400 MG IV (10:32)
== END 2024-12-01 12:17 | disposition home or self-care (01) ==
PROVIDERS: Emergency Provider Emergency Medicine; PCP Student in an Organized Health Care Education/Training Program
DX: R10.31 Right lower quadrant pain (principal); T50.8X5A Adverse effect of diagnostic agents, initial encounter
CPT/HCPCS: 36415; 71260; 74177; 80053; 81003; 83690; 85025; 96365; 96372; 96375; 96376; 99284; J0131; J0165; J1171; J1200; J1642; J2060; J2405; J2470; J2919; Q9967